=== PATIENT | female | born 1950 | race Caucasian/White ===

== ENCOUNTER 2024-12-19 08:00 | Inpatient (IN) | payer MEDICARE ==
[2024-12-19 08:06] LABS: Glucose,Whole Blood 273 mg/dL (70-110)
--- NOTE | 2024-12-19 08:28 | ED ---
General Adult HPI - General Chief complaint: Shortness of Breath Stated complaint: TRACI Time Seen by Provider: 12/19/24 08:03 Source: patient, EMS, RN notes reviewed, old records reviewed Mode of arrival: EMS Limitations: altered mental status, physical limitation - History of Present Illness Initial comments: 74-year-old female presented from [facility] with dyspnea. History is quite limited on this patient. She has apparently had prior stroke and is bedbound. She was recently admitted to [facility] and apparently was found this morning with increased dyspnea and work of breathing. Patient was hypoxic when found by paramedics and she was placed on CPAP. She was given albuterol, Atrovent, Solu- Medrol. Patient is lethargic but able to answer simple questions. She denies pain complaints. There is no history of vomiting. No history of fever. - Related Data Home Medications Medication Instructions Recorded Confirmed Acetaminophen Tab [Tylenol] 650 mg PEG/G-TUBE Q4H PRN 12/19/24 12/19/24 Aspirin 81 mg PEG/G-TUBE DAILY 12/19/24 12/19/24 Atorvastatin [Lipitor] 40 mg PEG/G-TUBE HS 12/19/24 12/19/24 Bromocriptine Mesylate 2.5 mg PEG/G-TUBE Q8H 12/19/24 12/19/24 Fenofibrate 160 mg PEG/G-TUBE DAILY 12/19/24 12/19/24 INSULIN LISPRO (HumaLOG) [HumaLOG] See Protocol SQ ACHS 12/19/24 12/19/24 Insulin NPH Human Isophane 30 units SQ Q8H 12/19/24 12/19/24 [NovoLIN N] Ipratropium-Albuterol Nebulize 3 ml INHALATION RT-BID 12/19/24 12/19/24 [Duoneb 0.5 mg-3 mg/3 ml Soln] Lactulose 20 gm PEG/G-TUBE TID 12/19/24 12/19/24 Propranolol [Inderal] 10 mg PEG/G-TUBE TID 12/19/24 12/19/24 Valproic Acid Oral Soln [Depakene 250 mg PEG/G-TUBE BID 12/19/24 12/19/24 Syrup] amLODIPine [Norvasc] 5 mg PEG/G-TUBE DAILY 12/19/24 12/19/24 amantadine HCL 100 mg PEG/G-TUBE Q12H 12/19/24 12/19/24 lisinopriL [Zestril] 40 mg PEG/G-TUBE DAILY 12/19/24 12/19/24 Allergies Allergy/AdvReac Type Severity Reaction Status Date / Time No Known Allergies Allergy Verified 12/19/24 10:33 Review of Systems ROS Statement: Those systems with pertinent positive or pertinent negative responses have been documented in the HPI. ROS Other: All systems not noted in ROS Statement are negative. Past Medical History Past Medical History: CVA/TIA History of Any Multi-Drug Resistant Organisms: Unobtainable Past Psychological History: Unable to Obtain Smoking Status: Unknown if ever smoked Past Alcohol Use History: Unable to Obtain Past Drug Use History: Unable to Obtain General Exam Limitations: altered mental status, physical limitation General appearance: lethargic, in distress Head exam: Present: atraumatic, normocephalic Eye exam: Present: normal appearance, PERRL ENT exam: Present: mucous membranes dry Neck exam: Present: normal inspection. Absent: tenderness, meningismus Respiratory exam: Present: respiratory distress, rhonchi, decreased breath sounds Cardiovascular Exam: Present: regular rate, normal rhythm GI/Abdominal exam: Present: soft, other (Recent PEG tube). Absent: distended Extremities exam: Present: normal inspection, normal capillary refill Skin exam: Present: warm Course Vital Signs 12/19/24 12/19/24 12/19/24 08:04 08:05 10:11 Temperature 98.2 F Pulse Rate 75 81 Respiratory 42 H 30 H Rate Blood Pressure 149/85 156/69 O2 Sat by Pulse 99 Oximetry Fraction of 40 Inspired Oxygen (FIO2) Medical Decision Making - Medical Decision Making Was pt. sent in by a medical professional or institution (, PA, MERCHANDISE COORDINATOR, urgent care, hospital, or [facility]...) When possible be specific @ -No Did you speak to anyone other than the patient for history (EMS, parent, family, police, friend...)? What history was obtained from this source @ -No Did you review nursing and triage notes (agree or disagree)? Why? @ -I reviewed and agree with nursing and triage notes Were old charts reviewed (outside hosp., previous admission, EMS record, old EKG, old radiological studies, urgent care reports/EKG's, [facility] records)? Report findings @ -No old charts were reviewed Differential Diagnosis (chest pain, altered mental status, abdominal pain women, abdominal pain men, vaginal bleeding, weakness, fever, dyspnea, syncope, headache, dizziness, GI bleed, back pain, seizure, CVA, palpatations, mental health, musculoskeletal)? @ -Not applicable EKG interpreted by me (3pts min.). @ -[Sinus rhythm rate of 78, IN interval 149, QRS duration 100, QTc [address] segment elevation. X-rays interpreted by me (1pt min.). @Chest x-ray is negative for consolidated pneumonia CT interpreted by me (1pt min.). @ -None done U/S interpreted by me (1pt. min.). @ -None done What testing was considered but not performed or refused? (CT, X-rays, U/S, labs)? Why? @ -None What meds were considered but not given or refused? Why? @ -None Did you discuss the management of the patient with other professionals (professionals i.e. , PA, MERCHANDISE COORDINATOR, lab, RT, psych nurse, social work administrator, siderographer, teacher, control officer manager, pillowcase cleaner)? Give summary @Vandana Was smoking cessation discussed for >3mins.? @ -No Was critical care preformed (if so, how long)? @Yes, 35 minutes Were there social determinants of health that impacted care today? How? (Homelessness, low income, unemployed, alcoholism, drug addiction, transportation, low edu. Level, literacy, decrease access to med. care, detention, rehab)? @ -No Was there de-escalation of care discussed even if they declined (Discuss DNR or withdrawal of care, Hospice)? DNR status @ -No What co-morbidities impacted this encounter? (DM, HTN, Smoking, COPD, CAD, Cancer, CVA, ARF, Chemo, Hep., AIDS, mental health diagnosis, sleep apnea, morbid obesity)? @ -[Bedbound, history of CVA Was patient admitted / discharged? Hospital course, mention meds given and route, prescriptions, significant lab abnormalities, going to OR and other per tinent info. @ -24-year-old female presenting for evaluation of dyspnea. Patient was hypoxic requiring CPAP. She has a reported history of aspiration. She does have what appears to be a recent PEG tube on examination. She has bilateral rhonchi. Vital signs are stable with the exception of tachypnea. Chest x-ray is clear without consolidated pneumonia. She has a leukocytosis, she is hypergl ycemic with no normal electrolytes, negative troponin, negative BNP. Urinalysis is pending. Blood culture pending. And viral panel pending. Patient will be admitted for hypoxic respiratory failure. She is covered with antibiotics given the leukocytosis and recent aspiration. Admitted to [facility]. Undiagnosed new problem with uncertain prognosis? @ -No Drug Therapy requiring intensive monitoring for toxicity (Heparin, Nitro, Insulin, Cardizem)? @ -No Were any procedures done? @ -No Diagnosis/symptom? @ -Hypoxic respiratory failure, leukocytosis Acute, or Chronic, or Acute on Chronic? @ -Acute Uncomplicated (without systemic symptoms) or Complicated (systemic symptoms)? @ -Default Side effects of treatment? @ -No Exacerbation, Progression, or Severe Exacerbation? @ -No Poses a threat to life or bodily function? How? (Chest pain, USA, CA, pneumonia, PE, COPD, DKA, ARF, appy, cholecystitis, CVA, Diverticulitis, Homicidal, Suicidal, threat to staff... and all critical care pts) @ -Yes, respiratory failure, hypoxia, sepsis - Lab Data Result diagrams: 12/19/24 08:10 12/19/24 08:10 Lab Results 12/19/24 12/19/24 12/19/24 Range/Units 08:05 08:10 08:10 WBC 15.38 H (4.50-10.00) 10*3/uL RBC 4.60 (4.10-5.20) 10*6/uL Hgb 13.8 (12.0-15.0) g/dL Hct 41.9 (37.2-46.3) % MCV 91.1 (80.0-97.0) fL MCH 30.0 (27.0-32.0) pg MCHC 32.9 (32.0-37.0) g/dL Plt Count 282 (140-440) 10*3/uL MPV 10.7 (9.5-12.2) fL Immature Gran % (Auto) 2.2 % Neutrophils % 79.3 % Lymphocytes % 13.3 % Monocytes % 4.3 % Eosinophils % 0.5 % Basophils % 0.4 % Immature Gran # 0.34 H (0.00-0.04) 10*3/uL Neutrophils # 12.20 H (1.80-7.70) 10*3/uL Lymphocytes # 2.05 (0.90-5.00) 10*3/uL Monocytes # 0.66 (0.20-1.00) 10*3/uL Eosinophils # 0.07 (0.04-0.35) 10*3/uL Basophils # 0.06 (0.00-0.10) 10*3/uL PT 9.6 L (10.0-12.5) sec INR 0.8 (<1.2) APTT 21.0 L (22.0-30.0) sec VBG pH (7.31-7.41) VBG pCO2 (37-51) mmHg VBG HCO3 (24-28) mmol/L Sodium (137-145) mmol/L Potassium (3.5-5.1) mmol/L Chloride (98-107) mmol/L Carbon Dioxide (22-30) mmol/L Anion Gap mmol/L BUN (7-17) mg/dL Creatinine (0.52-1.04) mg/dL Est GFR (CKD-EPI)AfAm (>60 ml/min/1.73 sqM) Est GFR (CKD-EPI)NonAf (>60 ml/min/1.73 sqM) Glucose (74-99) mg/dL POC Glucose (mg/dL) 273 H (70-110) mg/dL POC Glu Bowl Attendant ID Brijesh Olivas Plasma Lactic Acid Darrel (0.7-2.0) mmol/L Calcium (8.4-10.2) mg/dL Magnesium (1.6-2.3) mg/dL Total Bilirubin (0.2-1.3) mg/dL AST (14-36) U/L ALT (4-34) U/L Alkaline Phosphatase (38-126) U/L Troponin I (0.000-0.034) ng/mL NT-Pro-B Natriuret Pep pg/mL Total Protein (6.3-8.2) g/dL Albumin (3.5-5.0) g/dL 12/19/24 12/19/24 12/19/24 Range/Units 08:10 08:10 08:10 WBC (4.50-10.00) 10*3/uL RBC (4.10-5.20) 10*6/uL Hgb (12.0-15.0) g/dL Hct (37.2-46.3) % MCV (80.0-97.0) fL MCH (27.0-32.0) pg MCHC (32.0-37.0) g/dL Plt Count (140-440) 10*3/uL MPV (9.5-12.2) fL Immature Gran % (Auto) % Neutrophils % % Lymphocytes % % Monocytes % % Eosinophils % % Basophils % % Immature Gran # (0.00-0.04) 10*3/uL Neutrophils # (1.80-7.70) 10*3/uL Lymphocytes # (0.90-5.00) 10*3/uL Monocytes # (0.20-1.00) 10*3/uL Eosinophils # (0.04-0.35) 10*3/uL Basophils # (0.00-0.10) 10*3/uL PT (10.0-12.5) sec INR (<1.2) APTT (22.0-30.0) sec VBG pH (7.31-7.41) VBG pCO2 (37-51) mmHg VBG HCO3 (24-28) mmol/L Sodium 134 L (137-145) mmol/L Potassium 5.6 H (3.5-5.1) mmol/L Chloride 102 (98-107) mmol/L Carbon Dioxide 28 (22-30) mmol/L Anion Gap 4 mmol/L BUN 33 H (7-17) mg/dL Creatinine 0.60 (0.52-1.04) mg/dL Est GFR (CKD-EPI)AfAm >90 (>60 ml/min/1.73 sqM) Est GFR (CKD-EPI)NonAf >90 (>60 ml/min/1.73 sqM) Glucose 285 H (74-99) mg/dL POC Glucose (mg/dL) (70-110) mg/dL POC Glu Bowl Attendant ID Plasma Lactic Acid Darrel 1.1 (0.7-2.0) mmol/L Calcium 9.7 (8.4-10.2) mg/dL Magnesium 2.3 (1.6-2.3) mg/dL Total Bilirubin 0.9 (0.2-1.3) mg/dL AST 55 H (14-36) U/L ALT 54 H (4-34) U/L Alkaline Phosphatase 72 (38-126) U/L Troponin I <0.012 (0.000-0.034) ng/mL NT-Pro-B Natriuret Pep 220 pg/mL Total Protein 5.8 L (6.3-8.2) g/dL Albumin 3.4 L (3.5-5.0) g/dL 12/19/24 Range/Units 08:10 WBC (4.50-10.00) 10*3/uL RBC (4.10-5.20) 10*6/uL Hgb (12.0-15.0) g/dL Hct (37.2-46.3) % MCV (80.0-97.0) fL MCH (27.0-32.0) pg MCHC (32.0-37.0) g/dL Plt Count (140-440) 10*3/uL MPV (9.5-12.2) fL Immature Gran % (Auto) % Neutrophils % % Lymphocytes % % Monocytes % % Eosinophils % % Basophils % % Immature Gran # (0.00-0.04) 10*3/uL Neutrophils # (1.80-7.70) 10*3/uL Lymphocytes # (0.90-5.00) 10*3/uL Monocytes # (0.20-1.00) 10*3/uL Eosinophils # (0.04-0.35) 10*3/uL Basophils # (0.00-0.10) 10*3/uL PT (10.0-12.5) sec INR (<1.2) APTT (22.0-30.0) sec VBG pH 7.42 H (7.31-7.41) VBG pCO2 41 (37-51) mmHg VBG HCO3 26 (24-28) mmol/L Sodium (137-145) mmol/L Potassium (3.5-5.1) mmol/L Chloride (98-107) mmol/L Carbon Dioxide (22-30) mmol/L Anion Gap mmol/L BUN (7-17) mg/dL Creatinine (0.52-1.04) mg/dL Est GFR (CKD-EPI)AfAm (>60 ml/min/1.73 sqM) Est GFR (CKD-EPI)NonAf (>60 ml/min/1.73 sqM) Glucose (74-99) mg/dL POC Glucose (mg/dL) (70-110) mg/dL POC Glu Bowl Attendant ID Plasma Lactic Acid Darrel (0.7-2.0) mmol/L Calcium (8.4-10.2) mg/dL Magnesium (1.6-2.3) mg/dL Total Bilirubin (0.2-1.3) mg/dL AST (14-36) U/L ALT (4-34) U/L Alkaline Phosphatase (38-126) U/L Troponin I (0.000-0.034) ng/mL NT-Pro-B Natriuret Pep pg/mL Total Protein (6.3-8.2) g/dL Albumin (3.5-5.0) g/dL Critical Care Time Critical Care Time: Yes Total Critical Care Time: 35 Disposition Clinical Impression: Respiratory failure, Leukocytosis Disposition: ADMITTED IP TO THIS HOSP Condition: Stable Is patient prescribed a controlled substance at d/c from ED?: No Referrals: Nonstaff,Physician [REFERRING] - 1-2 days Time of Disposition: 10:46
--- NOTE | 2024-12-19 08:53 | XR ---
EXAMINATION TYPE: XR chest 1V portable DATE OF EXAM: 12/19/2024 8:49 AM COMPARISON: None. CLINICAL INDICATION: Female, 74 years old with history of arabella, TECHNIQUE: XR chest 1V portable view(s) obtained. FINDINGS: The heart size is normal. The pulmonary vasculature is normal. The lungs are clear. IMPRESSION: 1. No acute pulmonary process. [facility], , 12/19/2024 8:51 AM
[2024-12-19 09:03] LABS: Basophils # (A) 0.06 10*3/uL (0.00-0.10); Basophils % (A) 0.4 %; Eosinophils # (A) 0.07 10*3/uL (0.04-0.35); Eosinophils % (A) 0.5 %; HCT 41.9 % (37.2-46.3); HGB 13.8 g/dL (12.0-15.0); Lymphocytes # (A) 2.05 10*3/uL (0.90-5.00); Lymphocytes % (A) 13.3 %; MCHC 32.9 g/dL (32.0-37.0); MCV 91.1 fL (80.0-97.0); Mean Platelet Volume 10.7 fL (9.5-12.2); Monocytes # (A) 0.66 10*3/uL (0.20-1.00); Monocytes % (A) 4.3 %; Neutrophils % (A) 79.3 %; Platelet Count 282 10*3/uL (140-440); RDW 15.9 % (11.5-14.5); WBC 15.38 10*3/uL (4.50-10.00)
[2024-12-19 09:04] LABS: VBG PH 7.42 (7.31-7.41)
[2024-12-19 09:29] LABS: INR 0.8 (<1.2); Prothrombin Time 9.6 sec (10.0-12.5)
[2024-12-19 09:32] LABS: ALT 54 U/L (4-34); AST 55 U/L (14-36); African American GFR (CKD) >90 (>60 ml/min/1.73 sqM); Albumin 3.4 g/dL (3.5-5.0); Alkaline Phosphatase 72 U/L (38-126); Anion Gap 4 mmol/L; Blood Urea Nitrogen 33 mg/dL (7-17); Calcium 9.7 mg/dL (8.4-10.2); Carbon Dioxide 28 mmol/L (22-30); Chloride 102 mmol/L (98-107); Glucose 285 mg/dL (74-99); Magnesium 2.3 mg/dL (1.6-2.3); Non-African American GFR(CKD) >90 (>60 ml/min/1.73 sqM); Potassium 5.6 mmol/L (3.5-5.1); Sodium 134 mmol/L (137-145); Total Bilirubin 0.9 mg/dL (0.2-1.3); Total Protein 5.8 g/dL (6.3-8.2)
[2024-12-19 09:40] LABS: NT-Pro-B-Type Natriuretic Pept 220 pg/mL
[2024-12-19] MEDS: SODIUM CHLORIDE 0.9% 1,000 ML IV SCH (10:13)
[2024-12-19] MEDS: SODIUM CHLORIDE 0.9% 500 ML 500 ML IV ONE (10:13)
[2024-12-19] MEDS ORDERED: NALOXONE 0.4 MG/ML 1 ML VIAL IV PRN (10:46)
[2024-12-19] MEDS: AZITHROMYCIN 500 MG in SODIUM CHLORIDE 0.9% 250 ML IVPB STA (11:07)
[2024-12-19 11:39] LABS: Appearance,Urine Cloudy (Clear); Bacteria,Urine Many /hpf; Bilirubin,Urine Negative (Negative); Blood,Urine Moderate (Negative); Budding Yeast,Urine Few /hpf; Color,Urine Yellow; Glucose,Urine (UA) 4+ (Negative); Ketones,Urine Trace (Negative); Leukocyte Esterase,Urine Large (Negative); Mucus,Urine Moderate /hpf; Nitrite,Urine Negative (Negative); PH, Urine 5.5 (5.0-8.0); Protein,Urine 1+ (Negative); RBC,Urine 24 /hpf (0-5); Specific Gravity,Urine 1.022 (1.001-1.035); Squamous Epithelial Cell,Urine <1 /hpf (0-4); Urobilinogen,Urine <2.0 mg/dL (<2.0); WBC,Urine 55 /hpf (0-5)
[2024-12-19 11:53] LABS: Influenza A Not Detected (Not Detectd); Influenza B Not Detected (Not Detectd); RSV Not Detected (Not Detectd)
[2024-12-20 12:49] LABS: Basophils # (A) 0.04 10*3/uL (0.00-0.10); Basophils % (A) 0.3 %; Eosinophils # (A) 0.01 10*3/uL (0.04-0.35); Eosinophils % (A) 0.1 %; HCT 37.2 % (37.2-46.3); HGB 12.1 g/dL (12.0-15.0); Lymphocytes # (A) 1.66 10*3/uL (0.90-5.00); Lymphocytes % (A) 13.1 %; MCH 30.1 pg (27.0-32.0); MCHC 32.5 g/dL (32.0-37.0); MCV 92.5 fL (80.0-97.0); Mean Platelet Volume 10.1 fL (9.5-12.2); Monocytes # (A) 0.91 10*3/uL (0.20-1.00); Monocytes % (A) 7.2 %; Neutrophils # (A) 9.86 10*3/uL (1.80-7.70); Neutrophils % (A) 77.8 %; Platelet Count 246 10*3/uL (140-440); RBC 4.02 10*6/uL (4.10-5.20); RDW 15.3 % (11.5-14.5); WBC 12.67 10*3/uL (4.50-10.00)
[2024-12-20 12:59] LABS: African American GFR (CKD) >90 (>60 ml/min/1.73 sqM); Anion Gap 4 mmol/L; Blood Urea Nitrogen 35 mg/dL (7-17); Calcium 9.6 mg/dL (8.4-10.2); Carbon Dioxide 27 mmol/L (22-30); Chloride 108 mmol/L (98-107); Glucose 343 mg/dL (74-99); Non-African American GFR(CKD) >90 (>60 ml/min/1.73 sqM); Potassium 4.9 mmol/L (3.5-5.1); Sodium 139 mmol/L (137-145)
--- NOTE | 2024-12-20 13:26 | P.HPIM ---
History of Present Illness Patient returns on 10-year-old female was sent in from skilled nursing because of hypoxemia. Patient is on 3 days of allergen azithromycin dose of allergen patient does have history of COPD. 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 Patient blood sugars are high as well patient clinically does not seem to be in COPD exacerbation at this time her oxygen saturation are within normal limits on 3 L of oxygen. Patient's D-dimer is elevated because of which we are obtaining CT of the chest. Patient does have a stage II sacral decubitus ulcer which does not appear to be infected patient denies any UTI symptoms does have leukocytosis urine is abnormal because of the Bragg catheter which will be replaced. Patient was started on Rocephin which I will discontinue at this time. REVIEW OF SYSTEMS: All other systems are negative except those mentioned in the HPI PHYSICAL EXAMINATION: GENERAL: The patient is alert and oriented x3, not in any acute distress. Well developed, well nourished. HEENT: Pupils are round and equally reacting to light. EOMI. No scleral icterus. No conjunctival pallor. Normocephalic, atraumatic. No pharyngeal erythema. No thyromegaly. CARDIOVASCULAR: S1 and S2 present. No murmurs, rubs, or gallops. PULMONARY: Chest is clear to auscultation, no wheezing or crackles. ABDOMEN: Soft, nontender, nondistended, normoactive bowel sounds. No palpable organomegaly. MUSCULOSKELETAL: No joint swelling or deformity. EXTREMITIES: No cyanosis, clubbing, or pedal edema. NEUROLOGICAL: Flaccid paralysis on the right side SKIN: Sacral decub is also stage III does not appear to be infected Assessment and plan -Hypoxia etiology is not clear patient does not appear to be in COPD exacerbation patient not be started on systemic steroids patient has uncontrolled type 2 diabetes mellitus. Will obtain CT rule out pulmonary embolism because of elevated D-dimer and unexplained hypoxemia - Type 2 diabetes mellitus uncontrolled elevated blood sugars patient seen and insulin regimen will be changed to basal bolus regimen patient was started on 25 units of Lantus twice a day along with sliding scale Premeal insulin. -Sacral decubitus ulcer which does not appear to be infected - Abnormal urine secondary to Bragg catheter which will be replaced since patient has leukocytosis this can be considered as catheter related UTI for which the treatment is with change of Bragg catheter antibiotics will be discontinued. - Chronic hypoxic and hypercapnic respiratory failure secondary to COPD does not appear to be in acute exacerbation at this time - Nicotine use history which she discontinued since her stroke - Hyperlipidemia - Hypertension - Hypothyroidism For above-mentioned chronic medical problems patient will be resumed on appropriate home medications DVT prophylaxis: Lovenox Past Medical History Past Medical History: CVA/TIA, Diabetes Mellitus, Hyperlipidemia, Hypertension, Thyroid Disorder Additional Past Medical History / Comment(s): Lactic acidosis, acute respiratory failure, dysphagia, right sided paralysis related to stroke History of Any Multi-Drug Resistant Organisms: None Reported Past Surgical History: Unable to Obtain Additional Past Surgical History / Comment(s): tubal ligation Past Anesthesia/Blood Transfusion Reactions: No Reported Reaction Smoking Status: Current every day smoker, Former smoker, Unknown if ever smoked Medications and Allergies Home Medications Medication Instructions Recorded Confirmed Type Acetaminophen Tab [Tylenol] 650 mg PEG/G-TUBE Q4H PRN 12/19/24 12/19/24 History Aspirin 81 mg PEG/G-TUBE DAILY 12/19/24 12/19/24 History Atorvastatin [Lipitor] 40 mg PEG/G-TUBE HS 12/19/24 12/19/24 History Bromocriptine Mesylate 2.5 mg PEG/G-TUBE Q8H 12/19/24 12/19/24 History Fenofibrate 160 mg PEG/G-TUBE DAILY 12/19/24 12/19/24 History INSULIN LISPRO (HumaLOG) [HumaLOG] See Protocol SQ ACHS 12/19/24 12/19/24 History Insulin NPH Human Isophane 30 units SQ Q8H 12/19/24 12/19/24 History [NovoLIN N] Ipratropium-Albuterol Nebulize 3 ml INHALATION RT-BID 12/19/24 12/19/24 History [Duoneb 0.5 mg-3 mg/3 ml Soln] Lactulose 20 gm PEG/G-TUBE TID 12/19/24 12/19/24 History Propranolol [Inderal] 10 mg PEG/G-TUBE TID 12/19/24 12/19/24 History Valproic Acid Oral Soln [Depakene 250 mg PEG/G-TUBE BID 12/19/24 12/19/24 History Syrup] amLODIPine [Norvasc] 5 mg PEG/G-TUBE DAILY 12/19/24 12/19/24 History amantadine HCL 100 mg PEG/G-TUBE Q12H 12/19/24 12/19/24 History lisinopriL [Zestril] 40 mg PEG/G-TUBE DAILY 12/19/24 12/19/24 History Allergies Allergy/AdvReac Type Severity Reaction Status Date / Time No Known Allergies Allergy Verified 12/19/24 10:33 Physical Exam Vitals: Vital Signs Temp Pulse Resp BP Pulse Ox FiO2 12/20/24 11:32 72 16 151/70 100 12/20/24 11:17 100 12/20/24 10:30 66 14 141/58 100 12/20/24 07:33 40 12/20/24 06:00 71 20 149/70 100 12/20/24 03:30 40 12/20/24 03:00 69 20 141/62 100 12/20/24 01:00 71 20 128/59 100 12/19/24 23:01 40 12/19/24 23:00 86 20 127/57 100 12/19/24 19:51 79 18 140/60 99 12/19/24 19:31 40 12/19/24 19:00 80 25 H 141/68 100 12/19/24 18:00 79 26 H 144/60 100 12/19/24 17:00 79 27 H 134/74 100 12/19/24 16:00 76 21 139/61 100 12/19/24 15:43 40 12/19/24 15:00 98.1 F 78 26 H 140/71 99 12/19/24 14:00 76 23 144/70 100 Intake and Output 12/19/24 12/20/24 12/20/24 22:59 06:59 14:59 Output Total 1000 650 Balance -1000 -650 Output: Urine 1000 650 Other: Weight 86.183 kg Results CBC & Chem 7: 12/20/24 12:35 12/20/24 12:35 Labs: Abnormal Lab Results - Last 24 Hours (Table) 12/20/24 12/20/24 12/20/24 Range/Units 12:35 12:35 12:35 WBC 12.67 H (4.50-10.00) 10*3/uL RBC 4.02 L (4.10-5.20) 10*6/uL Immature Gran # 0.19 H (0.00-0.04) 10*3/uL Neutrophils # 9.86 H (1.80-7.70) 10*3/uL Eosinophils # 0.01 L (0.04-0.35) 10*3/uL D-Dimer 1.21 H (<0.60) mg/L FEU Chloride 108 H (98-107) mmol/L BUN 35 H (7-17) mg/dL Glucose 343 H (74-99) mg/dL Thrombosis Risk Factor Assmnt - Choose All That Apply Any of the Below Risk Factors Present?: Yes Each Factor Represents 1 point: Abnormal pulmonary function (COPD), Medical pt on bed rest, Obesity (BMI >25), Serious lung disease incl. pneumonia (< 1month), Swollen legs (current) Other Risk Factors: Yes Each Risk Factor Represents 2 Points: Age 61-74 years, Patient confined to bed Each Risk Factor Represents 3 Points: History of DVT/PE Each Risk Factor Represents 5 Points: Stroke (< 1 month) Thrombosis Risk Factor Assessment Total Risk Factor Score: 17 Thrombosis Risk Factor Assessment Level: High Risk
[2024-12-20] MEDS: BROMOCRIPTINE MESYLATE 2.5 MG PEG/G-TUBE SCH (13:48)
--- NOTE | 2024-12-20 14:24 | P.CNPUL ---
History of Present Illness Consult date: 12/20/24 Requesting physician: Ai Dubon Reason for consult: dyspnea Chief complaint: Increased work of breathing, hypoxemia History of present illness: This is a 74-year-old female patient who recently had a cerebrovascular accident leaving her with right sided paralysis and was at [facility] and subsequently discharged a few days ago to a local group home. She has a history of diabetes mellitus, type II, dysphagia, aphasia, hyperlipidemia, hyperlipidemia, chronic and ongoing tobacco dependence up until her stroke, PEG tube placement. She was brought into the emergency room yesterday after being found to have increased work of breathing and low O2 saturations. Chest x-ray reveals no acute pulmonary process. White count 12.6. Hemoglobin 12.1. Platelets 246. D-dimer 1.21. Sodium 139. Potassium 4.9. Bicarb 27. BUN 35. Creatinine 0.62. Glucose 343. Urinalysis cloudy with 4+ glucose trace ketones large leukocyte esterase and high WBCs. Viral screen is negative. She is seen today in consultation in the emergency department. She is currently resting on a stretcher. Maintaining O2 saturations up to 100% on 3 L/min per nasal cannula. She is afebrile. Hemodynamically stable. CT angiogram to rule out pulmonary embolism is pending. No information is obtained from the patient. No family members present. Review of Systems ROS unobtainable: due to mental status Past Medical History Past Medical History: CVA/TIA, Diabetes Mellitus, Hyperlipidemia, Hypertension, Thyroid Disorder Additional Past Medical History / Comment(s): Lactic acidosis, acute respiratory failure, dysphagia, right sided paralysis related to stroke History of Any Multi-Drug Resistant Organisms: None Reported Past Surgical History: Unable to Obtain Additional Past Surgical History / Comment(s): tubal ligation Past Anesthesia/Blood Transfusion Reactions: No Reported Reaction Smoking Status: Current every day smoker, Former smoker, Unknown if ever smoked Medications and Allergies Home Medications Medication Instructions Recorded Confirmed Type Acetaminophen Tab [Tylenol] 650 mg PEG/G-TUBE Q4H PRN 12/19/24 12/19/24 History Aspirin 81 mg PEG/G-TUBE DAILY 12/19/24 12/19/24 History Atorvastatin [Lipitor] 40 mg PEG/G-TUBE HS 12/19/24 12/19/24 History Bromocriptine Mesylate 2.5 mg PEG/G-TUBE Q8H 12/19/24 12/19/24 History Fenofibrate 160 mg PEG/G-TUBE DAILY 12/19/24 12/19/24 History INSULIN LISPRO (HumaLOG) [HumaLOG] See Protocol SQ ACHS 12/19/24 12/19/24 History Insulin NPH Human Isophane 30 units SQ Q8H 12/19/24 12/19/24 History [NovoLIN N] Ipratropium-Albuterol Nebulize 3 ml INHALATION RT-BID 12/19/24 12/19/24 History [Duoneb 0.5 mg-3 mg/3 ml Soln] Lactulose 20 gm PEG/G-TUBE TID 12/19/24 12/19/24 History Propranolol [Inderal] 10 mg PEG/G-TUBE TID 12/19/24 12/19/24 History Valproic Acid Oral Soln [Depakene 250 mg PEG/G-TUBE BID 12/19/24 12/19/24 History Syrup] amLODIPine [Norvasc] 5 mg PEG/G-TUBE DAILY 12/19/24 12/19/24 History amantadine HCL 100 mg PEG/G-TUBE Q12H 12/19/24 12/19/24 History lisinopriL [Zestril] 40 mg PEG/G-TUBE DAILY 12/19/24 12/19/24 History Allergies Allergy/AdvReac Type Severity Reaction Status Date / Time No Known Allergies Allergy Verified 12/19/24 10:33 Physical Exam Vitals: Vital Signs Temp Pulse Resp BP Pulse Ox FiO2 12/20/24 11:32 72 16 151/70 100 12/20/24 11:17 100 12/20/24 10:30 66 14 141/58 100 12/20/24 07:33 40 12/20/24 06:00 71 20 149/70 100 12/20/24 03:30 40 12/20/24 03:00 69 20 141/62 100 12/20/24 01:00 71 20 128/59 100 12/19/24 23:01 40 12/19/24 23:00 86 20 127/57 100 12/19/24 19:51 79 18 140/60 99 12/19/24 19:31 40 12/19/24 19:00 80 25 H 141/68 100 12/19/24 18:00 79 26 H 144/60 100 12/19/24 17:00 79 27 H 134/74 100 12/19/24 16:00 76 21 139/61 100 12/19/24 15:43 40 12/19/24 15:00 98.1 F 78 26 H 140/71 99 Intake and Output 12/19/24 12/20/24 12/20/24 22:59 06:59 14:59 Output Total 1000 650 Balance -1000 -650 Output: Urine 1000 650 Other: Weight 86.183 kg GENERAL EXAM: Alert, nonverbal, 74-year-old female, on 3 L nasal cannula, fairly comfortable in no apparent distress. HEAD: Normocephalic. EYES: Normal reaction of pupils, equal size. NOSE: Clear with pink turbinates. THROAT: No erythema or exudates. NECK: No masses, no JVD. CHEST: No chest wall deformity. LUNGS: Equal air entry with no crackles, wheeze, rhonchi or dullness. CVS: S1 and S2 normal with no audible murmur, regular rhythm. ABDOMEN: PEG tube exit site is clean and dry. No hepatosplenomegaly, normal bowel sounds, no guarding or rigidity. SPINE: No scoliosis or deformity SKIN: Sacral ulcer. Some ecchymosis and bruising noted CENTRAL NERVOUS SYSTEM: Right sided hemiparalysis, tone is normal in all 4 extremities. EXTREMITIES: There is no peripheral edema. No clubbing, no cyanosis. Peripheral pulses are intact. Results - Laboratory Findings CBC and BMP: 12/20/24 12:35 12/20/24 12:35 PT/INR, D-dimer PT 9.6 sec (10.0-12.5) L 12/19/24 08:10 INR 0.8 (<1.2) 12/19/24 08:10 D-Dimer 1.21 mg/L FEU (<0.60) H 12/20/24 12:35 Abnormal lab findings: Abnormal Labs 12/19/24 12/19/24 12/19/24 08:05 08:10 08:10 WBC 15.38 H RBC Immature Gran # 0.34 H Neutrophils # 12.20 H Eosinophils # PT 9.6 L APTT 21.0 L D-Dimer VBG pH Sodium Potassium Chloride BUN Glucose POC Glucose (mg/dL) 273 H AST ALT Total Protein Albumin Urine Appearance Urine Protein Urine Glucose (UA) Urine Ketones Urine Blood Ur Leukocyte Esterase Urine RBC Urine WBC Urine Bacteria Urine Mucus Urine Yeast (Budding) 12/19/24 12/19/24 12/19/24 08:10 08:10 10:42 WBC RBC Immature Gran # Neutrophils # Eosinophils # PT APTT D-Dimer VBG pH 7.42 H Sodium 134 L Potassium 5.6 H Chloride BUN 33 H Glucose 285 H POC Glucose (mg/dL) AST 55 H ALT 54 H Total Protein 5.8 L Albumin 3.4 L Urine Appearance Cloudy H Urine Protein 1+ H Urine Glucose (UA) 4+ H Urine Ketones Trace H Urine Blood Moderate H Ur Leukocyte Esterase Large H Urine RBC 24 H Urine WBC 55 H Urine Bacteria Many H Urine Mucus Moderate H Urine Yeast (Budding) Few H 12/20/24 12/20/24 12/20/24 12:35 12:35 12:35 WBC 12.67 H RBC 4.02 L Immature Gran # 0.19 H Neutrophils # 9.86 H Eosinophils # 0.01 L PT APTT D-Dimer 1.21 H VBG pH Sodium Potassium Chloride 108 H BUN 35 H Glucose 343 H POC Glucose (mg/dL) AST ALT Total Protein Albumin Urine Appearance Urine Protein Urine Glucose (UA) Urine Ketones Urine Blood Ur Leukocyte Esterase Urine RBC Urine WBC Urine Bacteria Urine Mucus Urine Yeast (Budding) - Diagnostic Findings Chest x-ray: image reviewed Assessment and Plan Assessment: Acute hypoxemic respiratory failure possibly related to a COPD exacerbation or possible pulmonary embolism. CT angiogram pending. Chest x-ray clear. Viral screen negative Recent CVA with right sided paralysis treated at [facility] then discharged to a local group home Dysphagia secondary to CVA with PEG tube placement Aphasia secondary to CVA Possible urinary tract infection History of chronic tobacco dependence Possible chronic obstructive pulmonary disease History of diabetes mellitus, type II History of hypertension Hyperlipidemia Plan: The patient was seen and evaluated Chest x-ray, labs and medications reviewed CT angiogram pending Currently stable on 3 L nasal cannula Continue DuoNeb inhalations Resume home medications Lovenox for DVT prophylaxis Obtain records from [facility]/Edmundo Underwood We will continue to follow and make further recommendations based on her cl inical status I have personally seen and examined the patient, performed the documentation and the assessment and plan as written. Number of minutes spent on the visit: 20 Dictation was produced using [employer] dictation software. Please excuse any grammatical, word or spelling errors. Time with Patient: Greater than 30
[2024-12-20 14:49] LABS: Glucose,Whole Blood 351 mg/dL (70-110)
[2024-12-20] MEDS: INSULIN NPH 100 UNIT/ML 10 ML VIAL SQ SCH (15:11)
--- NOTE | 2024-12-20 15:14 | CT ---
EXAMINATION TYPE: CT chest angio for PE DATE OF EXAM: 12/20/2024 2:41 PM COMPARISON: Chest radiograph from same day. Multiple CTs of the chest with most recent on . CLINICAL INDICATION: Female, 74 years old with history of Pulmonary embolism; TECHNIQUE/CONTRAST: CTA scan of the thorax is performed following demonstration of IV contrast according to PE protocol. MIP images are created and reviewed these are created on a separate workstation.. CT DLP: 367.7 mGycm, Automated exposure control for dose reduction was used. FINDINGS: Pulmonary Artery: There is no evidence for a filling defect within the pulmonary vasculature to sugge st acute pulmonary embolism. The pulmonary artery is of normal size. Lungs/Pleura: Mild dependent consolidative changes in the lower lobes suggestive of atelectasis and/o r pneumonia. No sizable pleural effusion. No appreciable pneumothorax. Airway: Large airways are patent. Heart: Heart is within normal limits for size. Vasculature: No evidence of aortic aneurysm. Mediastinum: No gross evidence of adenopathy. Musculoskeletal: No acute osseous abnormalities Soft Tissues/lymph nodes: Unremarkable. Lower neck: No significant findings. Upper Abdomen: Demonstrate no acute pathology. Partially visualized chronic pancreatitis with pancrea tic calcifications. Enhancing and hypodense right hepatic lobe lesions partially visualized liver (im age 143/155) additional 10 mm evident lesion in the left hepatic lobe (image 142/155). IMPRESSION: 1. No evidence of acute pulmonary embolism. 2. Mild dependent consolidative changes in the lower lobes suggestive of atelectasis and/or pneumoni a. 3. Chronic pancreatitis in the partially visualized upper abdomen. 4. Indeterminate enhancing and hypodense hepatic lesions as above. Recommend outpatient MRI for more definitive evaluation as clinically warranted. [facility], , 12/20/2024 3:12 PM
[2024-12-20] MEDS: amLODIPine 5 MG TAB PEG/G-TUBE SCH (15:16)
[2024-12-20 16:15] LABS: Glucose,Whole Blood 343 mg/dL (70-110)
[2024-12-20] MEDS: LACTULOSE 20 GM/30 ML CUP PO SCH (17:54)
[2024-12-20] MEDS: PROPRANOLOL 10 MG TAB PEG/G-TUBE SCH (17:54)
[2024-12-20] MEDS: INSULIN LISPRO (HumaLOG) 100 UNIT/ML 10 mL VL SQ SCH (18:35)
--- NOTE | 2024-12-20 18:36 | P.HPIM ---
History of Present Illness H&P Date: 12/19/24 Chief Complaint: Shortness of breath 74-year-old female presented from care home with dyspnea. History is quite limited on this patient. She has apparently had prior stroke and is bedbound. She was recently admitted to care home and apparently was found this morning with increased dyspnea and work of breathing. Patient was hypoxic when found by paramedics and she was placed on CPAP. She was given albuterol, Atrovent, Solu- Medrol. Patient is lethargic but able to answer simple questions. She denies pain complaints. There is no history of vomiting. No history of fever. Upon arrival to ED patient was in acute respiratory distress and had been placed on B iPAP Chest x-ray reveals no acute pulmonary process. Lab review shows White count 12.6. Hemoglobin 12.1. Platelets 246. D-dimer 1.21. Sodium 139. Potassium 4.9. Bicarb 27. BUN 35. Creatinine 0.62. Glucose 343. - Urinalysis cloudy with 4+ glucose trace ketones large leukocyte esterase and high WBCs. - Viral screen is negative. Review of Systems ROS unobtainable: due to mental status Past Medical History Past Medical History: CVA/TIA Additional Past Medical History / Comment(s): Lactic acidosis, acute respiratory failure, dysphagia, right sided weakness, parkinson's, History of Any Multi-Drug Resistant Organisms: Unobtainable Past Surgical History: Unable to Obtain Past Psychological History: Unable to Obtain Smoking Status: Unknown if ever smoked Past Alcohol Use History: Unable to Obtain Past Drug Use History: Unable to Obtain Medications and Allergies Home Medications Medication Instructions Recorded Confirmed Type Acetaminophen Tab [Tylenol] 650 mg PEG/G-TUBE Q4H PRN 12/19/24 12/19/24 History Aspirin 81 mg PEG/G-TUBE DAILY 12/19/24 12/19/24 History Atorvastatin [Lipitor] 40 mg PEG/G-TUBE HS 12/19/24 12/19/24 History Bromocriptine Mesylate 2.5 mg PEG/G-TUBE Q8H 12/19/24 12/19/24 History Fenofibrate 160 mg PEG/G-TUBE DAILY 12/19/24 12/19/24 History INSULIN LISPRO (HumaLOG) [HumaLOG] See Protocol SQ ACHS 12/19/24 12/19/24 History Insulin NPH Human Isophane 30 units SQ Q8H 12/19/24 12/19/24 History [NovoLIN N] Ipratropium-Albuterol Nebulize 3 ml INHALATION RT-BID 12/19/24 12/19/24 History [Duoneb 0.5 mg-3 mg/3 ml Soln] Lactulose 20 gm PEG/G-TUBE TID 12/19/24 12/19/24 History Propranolol [Inderal] 10 mg PEG/G-TUBE TID 12/19/24 12/19/24 History Valproic Acid Oral Soln [Depakene 250 mg PEG/G-TUBE BID 12/19/24 12/19/24 Histo ry Syrup] amLODIPine [Norvasc] 5 mg PEG/G-TUBE DAILY 12/19/24 12/19/24 History amantadine HCL 100 mg PEG/G-TUBE Q12H 12/19/24 12/19/24 History lisinopriL [Zestril] 40 mg PEG/G-TUBE DAILY 12/19/24 12/19/24 History Allergies Allergy/AdvReac Type Severity Reaction Status Date / Time No Known Allergies Allergy Verified 12/19/24 10:33 Physical Exam Vitals: Vital Signs Temp Pulse Resp BP Pulse Ox FiO2 12/20/24 11:32 72 16 151/70 100 12/20/24 11:17 100 12/20/24 10:30 66 14 141/58 100 12/20/24 07:33 40 12/20/24 06:00 71 20 149/70 100 12/20/24 03:30 40 12/20/24 03:00 69 20 141/62 100 12/20/24 01:00 71 20 128/59 100 12/19/24 23:01 40 12/19/24 23:00 86 20 127/57 100 12/19/24 19:51 79 18 140/60 99 12/19/24 19:31 40 12/19/24 19:00 80 25 H 141/68 100 12/19/24 18:00 79 26 H 144/60 100 12/19/24 17:00 79 27 H 134/74 100 12/19/24 16:00 76 21 139/61 100 12/19/24 15:43 40 12/19/24 15:00 98.1 F 78 26 H 140/71 99 12/19/24 14:00 76 23 144/70 100 12/19/24 13:00 77 26 H 142/64 100 Intake and Output 12/19/24 12/20/24 12/20/24 22:59 06:59 14:59 Output Total 1000 650 Balance -1000 -650 Output: Urine 1000 650 Limitations: altered mental status, physical limitation General appearance: lethargic, in distress Head exam: Present: atraumatic, normocephalic Eye exam: Present: normal appearance, PERRL ENT exam: Present: mucous membranes dry Neck exam: Present: normal inspection. Absent: tenderness, meningismus Respiratory exam: Present: respiratory distress, rhonchi, decreased breath sounds Cardiovascular Exam: Present: regular rate, normal rhythm GI/Abdominal exam: Present: soft, other (Recent PEG tube). Absent: distended Extremities exam: Present: normal inspection, normal capillary refill Skin exam: Present: warm Results CBC & Chem 7: 12/20/24 12:35 12/20/24 12:35 Assessment and Plan Assessment: -Hypoxia etiology is not clear patient does not appear to be in COPD exacerbation patient not be started on systemic steroids patient has uncontrolled type 2 diabetes mellitus. -D-dimer has been ordered and is elevated. Will obtain CT rule out pulmonary embolism because of elevated D-dimer and unexplained hypoxemia - Type 2 diabetes mellitus uncontrolled elevated blood sugars patient seen and insulin regimen will be changed to basal bolus regimen patient was started on 25 units of Lantus twice a day along with sliding scale Premeal insulin. -Sacral decubitus ulcer which does not appear to be infected - Abnormal urine secondary to Bragg catheter which will be replaced since pat ient has leukocytosis this can be considered as catheter related UTI for which the treatment is with change of Bragg catheter antibiotics will be discontinued. - Chronic hypoxic and hypercapnic respiratory failure secondary to COPD does not appear to be in acute exacerbation at this time - Nicotine use history which she discontinued since her stroke - Hyperlipidemia - Hypertension - Hypothyroidism For above-mentioned chronic medical problems patient will be resumed on appropriate home medications DVT prophylaxis: Lovenox
[2024-12-20 20:11] LABS: Glucose,Whole Blood 303 mg/dL (70-110)
[2024-12-20] MEDS: IPRATROPIUM-ALBUTEROL 3 ML NEB INHALATION SCH (21:00)
[2024-12-20] MEDS: ATORVASTATIN 40 MG TAB PEG/G-TUBE SCH (22:48)
[2024-12-20] MEDS: INSULIN GLARGINE (LANTUS) 100 UNIT/ML SYR SQ SCH (22:49)
[2024-12-20] MEDS: cefTRIAXone 2 GM in DEXTROSE 5% IN WATER 50 ML IVPB SCH (22:50)
[2024-12-20] MEDS: VALPROIC ACID ORAL SOLN 250 MG/5 ML CUP PEG/G-TUBE SCH (22:50)
[2024-12-21 06:08] LABS: Glucose,Whole Blood 122 mg/dL (70-110)
[2024-12-21 07:26] LABS: Basophils # (A) 0.02 10*3/uL (0.00-0.10); Basophils % (A) 0.2 %; Eosinophils # (A) 0.05 10*3/uL (0.04-0.35); Eosinophils % (A) 0.5 %; HCT 34.1 % (37.2-46.3); Lymphocytes # (A) 2.11 10*3/uL (0.90-5.00); Lymphocytes % (A) 20.7 %; MCH 29.9 pg (27.0-32.0); MCHC 32.3 g/dL (32.0-37.0); MCV 92.7 fL (80.0-97.0); Mean Platelet Volume 9.9 fL (9.5-12.2); Monocytes # (A) 0.71 10*3/uL (0.20-1.00); Neutrophils # (A) 7.15 10*3/uL (1.80-7.70); Neutrophils % (A) 70.2 %; Platelet Count 233 10*3/uL (140-440); RBC 3.68 10*6/uL (4.10-5.20); RDW 15.7 % (11.5-14.5); WBC 10.18 10*3/uL (4.50-10.00)
[2024-12-21 07:57] LABS: African American GFR (CKD) >90 (>60 ml/min/1.73 sqM); Anion Gap 3 mmol/L; Blood Urea Nitrogen 26 mg/dL (7-17); Calcium 9.5 mg/dL (8.4-10.2); Carbon Dioxide 29 mmol/L (22-30); Chloride 108 mmol/L (98-107); Glucose 128 mg/dL (74-99); Non-African American GFR(CKD) 90 (>60 ml/min/1.73 sqM); Potassium 4.4 mmol/L (3.5-5.1); Sodium 140 mmol/L (137-145)
[2024-12-21] MEDS: ASPIRIN 81 MG PEG/G-TUBE SCH (08:51)
[2024-12-21] MEDS: ENOXAPARIN 40 MG/0.4 ML SYRINGE SQ SCH (08:51)
[2024-12-21] MEDS: FENOFIBRATE 160 MG TAB PEG/G-TUBE SCH (08:51)
[2024-12-21] MEDS: lisinopriL 20 MG TAB PEG/G-TUBE SCH (08:52)
[2024-12-21 11:36] LABS: Glucose,Whole Blood 208 mg/dL (70-110)
--- NOTE | 2024-12-21 12:11 | P.PN ---
Subjective Progress Note Date: 12/21/24 Principal diagnosis: Acute hypoxic failure, multifactorial related to COPD, medical debility, hypoventilation and bibasilar atelectasis with recent CVA. This is a 74-year-old female patient who recently had a cerebrovascular accident leaving her with right sided paralysis and was at [facility] and subsequently discharged a few days ago to a local alf. She has a h istory of diabetes mellitus, type II, dysphagia, aphasia, hyperlipidemia, hyperlipidemia, chronic and ongoing tobacco dependence up until her stroke, PEG tube placement. She was brought into the emergency room yesterday after being found to have increased work of breathing and low O2 saturations. Chest x-ray reveals no acute pulmonary process. White count 12.6. Hemoglobin 12.1. Platelets 246. D-dimer 1.21. Sodium 139. Potassium 4.9. Bicarb 27. BUN 35. Creatinine 0.62. Glucose 343. Urinalysis cloudy with 4+ glucose trace ketones large leukocyte esterase and high WBCs. Viral screen is negative. She is seen today in consultation in the emergency department. She is currently resting on a stretcher. Maintaining O2 saturations up to 100% on 3 L/min per nasal cannula. She is afebrile. Hemodynamically stable. CT angiogram to rule out pulmonary embolism is pending. No information is obtained from the patient. No family members present. Patient was seen today on 12/21/2024, basically the patient is about the same, she is in bed, nonverbal, seems to be chronically ill, she has right-sided hemiplegia, CT of the chest showed no evidence of pulmonary embolism, in addition it showed dependent consolidative changes in the lower lobes consistent with mostly atelectasis, doubt pneumonia although the patient could be a set up for aspiration pneumonia but she already has a PEG tube in place, and she is not given any feedings orally. Not to mention the patient is on Rocephin for presumptive UTI as per admitting physician. Labs reviewed WBC count is 10 hemoglobin 11 electrolytes are normal renal profile is normal Objective - Vital Signs Vital signs: Vital Signs Temp 97.6 F 12/21/24 08:50 Pulse 63 12/21/24 09:02 Resp 16 12/21/24 09:02 BP 149/83 12/21/24 08:50 Pulse Ox 100 12/21/24 08:50 FiO2 40 12/21/24 08:49 Intake & Output 12/20/24 12/21/24 12/21/24 18:59 06:59 18:59 Intake Total 50 Output Total 900 1100 Balance -900 -1050 Weight 86.183 kg 80 kg Intake: Intake, IV Titration 50 Amount cefTRIAXone 2 gm In 50 Dextrose 5% in Water 50 ml @ 100 mls/hr IVPB Q24H [facility] Rx#:[id number] Output: Urine 900 1100 Other: Voiding Method Indwelling Catheter Indwelling Catheter Indwelling Catheter - Exam GENERAL EXAM: Alert, nonverbal, 74-year-old female, on 3 L nasal cannula, fairly comfortable in no apparent distress. HEAD: Normocephalic. Facial droop is noted. EYES: Normal reaction of pupils, equal size. NOSE: Clear with pink turbinates. THROAT: No erythema or exudates. NECK: No masses, no JVD. CHEST: No chest wall deformity. LUNGS: Equal air entry with no crackles, wheeze, rhonchi or dullness. CVS: S1 and S2 normal with no audible murmur, regular rhythm. ABDOMEN: PEG tube exit site is clean and dry. No hepatosplenomegaly, normal bowel sounds, no guarding or rigidity. SKIN: Sacral ulcer. Some ecchymosis and bruising noted CENTRAL NERVOUS SYSTEM: Nonverbal, right sided hemiplegia noted EXTREMITIES: There is no peripheral edema. No clubbing, no cyanosis. Peripheral pulses are intact. - Labs CBC & Chem 7: 12/21/24 06:41 12/21/24 06:41 Labs: Abnormal Lab Results - Last 24 Hours (Table) 12/20/24 12/20/24 12/20/24 Range/Units 12:35 12:35 12:35 WBC 12.67 H (4.50-10.00) 10*3/uL RBC 4.02 L (4.10-5.20) 10*6/uL Hgb (12.0-15.0) g/dL Hct (37.2-46.3) % Immature Gran # 0.19 H (0.00-0.04) 10*3/uL Neutrophils # 9.86 H (1.80-7.70) 10*3/uL Eosinophils # 0.01 L (0.04-0.35) 10*3/uL D-Dimer 1.21 H (<0.60) mg/L FEU Chloride 108 H (98-107) mmol/L BUN 35 H (7-17) mg/dL Glucose 343 H (74-99) mg/dL POC Glucose (mg/dL) (70-110) mg/dL 12/20/24 12/20/24 12/20/24 Range/Units 14:47 16:12 20:07 WBC (4.50-10.00) 10*3/uL RBC (4.10-5.20) 10*6/uL Hgb (12.0-15.0) g/dL Hct (37.2-46.3) % Immature Gran # (0.00-0.04) 10*3/uL Neutrophils # (1.80-7.70) 10*3/uL Eosinophils # (0.04-0.35) 10*3/uL D-Dimer (<0.60) mg/L FEU Chloride (98-107) mmol/L BUN (7-17) mg/dL Glucose (74-99) mg/dL POC Glucose (mg/dL) 351 H 343 H 303 H (70-110) mg/dL 12/21/24 12/21/24 12/21/24 Range/Units 06:06 06:41 06:41 WBC 10.18 H (4.50-10.00) 10*3/uL RBC 3.68 L (4.10-5.20) 10*6/uL Hgb 11.0 L (12.0-15.0) g/dL Hct 34.1 L (37.2-46.3) % Immature Gran # 0.14 H (0.00-0.04) 10*3/uL Neutrophils # (1.80-7.70) 10*3/uL Eosinophils # (0.04-0.35) 10*3/uL D-Dimer (<0.60) mg/L FEU Chloride 108 H (98-107) mmol/L BUN 26 H (7-17) mg/dL Glucose 128 H (74-99) mg/dL POC Glucose (mg/dL) 122 H (70-110) mg/dL 12/21/24 Range/Units 11:34 WBC (4.50-10.00) 10*3/uL RBC (4.10-5.20) 10*6/uL Hgb (12.0-15.0) g/dL Hct (37.2-46.3) % Immature Gran # (0.00-0.04) 10*3/uL Neutrophils # (1.80-7.70) 10*3/uL Eosinophils # (0.04-0.35) 10*3/uL D-Dimer (<0.60) mg/L FEU Chloride (98-107) mmol/L BUN (7-17) mg/dL Glucose (74-99) mg/dL POC Glucose (mg/dL) 208 H (70-110) mg/dL Microbiology - Last 24 Hours (Table) 12/19/24 08:10 Blood Culture - Preliminary Blood 12/19/24 10:42 Urine Culture - Preliminary Urine,Voided Gram Neg Bacilli Assessment and Plan Assessment: Impression: Acute hypoxemic respiratory failure possibly related to a COPD and bibasilar atelectasis with consolidative changes mostly secondary to hypoventilation possibility of aspiration is to be considered but unlikely since the patient has a PEG tube in place and she is NPO. Recent CVA with right sided paralysis treated at [facility] then discharged to a local alf Dysphagia secondary to CVA with PEG tube placement Aphasia secondary to CVA Possible urinary tract infection History of chronic tobacco dependence History of diabetes mellitus, type II History of hypertension Hyperlipidemia Plan: Reviewed the results of the CT angiogram of the chest Continue bronchodilators/DuoNeb Encourage incentive spirometry if possible Encourage deep coughing and deep breathing Doubt need for swallow evaluation since the patient is n.p.o. and she does have a PEG tube in place Overall prognosis remains extremely poor and guarded considering her CVA and multiple comorbid conditions Lovenox for DVT prophylaxis Consider discharge to ECF in the next couple of days. We will continue to follow Time with Patient: Less than 30
--- NOTE | 2024-12-21 15:12 | P.PN ---
Subjective Progress Note Date: 12/21/24 74-year-old female presented from jail with dyspnea. History is quite limited on this patient. She has apparently had prior stroke and is bedbound. She was recently admitted to jail and apparently was found this morning with increased dyspnea and work of breathing. Patient was hypoxic when found by paramedics and she was placed on CPAP. She was given albuterol, Atrovent, Solu-Medrol. Patient is lethargic but able to answer simple questions. She denies pain complaints. There is no history of vomiting. No history of fever. Upon arrival to ED patient was in acute respiratory distress and had been placed on BiPAP Chest x-ray reveals no acute pulmonary process. Lab review shows White count 12.6. Hemoglobin 12.1. Platelets 246. D-dimer 1.21. Sodium 139. Potassium 4.9. Bicarb 27. BUN 35. Creatinine 0.62. Glucose 343. - Urinalysis cloudy with 4+ glucose trace ketones large leukocyte esterase and high WBCs. - Viral screen is negative. 12/21/2024 Patient is seen and evaluated in room at bedside; family is present in the bedside chair; inquiring about CT of the chest done to rule out PE; imaging results discussed with patient and family - basically the patient is about the same, she is in bed, nonverbal, seems to be chronically ill, she has right-sided hemiplegia - CT of the chest showed no evidence of pulmonary embolism, in addition it showed dependent consolidative changes in the lower lobes consistent with mostly atelectasis - Labs reviewed WBC count is 10 hemoglobin 11 electrolytes are normal renal profile is normal - Patient remains on IV Rocephin and azithromycin; pulmonary service on board and not convinced about pneumonia - Patient does have a UTI and urine cultures pending; continue antibiotics Objective - Vital Signs Vital signs: Vital Signs Temp 97.6 F 12/21/24 08:50 Pulse 63 12/21/24 09:02 Resp 16 12/21/24 09:02 BP 149/83 12/21/24 08:50 Pulse Ox 100 12/21/24 08:50 FiO2 40 12/21/24 08:49 Intake & Output 12/20/24 12/21/24 12/21/24 18:59 06:59 18:59 Intake Total 50 Output Total 900 1100 Balance -900 -1050 Weight 86.183 kg 80 kg Intake: Intake, IV Titration 50 Amount cefTRIAXone 2 gm In 50 Dextrose 5% in Water 50 ml @ 100 mls/hr IVPB Q24H [facility] Rx#:[id number] Output: Urine 900 1100 Other: Voiding Method Indwelling Catheter Indwelling Catheter - Exam Limitations: altered mental status, physical limitation General appearance: lethargic, in distress Head exam: Present: atraumatic, normocephalic Eye exam: Present: normal appearance, PERRL ENT exam: Present: mucous membranes dry Neck exam: Present: normal inspection. Absent: tenderness, meningismus Respiratory exam: Present: respiratory distress, rhonchi, decreased breath sounds Cardiovascular Exam: Present: regular rate, normal rhythm GI/Abdominal exam: Present: soft, other (Recent PEG tube). Absent: distended Extremities exam: Present: normal inspection, normal capillary refill Skin exam: Present: warm - Labs CBC & Chem 7: 12/21/24 06:41 12/21/24 06:41 Labs: Abnormal Lab Results - Last 24 Hours (Table) 12/20/24 12/20/24 12/20/24 Range/Units 12:35 12:35 12:35 WBC 12.67 H (4.50-10.00) 10*3/uL RBC 4.02 L (4.10-5.20) 10*6/uL Hgb (12.0-15.0) g/dL Hct (37.2-46.3) % Immature Gran # 0.19 H (0.00-0.04) 10*3/uL Neutrophils # 9.86 H (1.80-7.70) 10*3/uL Eosinophils # 0.01 L (0.04-0.35) 10*3/uL D-Dimer 1.21 H (<0.60) mg/L FEU Chloride 108 H (98-107) mmol/L BUN 35 H (7-17) mg/dL Glucose 343 H (74-99) mg/dL POC Glucose (mg/dL) (70-110) mg/dL 12/20/24 12/20/24 12/20/24 Range/Units 14:47 16:12 20:07 WBC (4.50-10.00) 10*3/uL RBC (4.10-5.20) 10*6/uL Hgb (12.0-15.0) g/dL Hct (37.2-46.3) % Immature Gran # (0.00-0.04) 10*3/uL Neutrophils # (1.80-7.70) 10*3/uL Eosinophils # (0.04-0.35) 10*3/uL D-Dimer (<0.60) mg/L FEU Chloride (98-107) mmol/L BUN (7-17) mg/dL Glucose (74-99) mg/dL POC Glucose (mg/dL) 351 H 343 H 303 H (70-110) mg/dL 12/21/24 12/21/24 12/21/24 Range/Units 06:06 06:41 06:41 WBC 10.18 H (4.50-10.00) 10*3/uL RBC 3.68 L (4.10-5.20) 10*6/uL Hgb 11.0 L (12.0-15.0) g/dL Hct 34.1 L (37.2-46.3) % Immature Gran # 0.14 H (0.00-0.04) 10*3/uL Neutrophils # (1.80-7.70) 10*3/uL Eosinophils # (0.04-0.35) 10*3/uL D-Dimer (<0.60) mg/L FEU Chloride 108 H (98-107) mmol/L BUN 26 H (7-17) mg/dL Glucose 128 H (74-99) mg/dL POC Glucose (mg/dL) 122 H (70-110) mg/dL Microbiology - Last 24 Hours (Table) 12/19/24 08:10 Blood Culture - Preliminary Blood 12/19/24 10:42 Urine Culture - Preliminary Urine,Voided Gram Neg Bacilli Assessment and Plan Assessment: -Hypoxia etiology is not clear patient does not appear to be in COPD exacerbation patient not be started on systemic steroids patient has uncontrolled type 2 diabetes mellitus. -D-dimer has been ordered and is elevated. Will obtain CT rule out pulmonary embolism because of elevated D-dimer and unexplained hypoxemia - Type 2 diabetes mellitus uncontrolled elevated blood sugars patient seen and insulin regimen will be changed to basal bolus regimen patient was started on 25 units of Lantus twice a day along with sliding scale Premeal insulin. -Sacral decubitus ulcer which does not appear to be infected - Abnormal urine secondary to Bragg catheter which will be replaced since patient has leukocytosis this can be considered as catheter related UTI for which the treatment is with change of Bragg catheter antibiotics will be discontinued. - Chronic hypoxic and hypercapnic respiratory failure secondary to COPD does not appear to be in acute exacerbation at this time - Nicotine use history which she discontinued since her stroke - Hyperlipidemia - Hypertension - Hypothyroidism For above-mentioned chronic medical problems patient will be resumed on appropriate home medications DVT prophylaxis: Lovenox
[2024-12-21 16:28] LABS: Glucose,Whole Blood 154 mg/dL (70-110)
[2024-12-21 20:37] LABS: Glucose,Whole Blood 160 mg/dL (70-110)
--- NOTE | 2024-12-21 22:36 | P.CONS ---
History of Present Illness - Reason for Consult Consult date: 12/21/24 Sacral pressure ulcer Requesting physician: Ai Dubon - Chief Complaint Increasing shortness of breath x 1 day - History of Present Illness Patient is a 74-year-old female with a past medical history significant for diabetes mellitus recently admitted to [facility] for CVA subsequently was transferred to local longterm for rehabilitation patient was sent to the ER 2 days ago for evaluation of increasing shortness of breath and increasing work of breathing for the patient was placed on CPAP and brought to the hospital on arrival to the ER the patient was afebrile and no fever have been called subsequently patient was not tachycardic or hypotensive and currently on room air satting 100% patient did have a elevated white count of 15.38 that is down to 10.18 creatinine 0.63 liver enzymes mildly elevated she did have a positive UA influenza RSV COVID testing was negative patient did have a chest x-ray that was reported negative for acute pulmonary process did have a CT angiogram of the chest that was negative for PE mild dependent conservatory changes in the lower lobe suggestive of atelectasis and or pneumonia patient has been treated with ceftriaxone infectious disease was consulted for further management of antibiotic therapy there was concern for pressure ulcer to the sacral area which apparently has been going on since her admission to the previous hospital as reported by the and is no significant drainage from it she also have a wound on the right hand dorsum area from the swelling but no drainage Review of Systems Positive points has been mentioned in HPI complete review could not be obtained because of his underlying mental status Past Medical History Past Medical History: CVA/TIA Additional Past Medical History / Comment(s): Lactic acidosis, acute respiratory failure, dysphagia, right sided weakness, parkinson's, History of Any Multi-Drug Resistant Organisms: Unobtainable Past Surgical History: Unable to Obtain Additional Past Surgical History / Comment(s): tubal ligation Past Anesthesia/Blood Transfusion Reactions: No Reported Reaction Past Psychological History: Unable to Obtain Smoking Status: Unknown if ever smoked Past Alcohol Use History: Unable to Obtain Past Drug Use History: Unable to Obtain Medications and Allergies Home Medications Medication Instructions Recorded Confirmed Type Acetaminophen Tab [Tylenol] 650 mg PEG/G-TUBE Q4H PRN 12/19/24 12/19/24 History Aspirin 81 mg PEG/G-TUBE DAILY 12/19/24 12/19/24 History Atorvastatin [Lipitor] 40 mg PEG/G-TUBE HS 12/19/24 12/19/24 History Bromocriptine Mesylate 2.5 mg PEG/G-TUBE Q8H 12/19/24 12/19/24 History Fenofibrate 160 mg PEG/G-TUBE DAILY 12/19/24 12/19/24 History INSULIN LISPRO (HumaLOG) [HumaLOG] See Protocol SQ ACHS 12/19/24 12/19/24 History Insulin NPH Human Isophane 30 units SQ Q8H 12/19/24 12/19/24 History [NovoLIN N] Ipratropium-Albuterol Nebulize 3 ml INHALATION RT-BID 12/19/24 12/19/24 History [Duoneb 0.5 mg-3 mg/3 ml Soln] Lactulose 20 gm PEG/G-TUBE TID 12/19/24 12/19/24 History Propranolol [Inderal] 10 mg PEG/G-TUBE TID 12/19/24 12/19/24 History Valproic Acid Oral Soln [Depakene 250 mg PEG/G-TUBE BID 12/19/24 12/19/24 History Syrup] amLODIPine [Norvasc] 5 mg PEG/G-TUBE DAILY 12/19/24 12/19/24 History amantadine HCL 100 mg PEG/G-TUBE Q12H 12/19/24 12/19/24 History lisinopriL [Zestril] 40 mg PEG/G-TUBE DAILY 12/19/24 12/19/24 History Allergies Allergy/AdvReac Type Severity Reaction Status Date / Time No Known Allergies Allergy Verified 12/19/24 10:33 Physical Exam Vitals: Vital Signs Temp Pulse Pulse Pulse Resp BP BP 12/21/24 12:26 62 16 166/71 12/21/24 09:02 63 16 12/21/24 08:50 97.6 F 61 16 149/83 12/21/24 08:49 63 18 12/21/24 03:58 97.9 F 59 L 15 137/73 12/21/24 00:00 98.1 F 73 16 136/76 12/20/24 21:16 74 12/20/24 21:00 72 12/20/24 20:00 97.9 F 71 16 150/76 12/20/24 16:30 72 19 0412/25 15:45 98.8 F 72 19 148/76 12/20/24 15:17 70 16 137/60 12/20/24 14:57 72 18 151/68 Pulse Ox FiO2 12/21/24 12:26 98 12/21/24 09:02 12/21/24 08:50 100 12/21/24 08:49 100 40 12/21/24 03:58 98 12/21/24 00:00 100 12/20/24 21:16 12/20/24 21:00 12/20/24 20:00 100 12/20/24 16:30 12/20/24 15:45 99 12/20/24 15:17 98 12/20/24 14:57 100 Intake and Output 12/20/24 12/21/24 12/21/24 22:59 06:59 14:59 Intake Total 50 Output Total 250 1100 Balance -250 -1050 Intake: Intake, IV Titration 50 Amount cefTRIAXone 2 gm In 50 Dextrose 5% in Water 50 ml @ 100 mls/hr IVPB Q24H [facility] Rx#:[id number] Output: Urine 250 1100 Other: Voiding Method Indwelling Catheter Indwelling Catheter Indwelling Catheter Weight 80 kg GENERAL DESCRIPTION: Elderly female lying in bed, no distress. No tachypnea or accessory muscle of respiration use. HEENT: Shows Pallor , no scleral icterus. Oral mucous membrane is dry. NECK: Trachea central, no thyromegaly. LUNGS: Unlabored breathing. Decreased breath sound the base HEART: S1, S2, regular rate and rhythm. No loud murmur ABDOMEN: Soft, no tenderness , guarding or rigidity, no organomegaly EXTREMITIES: Right hand dorsum did have a wound with some slough tissue no surrounding redness SKIN: Stage II sacral pressure ulcer but no slough tissue NEUROLOGICAL: The patient is awake, but nonverbal orientation could not be determined Results CBC & Chem 7: 12/22/24 06:12 12/22/24 06:12 Labs: Abnormal Lab Results - Last 24 Hours (Table) 12/20/24 12/20/24 12/20/24 Range/Units 12:35 12:35 12:35 WBC 12.67 H (4.50-10.00) 10*3/uL RBC 4.02 L (4.10-5.20) 10*6/uL Hgb (12.0-15.0) g/dL Hct (37.2-46.3) % Immature Gran # 0.19 H (0.00-0.04) 10*3/uL Neutrophils # 9.86 H (1.80-7.70) 10*3/uL Eosinophils # 0.01 L (0.04-0.35) 10*3/uL D-Dimer 1.21 H (<0.60) mg/L FEU Chloride 108 H (98-107) mmol/L BUN 35 H (7-17) mg/dL Glucose 343 H (74-99) mg/dL POC Glucose (mg/dL) (70-110) mg/dL 12/20/24 12/20/24 12/20/24 Range/Units 14:47 16:12 20:07 WBC (4.50-10.00) 10*3/uL RBC (4.10-5.20) 10*6/uL Hgb (12.0-15.0) g/dL Hct (37.2-46.3) % Immature Gran # (0.00-0.04) 10*3/uL Neutrophils # (1.80-7.70) 10*3/uL Eosinophils # (0.04-0.35) 10*3/uL D-Dimer (<0.60) mg/L FEU Chloride (98-107) mmol/L BUN (7-17) mg/dL Glucose (74-99) mg/dL POC Glucose (mg/dL) 351 H 343 H 303 H (70-110) mg/dL 12/21/24 12/21/24 12/21/24 Range/Units 06:06 06:41 06:41 WBC 10.18 H (4.50-10.00) 10*3/uL RBC 3.68 L (4.10-5.20) 10*6/uL Hgb 11.0 L (12.0-15.0) g/dL Hct 34.1 L (37.2-46.3) % Immature Gran # 0.14 H (0.00-0.04) 10*3/uL Neutrophils # (1.80-7.70) 10*3/uL Eosinophils # (0.04-0.35) 10*3/uL D-Dimer (<0.60) mg/L FEU Chloride 108 H (98-107) mmol/L BUN 26 H (7-17) mg/dL Glucose 128 H (74-99) mg/dL POC Glucose (mg/dL) 122 H (70-110) mg/dL 12/21/24 Range/Units 11:34 WBC (4.50-10.00) 10*3/uL RBC (4.10-5.20) 10*6/uL Hgb (12.0-15.0) g/dL Hct (37.2-46.3) % Immature Gran # (0.00-0.04) 10*3/uL Neutrophils # (1.80-7.70) 10*3/uL Eosinophils # (0.04-0.35) 10*3/uL D-Dimer (<0.60) mg/L FEU Chloride (98-107) mmol/L BUN (7-17) mg/dL Glucose (74-99) mg/dL POC Glucose (mg/dL) 208 H (70-110) mg/dL Microbiology - Last 24 Hours (Table) 12/19/24 08:10 Blood Culture - Preliminary Blood 12/19/24 10:42 Urine Culture - Preliminary Urine,Voided Gram Neg Bacilli Assessment and Plan (1) Pneumonia Current Visit: Yes Status: Acute Code(s): J18.9 - PNEUMONIA, UNSPECIFIED ORGANISM SNOMED Code(s): 202701722 (2) UTI (urinary tract infection) Current Visit: Yes Status: Acute Code(s): N39.0 - URINARY TRACT INFECTION, SITE NOT SPECIFIED SNOMED Code(s): 92696986 (3) Leukocytosis Current Visit: Yes Status: Acute Code(s): D72.829 - ELEVATED WHITE BLOOD CELL COUNT, UNSPECIFIED SNOMED Code(s): 719762639 (4) Stage II pressure ulcer of left buttock Current Visit: Yes Status: Acute Code(s): L89.322 - PRESSURE ULCER OF LEFT B UTTOCK, STAGE 2 SNOMED Code(s): 91922528913541 (5) Stage II pressure ulcer of right buttock Current Visit: Yes Status: Acute Code(s): L89.312 - PRESSURE ULCER OF RIGHT BUTTOCK, STAGE 2 SNOMED Code(s): 57763476581162 Plan: 1patient presenting the hospital with increasing shortness of breath which is likely multifactorial in this patient who did have elevated white count as well as bibasilar atelectasis and a question of possible pneumonia not entirely excluded patient also have a positive UA, and the possible component of a UTI 2-patient did have pressure ulcer of the bilateral gluteal area stage II but no slough tissue treated will be local zinc and keep the area dry and of the pressure 3-right hand wound with some slough tissue recommend Medihoney followed by moist dressing change daily 4-we will adjust Rocephin to cefepime on the basis of urine culture with close with resistant pathogen at the bedside question concern answered We will follow on clinical condition and cultures to further adjust medication if needed Thank you for this consultation we will follow the patient along with you Dictation was produced using [employer] dictation software. please excuse any grammatical, word or spelling errors. Time with Patient: Greater than 30
[2024-12-22 01:19] LABS: Glucose,Whole Blood 118 mg/dL (70-110)
[2024-12-22 06:26] LABS: Glucose,Whole Blood 94 mg/dL (70-110)
[2024-12-22 06:39] LABS: Basophils # (A) 0.02 10*3/uL (0.00-0.10); Basophils % (A) 0.2 %; Eosinophils # (A) 0.06 10*3/uL (0.04-0.35); Eosinophils % (A) 0.6 %; HCT 35.9 % (37.2-46.3); HGB 11.6 g/dL (12.0-15.0); Lymphocytes % (A) 19.2 %; MCH 29.8 pg (27.0-32.0); MCHC 32.3 g/dL (32.0-37.0); MCV 92.3 fL (80.0-97.0); Mean Platelet Volume 9.6 fL (9.5-12.2); Monocytes # (A) 0.63 10*3/uL (0.20-1.00); Monocytes % (A) 6.7 %; Neutrophils % (A) 72.6 %; Platelet Count 228 10*3/uL (140-440); RBC 3.89 10*6/uL (4.10-5.20); RDW 15.7 % (11.5-14.5); WBC 9.38 10*3/uL (4.50-10.00)
[2024-12-22 07:13] LABS: African American GFR (CKD) >90 (>60 ml/min/1.73 sqM); Anion Gap 4 mmol/L; Blood Urea Nitrogen 20 mg/dL (7-17); Calcium 9.4 mg/dL (8.4-10.2); Carbon Dioxide 27 mmol/L (22-30); Chloride 111 mmol/L (98-107); Glucose 96 mg/dL (74-99); Non-African American GFR(CKD) >90 (>60 ml/min/1.73 sqM); Potassium 3.7 mmol/L (3.5-5.1); Sodium 142 mmol/L (137-145)
--- NOTE | 2024-12-22 11:36 | P.CONS ---
History of Present Illness - Reason for Consult Consult date: 12/22/24 wound care - History of Present Illness This is a 74-year-old patient with past medical history significant for CVA. Patient has a nonhealing ulcerationTo the right hand with significant amount of slough and minimal granulation noted ulceration measures approximately 1.0 x 1.5 x 0.2 cm currently utilizing honey gel. Patient has a stage II pressure ulcer to the left buttocks a cluster of 2 first ulceration measures approximately 1.5 x 2.0 x 0.2-second ulceration measures 0.9 x 1.6 x 0.2 cm with granulation seen throughout the wound bed slough and nonviable tissue. No tunneling or undermining noted. Patient has a midline coccyx ulceration measuring approximately 2 x 0.4 x 0.2 cm with granulation slough and nonviable tissue present no tunneling or undermining. Patient has a right buttock stage II pressure ulcer measuring approximately 1 x 1.5 x 0.2 cm with significant amount of slough and nonviable tissue present minimal granulation noted. No tunneling or undermining noted. All wound edges are attached to the wound base. Review of systems: Unable to obtain due to patient's comorbidities Physical exam: General Appearance: Alert, cooperative, no distress, appears stated age. Skin: See HPI all other Skin color, texture, tugor normal, no rashes or lesions. Neurologic: Alert oriented x3 Assessment: 1. Stage II pressure ulcer left buttocks 2. Stage II pressure ulcer right buttocks 3. Stage II pressure ulcer sacrum 4. Nonhealing ulceration other site right hand with fat layer exposed Plan: 1. Apply honey gel to all sacral ulcerations and bordered foam. Turn patient every 2 hours. Thank you for the consultation any questions please contact the wound care center DNP note has been reviewed and discussed with Dr. Da Silva and the impression and plan of care has been directed as dictated. Past Medical History Past Medical History: CVA/TIA Additional Past Medical History / Comment(s): Lactic acidosis, acute respiratory failure, dysphagia, right sided weakness, parkinson's, History of Any Multi-Drug Resistant Organisms: Unobtainable Past Surgical History: Unable to Obtain Additional Past Surgical History / Comment(s): tubal ligation Past Anesthesia/Blood Transfusion Reactions: No Reported Reaction Past Psychological History: Unable to Obtain Smoking Status: Unknown if ever smoked Past Alcohol Use History: Unable to Obtain Past Drug Use History: Unable to Obtain Medications and Allergies Home Medications Medication Instructions Recorded Confirmed Type Acetaminophen Tab [Tylenol] 650 mg PEG/G-TUBE Q4H PRN 12/19/24 12/19/24 History Aspirin 81 mg PEG/G-TUBE DAILY 12/19/24 12/19/24 History Atorvastatin [Lipitor] 40 mg PEG/G-TUBE HS 12/19/24 12/19/24 History Bromocriptine Mesylate 2.5 mg PEG/G-TUBE Q8H 12/19/24 12/19/24 History Fenofibrate 160 mg PEG/G-TUBE DAILY 12/19/24 12/19/24 History INSULIN LISPRO (HumaLOG) [HumaLOG] See Protocol SQ ACHS 12/19/24 12/19/24 History Insulin NPH Human Isophane 30 units SQ Q8H 12/19/24 12/19/24 History [NovoLIN N] Ipratropium-Albuterol Nebulize 3 ml INHALATION RT-BID 12/19/24 12/19/24 History [Duoneb 0.5 mg-3 mg/3 ml Soln] Lactulose 20 gm PEG/G-TUBE TID 12/19/24 12/19/24 History Propranolol [Inderal] 10 mg PEG/G-TUBE TID 12/19/24 12/19/24 History Valproic Acid Oral Soln [Depakene 250 mg PEG/G-TUBE BID 12/19/24 12/19/24 History Syrup] amLODIPine [Norvasc] 5 mg PEG/G-TUBE DAILY 12/19/24 12/19/24 History amantadine HCL 100 mg PEG/G-TUBE Q12H 12/19/24 12/19/24 History lisinopriL [Zestril] 40 mg PEG/G-TUBE DAILY 12/19/24 12/19/24 History Allergies Allergy/AdvReac Type Severity Reaction Status Date / Time No Known Allergies Allergy Verified 12/19/24 10:33 Physical Exam Vitals: Vital Signs Temp Pulse Pulse Resp BP Pulse Ox 12/22/24 08:57 97.7 F 63 14 158/77 100 12/22/24 04:00 97.2 F L 56 L 17 134/78 12/22/24 00:00 97.4 F L 54 L 16 144/74 98 12/21/24 20:05 69 12/21/24 20:00 97.9 F 58 L 17 162/73 100 12/21/24 19:55 60 12/21/24 15:39 97.9 F 62 18 163/74 100 12/21/24 14:46 16 12/21/24 12:26 62 16 166/71 98 Intake and Output 12/21/24 12/22/24 12/22/24 22:59 06:59 14:59 Intake Total 0 Output Total 250 350 Balance -250 -350 Intake: Oral 0 Output: Urine 250 350 Other: Voiding Method Indwelling Catheter Indwelling Catheter # Bowel Movements 1 2 Weight 76 kg Results CBC & Chem 7: 12/22/24 06:12 12/22/24 06:12 Labs: Abnormal Lab Results - Last 24 Hours (Table) 12/21/24 12/21/24 12/21/24 Range/Units 11:34 16:26 20:35 RBC (4.10-5.20) 10*6/uL Hgb (12.0-15.0) g/dL Hct (37.2-46.3) % Immature Gran # (0.00-0.04) 10*3/uL Chloride (98-107) mmol/L BUN (7-17) mg/dL Creatinine (0.52-1.04) mg/dL POC Glucose (mg/dL) 208 H 154 H 160 H (70-110) mg/dL 12/22/24 12/22/24 12/22/24 Range/Units 01:17 06:12 06:12 RBC 3.89 L (4.10-5.20) 10*6/uL Hgb 11.6 L (12.0-15.0) g/dL Hct 35.9 L (37.2-46.3) % Immature Gran # 0.07 H (0.00-0.04) 10*3/uL Chloride 111 H (98-107) mmol/L BUN 20 H (7-17) mg/dL Creatinine 0.51 L (0.52-1.04) mg/dL POC Glucose (mg/dL) 118 H (70-110) mg/dL Microbiology - Last 24 Hours (Table) 12/19/24 08:10 Blood Culture - Preliminary Blood 12/19/24 10:42 Urine Culture - Final Urine,Voided Klebsiella oxytoca Citrobacter farmeri Yue albicans Assessment and Plan (1) Stage II pressure ulcer of left buttock Current Visit: Yes Status: Acute Code(s): L89.322 - PRESSURE ULCER OF LEFT BUTTOCK, STAGE 2 SNOMED Code(s): 68834589996891 (2) Stage II pressure ulcer of right buttock Current Visit: Yes Status: Acute Code(s): L89.312 - PRESSURE ULCER OF RIGHT BUTTOCK, STAGE 2 SNOMED Code(s): 68525658116881 (3) Non-pressure chronic ulcer of skin of other sites with fat layer exposed Current Visit: Yes Status: Acute Code(s): L98.492 - NON-PRS CHRONIC ULCER OF SKIN OF SITES W FAT LAYER EXPOSED SNOMED Code(s): 40648829 (4) Pressure ulcer of sacral region, stage 2 Current Visit: Yes Status: Acute Code(s): L89.152 - PRESSURE ULCER OF SACRAL REGION, STAGE 2 SNOMED Code(s): 32424907627221
[2024-12-22 11:55] LABS: Glucose,Whole Blood 121 mg/dL (70-110)
--- NOTE | 2024-12-22 12:54 | P.CONS ---
History of Present Illness - Reason for Consult Consult date: 12/22/24 rehab recommendations - Chief Complaint recent CVA - History of Present Illness Ms Love is a 74 y/o female who lives with her ex , was independent and driving prior to recent CVA. She has support from Ex and son. Patient is a 74-year-old female with a past medical history significant for diabetes mellitus, recently admitted to [facility] for CVA subsequently was transferred to [facility]. Patient was sent to the ER 2 days ago for evaluation of increasing shortness of breath and increasing work of breathing. She was placed on CPAP and brought to the hospital on arrival to the ER . Liver enzymes mildly elevated she did have a positive UA influenza RSV COVID testing was negative. CT angiogram of the chest that was negative for PE. Infectious disease was consulted for further management of antibiotic therapy there was concern for pressure ulcer to the sacral area which apparently has been going on since her admission to the previous hospital as reported by the , wound on the right hand dorsum area. PM&R consulted for rehab recommendations. Patient is pending therapy notes. 12/22/24: Patient nods yes/no relatively consistently, tries to speak at times. Acknowledges tired, but denies CABRAL, CP, SOB, abdominal pain or other pain complaints. Review of Systems Reviewed, as above in subjective, though limited given speech Past Medical History Past Medical History: CVA/TIA Additional Past Medical History / Comment(s): Lactic acidosis, acute respiratory failure, dysphagia, right sided weakness, parkinson's, History of Any Multi-Drug Resistant Organisms: Unobtainable Past Surgical History: Unable to Obtain Additional Past Surgical History / Comment(s): tubal ligation Past Anesthesia/Blood Transfusion Reactions: No Reported Reaction Past Psychological History: Unable to Obtain Smoking Status: Unknown if ever smoked Past Alcohol Use History: Unable to Obtain Past Drug Use History: Unable to Obtain Medications and Allergies Home Medications Medication Instructions Recorded Confirmed Type Acetaminophen Tab [Tylenol] 650 mg PEG/G-TUBE Q4H PRN 12/19/24 12/19/24 History Aspirin 81 mg PEG/G-TUBE DAILY 12/19/24 12/19/24 History Atorvastatin [Lipitor] 40 mg PEG/G-TUBE HS 12/19/24 12/19/24 History Bromocriptine Mesylate 2.5 mg PEG/G-TUBE Q8H 12/19/24 12/19/24 History Fenofibrate 160 mg PEG/G-TUBE DAILY 12/19/24 12/19/24 History INSULIN LISPRO (HumaLOG) [HumaLOG] See Protocol SQ ACHS 12/19/24 12/19/24 History Insulin NPH Human Isophane 30 units SQ Q8H 12/19/24 12/19/24 History [NovoLIN N] Ipratropium-Albuterol Nebulize 3 ml INHALATION RT-BID 12/19/24 12/19/24 History [Duoneb 0.5 mg-3 mg/3 ml Soln] Lactulose 20 gm PEG/G-TUBE TID 12/19/24 12/19/24 History Propranolol [Inderal] 10 mg PEG/G-TUBE TID 12/19/24 12/19/24 History Valproic Acid Oral Soln [Depakene 250 mg PEG/G-TUBE BID 12/19/24 12/19/24 History Syrup] amLODIPine [Norvasc] 5 mg PEG/G-TUBE DAILY 12/19/24 12/19/24 History amantadine HCL 100 mg PEG/G-TUBE Q12H 12/19/24 12/19/24 History lisinopriL [Zestril] 40 mg PEG/G-TUBE DAILY 12/19/24 12/19/24 History Allergies Allergy/AdvReac Type Severity Reaction Status Date / Time No Known Allergies Allergy Verified 12/19/24 10:33 Physical Exam Vitals: Vital Signs Temp Pulse Pulse Resp BP Pulse Ox 12/22/24 11:39 98.1 F 57 L 14 145/72 99 12/22/24 08:57 97.7 F 63 14 158/77 100 12/22/24 04:00 97.2 F L 56 L 17 134/78 12/22/24 00:00 97.4 F L 54 L 16 144/74 98 12/21/24 20:05 69 12/21/24 20:00 97.9 F 58 L 17 162/73 100 12/21/24 19:55 60 12/21/24 15:39 97.9 F 62 18 163/74 100 12/21/24 14:46 16 Intake and Output 12/21/24 12/22/24 12/22/24 22:59 06:59 14:59 Intake Total 0 Output Total 250 350 Balance -250 -350 Intake: Oral 0 Output: Urine 250 350 Other: Voiding Method Indwelling Catheter Indwelling Catheter # Bowel Movements 1 2 Weight 76 kg General: alert, NAD HEENT: head normocephalic, atraumatic; head turned to right CV: Regular rate Lungs: non-labored respirations, on 2L O2 Abdomen: soft, NT, ND, + PEG + chow Neuro: + dysarthria, aphasia, tries to speak, can nod yes/no. Does not follow 3 step commands consistently; does follow simple commands at times. Flacid right UE/LE, Left UE/LE >3+ able to lift UE/LE off bed. CN 2-12 with right facial droop, decreased shrug. Sensation intact to light touch appears intact bilateral UE and LEs Psych: mood calm, affect appropriate, A&O x 1 (nods yes appropriately to name, not to year/month/place) Extremities: calves supple, non tender, no significant LE edema Skin: intact where exposed Results CBC & Chem 7: 12/22/24 06:12 12/22/24 06:12 Labs: Abnormal Lab Results - Last 24 Hours (Table) 12/21/24 12/21/24 12/22/24 Range/Units 16:26 20:35 01:17 RBC (4.10-5.20) 10*6/uL Hgb (12.0-15.0) g/dL Hct (37.2-46.3) % Immature Gran # (0.00-0.04) 10*3/uL Chloride (98-107) mmol/L BUN (7-17) mg/dL Creatinine (0.52-1.04) mg/dL POC Glucose (mg/dL) 154 H 160 H 118 H (70-110) mg/dL 12/22/24 12/22/24 12/22/24 Range/Units 06:12 06:12 11:50 RBC 3.89 L (4.10-5.20) 10*6/uL Hgb 11.6 L (12.0-15.0) g/dL Hct 35.9 L (37.2-46.3) % Immature Gran # 0.07 H (0.00-0.04) 10*3/uL Chloride 111 H (98-107) mmol/L BUN 20 H (7-17) mg/dL Creatinine 0.51 L (0.52-1.04) mg/dL POC Glucose (mg/dL) 121 H (70-110) mg/dL Microbiology - Last 24 Hours (Table) 12/19/24 08:10 Blood Culture - Preliminary Blood 12/19/24 10:42 Urine Culture - Final Urine,Voided Klebsiella oxytoca Citrobacter farmeri Yue albicans Assessment and Plan Assessment: # Debility secondary to recent CVA with right hemiparesis s/p tpa # Hypoxia etiology is not clear patient does not appear to be in COPD exacerbation # uncontrolled type 2 diabetes mellitus. # Sacral decubitus ulcer which does not appear to be infected #Chronic hypoxic and hypercapnic respiratory failure secondary to COPD does not appear to be in acute exacerbation at this time #Nicotine use history which she discontinued since her stroke #Comorbidites: Hyperlipidemia, Hypertension, Hypothyroidism #Your medical dx and management Dispo: Patient low level functioning with prior therapy at [facility], pending therapy evaluations here. Patient more appropriate for [facility] for continued rehab stay at this time as does not appear able to fully participate in 3hr/day therapy. In future, if has more return, may benefit from IPR at that time.
[2024-12-22] MEDS: NYSTATIN 100,000 UNIT/ML SUSP 500,000 UNIT/5 ML CUP PO SCH (14:20)
[2024-12-22] MEDS: FLUCONAZOLE 100 MG TAB PO SCH (14:20)
--- NOTE | 2024-12-22 14:26 | P.PN ---
Subjective Progress Note Date: 12/22/24 This is a 74-year-old female patient who recently had a cerebrovascular accident leaving her with right sided paralysis and was at [facility] and subsequently discharged a few days ago to a local care home. She has a history of diabetes mellitus, type II, dysphagia, aphasia, hyperlipidemia, hyperlipidemia, chronic and ongoing tobacco dependence up until her stroke, PEG tube placement. She was brought into the emergency room yesterday after being found to have increased work of breathing and low O2 saturations. Chest x-ray reveals no acute pulmonary process. White count 12.6. Hemoglobin 12.1. Platelets 246. D-dimer 1.21. Sodium 139. Potassium 4.9. Bicarb 27. BUN 35. Creatinine 0.62. Glucose 343. Urinalysis cloudy with 4+ glucose trace ketones large leukocyte esterase and high WBCs. Viral screen is negative. She is seen today in consultation in the emergency department. She is currently resting on a stretcher. Maintaining O2 saturations up to 100% on 3 L/min per nasal c annula. She is afebrile. Hemodynamically stable. CT angiogram to rule out pulmonary embolism is pending. No information is obtained from the patient. No family members present. Patient was seen today on 12/21/2024, basically the patient is about the same, she is in bed, nonverbal, seems to be chronically ill, she has right-sided hemiplegia, CT of the chest showed no evidence of pulmonary embolism, in addition it showed dependent consolidative changes in the lower lobes consistent with mostly atelectasis, doubt pneumonia although the patient could be a set up for aspiration pneumonia but she already has a PEG tube in place, and she is not given any feedings orally. Not to mention the patient is on Rocephin for presumptive UTI as per admitting physician. Labs reviewed WBC count is 10 hemoglobin 11 electrolytes are normal renal profile is normal The patient is seen today December 22, 2024 and follow-up on the selective care unit. She is currently resting in bed. Awake. Maintaining O2 saturations in the 90s on 2 L/min per nasal cannula. No IV fluids. Urine culture positive for Yue, Citrobacter farmeri, Klebsiella oxytoca. White count 9.3. Hemoglobin 11.6. Platelets 228. Sodium 142. Potassium 3.7. Bicarb 27. BUN 20. Creatinine 0.51. He remains on cefepime. Initiated on Diflucan. Lovenox for DVT prophylaxis. Continued on bronchodilators. Objective - Vital Signs Vital signs: Vital Signs Temp 98.1 F 12/22/24 11:39 Pulse 62 12/22/24 13:17 Resp 14 12/22/24 11:39 BP 145/72 12/22/24 11:39 Pulse Ox 99 12/22/24 11:39 FiO2 40 12/21/24 08:49 Intake & Output 12/21/24 12/22/24 12/22/24 18:59 06:59 18:59 Intake Total 0 Output Total 750 350 Balance -750 -350 Weight 76 kg 76 kg Intake: Oral 0 Output: Urine 750 350 Other: Voiding Method Indwelling Catheter Indwelling Catheter Indwelling Catheter # Bowel Movements 1 2 - Exam GENERAL EXAM: Alert, nonverbal, 74-year-old female, on 3 L nasal cannula, in no apparent distress. HEAD: Normocephalic. Facial droop is noted. EYES: Normal reaction of pupils, equal size. NOSE: Clear with pink turbinates. THROAT: No erythema or exudates. NECK: No masses, no JVD. CHEST: No chest wall deformity. LUNGS: Equal air entry with no crackles, wheeze, rhonchi or dullness. CVS: S1 and S2 normal with no audible murmur, regular rhythm. ABDOMEN: PEG tube exit site is clean and dry. No hepatosplenomegaly, normal bowel sounds, no guarding or rigidity. SKIN: Sacral ulcer. Some ecchymosis and bruising noted CENTRAL NERVOUS SYSTEM: Nonverbal, right sided hemiplegia noted EXTREMITIES: There is no peripheral edema. No clubbing, no cyanosis. Pe ripheral pulses are intact. - Labs CBC & Chem 7: 12/22/24 06:12 12/22/24 06:12 Labs: Abnormal Lab Results - Last 24 Hours (Table) 12/21/24 12/21/24 12/22/24 Range/Units 16:26 20:35 01:17 RBC (4.10-5.20) 10*6/uL Hgb (12.0-15.0) g/dL Hct (37.2-46.3) % Immature Gran # (0.00-0.04) 10*3/uL Chloride (98-107) mmol/L BUN (7-17) mg/dL Creatinine (0.52-1.04) mg/dL POC Glucose (mg/dL) 154 H 160 H 118 H (70-110) mg/dL 12/22/24 12/22/24 12/22/24 Range/Units 06:12 06:12 11:50 RBC 3.89 L (4.10-5.20) 10*6/uL Hgb 11.6 L (12.0-15.0) g/dL Hct 35.9 L (37.2-46.3) % Immature Gran # 0.07 H (0.00-0.04) 10*3/uL Chloride 111 H (98-107) mmol/L BUN 20 H (7-17) mg/dL Creatinine 0.51 L (0.52-1.04) mg/dL POC Glucose (mg/dL) 121 H (70-110) mg/dL Microbiology - Last 24 Hours (Table) 12/19/24 08:10 Blood Culture - Preliminary Blood 12/19/24 10:42 Urine Culture - Final Urine,Voided Klebsiella oxytoca Citrobacter farmeri Yue albicans Assessment and Plan Assessment: Acute hypoxemic respiratory failure possibly related to a COPD exacerbation. Pulmonary embolism ruled out. Chest x-ray clear. Viral screen negative Acute urinary tract infection secondary to Klebsiella oxytoca, Citrobacter farmeri, Yue albicans. Currently on cefepime and Diflucan Recent CVA with right sided paralysis treated at [facility] then discharged to a local care home Dysphagia secondary to CVA with PEG tube placement Aphasia secondary to CVA Possible urinary tract infection History of chronic tobacco dependence Possible chronic obstructive pulmonary disease History of diabetes mellitus, type II History of hypertension Hyperlipidemia Plan: The patient was seen and evaluated Microbiology, labs and medications reviewed Initiated on cefepime and Diflucan Currently stable on 3 L nasal cannula Continue DuoNeb inhalations Lovenox for DVT prophylaxis Unable to tolerate inpatient rehabilitation Plan is to return to subacute rehabilitation I have personally seen and examined the patient, performed the documentation and the assessment and plan as written. Number of minutes spent on the visit: 10 Dictation was produced using [employer] dictation software. Please excuse any grammatical, word or spelling errors.
[2024-12-22 16:30] LABS: Glucose,Whole Blood 203 mg/dL (70-110)
--- NOTE | 2024-12-22 17:41 | CDI ---
Documentation Clarification Form Date: 12/22/2024 05:22:21 PM From: Khloe Aparicio RN CCDS Phone: [phone] Admit Date: 12/19/2024 10:46:00 AM Patient Name: Duyen Love Visit Number: [id number] Discharge Date: ATTENTION: The Clinical Documentation Specialists (CDI) and [facility] Coding Staff appreciate your assistance in clarifying documentation. Please respond to the clarification below the line at the bottom and electronically sign. The CDI & [facility] Coding staff will review the response and follow-up if needed. Please note: Queries are made part of the Legal Health Record. If you have any questions, please contact the author of this message via ITS. Provider: Maria Elena Mcdaniel Conflicting documentation has been found in the medical record. As attending physician, please provide clarification. Acute Hypoxemic respiratory failure, Pulmonary note, 12/22. Hypoxia , Medicine note, 12/21 History/Risk Factors: 74 year old female presents to the ED from residential with dyspnea and weakness. Patient was hypoxic when found by paramedics and she was placed on CPAP. Given albuterol, atrovent and solumendrol. The patient was recently admitted to [facility] for a Stroke. Discharged to assisted and is bed bound.Other medical history , dysphagia, right sided weakness, parkinsons. 12/20, HP Clinical Indicators: VSS: 12/19 08:04: B/P 149/85, HR 75, Temp 98.2F Oral, RR 42, BiPAP Flow rate 40 12/19, Blood gas: VBG PH 7.42, pCO2 41, HCO3 26 12/19 08:35 SpO2 97% BiPAP FiO2 40 12/20 11:17 SpO2 100% 3L nc 12/21 12:26 SpO2 98% room air 12/19, CXR: no acute pulmonary process. 12/20, CT Chest Angio for PE: No evidence pulmonary embolism. Mild dependent consolidative changes in the lower lobes suggestive of atelectasis and or pneumonia. 12/19, Respiratory exam, ED: Present: respiratory distress, rhonchi, decreased breath sounds. 12/20, Lung assessment: Pulmonary Lung assessment: Equal air entry with no crackles wheeze, rhonchi or dullness. Treatment: 12/19 12/20 BiPAP, 12/20 12/21 3L ca Please clarify which diagnosis is most appropriate: [x ] Acute Hypoxemic Respiratory Failure [ ] Hypoxia [ ] Other (please specify) [ ] Unable to determine (Template Last Revised: November 2020) MTDD
[2024-12-22 20:18] LABS: Glucose,Whole Blood 249 mg/dL (70-110)
--- NOTE | 2024-12-22 21:21 | P.PN ---
Subjective Progress Note Date: 12/22/24 Principal diagnosis: Reason for follow-up is leukocytosis pressure ulcer pneumonia/UTI Patient is a 74-year-old female with a past medical history significant for diabetes mellitus recently admitted to [facility] for CVA subsequently was transferred to local senior care for rehabilitation patient was sent to the ER for evaluation of increasing shortness of breath, CT with a possible left lower lobe atelectasis versus pneumonia also elevated white count positive UA concerning for symptomatic UTI. On today's evaluation that is 12/22/2024, patient has been afebrile, patient is breathing comfortably and is currently on room air, patient did also to some simple question when nodding her head no vomiting or diarrhea has been reported she did have significant thrush. Patient white count is 9.38, creatinine 0.51 Objective - Vital Signs Vital signs: Vital Signs Temp 98.1 F 12/22/24 11:39 Pulse 57 L 12/22/24 11:39 Resp 14 12/22/24 11:39 BP 145/72 12/22/24 11:39 Pulse Ox 99 12/22/24 11:39 FiO2 40 12/21/24 08:49 Intake & Output 12/21/24 12/22/24 12/22/24 18:59 06:59 18:59 Intake Total 0 Output Total 750 350 Balance -750 -350 Weight 76 kg Intake: Oral 0 Output: Urine 750 350 Other: Voiding Method Indwelling Catheter Indwelling Catheter # Bowel Movements 1 2 - Exam GENERAL DESCRIPTION: An elderly female lying in bed in no distress RESPIRATORY SYSTEM: Unlabored breathing , decreased breath sounds at bases HEART: S1 S2 regular rate and rhythm , ABDOMEN: Soft , no tenderness EXTREMITIES: No edema feet - Labs CBC & Chem 7: 12/22/24 06:12 12/22/24 06:12 Labs: Abnormal Lab Results - Last 24 Hours (Table) 12/21/24 12/21/24 12/22/24 Range/Units 16:26 20:35 01:17 RBC (4.10-5.20) 10*6/uL Hgb (12.0-15.0) g/dL Hct (37.2-46.3) % Immature Gran # (0.00-0.04) 10*3/uL Chloride (98-107) mmol/L BUN (7-17) mg/dL Creatinine (0.52-1.04) mg/dL POC Glucose (mg/dL) 154 H 160 H 118 H (70-110) mg/dL 12/22/24 12/22/24 12/22/24 Range/Units 06:12 06:12 11:50 RBC 3.89 L (4.10-5.20) 10*6/uL Hgb 11.6 L (12.0-15.0) g/dL Hct 35.9 L (37.2-46.3) % Immature Gran # 0.07 H (0.00-0.04) 10*3/uL Chloride 111 H (98-107) mmol/L BUN 20 H (7-17) mg/dL Creatinine 0.51 L (0.52-1.04) mg/dL POC Glucose (mg/dL) 121 H (70-110) mg/dL Microbiology - Last 24 Hours (Table) 12/19/24 08:10 Blood Culture - Preliminary Blood 12/19/24 10:42 Urine Culture - Final Urine,Voided Klebsiella oxytoca Citrobacter farmeri Yue albicans Assessment and Plan (1) Pneumonia Current Visit: Yes Status: Acute Code(s): J18.9 - PNEUMONIA, UNSPECIFIED ORGANISM SNOMED Code(s): 301418913 (2) UTI (urinary tract infection) Current Visit: Yes Status: Acute Code(s): N39.0 - URINARY TRACT INFECTION, SITE NOT SPECIFIED SNOMED Code(s): 32414182 (3) Leukocytosis Current Visit: Yes Status: Acute Code(s): D72.829 - ELEVATED WHITE BLOOD CELL COUNT, UNSPECIFIED SNOMED Code(s): 083335425 (4) Thrush Current Visit: Yes Status: Acute Code(s): B37.0 - CANDIDAL STOMATITIS SNOMED Code(s): 95807847 (5) Stage II pressure ulcer of left buttock Current Visit: Yes Status: Acute Code(s): L89.322 - PRESSURE ULCER OF LEFT BUTTOCK, STAGE 2 SNOMED Code(s): 07849009112259 (6) Stage II pressure ulcer of right buttock Current Visit: Yes Status: Acute Code(s): L89.312 - PRESSURE ULCER OF RIGHT BUTTOCK, STAGE 2 SNOMED Code(s): 48133492904709 Plan: 1patient presenting the hospital with increasing shortness of breath which is likely multifactorial in this patient who did have elevated white count as well as bibasilar atelectasis and a question of possible pneumonia not entirely excluded patient also have a positive UA, and the possible component of a UTI 2-patient did have pressure ulcer of the bilateral gluteal area but no slough tissue continue local wound treated as ordered 3-right hand wound with some slough tissue will treat with Medihoney followed by moist dressing change daily 4-patient to continue cefepime will add Flagyl for thrush and monitor clinical course closely Dictation was produced using [employer] dictation software. please excuse any grammatical, word or spelling errors. Time with Patient: Less than 30
--- NOTE | 2024-12-22 22:12 | P.PN ---
Subjective Progress Note Date: 12/22/24 74-year-old female presented from halfway with dyspnea. History is quite limited on this patient. She has apparently had prior stroke and is bedbound. She was recently admitted to halfway and apparently was found this morning with increased dyspnea and work of breathing. Patient was hypoxic when found by paramedics and she was placed on CPAP. She was given albuterol, Atrovent, Solu-Medrol. Patient is lethargic but able to answer simple questions. She denies pain complaints. There is no history of vomiting. No history of fever. Upon arrival to ED patient was in acute respiratory distress and had been placed on BiPAP Chest x-ray reveals no acute pulmonary process. Lab review shows White count 12.6. Hemoglobin 12.1. Platelets 246. D-dimer 1.21. Sodium 139. Potassium 4.9. Bicarb 27. BUN 35. Creatinine 0.62. Glucose 343. - Urinalysis cloudy with 4+ glucose trace ketones large leukocyte esterase and high WBCs. - Viral screen is negative. 12/21/2024 Patient is seen and evaluated in room at bedside; family is present in the bedside chair; inquiring about CT of the chest done to rule out PE; imaging results discussed with patient and family - basically the patient is about the same, she is in bed, nonverbal, seems to be chronically ill, she has right-sided hemiplegia - CT of the chest showed no evidence of pulmonary embolism, in addition it showed dependent consolidative changes in the lower lobes consistent with mostly atelectasis - Labs reviewed WBC count is 10 hemoglobin 11 electrolytes are normal renal profile is normal - Patient remains on IV Rocephin and azithromycin; pulmonary service on board and not convinced about pneumonia - Patient does have a UTI and urine cultures pending; continue antibiotics 12/22/2024 Patient is resting in the bed. Awake alert but could not communicate. Able to follow simple commands. Currently requiring 2 L oxygen via nasal cannula. No complaints of chest pain. Patient was found to have oral thrush and was started on nystatin swish swallow. Urine culture showed Klebsiella, Citrobacter and Yue. Currently on antibiotics in the form of cefepime. Also on Diflucan. Laboratory data showed WBC 9.3 hemoglobin 11.6 and platelets 228 sodium 142 potassium 3.7 chloride 101 bicarb is 27 BUN 20 and creatinine 0.51 blood sugar 96. Anticipate discharge to rehab Current medications reviewed. Objective - Vital Signs Vital signs: Vital Signs Temp 97.7 F 12/22/24 08:57 Pulse 63 12/22/24 08:57 Resp 14 12/22/24 08:57 BP 158/77 12/22/24 08:57 Pulse Ox 100 12/22/24 08:57 FiO2 40 12/21/24 08:49 Intake & Output 12/21/24 12/22/24 12/22/24 18:59 06:59 18:59 Intake Total 0 Output Total 750 350 Balance -750 -350 Weight 76 kg Intake: Oral 0 Output: Urine 750 350 Other: Voiding Method Indwelling Catheter Indwelling Catheter # Bowel Movements 1 2 - Exam - Exam Limitations: altered mental status, physical limitation General appearance: lethargic, in distress Head exam: Present: atraumatic, normocephalic Eye exam: Present: normal appearance, PERRL ENT exam: Present: mucous membranes dry Neck exam: Present: normal inspection. Absent: tenderness, meningismus Respiratory exam: Present: respiratory distress, rhonchi, decreased breath sounds Cardiovascular Exam: Present: regular rate, normal rhythm GI/Abdominal exam: Present: soft, other (Recent PEG tube). Absent: distended Extremities exam: Present: normal inspection, normal capillary refill Skin exam: Present: warm - Labs CBC & Chem 7: 12/23/24 05:30 12/23/24 05:30 Labs: Abnormal Lab Results - Last 24 Hours (Table) 12/21/24 12/21/24 12/21/24 Range/Units 11:34 16:26 20:35 RBC (4.10-5.20) 10*6/uL Hgb (12.0-15.0) g/dL Hct (37.2-46.3) % Immature Gran # (0.00-0.04) 10*3/uL Chloride (98-107) mmol/L BUN (7-17) mg/dL Creatinine (0.52-1.04) mg/dL POC Glucose (mg/dL) 208 H 154 H 160 H (70-110) mg/dL 12/22/24 12/22/24 12/22/24 Range/Units 01:17 06:12 06:12 RBC 3.89 L (4.10-5.20) 10*6/uL Hgb 11.6 L (12.0-15.0) g/dL Hct 35.9 L (37.2-46.3) % Immature Gran # 0.07 H (0.00-0.04) 10*3/uL Chloride 111 H (98-107) mmol/L BUN 20 H (7-17) mg/dL Creatinine 0.51 L (0.52-1.04) mg/dL POC Glucose (mg/dL) 118 H (70-110) mg/dL Microbiology - Last 24 Hours (Table) 12/19/24 08:10 Blood Culture - Preliminary Blood 12/19/24 10:42 Urine Culture - Final Urine,Voided Klebsiella oxytoca Citrobacter farmeri Yue albicans Assessment and Plan Assessment: -Acute hypoxic respiratory failure likely due to COPD exacerbation. Improved no w. CTA negative for acute PE. - Type 2 diabetes mellitus uncontrolled elevated blood sugars patient seen and insulin regimen will be changed to basal bolus regimen patient was started on 25 units of Lantus twice a day along with sliding scale Premeal insulin. - Sacral decubitus ulcer which does not appear to be infected - Acute urinary tract infection. Urine culture showed Klebsiella oxytoca, Cit robacter and Yue albicans. - Chronic hypoxic and hypercapnic respiratory failure secondary to COPD. - Nicotine use history which she discontinued since her stroke - Hyperlipidemia - Hypertension - Hypothyroidism For above-mentioned chronic medical problems patient will be resumed on appropriate home medications DVT prophylaxis: Lovenox PT OT and possible transfer back to subacute rehab. Time with Patient: Greater than 30
[2024-12-23 06:31] LABS: Glucose,Whole Blood 351 mg/dL (70-110)
[2024-12-23 06:52] LABS: Basophils # (A) 0.02 10*3/uL (0.00-0.10); Basophils % (A) 0.2 %; Eosinophils # (A) 0.05 10*3/uL (0.04-0.35); Eosinophils % (A) 0.6 %; HCT 33.7 % (37.2-46.3); HGB 11.2 g/dL (12.0-15.0); Lymphocytes # (A) 1.71 10*3/uL (0.90-5.00); Lymphocytes % (A) 20.2 %; MCH 30.3 pg (27.0-32.0); MCHC 33.2 g/dL (32.0-37.0); MCV 91.1 fL (80.0-97.0); Mean Platelet Volume 10.1 fL (9.5-12.2); Monocytes # (A) 0.58 10*3/uL (0.20-1.00); Monocytes % (A) 6.9 %; Neutrophils # (A) 6.02 10*3/uL (1.80-7.70); Neutrophils % (A) 71.3 %; Platelet Count 216 10*3/uL (140-440); RDW 15.5 % (11.5-14.5); WBC 8.45 10*3/uL (4.50-10.00)
[2024-12-23 07:08] LABS: African American GFR (CKD) >90 (>60 ml/min/1.73 sqM); Anion Gap 4 mmol/L; Blood Urea Nitrogen 16 mg/dL (7-17); Calcium 9.3 mg/dL (8.4-10.2); Carbon Dioxide 25 mmol/L (22-30); Chloride 106 mmol/L (98-107); Glucose 329 mg/dL (74-99); Non-African American GFR(CKD) >90 (>60 ml/min/1.73 sqM); Potassium 3.9 mmol/L (3.5-5.1); Sodium 135 mmol/L (137-145)
[2024-12-23 12:08] LABS: Glucose,Whole Blood 334 mg/dL (70-110)
[2024-12-23] MEDS: INSULIN GLARGINE (LANTUS) 100 UNIT/ML SYR SQ SCH (12:22)
--- NOTE | 2024-12-23 12:37 | P.PN ---
Subjective Progress Note Date: 12/23/24 This is a 74-year-old female patient who recently had a cerebrovascular accident leaving her with right sided paralysis and was at [facility] and subsequently discharged a few days ago to a local usp. She has a history of diabetes mellitus, type II, dysphagia, aphasia, hyperlipidemia, hyperlipidemia, chronic and ongoing tobacco dependence up until her stroke, PEG tube placement. She was brought into the emergency room yesterday after being found to have increased work of breathing and low O2 saturations. Chest x-ray reveals no acute pulmonary process. White count 12.6. Hemoglobin 12.1. Platelets 246. D-dimer 1.21. Sodium 139. Potassium 4.9. Bicarb 27. BUN 35. Creatinine 0.62. Glucose 343. Urinalysis cloudy with 4+ glucose trace ketones large leukocyte esterase and high WBCs. Viral screen is negative. She is seen today in consultation in the emergency department. She is currently resting on a stretcher. Maintaining O2 saturations up to 100% on 3 L/min per nasal c annula. She is afebrile. Hemodynamically stable. CT angiogram to rule out pulmonary embolism is pending. No information is obtained from the patient. No family members present. Patient was seen today on 12/21/2024, basically the patient is about the same, she is in bed, nonverbal, seems to be chronically ill, she has right-sided hemiplegia, CT of the chest showed no evidence of pulmonary embolism, in addition it showed dependent consolidative changes in the lower lobes consistent with mostly atelectasis, doubt pneumonia although the patient could be a set up for aspiration pneumonia but she already has a PEG tube in place, and she is not given any feedings orally. Not to mention the patient is on Rocephin for presumptive UTI as per admitting physician. Labs reviewed WBC count is 10 hemoglobin 11 electrolytes are normal renal profile is normal The patient is seen today December 22, 2024 and follow-up on the selective care unit. She is currently resting in bed. Awake. Maintaining O2 saturations in the 90s on 2 L/min per nasal cannula. No IV fluids. Urine culture positive for Yue, Citrobacter farmeri, Klebsiella oxytoca. White count 9.3. Hemoglobin 11.6. Platelets 228. Sodium 142. Potassium 3.7. Bicarb 27. BUN 20. Creatinine 0.51. He remains on cefepime. Initiated on Diflucan. Lovenox for DVT prophylaxis. Continued on bronchodilators. The patient is seen today December 23, 2024 in follow-up on the selective care unit. She is currently resting in bed. Awake and alert in no acute distress. She is able to mainly shake her head yes and no. And maintaining good O2 saturations in the mid 90s on room air. Afebrile. Hemodynamically stable. Urine culture positive for Klebsiella oxytoca, Citrobacter farmeri, Yue albicans. White count 8.4. Hemoglobin 11.2. Platelets 216. Sodium 135. Potassium 3.9. Bicarb 25. BUN 16. Creatinine 0.49. Glucose 329. Calcium 9.3. She is continued on DuoNeb inhalations. Antibiotics in the form of cefepime. Continued on Diflucan. Lovenox for DVT prophylaxis. She is being nourished with Jevity at 40 mL/h. Objective - Vital Signs Vital signs: Vital Signs Temp 97.4 F L 12/23/24 11:02 Pulse 65 12/23/24 11:02 Resp 16 12/23/24 11:02 BP 138/76 12/23/24 11:02 Pulse Ox 96 12/23/24 11:02 FiO2 40 12/21/24 08:49 Intake & Output 12/22/24 12/23/24 12/23/24 18:59 06:59 18:59 Intake Total 40 Output Total 275 325 Balance -275 -285 Weight 76 kg Intake: Tube Feeding 40 Output: Urine 275 325 Other: Voiding Method Indwelling Catheter Indwelling Catheter Indwelling Catheter # Bowel Movements 1 - Exam GENERAL EXAM: Alert, nonverbal, 74-year-old female, on room air oxygen, in no apparent distress. HEAD: Normocephalic. Facial droop is noted. EYES: Normal reaction of pupils, equal size. NOSE: Clear with pink turbinates. THROAT: No erythema or exudates. NECK: No masses, no JVD. CHEST: No chest wall deformity. LUNGS: Equal air entry with no crackles, wheeze, rhonchi or dullness. CVS: S1 and S2 normal with no audible murmur, regular rhythm. ABDOMEN: PEG tube exit site is clean and dry. No hepatosplenomegaly, normal bowel sounds, no guarding or rigidity. SKIN: Sacral ulcer. Some ecchymosis and bruising noted CENTRAL NERVOUS SYSTEM: Nonverbal, right sided hemiplegia noted EXTREMITIES: There is no peripheral edema. No clubbing, no cyanosis. Peripheral pulses are intact. - Labs CBC & Chem 7: 12/23/24 05:30 12/23/24 05:30 Labs: Abnormal Lab Results - Last 24 Hours (Table) 12/22/24 12/22/24 12/23/24 Range/Units 16:29 20:16 05:30 RBC 3.70 L (4.10-5.20) 10*6/uL Hgb 11.2 L (12.0-15.0) g/dL Hct 33.7 L (37.2-46.3) % Immature Gran # 0.07 H (0.00-0.04) 10*3/uL Sodium (137-145) mmol/L Creatinine (0.52-1.04) mg/dL Glucose (74-99) mg/dL POC Glucose (mg/dL) 203 H 249 H (70-110) mg/dL 12/23/24 12/23/24 12/23/24 Range/Units 05:30 06:29 11:55 RBC (4.10-5.20) 10*6/uL Hgb (12.0-15.0) g/dL Hct (37.2-46.3) % Immature Gran # (0.00-0.04) 10*3/uL Sodium 135 L (137-145) mmol/L Creatinine 0.49 L (0.52-1.04) mg/dL Glucose 329 H (74-99) mg/dL POC Glucose (mg/dL) 351 H 334 H (70-110) mg/dL Microbiology - Last 24 Hours (Table) 12/19/24 08:10 Blood Culture - Preliminary Blood Assessment and Plan Assessment: Acute hypoxemic respiratory failure related to a COPD exacerbation. Pulmonary embolism ruled out. Chest x-ray clear. Viral screen negative Acute urinary tract infection secondary to Klebsiella oxytoca, Citrobacter farmeri, Yue albicans. Currently on cefepime and Diflucan Recent CVA with right sided paralysis treated at [facility] then discharged to a local usp Dysphagia secondary to CVA with PEG tube placement Aphasia secondary to CVA History of chronic tobacco dependence Possible chronic obstructive pulmonary disease History of diabetes mellitus, type II History of hypertension Hyperlipidemia Plan: The patient was seen and evaluated Microbiology, labs and medications reviewed Continued on cefepime and Diflucan Antibiotics per ID service Currently stable on room air oxygen Continue DuoNeb inhalations Lovenox for DVT prophylaxis Continue Lantus and Humalog sliding scale Plan is for [facility] at discharge I have personally seen and examined the patient, performed the documentation and the assessment and plan as written. Number of minutes spent on the visit: 10 Dictation was produced using [employer] dictation software. Please excuse any grammatical, word or spelling errors.
--- NOTE | 2024-12-23 14:33 | P.PN ---
Subjective Progress Note Date: 12/23/24 Principal diagnosis: Reason for follow-up is leukocytosis pressure ulcer pneumonia/UTI Patient is a 74-year-old female with a past medical history significant for diabetes mellitus recently admitted to [facility] for CVA subsequently [facility] patient was sent to the ER for evaluation of increasing shortness of breath, CT with a possible left lower lobe atelectasis versus pneumonia also elevated white count positive UA concerning for symptomatic UTI. On today's evaluation that is 12/23/2024, Patient is afebrile this morning patient is breathing comfortable on room air patient did not respond to simple question by shaking her head no chest pain no cough no medical data has been reported. Patient white count is 8.45, creatinine 0.49 Objective - Vital Signs Vital signs: Vital Signs Temp 97.4 F L 12/23/24 11:02 Pulse 65 12/23/24 11:02 Resp 16 12/23/24 11:02 BP 138/76 12/23/24 11:02 Pulse Ox 96 12/23/24 11:02 FiO2 40 12/21/24 08:49 Intake & Output 12/22/24 12/23/24 12/23/24 18:59 06:59 18:59 Intake Total 200 Output Total 275 325 Balance -275 -125 Weight 76 kg Intake: Tube Feeding 200 Output: Urine 275 325 Other: Voiding Method Indwelling Catheter Indwelling Catheter Indwelling Catheter # Bowel Movements 1 - Exam GENERAL DESCRIPTION: An elderly female lying in bed in no distress RESPIRATORY SYSTEM: Unlabored breathing , decreased breath sounds at bases HEART: S1 S2 regular rate and rhythm , ABDOMEN: Soft , no tenderness EXTREMITIES: No edema feet - Labs CBC & Chem 7: 12/23/24 05:30 12/23/24 05:30 Labs: Abnormal Lab Results - Last 24 Hours (Table) 12/22/24 12/22/24 12/23/24 Range/Units 16:29 20:16 05:30 RBC 3.70 L (4.10-5.20) 10*6/uL Hgb 11.2 L (12.0-15.0) g/dL Hct 33.7 L (37.2-46.3) % Immature Gran # 0.07 H (0.00-0.04) 10*3/uL Sodium (137-145) mmol/L Creatinine (0.52-1.04) mg/dL Glucose (74-99) mg/dL POC Glucose (mg/dL) 203 H 249 H (70-110) mg/dL 12/23/24 12/23/24 12/23/24 Range/Units 05:30 06:29 11:55 RBC (4.10-5.20) 10*6/uL Hgb (12.0-15.0) g/dL Hct (37.2-46.3) % Immature Gran # (0.00-0.04) 10*3/uL Sodium 135 L (137-145) mmol/L Creatinine 0.49 L (0.52-1.04) mg/dL Glucose 329 H (74-99) mg/dL POC Glucose (mg/dL) 351 H 334 H (70-110) mg/dL Microbiology - Last 24 Hours (Table) 12/19/24 08:10 Blood Culture - Preliminary Blood Assessment and Plan (1) Pneumonia Current Visit: Yes Status: Acute Code(s): J18.9 - PNEUMONIA, UNSPECIFIED ORGANISM SNOMED Code(s): 076130359 (2) UTI (urinary tract infection) Current Visit: Yes Status: Acute Code(s): N39.0 - URINARY TRACT INFECTION, SITE NOT SPECIFIED SNOMED Code(s): 66107858 (3) Leukocytosis Current Visit: Yes Status: Acute Code(s): D72.829 - ELEVATED WHITE BLOOD CELL COUNT, UNSPECIFIED SNOMED Code(s): 738935063 (4) Thrush Current Visit: Yes Status: Acute Code(s): B37.0 - CANDIDAL STOMATITIS SNOMED Code(s): 84799766 (5) Stage II pressure ulcer of left buttock Current Visit: Yes Status: Acute Code(s): L89.322 - PRESSURE ULCER OF LEFT BUTTOCK, STAGE 2 SNOMED Code(s): 08996221696257 (6) Stage II pressure ulcer of right buttock Current Visit: Yes Status: Acute Code(s): L89.312 - PRESSURE ULCER OF RIGHT BUTTOCK, STAGE 2 SNOMED Code(s): 43860129250937 Plan: 1patient presenting the hospital with increasing shortness of breath which is likely multifactorial in this patient who did have elevated white count as well as bibasilar atelectasis and a question of possible pneumonia not entirely excluded patient also have a positive UA, and the possible component of a UTI 2-patient did have pressure ulcer of the bilateral gluteal area but no slough tissue continue local wound treated as ordered 3-right hand wound with some slough tissue continue to treat Medihoney followed by moist dressing change daily 4-patient is afebrile white count is normal to continue cefepime and Diflucan for thrush and monitor clinical course closely Dictation was produced using [employer] software. please excuse any grammatical, word or spelling errors.
[2024-12-23 16:45] LABS: Glucose,Whole Blood 349 mg/dL (70-110)
[2024-12-23 16:52] LABS: Appearance,Urine Clear (Clear); Bacteria,Urine Rare /hpf; Bilirubin,Urine Negative (Negative); Blood,Urine Trace (Negative); Color,Urine Light Yellow; Glucose,Urine (UA) 4+ (Negative); Ketones,Urine Negative (Negative); Leukocyte Esterase,Urine Small (Negative); Mucus,Urine Rare /hpf; Nitrite,Urine Negative (Negative); Protein,Urine 1+ (Negative); RBC,Urine 7 /hpf (0-5); Specific Gravity,Urine 1.024 (1.001-1.035); Urobilinogen,Urine <2.0 mg/dL (<2.0); WBC,Urine 37 /hpf (0-5)
[2024-12-23 20:10] LABS: Glucose,Whole Blood 273 mg/dL (70-110)
[2024-12-24 06:11] LABS: Glucose,Whole Blood 327 mg/dL (70-110)
[2024-12-24 11:55] LABS: Glucose,Whole Blood 389 mg/dL (70-110)
[2024-12-24] MEDS: INSULIN LISPRO (HumaLOG) 100 UNIT/ML 10 mL VL SQ SCH ×2 (12:03)
--- NOTE | 2024-12-24 14:04 | P.PN ---
Subjective Progress Note Date: 12/24/24 This is a 74-year-old female patient who recently had a cerebrovascular accident leaving her with right sided paralysis and was at [facility] and subsequently discharged a few days ago to a local long-term. She has a history of diabetes mellitus, type II, dysphagia, aphasia, hyperlipidemia, hyperlipidemia, chronic and ongoing tobacco dependence up until her stroke, PEG tube placement. She was brought into the emergency room yesterday after being found to have increased work of breathing and low O2 saturations. Chest x-ray reveals no acute pulmonary process. White count 12.6. Hemoglobin 12.1. Platelets 246. D-dimer 1.21. Sodium 139. Potassium 4.9. Bicarb 27. BUN 35. Creatinine 0.62. Glucose 343. Urinalysis cloudy with 4+ glucose trace ketones large leukocyte esterase and high WBCs. Viral screen is negative. She is seen today in consultation in the emergency department. She is currently resting on a stretcher. Maintaining O2 saturations up to 100% on 3 L/min per nasal c annula. She is afebrile. Hemodynamically stable. CT angiogram to rule out pulmonary embolism is pending. No information is obtained from the patient. No family members present. Patient was seen today on 12/21/2024, basically the patient is about the same, she is in bed, nonverbal, seems to be chronically ill, she has right-sided hemiplegia, CT of the chest showed no evidence of pulmonary embolism, in addition it showed dependent consolidative changes in the lower lobes consistent with mostly atelectasis, doubt pneumonia although the patient could be a set up for aspiration pneumonia but she already has a PEG tube in place, and she is not given any feedings orally. Not to mention the patient is on Rocephin for presumptive UTI as per admitting physician. Labs reviewed WBC count is 10 hemoglobin 11 electrolytes are normal renal profile is normal The patient is seen today December 22, 2024 and follow-up on the selective care unit. She is currently resting in bed. Awake. Maintaining O2 saturations in the 90s on 2 L/min per nasal cannula. No IV fluids. Urine culture positive for Yue, Citrobacter farmeri, Klebsiella oxytoca. White count 9.3. Hemoglobin 11.6. Platelets 228. Sodium 142. Potassium 3.7. Bicarb 27. BUN 20. Creatinine 0.51. He remains on cefepime. Initiated on Diflucan. Lovenox for DVT prophylaxis. Continued on bronchodilators. The patient is seen today December 23, 2024 in follow-up on the selective care unit. She is currently resting in bed. Awake and alert in no acute distress. She is able to mainly shake her head yes and no. And maintaining good O2 saturations in the mid 90s on room air. Afebrile. Hemodynamically stable. Urine culture positive for Klebsiella oxytoca, Citrobacter farmeri, Yue albicans. White count 8.4. Hemoglobin 11.2. Platelets 216. Sodium 135. Potassium 3.9. Bicarb 25. BUN 16. Creatinine 0.49. Glucose 329. Calcium 9.3. She is continued on DuoNeb inhalations. Antibiotics in the form of cefepime. Continued on Diflucan. Lovenox for DVT prophylaxis. She is being nourished with Jevity at 40 mL/h. The patient is seen today December 24, 2024 in follow-up on the selective care unit. She is awake and alert in no acute distress. Resting comfortably in bed. Maintaining O2 saturations in the 90s on room air oxygen. Urine culture was positive for Klebsiella oxytoca, Citrobacter farmeri, Yue albicans. Glucose 327. She is continued on DuoNeb inhalations. Remains on cefepime and Diflucan. Lovenox for DVT prophylaxis. Remains on Lantus and Humalog sliding scale. Remains on normal saline at 75 mL/h. She has been nourished with Jevity at 70 mL/h via PEG tube. Objective - Vital Signs Vital signs: Vital Signs Temp 98.0 F 12/24/24 08:00 Pulse 69 12/24/24 11:54 Resp 16 12/24/24 11:54 BP 133/67 12/24/24 11:54 Pulse Ox 95 12/24/24 11:54 FiO2 40 12/21/24 08:49 Intake & Output 12/23/24 12/24/24 12/24/24 18:59 06:59 18:59 Intake Total 360 765 610 Output Total 675 800 400 Balance -315 -35 210 Weight 78 kg Intake: Intake, IV Titration 50 Amount Sodium Chloride 0.9% 1, 50 000 ml @ 75 mls/hr IV . [id number] REPLACED BY [facility] Rx#:[id number] Tube Feeding 360 765 560 Output: Urine 675 800 400 Other: Voiding Method Indwelling Catheter Indwelling Catheter Indwelling Catheter # Bowel Movements 1 1 - Exam GENERAL EXAM: Alert, nonverbal, 74-year-old female, resting in bed, on room air oxygen, in no apparent distress. HEAD: Normocephalic. Facial droop is noted. EYES: Normal reaction of pupils, equal size. NOSE: Clear with pink turbinates. THROAT: No erythema or exudates. NECK: No masses, no JVD. CHEST: No chest wall deformity. LUNGS: Equal air entry with no crackles, wheeze, rhonchi or dullness. CVS: S1 and S2 normal with no audible murmur, regular rhythm. ABDOMEN: PEG tube exit site is clean and dry. No hepatosplenomegaly, normal bowel sounds, no guarding or rigidity. SKIN: Sacral ulcer. Some ecchymosis and bruising noted CENTRAL NERVOUS SYSTEM: Nonverbal, right sided hemiplegia noted EXTREMITIES: There is no peripheral edema. No clubbing, no cyanosis. Peripheral pulses are intact. - Labs CBC & Chem 7: 12/23/24 05:30 12/23/24 05:30 Labs: Abnormal Lab Results - Last 24 Hours (Table) 12/21/24 12/23/24 12/23/24 Range/Units 16:34 16:39 20:09 POC Glucose (mg/dL) 349 H 273 H (70-110) mg/dL Urine Protein 1+ H (Negative) Urine Glucose (UA) 4+ H (Negative) Urine Blood Trace H (Negative) Ur Leukocyte Esterase Small H (Negative) Urine RBC 7 H (0-5) /hpf Urine WBC 37 H (0-5) /hpf Urine Bacteria Rare H (None) /hpf Urine Mucus Rare H (None) /hpf 12/24/24 12/24/24 Range/Units 06:10 11:51 POC Glucose (mg/dL) 327 H 389 H (70-110) mg/dL Urine Protein (Negative) Urine Glucose (UA) (Negative) Urine Blood (Negative) Ur Leukocyte Esterase (Negative) Urine RBC (0-5) /hpf Urine WBC (0-5) /hpf Urine Bacteria (None) /hpf Urine Mucus (None) /hpf Assessment and Plan Assessment: Acute hypoxemic respiratory failure related to a COPD exacerbation. Pulmonary embolism ruled out. Chest x-ray clear. Viral screen negative Acute urinary tract infection secondary to Klebsiella oxytoca, Citrobacter farmeri, Yue albicans. Currently on cefepime and Diflucan Recent CVA with right sided paralysis treated at [facility] then discharged to a local long-term Dysphagia secondary to CVA with PEG tube placement Aphasia secondary to CVA History of chronic tobacco dependence Possible chronic obstructive pulmonary disease History of diabetes mellitus, type II History of hypertension Hyperlipidemia Plan: The patient was seen and evaluated Microbiology and medications reviewed Continued on cefepime and Diflucan Antibiotics per ID service Currently on room air oxygen Continue DuoNeb inhalations Lovenox for DVT prophylaxis Remains on Jevity for nourishment Continue Lantus and Humalog sliding scale Plan is for [facility] at discharge I have personally seen and examined the patient, performed the documentation and the assessment and plan as written. Number of minutes spent on the visit: 10 Dictation was produced using [employer] dictation software. Please excuse any grammatical, word or spelling errors.
[2024-12-24 16:53] LABS: Glucose,Whole Blood 337 mg/dL (70-110)
[2024-12-24 20:12] LABS: Glucose,Whole Blood 299 mg/dL (70-110)
--- NOTE | 2024-12-24 21:50 | P.PN ---
Subjective Progress Note Date: 12/23/24 74-year-old female presented from long-term with dyspnea. History is quite limited on this patient. She has apparently had prior stroke and is bedbound. She was recently admitted to long-term and apparently was found this morning with increased dyspnea and work of breathing. Patient was hypoxic when found by paramedics and she was placed on CPAP. She was given albuterol, Atrovent, Solu-Medrol. Patient is lethargic but able to answer simple questions. She denies pain complaints. There is no history of vomiting. No history of fever. Upon arrival to ED patient was in acute respiratory distress and had been placed on BiPAP Chest x-ray reveals no acute pulmonary process. Lab review shows White count 12.6. Hemoglobin 12.1. Platelets 246. D-dimer 1.21. Sodium 139. Potassium 4.9. Bicarb 27. BUN 35. Creatinine 0.62. Glucose 343. - Urinalysis cloudy with 4+ glucose trace ketones large leukocyte esterase and high WBCs. - Viral screen is negative. 12/21/2024 Patient is seen and evaluated in room at bedside; family is present in the bedside chair; inquiring about CT of the chest done to rule out PE; imaging results discussed with patient and family - basically the patient is about the same, she is in bed, nonverbal, seems to be chronically ill, she has right-sided hemiplegia - CT of the chest showed no evidence of pulmonary embolism, in addition it showed dependent consolidative changes in the lower lobes consistent with mostly atelectasis - Labs reviewed WBC count is 10 hemoglobin 11 electrolytes are normal renal profile is normal - Patient remains on IV Rocephin and azithromycin; pulmonary service on board and not convinced about pneumonia - Patient does have a UTI and urine cultures pending; continue antibiotics 12/22/2024 Patient is resting in the bed. Awake alert but could not communicate. Able to follow simple commands. Currently requiring 2 L oxygen via nasal cannula. No complaints of chest pain. Patient was found to have oral thrush and was started on nystatin swish swallow. Urine culture showed Klebsiella, Citrobacter and Yue. Currently on antibiotics in the form of cefepime. Also on Diflucan. Laboratory data showed WBC 9.3 hemoglobin 11.6 and platelets 228 sodium 142 potassium 3.7 chloride 101 bicarb is 27 BUN 20 and creatinine 0.51 blood sugar 96. Anticipate discharge to rehab' 12/23/2024 Patient is lying in the bed. Awake alert and able to follow simple commands. Currently on room air. Continued on antibiotics in the form of cefepime for urinary tract infection. Also on Diflucan. Oral thrush is still present. Continue on IV hydration with normal saline at 75 cc/h. Blood sugar is eleva cyrus. Continue insulin sliding scale. Laboratory data showed WBC 8.4 hemoglobin 11.2 and platelets 216 sodium 135 potassium 3.9 chloride 106 bicarb is 25 BUN 16 and creatinine 0.49 and blood sugar 329 and calcium 9.3. Current medications reviewed. Objective - Vital Signs Vital signs: Vital Signs Temp 97.4 F L 12/23/24 11:02 Pulse 59 L 12/23/24 13:41 Resp 16 12/23/24 13:41 BP 138/76 12/23/24 11:02 Pulse Ox 96 12/23/24 11:02 FiO2 40 12/21/24 08:49 Intake & Output 12/22/24 12/23/24 12/23/24 18:59 06:59 18:59 Intake Total 200 Output Total 275 325 Balance -275 -125 Weight 76 kg Intake: Tube Feeding 200 Output: Urine 275 325 Other: Voiding Method Indwelling Catheter Indwelling Catheter Indwelling Catheter # Bowel Movements 1 - Exam - Exam Limitations: altered mental status, physical limitation General appearance: lethargic, in distress Head exam: Present: atraumatic, normocephalic Eye exam: Present: normal appearance, PERRL ENT exam: Present: mucous membranes dry Neck exam: Present: normal inspection. Absent: tenderness, meningismus Respiratory exam: Present: respiratory distress, rhonchi, decreased breath sounds Cardiovascular Exam: Present: regular rate, normal rhythm GI/Abdominal exam: Present: soft, other (Recent PEG tube). Absent: distended Extremities exam: Present: normal inspection, normal capillary refill Skin exam: Present: warm - Labs CBC & Chem 7: 12/23/24 05:30 12/23/24 05:30 Labs: Abnormal Lab Results - Last 24 Hours (Table) 12/22/24 12/22/24 12/23/24 Range/Units 16:29 20:16 05:30 RBC 3.70 L (4.10-5.20) 10*6/uL Hgb 11.2 L (12.0-15.0) g/dL Hct 33.7 L (37.2-46.3) % Immature Gran # 0.07 H (0.00-0.04) 10*3/uL Sodium (137-145) mmol/L Creatinine (0.52-1.04) mg/dL Glucose (74-99) mg/dL POC Glucose (mg/dL) 203 H 249 H (70-110) mg/dL 12/23/24 12/23/24 12/23/24 Range/Units 05:30 06:29 11:55 RBC (4.10-5.20) 10*6/uL Hgb (12.0-15.0) g/dL Hct (37.2-46.3) % Immature Gran # (0.00-0.04) 10*3/uL Sodium 135 L (137-145) mmol/L Creatinine 0.49 L (0.52-1.04) mg/dL Glucose 329 H (74-99) mg/dL POC Glucose (mg/dL) 351 H 334 H (70-110) mg/dL Microbiology - Last 24 Hours (Table) 12/19/24 08:10 Blood Culture - Preliminary Blood Assessment and Plan Assessment: -Acute hypoxic respiratory failure likely due to COPD exacerbation. Improved now. CTA negative for acute PE. - Type 2 diabetes mellitus uncontrolled elevated blood sugars patient seen and insulin regimen will be changed to basal bolus regimen patient was started on 25 units of Lantus twice a day along with sliding scale Premeal insulin. - Sacral decubitus ulcer which does not appear to be infected - Acute urinary tract infection. Urine culture showed Klebsiella oxytoca, Citrobacter and Yue albicans. -Oral thrush - Chronic hypoxic and hypercapnic respiratory failure secondary to COPD. - Nicotine use history which she discontinued since her stroke - Hyperlipidemia - Hypertension - Hypothyroidism For above-mentioned chronic medical problems patient will be resumed on appropriate home medications DVT prophylaxis: Lovenox PT OT and possible transfer back to subacute rehab. Time with Patient: Greater than 30
--- NOTE | 2024-12-24 21:50 | P.PN ---
Subjective Progress Note Date: 12/24/24 74-year-old female presented from [facility] with dyspnea. History is quite limited on this patient. She has apparently had prior stroke and is bedbound. She was recently admitted to [facility] and apparently was found this morning with increased dyspnea and work of breathing. Patient was hypoxic when found by paramedics and she was placed on CPAP. She was given albuterol, Atrovent, Solu-Medrol. Patient is lethargic but able to answer simple questions. She denies pain complaints. There is no history of vomiting. No history of fever. Upon arrival to ED patient was in acute respiratory distress and had been placed on BiPAP Chest x-ray reveals no acute pulmonary process. Lab review shows White count 12.6. Hemoglobin 12.1. Platelets 246. D-dimer 1.21. Sodium 139. Potassium 4.9. Bicarb 27. BUN 35. Creatinine 0.62. Glucose 343. - Urinalysis cloudy with 4+ glucose trace ketones large leukocyte esterase and high WBCs. - Viral screen is negative. 12/21/2024 Patient is seen and evaluated in room at bedside; family is present in the bedside chair; inquiring about CT of the chest done to rule out PE; imaging results discussed with patient and family - basically the patient is about the same, she is in bed, nonverbal, seems to be chronically ill, she has right-sided hemiplegia - CT of the chest showed no evidence of pulmonary embolism, in addition it showed dependent consolidative changes in the lower lobes consistent with mostly atelectasis - Labs reviewed WBC count is 10 hemoglobin 11 electrolytes are normal renal profile is normal - Patient remains on IV Rocephin and azithromycin; pulmonary service on board and not convinced about pneumonia - Patient does have a UTI and urine cultures pending; continue antibiotics 12/22/2024 Patient is resting in the bed. Awake alert but could not communicate. Able to follow simple commands. Currently requiring 2 L oxygen via nasal cannula. No complaints of chest pain. Patient was found to have oral thrush and was started on nystatin swish swallow. Urine culture showed Klebsiella, Citrobacter and Yue. Currently on antibiotics in the form of cefepime. Also on Diflucan. Laboratory data showed WBC 9.3 hemoglobin 11.6 and platelets 228 sodium 142 potassium 3.7 chloride 101 bicarb is 27 BUN 20 and creatinine 0.51 blood sugar 96. Anticipate discharge to rehab' 12/23/2024 Patient is lying in the bed. Awake alert and able to follow simple commands. Currently on room air. Continued on antibiotics in the form of cefepime for urinary tract infection. Also on Diflucan. Oral thrush is still present. Continue on IV hydration with normal saline at 75 cc/h. Blood sugar is eleva cyrus. Continue insulin sliding scale. Laboratory data showed WBC 8.4 hemoglobin 11.2 and platelets 216 sodium 135 potassium 3.9 chloride 106 bicarb is 25 BUN 16 and creatinine 0.49 and blood sugar 329 and calcium 9.3. 12/24/2024 Patient is resting in the bed. Awake alert and follows simple commands. Currently on room air. Continue on IV antibiotics for urinary tract infection and is also on Diflucan. Oral thrush seems to be improving. Denies blood sugar is still elevated. Patient is tolerating tube feeding with Jevity at 75 cc/h via PEG tube. Also on IV hydration with normal saline at 75 cc/h. Laboratory data reviewed. Preprandial insulin was added for better blood sugar control. Current medications reviewed. Objective - Vital Signs Vital signs: Vital Signs Temp 98.2 F 12/24/24 15:14 Pulse 84 12/24/24 20:23 Resp 16 12/24/24 15:14 BP 137/69 12/24/24 15:14 Pulse Ox 97 12/24/24 15:14 FiO2 40 12/21/24 08:49 Intake & Output 12/24/24 12/24/24 12/25/24 06:59 18:59 06:59 Intake Total 765 2140 Output Total 800 1100 Balance -35 1040 Weight 78 kg Intake: Intake, IV Titration 850 Amount Cefepime 2 gm In Dextrose 200 5% in Water 100 ml @ 25 mls/hr IVPB Q8HR [facility] Rx#: [id number] Sodium Chloride 0.9% 1, 650 000 ml @ 75 mls/hr IV . [id number] [facility] Rx#:[id number] Tube Feeding 765 840 Other 450 Output: Urine 800 1100 Other: Voiding Method Indwelling Catheter Indwelling Catheter # Bowel Movements 1 1 - Exam - Exam Limitations: altered mental status, physical limitation General appearance: lethargic, in distress Head exam: Present: atraumatic, normocephalic Eye exam: Present: normal appearance, PERRL ENT exam: Present: mucous membranes dry Neck exam: Present: normal inspection. Absent: tenderness, meningismus Respiratory exam: Present: respiratory distress, rhonchi, decreased breath sounds Cardiovascular Exam: Present: regular rate, normal rhythm GI/Abdominal exam: Present: soft, other (Recent PEG tube). Absent: distended Extremities exam: Present: normal inspection, normal capillary refill Skin exam: Present: warm - Labs CBC & Chem 7: 12/23/24 05:30 12/23/24 05:30 Labs: Abnormal Lab Results - Last 24 Hours (Table) 12/24/24 12/24/24 12/24/24 Range/Units 06:10 11:51 16:49 POC Glucose (mg/dL) 327 H 389 H 337 H (70-110) mg/dL 12/24/24 Range/Units 20:11 POC Glucose (mg/dL) 299 H (70-110) mg/dL Microbiology - Last 24 Hours (Table) 12/23/24 16:34 Urine Culture - Preliminary Urine,Voided 12/19/24 08:10 Blood Culture - Final Blood Assessment and Plan Assessment: - Acute hypoxic respiratory failure likely due to COPD exacerbation. Improved now. CTA negative for acute PE. - Type 2 diabetes mellitus uncontrolled elevated blood sugars patient seen and insulin regimen will be changed to basal bolus regimen patient was started on 25 units of Lantus twice a day along with sliding scale Premeal insulin. - Sacral decubitus ulcer which does not appear to be infected - Acute urinary tract infection. Urine culture showed Klebsiella oxytoca, Citrobacter and Yue albicans. Patient on cefepime and Diflucan. - Oral thrush - Chronic hypoxic and hypercapnic respiratory failure secondary to COPD. - Nicotine use history which she discontinued since her stroke - Hyperlipidemia - Hypertension - Hypothyroidism For above-mentioned chronic medical problems patient will be resumed on appropriate home medications DVT prophylaxis: Lovenox PT OT and possible transfer back to subacute rehab. Time with Patient: Greater than 30
[2024-12-25 00:27] LABS: Glucose,Whole Blood 359 mg/dL (70-110)
[2024-12-25 06:24] LABS: Glucose,Whole Blood 328 mg/dL (70-110)
--- NOTE | 2024-12-25 11:21 | P.PN ---
Subjective Progress Note Date: 12/25/24 This is a 74-year-old female patient who recently had a cerebrovascular accident leaving her with right sided paralysis and was at [facility] and subsequently discharged a few days ago to a local senior care. She has a history of diabetes mellitus, type II, dysphagia, aphasia, hyperlipidemia, hyperlipidemia, chronic and ongoing tobacco dependence up until her stroke, PEG tube placement. She was brought into the emergency room yesterday after being found to have increased work of breathing and low O2 saturations. Chest x-ray reveals no acute pulmonary process. White count 12.6. Hemoglobin 12.1. Platelets 246. D-dimer 1.21. Sodium 139. Potassium 4.9. Bicarb 27. BUN 35. Creatinine 0.62. Glucose 343. Urinalysis cloudy with 4+ glucose trace ketones large leukocyte esterase and high WBCs. Viral screen is negative. She is seen today in consultation in the emergency department. She is currently resting on a stretcher. Maintaining O2 saturations up to 100% on 3 L/min per nasal c annula. She is afebrile. Hemodynamically stable. CT angiogram to rule out pulmonary embolism is pending. No information is obtained from the patient. No family members present. Patient was seen today on 12/21/2024, basically the patient is about the same, she is in bed, nonverbal, seems to be chronically ill, she has right-sided hemiplegia, CT of the chest showed no evidence of pulmonary embolism, in addition it showed dependent consolidative changes in the lower lobes consistent with mostly atelectasis, doubt pneumonia although the patient could be a set up for aspiration pneumonia but she already has a PEG tube in place, and she is not given any feedings orally. Not to mention the patient is on Rocephin for presumptive UTI as per admitting physician. Labs reviewed WBC count is 10 hemoglobin 11 electrolytes are normal renal profile is normal The patient is seen today December 22, 2024 and follow-up on the selective care unit. She is currently resting in bed. Awake. Maintaining O2 saturations in the 90s on 2 L/min per nasal cannula. No IV fluids. Urine culture positive for Yue, Citrobacter farmeri, Klebsiella oxytoca. White count 9.3. Hemoglobin 11.6. Platelets 228. Sodium 142. Potassium 3.7. Bicarb 27. BUN 20. Creatinine 0.51. He remains on cefepime. Initiated on Diflucan. Lovenox for DVT prophylaxis. Continued on bronchodilators. The patient is seen today December 23, 2024 in follow-up on the selective care unit. She is currently resting in bed. Awake and alert in no acute distress. She is able to mainly shake her head yes and no. And maintaining good O2 saturations in the mid 90s on room air. Afebrile. Hemodynamically stable. Urine culture positive for Klebsiella oxytoca, Citrobacter farmeri, Yue albicans. White count 8.4. Hemoglobin 11.2. Platelets 216. Sodium 135. Potassium 3.9. Bicarb 25. BUN 16. Creatinine 0.49. Glucose 329. Calcium 9.3. She is continued on DuoNeb inhalations. Antibiotics in the form of cefepime. Continued on Diflucan. Lovenox for DVT prophylaxis. She is being nourished with Jevity at 40 mL/h. The patient is seen today December 24, 2024 in follow-up on the selective care unit. She is awake and alert in no acute distress. Resting comfortably in bed. Maintaining O2 saturations in the 90s on room air oxygen. Urine culture was positive for Klebsiella oxytoca, Citrobacter farmeri, Yue albicans. Glucose 327. She is continued on DuoNeb inhalations. Remains on cefepime and Diflucan. Lovenox for DVT prophylaxis. Remains on Lantus and Humalog sliding scale. Remains on normal saline at 75 mL/h. She has been nourished with Jevity at 70 mL/h via PEG tube. The patient is seen today December 25, 2024 in follow-up on the selective care unit. She is resting comfortably in bed. Awake and alert. Maintaining good O2 saturations in the 90s on room air oxygen. She is being nourished with Jevity at 70 mL/h. She remains on bronchodilators. Antibiotics in the form of cefepime. Remains on Diflucan. Lovenox for DVT prophylaxis. Urine culture was positive for Klebsiella oxytoca, Citrobacter farmeri, Yue albicans. Blood cultures revealed no growth. Follow-up urine culture revealing no growth. Glucose 328. She remains on Lantus and NovoLog sliding scale. Objective - Vital Signs Vital signs: Vital Signs Temp 98.1 F 12/25/24 07:59 Pulse 84 12/25/24 08:03 Resp 17 12/25/24 07:59 BP 165/83 12/25/24 07:59 Pulse Ox 99 12/25/24 07:59 FiO2 40 12/21/24 08:49 Intake & Output 12/24/24 12/25/24 12/25/24 18:59 06:59 18:59 Intake Total 2140 840 Output Total 1100 500 Balance 1040 340 Weight 80 kg Intake: Intake, IV Titration 850 Amount Cefepime 2 gm In Dextrose 200 5% in Water 100 ml @ 25 mls/hr IVPB Q8HR [facility] Rx#: [id number] Sodium Chloride 0.9% 1, 650 000 ml @ 75 mls/hr IV . [id number] [facility] Rx#:[id number] Tube Feeding 840 840 Other 450 Output: Urine 1100 500 Other: Voiding Method Indwelling Catheter Indwelling Catheter Indwelling Catheter # Bowel Movements 1 - Exam GENERAL EXAM: Alert, nonverbal, 74-year-old female, resting in bed, on room air oxygen, in no apparent distress. HEAD: Normocephalic. Facial droop is noted. EYES: Normal reaction of pupils, equal size. NOSE: Clear with pink turbinates. THROAT: No erythema or exudates. NECK: No masses, no JVD. CHEST: No chest wall deformity. LUNGS: Equal air entry with no crackles, wheeze, rhonchi or dullness. CVS: S1 and S2 normal with no audible murmur, regular rhythm. ABDOMEN: PEG tube exit site is clean and dry. No hepatosplenomegaly, normal bowel sounds, no guarding or rigidity. SKIN: Sacral ulcer. Some ecchymosis and bruising noted CENTRAL NERVOUS SYSTEM: Nonverbal, right sided hemiplegia noted EXTREMITIES: There is no peripheral edema. No clubbing, no cyanosis. Peripheral pulses are intact. - Labs CBC & Chem 7: 12/23/24 05:30 12/23/24 05:30 Labs: Abnormal Lab Results - Last 24 Hours (Table) 12/24/24 12/24/24 12/24/24 Range/Units 11:51 16:49 20:11 POC Glucose (mg/dL) 389 H 337 H 299 H (70-110) mg/dL 12/25/24 12/25/24 Range/Units 00:25 06:23 POC Glucose (mg/dL) 359 H 328 H (70-110) mg/dL Microbiology - Last 24 Hours (Table) 12/23/24 16:34 Urine Culture - Preliminary Urine,Voided 12/19/24 08:10 Blood Culture - Final Blood Assessment and Plan Assessment: Acute hypoxemic respiratory failure related to a COPD exacerbation. Pulmonary embolism ruled out. Chest x-ray clear. Viral screen negative Acute urinary tract infection secondary to Klebsiella oxytoca, Citrobacter farmeri, Yue albicans. Currently on cefepime and Diflucan Recent CVA with right sided paralysis treated at [facility] then discharged to a local senior care Dysphagia secondary to CVA with PEG tube placement Aphasia secondary to CVA History of chronic tobacco dependence Possible chronic obstructive pulmonary disease History of diabetes mellitus, type II History of hypertension Hyperlipidemia Plan: The patient was seen and evaluated Medications reviewed Remains stable and on room air oxygen Antibiotics per ID service Continue DuoNeb inhalations Lovenox for DVT prophylaxis Remains on Jevity for nourishment Continue Lantus and Humalog sliding scale Plan is for [facility] at discharge I have personally seen and examined the patient, performed the documentation and the assessment and plan as written. Number of minutes spent on the visit: 10 Dictation was produced using [employer] dictation software. Please excuse any grammatical, word or spelling errors.
[2024-12-25 11:50] LABS: Glucose,Whole Blood 310 mg/dL (70-110)
[2024-12-25] MEDS: INSULIN LISPRO (HumaLOG) 100 UNIT/ML 10 mL VL SQ SCH (11:55)
[2024-12-25 12:31] VITALS: BMI 26.8
--- NOTE | 2024-12-25 14:44 | P.PN ---
Subjective Progress Note Date: 12/24/24 Principal diagnosis: Reason for follow-up is leukocytosis pressure ulcer pneumonia/UTI Patient is a 74-year-old female with a past medical history significant for diabetes mellitus recently admitted to [facility] for CVA subsequently [facility] patient was sent to the ER for evaluation of increasing shortness of breath, CT with a possible left lower lobe atelectasis versus pneumonia also elevated white count positive UA concerning for symptomatic UTI. On today's evaluation that is 12/24/2024,the patient denies any fever or any chills, patient is breathing comfortably on room air, the patient remains to be nonverbal but did respond with nodding of her head no vomiting or diarrhea has been reported. No new lab has been repeated today Objective - Vital Signs Vital signs: Vital Signs Temp 98.0 F 12/24/24 08:00 Pulse 69 12/24/24 11:54 Resp 16 12/24/24 11:54 BP 133/67 12/24/24 11:54 Pulse Ox 95 12/24/24 11:54 FiO2 40 12/21/24 08:49 Intake & Output 12/23/24 12/24/24 12/24/24 18:59 06:59 18:59 Intake Total 360 765 610 Output Total 675 800 400 Balance -315 -35 210 Weight 78 kg Intake: Intake, IV Titration 50 Amount Sodium Chloride 0.9% 1, 50 000 ml @ 75 mls/hr IV . [id number] [facility] Rx#:[id number] Tube Feeding 360 765 560 Output: Urine 675 800 400 Other: Voiding Method Indwelling Catheter Indwelling Catheter Indwelling Catheter # Bowel Movements 1 1 - Exam GENERAL DESCRIPTION: An elderly female lying in bed in no distress RESPIRATORY SYSTEM: Unlabored breathing , decreased breath sounds at bases HEART: S1 S2 regular rate and rhythm , ABDOMEN: Soft , no tenderness EXTREMITIES: No edema feet - Labs CBC & Chem 7: 12/23/24 05:30 12/23/24 05:30 Labs: Abnormal Lab Results - Last 24 Hours (Table) 12/21/24 12/23/24 12/23/24 Range/Units 16:34 16:39 20:09 POC Glucose (mg/dL) 349 H 273 H (70-110) mg/dL Urine Protein 1+ H (Negative) Urine Glucose (UA) 4+ H (Negative) Urine Blood Trace H (Negative) Ur Leukocyte Esterase Small H (Negative) Urine RBC 7 H (0-5) /hpf Urine WBC 37 H (0-5) /hpf Urine Bacteria Rare H (None) /hpf Urine Mucus Rare H (None) /hpf 12/24/24 12/24/24 Range/Units 06:10 11:51 POC Glucose (mg/dL) 327 H 389 H (70-110) mg/dL Urine Protein (Negative) Urine Glucose (UA) (Negative) Urine Blood (Negative) Ur Leukocyte Esterase (Negative) Urine RBC (0-5) /hpf Urine WBC (0-5) /hpf Urine Bacteria (None) /hpf Urine Mucus (None) /hpf Assessment and Plan (1) Pneumonia Current Visit: Yes Status: Acute Code(s): J18.9 - PNEUMONIA, UNSPECIFIED ORGANISM SNOMED Code(s): 060739612 (2) UTI (urinary tract infection) Current Visit: Yes Status: Acute Code(s): N39.0 - URINARY TRACT INFECTION, SITE NOT SPECIFIED SNOMED Code(s): 73932990 (3) Leukocytosis Current Visit: Yes Status: Acute Code(s): D72.829 - ELEVATED WHITE BLOOD CELL COUNT, UNSPECIFIED SNOMED Code(s): 134857098 (4) Thrush Current Visit: Yes Status: Acute Code(s): B37.0 - CANDIDAL STOMATITIS SNOMED Code(s): 23569189 (5) Stage II pressure ulcer of left buttock Current Visit: Yes Status: Acute Code(s): L89.322 - PRESSURE ULCER OF LEFT BUTTOCK, STAGE 2 SNOMED Code(s): 16256815649931 (6) Stage II pressure ulcer of right buttock Current Visit: Yes Status: Acute Code(s): L89.312 - PRESSURE ULCER OF RIGHT BUTTOCK, STAGE 2 SNOMED Code(s): 73371517888398 Plan: 1patient presenting the hospital with increasing shortness of breath which is likely multifactorial in this patient who did have elevated white count as well as bibasilar atelectasis and a question of possible pneumonia not entirely excluded patient also have a positive UA, and the possible component of a UTI 2-patient did have pressure ulcer of the bilateral gluteal area but no slough tissue continue local wound treated as ordered 3-right hand wound with some slough tissue continue to treat Medihoney followed by moist dressing change daily 4-patient is afebrile white count is normal 5patient to continue cefepime and Diflucan for thrush and continue supportive care Dictation was produced using [employer] dictation software. please excuse any gramma tical, word or spelling errors. Time with Patient: Less than 30
--- NOTE | 2024-12-25 14:45 | P.PN ---
Subjective Progress Note Date: 12/25/24 Principal diagnosis: Reason for follow-up is leukocytosis pressure ulcer pneumonia/UTI Patient is a 74-year-old female with a past medical history significant for diabetes mellitus recently admitted to [facility] for CVA subsequently was transferred to local senior care for rehabilitation patient was sent to the ER for evaluation of increasing shortness of breath, CT with a possible left lower lobe atelectasis versus pneumonia also elevated white count positive UA concerning for symptomatic UTI. On today's evaluation that is 12/25/2024,the patient remains to be afebrile, patient is on room air not requiring supplemental oxygen and seem to be breathing comfortably in no distress nonverbal no vomiting or diarrhea has been reported. No new lab has been repeated today repeat urine cultures pending Objective - Vital Signs Vital signs: Vital Signs Temp 98.1 F 12/25/24 12:41 Pulse 73 12/25/24 12:41 Resp 16 12/25/24 12:41 BP 161/69 12/25/24 12:41 Pulse Ox 99 12/25/24 12:41 FiO2 40 12/21/24 08:49 Intake & Output 12/24/24 12/25/24 12/25/24 18:59 06:59 18:59 Intake Total 2140 840 Output Total 1100 500 Balance 1040 340 Weight 80 kg 80 kg Intake: Intake, IV Titration 850 Amount Cefepime 2 gm In Dextrose 200 5% in Water 100 ml @ 25 mls/hr IVPB Q8HR VERENICE Rx#: [id number] Sodium Chloride 0.9% 1, 650 000 ml @ 75 mls/hr IV . [id number] [facility]ENICE Rx#:[id number] Tube Feeding 840 840 Other 450 Output: Urine 1100 500 Other: Voiding Method Indwelling Catheter Indwelling Catheter Indwelling Catheter # Bowel Movements 1 - Exam GENERAL DESCRIPTION: An elderly female lying in bed in no distress RESPIRATORY SYSTEM: Unlabored breathing , decreased breath sounds at bases HEART: S1 S2 regular rate and rhythm , ABDOMEN: Soft , no tenderness EXTREMITIES: No edema feet - Labs CBC & Chem 7: 12/23/24 05:30 12/23/24 05:30 Labs: Abnormal Lab Results - Last 24 Hours (Table) 12/24/24 12/24/24 12/25/24 Range/Units 16:49 20:11 00:25 POC Glucose (mg/dL) 337 H 299 H 359 H (70-110) mg/dL 12/25/24 12/25/24 Range/Units 06:23 11:48 POC Glucose (mg/dL) 328 H 310 H (70-110) mg/dL Microbiology - Last 24 Hours (Table) 12/23/24 16:34 Urine Culture - Preliminary Urine,Voided 12/19/24 08:10 Blood Culture - Final Blood Assessment and Plan (1) Pneumonia Current Visit: Yes Status: Acute Code(s): J18.9 - PNEUMONIA, UNSPECIFIED ORGANISM SNOMED Code(s): 857501645 (2) UTI (urinary tract infection) Current Visit: Yes Status: Acute Code(s): N39.0 - URINARY TRACT INFECTION, SITE NOT SPECIFIED SNOMED Code(s): 55430916 (3) Leukocytosis Current Visit: Yes Status: Acute Code(s): D72.829 - ELEVATED WHITE BLOOD CELL COUNT, UNSPECIFIED SNOMED Code(s): 685371052 (4) Thrush Current Visit: Yes Status: Acute Code(s): B37.0 - CANDIDAL STOMATITIS SNOMED Code(s): 51709975 (5) Stage II pressure ulcer of left buttock Current Visit: Yes Status: Acute Code(s): L89.322 - PRESSURE ULCER OF LEFT BUTTOCK, STAGE 2 SNOMED Code(s): 63631978198941 (6) Stage II pressure ulcer of right buttock Current Visit: Yes Status: Acute Code(s): L89.312 - PRESSURE ULCER OF RIGHT BUTTOCK, STAGE 2 SNOMED Code(s): 81488557141987 Plan: 1patient presenting the hospital with increasing shortness of breath which is likely multifactorial in this patient who did have elevated white count as well as bibasilar atelectasis and a question of possible pneumonia not entirely excluded patient also have a positive UA, and the possible component of a UTI 2-patient did have pressure ulcer of the bilateral gluteal area but no slough tissue continue local wound treated as ordered 3-right hand wound with some slough tissue continue to treat Medihoney followed by moist dressing change daily 4-patient is afebrile white count is normal 5patient to continue cefepime and Diflucan while inpatient however no plan for IV antibiotics on discharge Dictation was produced using [employer] software. please excuse any grammatical, word or spelling errors. Time with Patient: Less than 30
[2024-12-25 17:53] LABS: Glucose,Whole Blood 279 mg/dL (70-110)
[2024-12-25 23:59] LABS: Glucose,Whole Blood 260 mg/dL (70-110)
[2024-12-26] MEDS: INSULIN LISPRO (HumaLOG) 100 UNIT/ML 10 mL VL SQ SCH (00:23)
[2024-12-26 05:53] LABS: Glucose,Whole Blood 261 mg/dL (70-110)
[2024-12-26 06:38] LABS: Basophils # (A) 0.04 10*3/uL (0.00-0.10); Basophils % (A) 0.4 %; Eosinophils # (A) 0.21 10*3/uL (0.04-0.35); Eosinophils % (A) 2.3 %; HCT 33.9 % (37.2-46.3); HGB 11.2 g/dL (12.0-15.0); Lymphocytes # (A) 2.37 10*3/uL (0.90-5.00); Lymphocytes % (A) 26.4 %; MCH 30.2 pg (27.0-32.0); MCV 91.4 fL (80.0-97.0); Mean Platelet Volume 9.9 fL (9.5-12.2); Monocytes # (A) 0.57 10*3/uL (0.20-1.00); Monocytes % (A) 6.3 %; Neutrophils # (A) 5.68 10*3/uL (1.80-7.70); Neutrophils % (A) 63.3 %; Platelet Count 147 10*3/uL (140-440); RBC 3.71 10*6/uL (4.10-5.20); WBC 8.99 10*3/uL (4.50-10.00)
[2024-12-26 06:56] LABS: African American GFR (CKD) >90 (>60 ml/min/1.73 sqM); Anion Gap 0 mmol/L; Blood Urea Nitrogen 20 mg/dL (7-17); Calcium 9.4 mg/dL (8.4-10.2); Carbon Dioxide 33 mmol/L (22-30); Chloride 100 mmol/L (98-107); Glucose 225 mg/dL (74-99); Non-African American GFR(CKD) >90 (>60 ml/min/1.73 sqM); Potassium 4.6 mmol/L (3.5-5.1); Sodium 133 mmol/L (137-145)
--- NOTE | 2024-12-26 10:50 | P.PN ---
Subjective Progress Note Date: 12/25/24 74-year-old female presented from [facility] with dyspnea. History is quite limited on this patient. She has apparently had prior stroke and is bedbound. She was recently admitted to [facility] and apparently was found this morning with increased dyspnea and work of breathing. Patient was hypoxic when found by paramedics and she was placed on CPAP. She was given albuterol, Atrovent, Solu-Medrol. Patient is lethargic but able to answer simple questions. She denies pain complaints. There is no history of vomiting. No history of fever. Upon arrival to ED patient was in acute respiratory distress and had been placed on BiPAP Chest x-ray reveals no acute pulmonary process. Lab review shows White count 12.6. Hemoglobin 12.1. Platelets 246. D-dimer 1.21. Sodium 139. Potassium 4.9. Bicarb 27. BUN 35. Creatinine 0.62. Glucose 343. - Urinalysis cloudy with 4+ glucose trace ketones large leukocyte esterase and high WBCs. - Viral screen is negative. 12/21/2024 Patient is seen and evaluated in room at bedside; family is present in the bedside chair; inquiring about CT of the chest done to rule out PE; imaging results discussed with patient and family - basically the patient is about the same, she is in bed, nonverbal, seems to be chronically ill, she has right-sided hemiplegia - CT of the chest showed no evidence of pulmonary embolism, in addition it showed dependent consolidative changes in the lower lobes consistent with mostly atelectasis - Labs reviewed WBC count is 10 hemoglobin 11 electrolytes are normal renal profile is normal - Patient remains on IV Rocephin and azithromycin; pulmonary service on board and not convinced about pneumonia - Patient does have a UTI and urine cultures pending; continue antibiotics 12/22/2024 Patient is resting in the bed. Awake alert but could not communicate. Able to follow simple commands. Currently requiring 2 L oxygen via nasal cannula. No complaints of chest pain. Patient was found to have oral thrush and was started on nystatin swish swallow. Urine culture showed Klebsiella, Citrobacter and Yue. Currently on antibiotics in the form of cefepime. Also on Diflucan. Laboratory data showed WBC 9.3 hemoglobin 11.6 and platelets 228 sodium 142 potassium 3.7 chloride 101 bicarb is 27 BUN 20 and creatinine 0.51 blood sugar 96. Anticipate discharge to rehab' 12/23/2024 Patient is lying in the bed. Awake alert and able to follow simple commands. Currently on room air. Continued on antibiotics in the form of cefepime for urinary tract infection. Also on Diflucan. Oral thrush is still present. Continue on IV hydration with normal saline at 75 cc/h. Blood sugar is eleva cyrus. Continue insulin sliding scale. Laboratory data showed WBC 8.4 hemoglobin 11.2 and platelets 216 sodium 135 potassium 3.9 chloride 106 bicarb is 25 BUN 16 and creatinine 0.49 and blood sugar 329 and calcium 9.3. 12/24/2024 Patient is resting in the bed. Awake alert and follows simple commands. Currently on room air. Continue on IV antibiotics for urinary tract infection and is also on Diflucan. Oral thrush seems to be improving. Denies blood sugar is still elevated. Patient is tolerating tube feeding with Jevity at 75 cc/h via PEG tube. Also on IV hydration with normal saline at 75 cc/h. Laboratory data reviewed. Preprandial insulin was added for better blood sugar control. 12/25/2024 Patient is resting in the bed. Awake alert and able to open eyes with verbal stimuli. no complaints of chest pain or shortness of breath. Patient has been afebrile overnight. Tolerating tube feeding with Jevity at 75 cc/h via PEG tube. On IV hydration with normal saline. Otherwise patient is still hyperglycemic and insulin preprandial dose increased to 8 units 3 times daily AC. Continue with insulin regimen and titrate dose. On antibiotics in the form of cefepime and Diflucan as well also on nystatin. Pending authorization for discharge back to rehab. Current medications reviewed. Objective - Vital Signs Vital signs: Vital Signs Temp 97.6 F 12/26/24 08:00 Pulse 88 12/26/24 09:50 Resp 18 12/26/24 08:00 BP 156/77 12/26/24 08:00 Pulse Ox 96 12/26/24 08:00 FiO2 40 12/21/24 08:49 Intake & Output 12/25/24 12/26/24 12/26/24 18:59 06:59 18:59 Intake Total 720 0 Output Total 1275 700 350 Balance -1275 20 -350 Weight 80 kg 80 kg Intake: Oral 0 Tube Feeding 720 Output: Urine 1275 700 350 Other: Voiding Method Indwelling Catheter Indwelling Catheter Indwelling Catheter - Exam - Exam Limitations: altered mental status, physical limitation General appearance: lethargic, in distress Head exam: Present: atraumatic, normocephalic Eye exam: Present: normal appearance, PERRL ENT exam: Present: mucous membranes dry Neck exam: Present: normal inspection. Absent: tenderness, meningismus Respiratory exam: Present: respiratory distress, rhonchi, decreased breath sounds Cardiovascular Exam: Present: regular rate, normal rhythm GI/Abdominal exam: Present: soft, other (Recent PEG tube). Absent: distended Extremities exam: Present: normal inspection, normal capillary refill Skin exam: Present: warm - Labs CBC & Chem 7: 12/26/24 05:41 12/26/24 05:41 Labs: Abnormal Lab Results - Last 24 Hours (Table) 12/25/24 12/25/24 12/25/24 Range/Units 11:48 17:52 23:58 RBC (4.10-5.20) 10*6/uL Hgb (12.0-15.0) g/dL Hct (37.2-46.3) % Immature Gran # (0.00-0.04) 10*3/uL Sodium (137-145) mmol/L Carbon Dioxide (22-30) mmol/L BUN (7-17) mg/dL Creatinine (0.52-1.04) mg/dL Glucose (74-99) mg/dL POC Glucose (mg/dL) 310 H 279 H 260 H (70-110) mg/dL 12/26/24 12/26/24 12/26/24 Range/Units 05:41 05:41 05:52 RBC 3.71 L (4.10-5.20) 10*6/uL Hgb 11.2 L (12.0-15.0) g/dL Hct 33.9 L (37.2-46.3) % Immature Gran # 0.12 H (0.00-0.04) 10*3/uL Sodium 133 L (137-145) mmol/L Carbon Dioxide 33 H (22-30) mmol/L BUN 20 H (7-17) mg/dL Creatinine 0.44 L (0.52-1.04) mg/dL Glucose 225 H (74-99) mg/dL POC Glucose (mg/dL) 261 H (70-110) mg/dL Assessment and Plan Assessment: - Acute hypoxic respiratory failure likely due to COPD exacerbation. Improved now. CTA negative for acute PE. Patient is currently on room air. - Type 2 diabetes mellitus uncontrolled elevated blood sugars patient seen and insulin regimen will be changed to basal bolus regimen patient was started on 25 units of Lantus twice a day along with sliding scale and Premeal insulin dose increased. - Sacral decubitus ulcer which does not appear to be infected - Acute urinary tract infection. Urine culture showed Klebsiella oxytoca, Citrobacter and Yue albicans. Patient on cefepime and Diflucan. - Oral thrush - Chronic hypoxic and hypercapnic respiratory failure secondary to COPD. - Nicotine use history which she discontinued since her stroke - Hyperlipidemia - Hypertension - Hypothyroidism For above-mentioned chronic medical problems patient will be resumed on appropriate home medications DVT prophylaxis: Lovenox PT OT and possible transfer back to subacute rehab. Time with Patient: Greater than 30
[2024-12-26 11:20] LABS: Glucose,Whole Blood 227 mg/dL (70-110)
--- NOTE | 2024-12-26 11:57 | P.PN ---
Subjective Progress Note Date: 12/26/24 Principal diagnosis: CVA. This is a 74-year-old female patient who recently had a cerebrovascular accident leaving her with right sided paralysis and was at [facility] and sub sequently discharged a few days ago to a local group home. She has a history of diabetes mellitus, type II, dysphagia, aphasia, hyperlipidemia, hyperlipidemia, chronic and ongoing tobacco dependence up until her stroke, PEG tube placement. She was brought into the emergency room yesterday after being found to have increased work of breathing and low O2 saturations. Chest x-ray reveals no acute pulmonary process. White count 12.6. Hemoglobin 12.1. Platelets 246. D-dimer 1.21. Sodium 139. Potassium 4.9. Bicarb 27. BUN 35. Creatinine 0.62. Glucose 343. Urinalysis cloudy with 4+ glucose trace ketones large leukocyte esterase and high WBCs. Viral screen is negative. She is seen today in consultation in the emergency department. She is currently resting on a stretcher. Maintaining O2 saturations up to 100% on 3 L/min per nasal cannula. She is afebrile. Hemodynamically stable. CT angiogram to rule out pulmonary embolism is pending. No information is obtained from the patient. No family members present. Patient was seen today on 12/21/2024, basically the patient is about the same, she is in bed, nonverbal, seems to be chronically ill, she has right-sided hemiplegia, CT of the chest showed no evidence of pulmonary embolism, in addition it showed dependent consolidative changes in the lower lobes consistent with mostly atelectasis, doubt pneumonia although the patient could be a set up for aspiration pneumonia but she already has a PEG tube in place, and she is not given any feedings orally. Not to mention the patient is on Rocephin for presumptive UTI as per admitting physician. Labs reviewed WBC count is 10 hemoglobin 11 electrolytes are normal renal profile is normal The patient is seen today December 22, 2024 and follow-up on the selective care unit. She is currently resting in bed. Awake. Maintaining O2 saturations in the 90s on 2 L/min per nasal cannula. No IV fluids. Urine culture positive for Yue, Citrobacter farmeri, Klebsiella oxytoca. White count 9.3. Hemoglobin 11.6. Platelets 228. Sodium 142. Potassium 3.7. Bicarb 27. BUN 20. Creatinine 0.51. He remains on cefepime. Initiated on Diflucan. Lovenox for DVT prophylaxis. Continued on bronchodilators. The patient is seen today December 23, 2024 in follow-up on the selective care unit. She is currently resting in bed. Awake and alert in no acute distress. She is able to mainly shake her head yes and no. And maintaining good O2 saturations in the mid 90s on room air. Afebrile. Hemodynamically stable. Urine culture positive for Klebsiella oxytoca, Citrobacter farmeri, Yue albicans. White count 8.4. Hemoglobin 11.2. Platelets 216. Sodium 135. Potassium 3.9. Bicarb 25. BUN 16. Creatinine 0.49. Glucose 329. Calcium 9.3. She is continued on DuoNeb inhalations. Antibiotics in the form of cefepime. Continued on Diflucan. Lovenox for DVT prophylaxis. She is being nourished with Jevity at 40 mL/h. The patient is seen today December 24, 2024 in follow-up on the selective care unit. She is awake and alert in no acute distress. Resting comfortably in bed. Maintaining O2 saturations in the 90s on room air oxygen. Urine culture was positive for Klebsiella oxytoca, Citrobacter farmeri, Yue albicans. Glucose 327. She is continued on DuoNeb inhalations. Remains on cefepime and Diflucan. Lovenox for DVT prophylaxis. Remains on Lantus and Humalog sliding scale. Remains on normal saline at 75 mL/h. She has been nourished with Jevity at 70 mL/h via PEG tube. The patient is seen today December 25, 2024 in follow-up on the selective care unit. She is resting comfortably in bed. Awake and alert. Maintaining good O2 saturations in the 90s on room air oxygen. She is being nourished with Jevity at 70 mL/h. She remains on bronchodilators. Antibiotics in the form of cefepime. Remains on Diflucan. Lovenox for DVT prophylaxis. Urine culture was positive for Klebsiella oxytoca, Citrobacter farmeri, Yue albicans. Blood c ultures revealed no growth. Follow-up urine culture revealing no growth. Glucose 328. She remains on Lantus and NovoLog sliding scale. Progress note dated December 26, 2024. 74-year-old female seen today in room 380. Currently, she is on room air, and receiving Glucerna 60 cc an hour. The patient is not receiving any additional IV fluids. She continues on cefepime, and fluconazole. The updrafts will be discontinued. Current laboratory data include a white count of 8.9, hemoglobin 11.2, hematocrit 33.9, and a platelet count of 147,000. Sodium 133, potassium 4.6, chlorides 100, CO2 33, BUN 20, creatinine 0.44. Glucose is 227. Calcium is 9.4. Urine from December 19, was positive for Klebsiella, Citrobacter, and Yue species. Objective - Vital Signs Vital signs: Vital Signs Temp 97.4 F L 12/26/24 11:39 Pulse 60 12/26/24 11:39 Resp 17 12/26/24 11:39 BP 155/77 12/26/24 11:39 Pulse Ox 98 12/26/24 11:39 FiO2 40 12/21/24 08:49 Intake & Output 12/25/24 12/26/24 12/26/24 18:59 06:59 18:59 Intake Total 720 0 Output Total 1275 700 350 Balance -1275 20 -350 Weight 80 kg 80 kg Intake: Oral 0 Tube Feeding 720 Output: Urine 1275 700 350 Other: Voiding Method Indwelling Catheter Indwelling Catheter Indwelling Catheter - Exam No acute distress, oriented 3. HEENT examination is grossly unremarkable. Mucous membranes are moist. No oral lesions. Neck supple. Full range of motion. No adenopathy thyromegaly or neck vein distention. Cardiovascular examination reveals regular rhythm rate. S1-S2 normal. No S3 or S4. No discernible murmur noted. Lungs reveal clear breath sounds. Breath sounds are equal bilaterally. No adventitious lung sounds including wheezes rhonchi or crackles. Abdomen soft bowel sounds are heard. No masses or tenderness. Extremities are intact. No cyanosis clubbing or edema. Skin is without rash or lesion. Neurologic examination reveals the patient to be nonverbal. A right sided hemiplegia is noted. - Labs CBC & Chem 7: 12/26/24 05:41 12/26/24 05:41 Labs: Abnormal Lab Results - Last 24 Hours (Table) 12/25/24 12/25/24 12/26/24 Range/Units 17:52 23:58 05:41 RBC 3.71 L (4.10-5.20) 10*6/uL Hgb 11.2 L (12.0-15.0) g/dL Hct 33.9 L (37.2-46.3) % Immature Gran # 0.12 H (0.00-0.04) 10*3/uL Sodium (137-145) mmol/L Carbon Dioxide (22-30) mmol/L BUN (7-17) mg/dL Creatinine (0.52-1.04) mg/dL Glucose (74-99) mg/dL POC Glucose (mg/dL) 279 H 260 H (70-110) mg/dL 12/26/24 12/26/24 12/26/24 Range/Units 05:41 05:52 11:19 RBC (4.10-5.20) 10*6/uL Hgb (12.0-15.0) g/dL Hct (37.2-46.3) % Immature Gran # (0.00-0.04) 10*3/uL Sodium 133 L (137-145) mmol/L Carbon Dioxide 33 H (22-30) mmol/L BUN 20 H (7-17) mg/dL Creatinine 0.44 L (0.52-1.04) mg/dL Glucose 225 H (74-99) mg/dL POC Glucose (mg/dL) 261 H 227 H (70-110) mg/dL Assessment and Plan Assessment: Acute hypoxemic respiratory failure related to a COPD exacerbation. Acute urinary tract infection secondary to Klebsiella oxytoca, Citrobacter farmeri, Yue albicans. Recent CVA with right sided paralysis treated at [facility]. Dysphagia secondary to CVA with PEG tube placement. Aphasia secondary to CVA. History of chronic tobacco dependence. Possible chronic obstructive pulmonary disease. History of diabetes mellitus, type II. History of hypertension. Hyperlipidemia. Plan: Plan dated December 26, 2024. The patient is seen today in room 380. She is doing about the same. Labs, x- rays, and all medications are reviewed. The patient continues on cefepime and fluconazole. She is on room air. Updrafts are discontinued. She continues on GI and DVT prophylaxis. She remains on Glucerna at 60 cc an hour. No additional IV fluids. The patient is on room air. Labs, x-rays, and all medications are reviewed. We will continue to follow make recommendations where appropriate. Respiratory status is stable. Dictation was produced using [employer] software. Please excuse any grammatical, word or spelling errors. Time with Patient: Less than 30
[2024-12-26 11:58] VITALS: RESP 18
--- NOTE | 2024-12-26 15:16 | P.DS ---
Providers Date of admission: 12/19/24 10:46 Expected date of discharge: 12/26/24 Attending physician: Sajan Horowitz Consults: 12/20/24 12:31 Consult Physician Routine Consulting Provider: Annie Kang Consult Reason/Comments: Ac Resp failure Do you want consulting provider notified?: Yes 12/20/24 13:18 Consult Physician Routine Consulting Provider: Estrella Allison Consult Reason/Comments: Decubitus ulcer Do you want consulting provider notified?: Yes 12/20/24 13:19 Consult Physician Routine Consulting Provider: Steve Oliveira Consult Reason/Comments: Evaluate for inpatient rehabilitation placement Do you want consulting provider notified?: Yes Primary care physician: Clementina Collins DO Hospital Course: Discharge diagnosis - Acute hypoxic respiratory failure likely due to COPD exacerbation. Improved now. CTA negative for acute PE. Patient is currently on room air. - Type 2 diabetes mellitus uncontrolled elevated blood sugars. Continued on insulin regimen. - Sacral decubitus ulcer which does not appear to be infected - Acute urinary tract infection. Urine culture showed Klebsiella oxytoca, Citrobacter and Yue albicans. Patient on cefepime and Diflucan. - Oral thrush - Chronic hypoxic and hypercapnic respiratory failure secondary to COPD. - Nicotine use history which she discontinued since her stroke - Hyperlipidemia - Hypertension - Hypothyroidism DVT prophylaxis: [facility] course 74-year-old female presented from jail with dyspnea. History is quite limited on this patient. She has apparently had prior stroke and is bedbound. She was recently admitted to jail and apparently was found this morning with increased dyspnea and work of breathing. Patient was hypoxic when found by paramedics and she was placed on CPAP. She was given albuterol, Atrovent, Solu- Medrol. Patient is lethargic but able to answer simple questions. She denies pain complaints. There is no history of vomiting. No history of fever. Upon arrival to ED patient was in acute respiratory distress and had been placed on BiPAP Chest x-ray reveals no acute pulmonary process. Lab review shows White count 12.6. Hemoglobin 12.1. Platelets 246. D-dimer 1.21. Sodium 139. Potassium 4.9. Bicarb 27. BUN 35. Creatinine 0.62. Glucose 343. - Urinalysis cloudy with 4+ glucose trace ketones large leukocyte esterase and high WBCs. - Viral screen is negative. 12/21/2024 Patient is seen and evaluated in room at bedside; family is present in the bedside chair; inquiring about CT of the chest done to rule out PE; imaging results discussed with patient and family - basically the patient is about the same, she is in bed, nonverbal, seems to be chronically ill, she has right-sided hemiplegia - CT of the chest showed no evidence of pulmonary embolism, in addition it showed dependent consolidative changes in the lower lobes consistent with mostly atelectasis - Labs reviewed WBC count is 10 hemoglobin 11 electrolytes are normal renal profile is normal - Patient remains on IV Rocephin and azithromycin; pulmonary service on board and not convinced about pneumonia - Patient does have a UTI and urine cultures pending; continue antibiotics 12/22/2024 Patient is resting in the bed. Awake alert but could not communicate. Able to follow simple commands. Currently requiring 2 L oxygen via nasal cannula. No complaints of chest pain. Patient was found to have oral thrush and was started on nystatin swish swallow. Urine culture showed Klebsiella, Citrobacter and Yue. Currently on antibiotics in the form of cefepime. Also on Diflucan. Laboratory data showed WBC 9.3 hemoglobin 11.6 and platelets 228 sodium 142 potassium 3.7 chloride 101 bicarb is 27 BUN 20 and creatinine 0.51 blood sugar 9 6. Anticipate discharge to rehab' 12/23/2024 Patient is lying in the bed. Awake alert and able to follow simple commands. Currently on room air. Continued on antibiotics in the form of cefepime for urinary tract infection. Also on Diflucan. Oral thrush is still present. Continue on IV hydration with normal saline at 75 cc/h. Blood sugar is elevated. Continue insulin sliding scale. Laboratory data showed WBC 8.4 hemoglobin 11.2 and platelets 216 sodium 135 potassium 3.9 chloride 106 bicarb is 25 BUN 16 and creatinine 0.49 and blood sugar 329 and calcium 9.3. 12/24/2024 Patient is resting in the bed. Awake alert and follows simple commands. Currently on room air. Continue on IV antibiotics for urinary tract infection and is also on Diflucan. Oral thrush seems to be improving. Denies blood sugar is still elevated. Patient is tolerating tube feeding with Jevity at 75 cc/h via PEG tube. Also on IV hydration with normal saline at 75 cc/h. Laboratory data reviewed. Preprandial insulin was added for better blood sugar control. 12/25/2024 Patient is resting in the bed. Awake alert and able to open eyes with verbal stimuli. no complaints of chest pain or shortness of breath. Patient has been afebrile overnight. Tolerating tube feeding with Jevity at 75 cc/h via PEG tube. On IV hydration with normal saline. Otherwise patient is still hyperglycemic and insulin preprandial dose increased to 8 units 3 times daily AC. Continue with insulin regimen and titrate dose. On antibiotics in the form of cefepime and Diflucan as well also on nystatin. Pending authorization for discharge back to rehab. 12/26/2024 Patient is resting in the bed comfortably. On room air. No complaints of chest pain or shortness of breath. Mentation is at baseline able to follow simple co mmands. No cough or sputum production. Tolerating tube feeding with Jevity at 70 cc/h. Blood sugar is better controlled with insulin regimen. Patient has been afebrile. No other acute overnight issues. She is being continued on antibiotics in the form of cefepime and Diflucan and nystatin. ID recommends to continue Diflucan for 7 more days. Patient is being discharged to ECF today. - Exam General appearance: Patient is awake alert and follows simple commands. Head exam: Present: atraumatic, normocephalic Eye exam: Present: normal appearance, PERRL ENT exam: Present: mucous membranes dry Neck exam: Present: normal inspection. Absent: tenderness, meningismus Respiratory exam: Present: respiratory distress, rhonchi, decreased breath sounds Cardiovascular Exam: Present: regular rate, normal rhythm GI/Abdominal exam: Present: soft, other (Recent PEG tube). Absent: distended Extremities exam: Present: normal inspection, normal capillary refill Skin exam: Present: warm Vital Signs - 24 hr 12/25/24 12/25/24 12/25/24 15:42 19:30 21:23 Temperature 99.5 F Pulse Rate 87 Pulse Rate [ 72 94 Business Process [employer]er ] Respiratory 15 20 Rate Blood Pressure 160/73 160/76 [Left Arm Supine] O2 Sat by Pulse 96 97 Oximetry 12/25/24 12/26/24 12/26/24 21:31 00:25 04:35 Temperature 97.8 F 98 F Pulse Rate 88 Pulse Rate [ 66 68 [employer] Process Modeler ] Respiratory 22 22 Rate Blood Pressure 144/77 162/75 [Left Arm Supine] O2 Sat by Pulse 95 96 Oximetry 12/26/24 12/26/24 12/26/24 07:54 08:00 09:39 Temperature 97.6 F 97.6 F Pulse Rate 90 Pulse Rate [ 65 69 Business Process Modeler ] Respiratory 20 18 Rate Blood Pressure 164/77 156/77 [Left Arm Supine] O2 Sat by Pulse 96 96 Oximetry 12/26/24 12/26/24 12/26/24 09:50 11:39 11:56 Temperature 97.4 F L Pulse Rate 88 Pulse Rate [ 60 60 [employer] Process Modeler ] Respiratory 17 18 Rate Blood Pressure 155/77 150/75 [Left Arm Supine] O2 Sat by Pulse 98 97 Oximetry Total time taken greater than 35 minutes including 18 minutes for counseling and coordination of care. Patient Condition at Discharge: Stable Plan - Discharge Summary New Discharge Prescriptions: New Insulin Glargine (Lantus) [Lantus Vial] 25 unit SQ BID@0700,2100 each INSULIN LISPRO (HumaLOG) [HumaLOG] 8 unit SQ Q6HR each Fluconazole [Diflucan] 100 mg PO DAILY #7 tab Continue Propranolol [Inderal] 10 mg PEG/G-TUBE TID INSULIN LISPRO (HumaLOG) [HumaLOG] See Protocol SQ ACHS Valproic Acid Oral Soln [Depakene Syrup] 250 mg PEG/G-TUBE BID Acetaminophen Tab [Tylenol] 650 mg PEG/G-TUBE Q4H PRN PRN Reason: Fever And/ Or Pain lisinopriL [Zestril] 40 mg PEG/G-TUBE DAILY amLODIPine [Norvasc] 5 mg PEG/G-TUBE DAILY Lactulose 20 gm PEG/G-TUBE TID Fenofibrate 160 mg PEG/G-TUBE DAILY Bromocriptine Mesylate 2.5 mg PEG/G-TUBE Q8H Atorvastatin [Lipitor] 40 mg PEG/G-TUBE HS Aspirin 81 mg PEG/G-TUBE DAILY amantadine HCL 100 mg PEG/G-TUBE Q12H Changed Ipratropium-Albuterol Nebulize [Duoneb 0.5 mg-3 mg/3 ml Soln] 3 ml INHALATION RT-BID PRN #0 PRN Reason: Wheezing Discontinued Insulin NPH Human Isophane [NovoLIN N] 30 units SQ Q8H Discharge Medication List Acetaminophen Tab [Tylenol] 650 mg PEG/G-TUBE Q4H PRN 12/19/24 [History] Aspirin 81 mg PEG/G-TUBE DAILY 12/19/24 [History] Atorvastatin [Lipitor] 40 mg PEG/G-TUBE HS 12/19/24 [History] Bromocriptine Mesylate 2.5 mg PEG/G-TUBE Q8H 12/19/24 [History] Fenofibrate 160 mg PEG/G-TUBE DAILY 12/19/24 [History] INSULIN LISPRO (HumaLOG) [HumaLOG] See Protocol SQ ACHS 12/19/24 [History] Lactulose 20 gm PEG/G-TUBE TID 12/19/24 [History] Propranolol [Inderal] 10 mg PEG/G-TUBE TID 12/19/24 [History] Valproic Acid Oral Soln [Depakene Syrup] 250 mg PEG/G-TUBE BID 12/19/24 [History] amLODIPine [Norvasc] 5 mg PEG/G-TUBE DAILY 12/19/24 [History] amantadine HCL 100 mg PEG/G-TUBE Q12H 12/19/24 [History] lisinopriL [Zestril] 40 mg PEG/G-TUBE DAILY 12/19/24 [History] Fluconazole [Diflucan] 100 mg PO DAILY #7 tab 12/26/24 [Rx] INSULIN LISPRO (HumaLOG) [HumaLOG] 8 unit SQ Q6HR each 12/26/24 [Rx] Insulin Glargine (Lantus) [Lantus Vial] 25 unit SQ BID@0700,2100 each 12/26/24 [Rx] Ipratropium-Albuterol Nebulize [Duoneb 0.5 mg-3 mg/3 ml Soln] 3 ml INHALATION RT-BID PRN #0 12/26/24 [Rx] Follow up Appointment(s)/Referral(s): Nonstaff,Physician [REFERRING] - 1-2 days Discharge Disposition: TRANSFER TO SNF/ECF
[2024-12-26 15:56] VITALS: BP 151/74; PULSE 67; TEMP 97.9
--- NOTE | 2024-12-26 16:01 | P.PN ---
Subjective Progress Note Date: 12/26/24 Principal diagnosis: Reason for follow-up is leukocytosis pressure ulcer pneumonia/UTI Patient is a 74-year-old female with a past medical history significant for diabetes mellitus recently admitted to [facility] for CVA subsequently was [facility] to local detention for rehabilitation patient was sent to the ER for evaluation of increasing shortness of breath, CT with a possible left lower lobe atelectasis versus pneumonia also elevated white count positive UA concerning for symptomatic UTI. On today's evaluation that is 12/26/2024, the patient continues to be afebrile, the patient is on room air and breathing comfortably, the Pt does respond to the question by nodding her head does not seem to be any distress no medical data has been reported. Patient white count is 8.98, creatinine 0.4 4 repeat urine has been negative so far Objective - Vital Signs Vital signs: Vital Signs Temp 97.4 F L 12/26/24 11:39 Pulse 60 12/26/24 11:56 Resp 18 12/26/24 11:56 BP 150/75 12/26/24 11:56 Pulse Ox 97 12/26/24 11:56 FiO2 40 12/21/24 08:49 Intake & Output 12/25/24 12/26/24 12/26/24 18:59 06:59 18:59 Intake Total 720 0 Output Total 1275 700 500 Balance -1275 20 -500 Weight 80 kg 80 kg Intake: Oral 0 Tube Feeding 720 Output: Urine 1275 700 500 Other: Voiding Method Indwelling Catheter Indwelling Catheter Indwelling Catheter - Exam GENERAL DESCRIPTION: An elderly female lying in bed in no distress RESPIRATORY SYSTEM: Unlabored breathing , decreased breath sounds at bases HEART: S1 S2 regular rate and rhythm , ABDOMEN: Soft , no tenderness EXTREMITIES: No edema feet - Labs CBC & Chem 7: 12/26/24 05:41 12/26/24 05:41 Labs: Abnormal Lab Results - Last 24 Hours (Table) 12/25/24 12/25/24 12/26/24 Range/Units 17:52 23:58 05:41 RBC 3.71 L (4.10-5.20) 10*6/uL Hgb 11.2 L (12.0-15.0) g/dL Hct 33.9 L (37.2-46.3) % Immature Gran # 0.12 H (0.00-0.04) 10*3/uL Sodium (137-145) mmol/L Carbon Dioxide (22-30) mmol/L BUN (7-17) mg/dL Creatinine (0.52-1.04) mg/dL Glucose (74-99) mg/dL POC Glucose (mg/dL) 279 H 260 H (70-110) mg/dL 12/26/24 12/26/24 12/26/24 Range/Units 05:41 05:52 11:19 RBC (4.10-5.20) 10*6/uL Hgb (12.0-15.0) g/dL Hct (37.2-46.3) % Immature Gran # (0.00-0.04) 10*3/uL Sodium 133 L (137-145) mmol/L Carbon Dioxide 33 H (22-30) mmol/L BUN 20 H (7-17) mg/dL Creatinine 0.44 L (0.52-1.04) mg/dL Glucose 225 H (74-99) mg/dL POC Glucose (mg/dL) 261 H 227 H (70-110) mg/dL Assessment and Plan (1) Pneumonia Current Visit: Yes Status: Acute Code(s): J18.9 - PNEUMONIA, UNSPECIFIED ORGANISM SNOMED Code(s): 320027548 (2) UTI (urinary tract infection) Current Visit: Yes Status: Acute Code(s): N39.0 - URINARY TRACT INFECTION, SITE NOT SPECIFIED SNOMED Code(s): 24991098 (3) Leukocytosis Current Visit: Yes Status: Acute Code(s): D72.829 - ELEVATED WHITE BLOOD CELL COUNT, UNSPECIFIED SNOMED Code(s): 751755117 (4) Thrush Current Visit: Yes Status: Acute Code(s): B37.0 - CANDIDAL STOMATITIS SNOMED Code(s): 40316046 (5) Stage II pressure ulcer of left buttock Current Visit: Yes Status: Acute Code(s): L89.322 - PRESSURE ULCER OF LEFT BUTTOCK, STAGE 2 SNOMED Code(s): 92215821141597 (6) Stage II pressure ulcer of right buttock Current Visit: Yes Status: Acute Code(s): L89.312 - PRESSURE ULCER OF RIGHT BUTTOCK, STAGE 2 SNOMED Code(s): 20488032439603 Plan: 1patient presenting the hospital with increasing shortness of breath which is likely multifactorial in this patient who did have elevated white count as well as bibasilar atelectasis and a question of possible pneumonia not entirely excluded patient also have a positive UA, and the possible component of a UTI 2-patient did have pressure ulcer of the bilateral gluteal area but no slough ti ssue continue local wound treated as ordered 3-right hand wound with some slough tissue continue to treat Medihoney followed by moist dressing change daily 4-patient is afebrile white count is normal, patient received adequate cefepime for underlying UTI/pneumonia she will continue with a week of oral Diflucan for her thrush at the bedside UPdated about her care Dictation was produced using [employer] dictation software. please excuse any grammatical, word or spelling errors. Time with Patient: Less than 30
[2024-12-26 16:26] LABS: Glucose,Whole Blood 223 mg/dL (70-110)
== END 2024-12-26 20:27 | DRG 698 ==
LOC: EC 08:00 → 3SCARD 10:46
PROVIDERS: ADMIT Hospitalist; ATTEND Hospitalist
PROC: 5A09357 Assistance with Respiratory Ventilation, Less than 24 Consecutive Hours, Continuous Positive Airway Pressure (ICD-10-PCS; principal; 2024-12-19)
DX: T83.518A Infection and inflammatory reaction due to other urinary catheter, initial encounter (principal); J18.9 Pneumonia, unspecified organism; J96.01 Acute respiratory failure with hypoxia; J96.02 Acute respiratory failure with hypercapnia; B37.0 Candidal stomatitis; L89.152 Pressure ulcer of sacral region, stage 2; L89.312 Pressure ulcer of right buttock, stage 2; L89.322 Pressure ulcer of left buttock, stage 2; I69.351 Hemiplegia and hemiparesis following cerebral infarction affecting right dominant side; J44.0 Chronic obstructive pulmonary disease with (acute) lower respiratory infection; E11.65 Type 2 diabetes mellitus with hyperglycemia; F13.10 Sedative, hypnotic or anxiolytic abuse, uncomplicated; G20.A1 Parkinson's disease without dyskinesia, without mention of fluctuations; E03.9 Hypothyroidism, unspecified; I10 Essential (primary) hypertension; J44.1 Chronic obstructive pulmonary disease with (acute) exacerbation; R47.01 Aphasia; B37.49 Other urogenital candidiasis; L98.492 Non-pressure chronic ulcer of skin of other sites with fat layer exposed; Z79.4 Long term (current) use of insulin; Z93.1 Gastrostomy status; Z11.52 Encounter for screening for COVID-19; Y84.6 Urinary catheterization as the cause of abnormal reaction of the patient, or of later complication, without mention of misadventure at the time of the procedure; E78.5 Hyperlipidemia, unspecified; F17.210 Nicotine dependence, cigarettes, uncomplicated; R79.89 Other specified abnormal findings of blood chemistry; B96.1 Klebsiella pneumoniae [K. pneumoniae] as the cause of diseases classified elsewhere; R13.10 Dysphagia, unspecified; Z79.82 Long term (current) use of aspirin; Z79.899 Other long term (current) drug therapy
CPT/HCPCS: 36415; 51702; 71045; 71275; 80048; 80053; 81001; 82803; 83605; 83735; 83880; 84145; 84484; 85025; 85379; 85610; 85730; 87040; 87077; 87086; 87186; 87636; 93005; 94640; 94660; 94760; 96361; 96365; 96366; 96368; 99291

== ENCOUNTER 2025-03-13 06:02 | Inpatient (IN) | payer MEDICARE, OTHER ==
--- NOTE | 2025-03-13 06:34 | ED ---
Recheck HPI - General Chief Complaint: Recheck/Abnormal Lab/Rx Stated Complaint: PEG tube issues Time Seen by Provider: 03/13/25 06:05 Source: patient, EMS, RN notes reviewed Mode of arrival: EMS Limitations: physical limitation - History of Present Illness Initial Comments: This is a 74-year-old female who presents to the emergency department for proble ms with her PEG tube. 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 History is difficult to obtain as a result, however it does appear that the PEG tube was placed when she was at [facility] as a result of the dysphagia from the CVA. She is currently at [facility]. They were attempting to give her PEG tube feeds this morning when she started to complain of abdominal pain and they noticed her abdomen seemed distended, prompting them to call EMS for evaluation. Denies any previous issues with her PEG tube. Patient denies any discomfort at rest, states that it was only bothersome when they were attempting to administer feeds. Most recent bowel movement was this morning. She does note some pain when having a bowel movement this morning. Denies any chest pain or shortness of breath, however she does report a cough for a couple of days. - Related Data Home Medications Medication Instructions Recorded Confirmed Acetaminophen Tab [Tylenol] 650 mg PEG/G-TUBE Q4H PRN 12/19/24 12/19/24 Aspirin 81 mg PEG/G-TUBE DAILY 12/19/24 12/19/24 Atorvastatin [Lipitor] 40 mg PEG/G-TUBE HS 12/19/24 12/19/24 Bromocriptine Mesylate 2.5 mg PEG/G-TUBE Q8H 12/19/24 12/19/24 Fenofibrate 160 mg PEG/G-TUBE DAILY 12/19/24 12/19/24 INSULIN LISPRO (HumaLOG) [HumaLOG] See Protocol SQ ACHS 12/19/24 12/19/24 Lactulose 20 gm PEG/G-TUBE TID 12/19/24 12/19/24 Propranolol [Inderal] 10 mg PEG/G-TUBE TID 12/19/24 12/19/24 Valproic Acid Oral Soln [Depakene 250 mg PEG/G-TUBE BID 12/19/24 12/19/24 Syrup] amLODIPine [Norvasc] 5 mg PEG/G-TUBE DAILY 12/19/24 12/19/24 amantadine HCL 100 mg PEG/G-TUBE Q12H 12/19/24 12/19/24 lisinopriL [Zestril] 40 mg PEG/G-TUBE DAILY 12/19/24 12/19/24 Previous Rx's Medication Instructions Recorded Fluconazole [Diflucan] 100 mg PO DAILY #7 tab 12/26/24 INSULIN LISPRO (HumaLOG) [HumaLOG] 8 unit SQ Q6HR each 12/26/24 Insulin Glargine (Lantus) [Lantus 25 unit SQ BID@0700,2100 each 12/26/24 Vial] Ipratropium-Albuterol Nebulize 3 ml INHALATION RT-BID PRN #0 12/26/24 [Duoneb 0.5 mg-3 mg/3 ml Soln] Allergies Allergy/AdvReac Type Severity Reaction Status Date / Time No Known Allergies Allergy Verified 12/19/24 10:33 Review of Systems ROS Statement: Those systems with pertinent positive or pertinent negative responses have been documented in the HPI. ROS Other: All systems not noted in ROS Statement are negative. Past Medical History Past Medical History: CVA/TIA Additional Past Medical History / Comment(s): Lactic acidosis, acute respiratory failure, dysphagia, right sided weakness, parkinson's, History of Any Multi-Drug Resistant Organisms: VRE Date of last positivie culture/infection: 12/23/24 MDRO Source:: urine Past Surgical History: Unable to Obtain Additional Past Surgical History / Comment(s): tubal ligation Past Anesthesia/Blood Transfusion Reactions: No Reported Reaction Past Psychological History: Unable to Obtain Smoking Status: Unknown if ever smoked Past Alcohol Use History: Unable to Obtain Past Drug Use History: Unable to Obtain General Exam Limitations: no limitations General appearance: alert, in no apparent distress Head exam: Present: atraumatic, normocephalic, normal inspection Respiratory exam: Present: normal lung sounds bilaterally. Absent: respiratory distress, wheezes, rales, rhonchi, stridor Cardiovascular Exam: Present: regular rate, normal rhythm GI/Abdominal exam: Present: other (PEG tube is in place without any surrounding erythema or induration. Minor abdominal tenderness on palpation. No distention.) Neurological exam: Present: alert Course Vital Signs 03/13/25 03/13/25 06:05 08:00 Temperature 101.1 F H 98.7 F Pulse Rate 89 81 Respiratory 16 20 Rate Blood Pressure 126/53 115/48 O2 Sat by Pulse 94 L 95 Oximetry Medical Decision Making - Medical Decision Making This is a 74-year-old female who presents to the emergency department for abdominal pain with her PEG tube feeds. Was pt. sent in by a medical professional or institution? @ -No Did you speak to anyone other than the patient for history? @ -EMS and [facility] provided the majority of the history. Did you review nursing and triage notes? @ -Yes, and I agree, it is accurate with regards to the patient's symptoms. Were old charts reviewed? @ -No Differential Diagnosis? @ -Differential Abdominal Pain Women: Appendicitis, Cholecystitis, diverticulosis, ischemic bowel, pancreatitis, hepatitis, UTI, gastroenteritis, AAA, incarcerated hernia, bowel obstruction, constipation, inflammatory bowel, hepatitis, peptic ulcer disease, splenic infarction, perforated viscus, vulvitis, ovarian torsion, PID, kidney stone, placenta abruption, this is not meant to be an all-inclusive list EKG interpreted by me (3pts min.)? @ -EKG interpreted by me demonstrating the following: Sinus rhythm. Ventricular rate 80 bpm, IL interval 142 ms, QRS duration 92 ms, QTc 402 ms. X-rays interpreted by me (1pt min.)? @ -Chest x-ray obtained. My interpretation identifies left lower lung opacities. CT interpreted by me (1pt min.)? @ -CT scan of the abdomen and pelvis obtained. My interpretation identifies the feeding tube in appropriate position. U/S interpreted by me (1pt. min.)? @ -Not obtained What testing was considered but not performed? (CT, X-rays, U/S, labs)? Why? @ -None What meds were considered but not given? Why? @ -None Did you discuss the management of the patient with other professionals? @ -Yes, Dr. Brennan, who accepts the patient for admission Did you reconcile home meds? @ -No Was smoking cessation discussed for >3mins.? @ -No Was critical care preformed (if so, how long)? @ -No Were there social determinants of health that impacted care today? How? (Homelessness, low income, unemployed, alcoholism, drug addiction, transportation, low edu. Level, literacy, decrease access to med. care, custodial, rehab)? @ -No Was there de-escalation of care discussed even if they declined? (Discuss DNR or withdrawal of care, Hospice)? @ -No What co-morbidities impacted this encounter? (DM, HTN, Smoking, COPD, CAD, Cancer, CVA, Hep., AIDS, mental health diagnosis, sleep apnea, morbid obesity)? @ -Hx of CVA Was patient admitted / discharged? @ -Admitted. Patient was febrile on arrival with a temperature of 101.1 F. Lab work demonstrates leukocytosis with a WBC of 22.23. She also has hyponatremia with a sodium of 129. LFTs are mildly elevated but stable when compared with prior values. Patient met SIRS criteria at approximately 6:40 based on the leukocytosis with fever. Blood culture was ordered. She was given 2.5 L of lactated Ringer's per 30 to 40 mL/kg fluid requirements and started on maintenance fluids. She was also started on Zosyn empirically. Urinalysis consistent with infection and urine sent for culture. Chest x-ray demonstrates left lower lung hazy opacities. They advised correlation for pneumonia. She denies any chest pain or shortness of breath, but does report a cough for the last couple of days. CT scan of the abdomen and pelvis demonstrates the decubitus ulcer without evidence of osseous erosion. The sacral decubitus ulcer has been a chronic issue for the patient. However, they note that fat standing changes extend through the peritoneum and around the rectum and they advised correlation for proctitis. Additionally, in the body of the CT scan report they make note of an abscess along the sacrum, however this is not documented in the impression. The PEJ-tube is noted to be in appropriate position. They do make note of other incidental findings, including an indeterminate lesion in the right liver dome that has possibly increased in size as well as questionable thickening of the endometrium. Both of these findings will require further nilo ging, however they are unrelated to her current presentation. Patient appears to have multiple sources of infection including UTI, possible pneumonia, proctitis, and a sacral abscess. Will keep patient on Zosyn for the meantime for broad-spectrum coverage. She was admitted to medicine for sepsis, UTI, proctitis, sacral abscess, possible pneumonia. Consult placed for general surgery and wound care. Case discussed with ED attending Dr. aSlcedo. Undiagnosed new problem with uncertain prognosis? @ -None Drug Therapy requiring intensive monitoring for toxicity (Heparin, Nitro, Insulin, Cardizem)? @ -None Were any procedures done? @ -None Diagnosis/symptom? @ -Sepsis, UTI, proctitis, sacral abscess, pneumonia Acute, or Chronic, or Acute on Chronic? @ -Acute Uncomplicated (without systemic symptoms) or Complicated (systemic symptoms)? @ -Complicated Side effects of treatment? @ -None Exacerbation, Progression, or Severe Exacerbation] @ -Not applicable Poses a threat to life or bodily function? @ -Yes, can lead to septic shock and - Lab Data Result diagrams: 03/13/25 06:34 03/13/25 06:34 Lab Results 03/13/25 03/13/25 03/13/25 Range/Units 06:34 06:34 06:34 WBC 22.23 H (4.50-10.00) 10*3/uL RBC 3.14 L (4.10-5.20) 10*6/uL Hgb 9.2 L (12.0-15.0) g/dL Hct 27.7 L (37.2-46.3) % MCV 88.2 (80.0-97.0) fL MCH 29.3 (27.0-32.0) pg MCHC 33.2 (32.0-37.0) g/dL Plt Count 367 (140-440) 10*3/uL MPV 9.3 L (9.5-12.2) fL Immature Gran % (Auto) 2.7 % Neutrophils % 78.5 % Lymphocytes % 10.5 % Monocytes % 7.2 % Eosinophils % 0.4 % Basophils % 0.7 % Immature Gran # 0.61 H (0.00-0.04) 10*3/uL Neutrophils # 17.43 H (1.80-7.70) 10*3/uL Lymphocytes # 2.34 (0.90-5.00) 10*3/uL Monocytes # 1.59 H (0.20-1.00) 10*3/uL Eosinophils # 0.10 (0.04-0.35) 10*3/uL Basophils # 0.16 H (0.00-0.10) 10*3/uL PT 10.3 (10.0-12.5) sec INR 0.9 (<1.2) APTT 23.4 (22.0-30.0) sec Sodium 129 L (137-145) mmol/L Potassium 4.8 (3.5-5.1) mmol/L Chloride 96 L (98-107) mmol/L Carbon Dioxide 27 (22-30) mmol/L Anion Gap 6 mmol/L BUN 25 H (7-17) mg/dL Creatinine 0.51 L (0.52-1.04) mg/dL Est GFR (CKD-EPI)AfAm >90 (>60 ml/min/1.73 sqM) Est GFR (CKD-EPI)NonAf >90 (>60 ml/min/1.73 sqM) Glucose 114 H (74-99) mg/dL Plasma Lactic Acid Darrel (0.7-2.0) mmol/L Calcium 9.9 (8.4-10.2) mg/dL Total Bilirubin 0.5 (0.2-1.3) mg/dL AST 45 H (14-36) U/L ALT 41 H (4-34) U/L Alkaline Phosphatase 206 H (38-126) U/L Troponin I (0.000-0.034) ng/mL Total Protein 5.5 L (6.3-8.2) g/dL Albumin 2.7 L (3.5-5.0) g/dL Urine Color Urine Appearance (Clear) Urine pH (5.0-8.0) Ur Specific [place] (1.001-1.035) Urine Protein (Negative) Urine Glucose (UA) (Negative) Urine Ketones (Negative) Urine Blood (Negative) Urine Nitrite (Negative) Urine Bilirubin (Negative) Urine Urobilinogen (<2.0) mg/dL Ur Leukocyte Esterase (Negative) Urine RBC (0-5) /hpf Urine WBC (0-5) /hpf Urine Bacteria (None) /hpf 03/13/25 03/13/25 03/13/25 Range/Units 06:34 06:34 08:20 WBC (4.50-10.00) 10*3/uL RBC (4.10-5.20) 10*6/uL Hgb (12.0-15.0) g/dL Hct (37.2-46.3) % MCV (80.0-97.0) fL MCH (27.0-32.0) pg MCHC (32.0-37.0) g/dL Plt Count (140-440) 10*3/uL MPV (9.5-12.2) fL Immature Gran % (Auto) % Neutrophils % % Lymphocytes % % Monocytes % % Eosinophils % % Basophils % % Immature Gran # (0.00-0.04) 10*3/uL Neutrophils # (1.80-7.70) 10*3/uL Lymphocytes # (0.90-5.00) 10*3/uL Monocytes # (0.20-1.00) 10*3/uL Eosinophils # (0.04-0.35) 10*3/uL Basophils # (0.00-0.10) 10*3/uL PT (10.0-12.5) sec INR (<1.2) APTT (22.0-30.0) sec Sodium (137-145) mmol/L Potassium (3.5-5.1) mmol/L Chloride (98-107) mmol/L Carbon Dioxide (22-30) mmol/L Anion Gap mmol/L BUN (7-17) mg/dL Creatinine (0.52-1.04) mg/dL Est GFR (CKD-EPI)AfAm (>60 ml/min/1.73 sqM) Est GFR (CKD-EPI)NonAf (>60 ml/min/1.73 sqM) Glucose (74-99) mg/dL Plasma Lactic Acid Darrel 1.5 (0.7-2.0) mmol/L Calcium (8.4-10.2) mg/dL Total Bilirubin (0.2-1.3) mg/dL AST (14-36) U/L ALT (4-34) U/L Alkaline Phosphatase (38-126) U/L Troponin I <0.012 (0.000-0.034) ng/mL Total Protein (6.3-8.2) g/dL Albumin (3.5-5.0) g/dL Urine Color Colorless Urine Appearance Cloudy H (Clear) Urine pH 6.5 (5.0-8.0) Ur Specific [place] 1.014 (1.001-1.035) Urine Protein Trace H (Negative) Urine Glucose (UA) Negative (Negative) Urine Ketones Negative (Negative) Urine Blood Moderate H (Negative) Urine Nitrite Positive H (Negative) Urine Bilirubin Negative (Negative) Urine Urobilinogen <2.0 (<2.0) mg/dL Ur Leukocyte Esterase Large H (Negative) Urine RBC 20 H (0-5) /hpf Urine WBC >182 H (0-5) /hpf Urine Bacteria Many H (None) /hpf - Radiology Data Radiology results: report reviewed, image reviewed Disposition Clinical Impression: Sepsis, UTI (urinary tract infection), Proctitis, Abscess of sacrum, Pneumonia Disposition: ADMITTED IP TO THIS HOSP Referrals: Clementina Collins DO [REFERRING] - 1-2 days
[2025-03-13] MEDS: LACTATED RINGERS 1,000 ML IV SCH ×2 (06:46→06:51)
[2025-03-13] MEDS: ACETAMINOPHEN IV (For NPO) 1,000 MG in EMPTY BAG 1 BAG IVPB STA (06:48)
[2025-03-13 07:01] LABS: Basophils # (A) 0.16 10*3/uL (0.00-0.10); Basophils % (A) 0.7 %; Eosinophils # (A) 0.10 10*3/uL (0.04-0.35); Eosinophils % (A) 0.4 %; HCT 27.7 % (37.2-46.3); HGB 9.2 g/dL (12.0-15.0); Lymphocytes # (A) 2.34 10*3/uL (0.90-5.00); Lymphocytes % (A) 10.5 %; MCH 29.3 pg (27.0-32.0); MCHC 33.2 g/dL (32.0-37.0); MCV 88.2 fL (80.0-97.0); Monocytes # (A) 1.59 10*3/uL (0.20-1.00); Monocytes % (A) 7.2 %; Neutrophils # (A) 17.43 10*3/uL (1.80-7.70); Neutrophils % (A) 78.5 %; Platelet Count 367 10*3/uL (140-440); RBC 3.14 10*6/uL (4.10-5.20); RDW 15.6 % (11.5-14.5); WBC 22.23 10*3/uL (4.50-10.00)
[2025-03-13 07:21] LABS: ALT 41 U/L (4-34); AST 45 U/L (14-36); African American GFR (CKD) >90 (>60 ml/min/1.73 sqM); Albumin 2.7 g/dL (3.5-5.0); Alkaline Phosphatase 206 U/L (38-126); Anion Gap 6 mmol/L; Blood Urea Nitrogen 25 mg/dL (7-17); Calcium 9.9 mg/dL (8.4-10.2); Carbon Dioxide 27 mmol/L (22-30); Chloride 96 mmol/L (98-107); Glucose 114 mg/dL (74-99); Non-African American GFR(CKD) >90 (>60 ml/min/1.73 sqM); Potassium 4.8 mmol/L (3.5-5.1); Sodium 129 mmol/L (137-145); Total Protein 5.5 g/dL (6.3-8.2)
[2025-03-13 07:25] LABS: INR 0.9 (<1.2); Partial Thromboplastin Time 23.4 sec (22.0-30.0); Prothrombin Time 10.3 sec (10.0-12.5)
--- NOTE | 2025-03-13 07:52 | XR ---
EXAMINATION TYPE: XR chest 2V DATE OF EXAM: 03/13/2025 7:43 AM COMPARISON: Chest radiographs from 12/19/2024 CLINICAL INDICATION: Female, 74 years old with history of Fever; [facility] TECHNIQUE: XR chest 2V Frontal and lateral views of the chest. FINDINGS: Lungs/Pleura: Airspace haziness to the left lung base There is no evidence of pleural effusion, focal consolidation, or pneumothorax. Pulmonary vascularity: Unremarkable. Heart/mediastinum: Cardiomediastinal silhouette is unremarkable. Musculoskeletal: No acute osseous pathology. Other findings: None Lines/Tubes: IMPRESSION: Left lower lung hazy airspace opacities correlate for pneumonia [facility], , 03/13/2025 7:50 AM
[2025-03-13] MEDS: PIPERACILLIN-TAZOBACTAM 3.375 GM in SODIUM CHLORIDE 0.9% 100 ML IVPB SCH (08:05)
--- NOTE | 2025-03-13 08:22 | CT ---
EXAMINATION TYPE: CT abdomen pelvis w con DATE OF EXAM: 03/13/2025 8:05 AM COMPARISON: 12/20/2024 CLINICAL INDICATION: Female, 74 years old with history of Abdominal pain with PEG tube; abd pain/peg tube TECHNIQUE: Axial CT abdomen pelvis w con;Sagittal and coronal reformats were created on a separate w orkstation. Contrast used:100 ml mL of Isovue 300 with IV Contrast, (none if empty) Oral contrast used: without Oral Contrast (none if empty) CT DLP: 1306 mGycm, Automated exposure control for dose reduction was used. FINDINGS: LOWER CHEST: Unremarkable ABDOMEN LIVER: Right hepatic lobe high density lesion measuring 32 x 20 mm. Additional simple appearing right renal cyst. GALLBLADDER AND BILE DUCTS: Gallstone in the gallbladder neck. PANCREAS: Scattered osseous lesions are within the parenchyma. SPLEEN: Unremarkable. ADRENAL GLANDS: Unremarkable. KIDNEYS AND URETERS: No evidence of hydronephrosis or obstructing renal calculus. The ureters are unr emarkable. Left renal cortical subcentimeter probable cyst. No follow-up recommended. PELVIS BLADDER: No evidence for wall thickening or mass given limitations of exam. REPRODUCTIVE: Questionable thickening of the endometrium measuring up to 21 mm. ABDOMEN & PELVIS STOMACH AND BOWEL: PEG tube with balloon in the stomach lumen. Tube terminating in the duodenum/jejun um. The duodenum is unremarkable. No evidence of bowel obstruction. PERITONEUM/RETROPERITONEUM: No evidence of pneumoperitoneum or free fluid. VASCULATURE: No evidence of aortic aneurysm. MUSCULOSKELETAL: No acute osseous abnormalities LYMPH NODES: r enlarged left inguinal region lymph node measuring up to 15 mm. SOFT TISSUE/ABDOMINAL WALL: Abscess fluid tracking along the sacrum measuring 6.7 x 2.2 x 7.5 cm fat stranding and inflammation surrounding this area of phlegmonous change and subcutaneous gas. There is fat stranding changes around the rectum. IMPRESSION: 1. Decubitus ulcer without evidence of osseous erosion at this time. No organizing fluid collection within the visualized. Fat stranding changes do extend throughout the peritoneum and around the rectu m. Correlate for proctitis. 2. Enlarged left inguinal region lymph node measuring up to 15 mm likely reactive to #1 3. Chronic pancreatitis changes. 4. PEJ-tube in appropriate position. 5. Cholelithiasis. 6. Indeterminate lesion in the right liver dome is possibly increased in size from 12/20/2024. Furthe r evaluation with liver mass protocol is CT or MRI recommended. 7. Questionable thickening of the endometrium further evaluation with ultrasound on outpatient basis is recommended. [facility], , 03/13/2025 8:20 AM
[2025-03-13 08:38] LABS: Bacteria,Urine Many /hpf; Bilirubin,Urine Negative (Negative); Blood,Urine Moderate (Negative); Color,Urine Colorless; Glucose,Urine (UA) Negative (Negative); Ketones,Urine Negative (Negative); Leukocyte Esterase,Urine Large (Negative); Nitrite,Urine Positive (Negative); PH, Urine 6.5 (5.0-8.0); Protein,Urine Trace (Negative); RBC,Urine 20 /hpf (0-5); Specific Gravity,Urine 1.014 (1.001-1.035); Urobilinogen,Urine <2.0 mg/dL (<2.0); WBC,Urine >182 /hpf (0-5)
[2025-03-13] MEDS ORDERED: HYDROcodone/APAP 5-325MG 1 EACH TAB PO PRN (08:51)
[2025-03-13] MEDS ORDERED: ONDANSETRON 4 MG/2 ML VIAL IVP PRN (08:51)
[2025-03-13] MEDS ORDERED: NALOXONE 0.4 MG/ML 1 ML VIAL IV PRN (08:51)
[2025-03-13] MEDS ORDERED: ACETAMINOPHEN TAB 325 MG TAB PO PRN (08:51)
[2025-03-13] MEDS ORDERED: MORPHINE SULFATE 4 MG/ML SYRINGE IV PRN (08:51)
[2025-03-13] MEDS: PANTOPRAZOLE 40 MG/10 ML VIAL IV SCH (10:04)
[2025-03-13 12:10] LABS: Glucose,Whole Blood 56 mg/dL (70-110)
[2025-03-13] MEDS: VALPROIC ACID ORAL SOLN 250 MG/5 ML CUP PEG/G-TUBE SCH (12:10)
[2025-03-13] MEDS: ASPIRIN 81 MG PEG/G-TUBE SCH (12:14)
[2025-03-13] MEDS: DEXTROSE 50% SYRINGE 50 ML IVP STA (12:14)
[2025-03-13] MEDS: ENOXAPARIN 40 MG/0.4 ML SYRINGE SQ SCH (12:25)
[2025-03-13] MEDS: INSULIN GLARGINE (LANTUS) 100 UNIT/ML SYR SQ SCH (12:26)
[2025-03-13] MEDS: CHLORHEXIDINE GLUCONATE 15 ML CUP MUCOUS MEM SCH (12:27)
[2025-03-13] MEDS: PROPRANOLOL 10 MG TAB PEG/G-TUBE SCH (12:27)
[2025-03-13] MEDS ORDERED: DEXTROSE 50% SYRINGE 50 ML IVP PRN (12:28)
[2025-03-13] MEDS: INSULIN LISPRO (HumaLOG) 100 UNIT/ML 10 mL VL SQ SCH (12:31)
[2025-03-13] MEDS: BROMOCRIPTINE MESYLATE 2.5 MG PEG/G-TUBE SCH (12:32)
[2025-03-13] MEDS: IPRATROPIUM-ALBUTEROL 3 ML NEB INHALATION SCH (14:07)
--- NOTE | 2025-03-13 15:05 | P.GSCN ---
History of Present Illness Consult date: 03/13/25 History of present illness: 74-year-old female presented to the emergency department from her nursing facility secondary to concerns of abdominal pain with insertion of tube feeds through her feeding tube. She has history of CVA and is currently unable to appropriately verbalize long answers, however is able to appropriately answer questions with yes or no. During her workup, there was concern of sepsis and patient was started on IV antibiotics. CT of the abdomen and pelvis was performed with concern for chronic sacral decubitus wound with possibility of abscess. Per her nursing facility nurse, the sacral decubitus ulcer has shown signs of improvement recently. No acute findings within abdomen from CT. Review of Systems ROS unobtainable: due to mental status Past Medical History Past Medical History: CVA/TIA Additional Past Medical History / Comment(s): Lactic acidosis, acute respiratory failure, dysphagia, right sided weakness, parkinson's, History of Any Multi-Drug Resistant Organisms: VRE Year Discovered:: 12/23/24 MDRO Source:: urine Past Surgical History: Unable to Obtain Additional Past Surgical History / Comment(s): tubal ligation Past Anesthesia/Blood Transfusion Reactions: No Reported Reaction Past Psychological History: Unable to Obtain Smoking Status: Unknown if ever smoked Past Alcohol Use History: Unable to Obtain Past Drug Use History: Unable to Obtain Medications and Allergies Home Medications Medication Instructions Recorded Confirmed Type Aspirin 81 mg PEG/G-TUBE DAILY@79912/19/24 03/13/25 History Atorvastatin [Lipitor] 40 mg PEG/G-TUBE HS@199912/19/24 03/13/25 History Bromocriptine Mesylate 2.5 mg PEG/G-TUBE 12/19/24 03/13/25 History TID@0500,1300,2099 Fenofibrate 160 mg PEG/G-TUBE DAILY@0812/19/24 03/13/25 History INSULIN LISPRO (HumaLOG) [HumaLOG] See Protocol SQ TID@0500,1300,209912/19/24 03/13/25 History Propranolol [Inderal] 10 mg PEG/G-TUBE TID@0500,1300,209912/19/24 03/13/25 Hist ory Valproic Acid Oral Soln [Depakene 250 mg PEG/G-TUBE BID 12/19/24 03/13/25 History Syrup] amLODIPine [Norvasc] 5 mg PEG/G-TUBE DAILY@0800 12/19/24 03/13/25 History amantadine HCL 100 mg PEG/G-TUBE BID@0800,199912/19/24 03/13/25 History lisinopriL [Zestril] 40 mg PEG/G-TUBE DAILY@0812/19/24 03/13/25 History Acetaminophen [Children's Tylenol] 640 mg PEG/G-TUBE Q6HR PRN 03/13/25 03/13/25 History Chlorhexidine Gluconate [Periogard] 5 ml MUCOUS MEM BID 03/13/25 03/13/25 Histor y Cholestyramine (with Sugar) 4 gm PEG/G-TUBE BID 03/13/25 03/13/25 History [Cholestyramine Packet] Docusate Oral Soln [Colace Oral 100 mg PO Q12H PRN 03/13/25 03/13/25 History Soln] Glucagon Emergency Kit 1 mg IM ONCE PRN 03/13/25 03/13/25 History INSULIN LISPRO (HumaLOG) [HumaLOG] 10 unit SQ TID@0500,1300,2100 03/13/25 03/13/25 History Insulin Glargine (Lantus) [Lantus 40 unit SQ DAILY 03/13/25 03/13/25 History Vial] Insulin Glargine (Lantus) [Lantus 44 unit SQ HS 03/13/25 03/13/25 History Vial] Ipratropium-Albuterol Nebulize 3 ml INHALATION RT-TID@05,13,21 03/13/25 03/13/25 History [Duoneb 0.5 mg-3 mg/3 ml Soln] Loperamide [Imodium] 2 mg PO Q12H PRN 03/13/25 03/13/25 History bisacodyL [Dulcolax] 10 mg RECTAL Q24H PRN 03/13/25 03/13/25 History Allergies Allergy/AdvReac Type Severity Reaction Status Date / Time No Known Allergies Allergy Verified 03/13/25 10:56 Surgical - Exam Osteopathic Statement: *. No significant issues noted on an osteopathic structural exam other than those noted in the History and Physical/Consult. Vital Signs Temp Pulse Resp BP Pulse Ox 101.1 F H 89 16 126/53 94 L 07/04/25 06:05 03/13/25 06:05 03/13/25 06:05 03/13/25 06:05 03/13/25 06:05 - General no distress - Neck trachea midline - Abdomen Feeding tube in place Abdomen: soft, non tender - Rectum Sacral decubitus ulcer noted with mild purulent drainage, no eschar formation and wound is open without any necrotic changes Results - Labs 03/13/25 06:34 03/13/25 06:34 Abnormal Lab Results - Last 24 Hours (Table) 03/13/25 03/13/25 03/13/25 Range/Units 06:34 06:34 08:20 WBC 22.23 H (4.50-10.00) 10*3/uL RBC 3.14 L (4.10-5.20) 10*6/uL Hgb 9.2 L (12.0-15.0) g/dL Hct 27.7 L (37.2-46.3) % MPV 9.3 L (9.5-12.2) fL Immature Gran # 0.61 H (0.00-0.04) 10*3/uL Neutrophils # 17.43 H (1.80-7.70) 10*3/uL Monocytes # 1.59 H (0.20-1.00) 10*3/uL Basophils # 0.16 H (0.00-0.10) 10*3/uL Sodium 129 L (137-145) mmol/L Chloride 96 L (98-107) mmol/L BUN 25 H (7-17) mg/dL Creatinine 0.51 L (0.52-1.04) mg/dL Glucose 114 H (74-99) mg/dL POC Glucose (mg/dL) (70-110) mg/dL AST 45 H (14-36) U/L ALT 41 H (4-34) U/L Alkaline Phosphatase 206 H (38-126) U/L Total Protein 5.5 L (6.3-8.2) g/dL Albumin 2.7 L (3.5-5.0) g/dL Urine Appearance Cloudy H (Clear) Urine Protein Trace H (Negative) Urine Blood Moderate H (Negative) Urine Nitrite Positive H (Negative) Ur Leukocyte Esterase Large H (Negative) Urine RBC 20 H (0-5) /hpf Urine WBC >182 H (0-5) /hpf Urine Bacteria Many H (None) /hpf 03/13/25 Range/Units 12:09 WBC (4.50-10.00) 10*3/uL RBC (4.10-5.20) 10*6/uL Hgb (12.0-15.0) g/dL Hct (37.2-46.3) % MPV (9.5-12.2) fL Immature Gran # (0.00-0.04) 10*3/uL Neutrophils # (1.80-7.70) 10*3/uL Monocytes # (0.20-1.00) 10*3/uL Basophils # (0.00-0.10) 10*3/uL Sodium (137-145) mmol/L Chloride (98-107) mmol/L BUN (7-17) mg/dL Creatinine (0.52-1.04) mg/dL Glucose (74-99) mg/dL POC Glucose (mg/dL) 56 L (70-110) mg/dL AST (14-36) U/L ALT (4-34) U/L Alkaline Phosphatase (38-126) U/L Total Protein (6.3-8.2) g/dL Albumin (3.5-5.0) g/dL Urine Appearance (Clear) Urine Protein (Negative) Urine Blood (Negative) Urine Nitrite (Negative) Ur Leukocyte Esterase (Negative) Urine RBC (0-5) /hpf Urine WBC (0-5) /hpf Urine Bacteria (None) /hpf Diabetes panel 03/13/25 Range/Units 06:34 Sodium 129 L (137-145) mmol/L Potassium 4.8 (3.5-5.1) mmol/L Chloride 96 L (98-107) mmol/L Carbon Dioxide 27 (22-30) mmol/L BUN 25 H (7-17) mg/dL Creatinine 0.51 L (0.52-1.04) mg/dL Glucose 114 H (74-99) mg/dL Calcium 9.9 (8.4-10.2) mg/dL AST 45 H (14-36) U/L ALT 41 H (4-34) U/L Alkaline Phosphatase 206 H (38-126) U/L Total Protein 5.5 L (6.3-8.2) g/dL Albumin 2.7 L (3.5-5.0) g/dL Calcium panel 03/13/25 Range/Units 06:34 Calcium 9.9 (8.4-10.2) mg/dL Albumin 2.7 L (3.5-5.0) g/dL Pituitary panel 03/13/25 Range/Units 06:34 Sodium 129 L (137-145) mmol/L Potassium 4.8 (3.5-5.1) mmol/L Chloride 96 L (98-107) mmol/L Carbon Dioxide 27 (22-30) mmol/L BUN 25 H (7-17) mg/dL Creatinine 0.51 L (0.52-1.04) mg/dL Glucose 114 H (74-99) mg/dL Calcium 9.9 (8.4-10.2) mg/dL Adrenal panel 03/13/25 Range/Units 06:34 Sodium 129 L (137-145) mmol/L Potassium 4.8 (3.5-5.1) mmol/L Chloride 96 L (98-107) mmol/L Carbon Dioxide 27 (22-30) mmol/L BUN 25 H (7-17) mg/dL Creatinine 0.51 L (0.52-1.04) mg/dL Glucose 114 H (74-99) mg/dL Calcium 9.9 (8.4-10.2) mg/dL Total Bilirubin 0.5 (0.2-1.3) mg/dL AST 45 H (14-36) U/L ALT 41 H (4-34) U/L Alkaline Phosphatase 206 H (38-126) U/L Total Protein 5.5 L (6.3-8.2) g/dL Albumin 2.7 L (3.5-5.0) g/dL Assessment and Plan Plan: 74-year-old female with chronic sacral decubitus wound. The wound is open with mild purulent drainage. The wound bed was examined with no necrotic tissue and no tissue that requires debriding. Continue to allow drainage of the purulent material. Continue IV antibiotics. Okay to begin trickle tube feeding to see how patient tolerates as there does not appear to be any acute issue based on CT. Will continue to follow and make recommendations based on patient's clinica lena lomas
[2025-03-13 17:24] LABS: Glucose,Whole Blood 146 mg/dL (70-110)
--- NOTE | 2025-03-13 19:52 | P.HPIM ---
History of Present Illness H&P Date: 03/13/25 Chief Complaint: Trouble with PEG tube 74-year-old patient, came in from [facility] being followed by Dr. Sabillon. Earlier in the year she was admitted at [facility] for a stroke resulting in right-sided paresis including dysphagia and dysphagia. She was sent to the ER when they try to give her PEG tube feeding she started complain abdominal pain. And that staff noted the abdomen was a bit distended. And hence EMS was called out. On my questioning patient does not complain of any pain. Nurse was able to give some medications through the same. Patient is nonambulatory. Patient found to have a fever of 101.1 in the ER. With leukocytosis. Was found to have rather infected appearing urine. Review of systems difficult to obtain because of dysarthria Social history: Currently at [facility]. Physical examination: VITAL SIGNS: 101.1, 89, 16, 126 x 53, 94% room air GENERAL: BMI 28.2, laying in bed a bit tired appearing. EYES: Pupils equal. Conjunctiva richard l. HEENT: External appearance of nose and ears normal, oral cavity grossly normal. NECK: JVD unable to assess; masses not palpable. HEART: First and second heart sounds are normal; no edema. LUNGS: Respiratory rate normal; clear to auscultation. ABDOMEN: Soft, mild distention nontender, liver spleen not palpable, no masses palpable. No guarding rigidity. No mass palpable. PEG tube site appears okay PSYCH: Patient severely dysarthric. Able to answer some questions slowly l. MUSCULOSKELETAL:No Clubbing/cyanosis;muscles-grossly intact NEUROLOGICAL: Facial asymmetry. Dysarthria. Power of the right arm 0/5. Right leg 1-2/5. LYMPHATICS: No lymph nodes palpable in the axilla and neck INVESTIGATIONS, reviewed in the clinical context: March 13, 2025: White count 22.2 hemoglobin 9.2 platelets 367 sodium 129 potassium 4.8 BUN 25 creatinine 0.51 AST 45 ALT 41 alkaline phosphatase 206 UA: Positive for blood, nitrite, leukoesterase, WBC, RBC Chest x-ray film personally reviewed by me-questionable left basilar infiltrate CT abdomen pelvis: Chronic pancreatic changes. PEG tube in position. Gallstones. Indeterminate lesion in the right liver dome possibly increased from December 20, 2024. Abscess fluid tracking along the sacrum measuring 6.7 x 2.2 x 7.5 cm stranding and inflammation surrounding this area of phlegmonous change and subcutaneous gas. Assessment and plan: - Acute UTI with cystitis causing sepsis IV fluids. Started on IV Zosyn in the ER. 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 Nonambulatory - Chronic dysarthria from stroke - Chronic dysphagia from stroke. Has a PEG tube. PEG tube is working in the ER. Tube feeding to be resumed. - Abscess fluid tracking along the sacral measuring 6.7 x 2.2 x 7.5 cm fat stranding and inflammation surrounding the area of phlegmonous change. General surgery consulted - Diabetes mellitus type 2, chronically insulin Lantus. Follow Accu-Cheks. Tube feeding to be resumed spoke to the nurse to get in touch with the [facility] and resume the same feeding. - Essential hypertension Amlodipine. - Hyperlipidemia Lipitor Currently no family at the bedside Past Medical History Past Medical History: CVA/TIA Additional Past Medical History / Comment(s): Lactic acidosis, acute respiratory failure, dysphagia, right sided weakness History of Any Multi-Drug Resistant Organisms: VRE Date of last positivie culture/infection: 12/23/24 MDRO Source:: urine Past Surgical History: Unable to Obtain Additional Past Surgical History / Comment(s): tubal ligation Past Anesthesia/Blood Transfusion Reactions: No Reported Reaction Past Psychological History: Unable to Obtain Smoking Status: Former smoker Past Alcohol Use History: None Reported Past Drug Use History: None Reported Medications and Allergies Home Medications Medication Instructions Recorded Confirmed Type Aspirin 81 mg PEG/G-TUBE DAILY@79912/19/24 03/13/25 History Atorvastatin [Lipitor] 40 mg PEG/G-TUBE HS@199912/19/24 03/13/25 History Bromocriptine Mesylate 2.5 mg PEG/G-TUBE 12/19/24 03/13/25 History TID@0500,1300,2100 Fenofibrate 160 mg PEG/G-TUBE DAILY@0812/19/24 03/13/25 History INSULIN LISPRO (HumaLOG) [HumaLOG] See Protocol SQ TID@0500,1300,2100 12/19/24 03/13/25 History Propranolol [Inderal] 10 mg PEG/G-TUBE TID@0500,1300,2100 12/19/24 03/13/25 History Valproic Acid Oral Soln [Depakene 250 mg PEG/G-TUBE BID 12/19/24 03/13/25 History Syrup] amLODIPine [Norvasc] 5 mg PEG/G-TUBE DAILY@0800 12/19/24 03/13/25 History amantadine HCL 100 mg PEG/G-TUBE BID@0800,199912/19/24 03/13/25 History lisinopriL [Zestril] 40 mg PEG/G-TUBE DAILY@0812/19/24 03/13/25 History Acetaminophen [Children's Tylenol] 640 mg PEG/G-TUBE Q6HR PRN 03/13/25 03/13/25 History Chlorhexidine Gluconate [Periogard] 5 ml MUCOUS MEM BID 03/13/25 03/13/25 History Cholestyramine (with Sugar) 4 gm PEG/G-TUBE BID 03/13/25 03/13/25 History [Cholestyramine Packet] Docusate Oral Soln [Colace Oral 100 mg PO Q12H PRN 03/13/25 03/13/25 History Soln] Glucagon Emergency Kit 1 mg IM ONCE PRN 03/13/25 03/13/25 History INSULIN LISPRO (HumaLOG) [HumaLOG] 10 unit SQ TID@0500,1300,2100 03/13/25 03/13/25 History Insulin Glargine (Lantus) [Lantus 40 unit SQ DAILY 03/13/25 03/13/25 History Vial] Insulin Glargine (Lantus) [Lantus 44 unit SQ HS 03/13/25 03/13/25 History Vial] Ipratropium-Albuterol Nebulize 3 ml INHALATION RT-TID@05,13,21 03/13/25 03/13/25 History [Duoneb 0.5 mg-3 mg/3 ml Soln] Loperamide [Imodium] 2 mg PO Q12H PRN 03/13/25 03/13/25 History bisacodyL [Dulcolax] 10 mg RECTAL Q24H PRN 03/13/25 03/13/25 History Allergies Allergy/AdvReac Type Severity Reaction Status Date / Time No Known Allergies Allergy Verified 03/13/25 10:56 Physical Exam Vitals: Vital Signs Temp Pulse Pulse Resp BP BP Pulse Ox 03/13/25 18:41 99.5 F 93 19 134/70 93 L 03/13/25 18:11 98.9 F 68 16 125/75 98 03/13/25 17:00 65 16 135/68 98 03/13/25 16:00 85 16 125/68 95 03/13/25 14:14 86 03/13/25 14:09 85 03/13/25 14:00 80 16 135/68 98 03/13/25 13:00 60 16 139/65 98 03/13/25 11:00 68 16 142/68 98 03/13/25 10:00 70 16 121/49 96 03/13/25 09:00 76 16 112/52 96 03/13/25 08:00 98.7 F 81 20 115/48 95 03/13/25 06:05 101.1 F H 89 16 126/53 94 L Intake and Output 03/13/25 03/13/25 03/13/25 06:59 14:59 22:59 Intake Total 2000 Output Total 1000 1000 Balance 1000 -1000 Intake: Intake, IV Titration 2000 Amount Piperacillin-Tazobactam 3 2000 .375 gm In Sodium Chloride 0.9% 100 ml @ 25 mls/hr IVPB Q8HR COUNT INCLUDES THE [facility] Rx# :[id number] Output: Urine 1000 1000 Other: # Voids 1 # Bowel Movements 1 Weight 79.379 kg 79.379 kg Results CBC & Chem 7: 03/13/25 06:34 03/13/25 06:34 Labs: Abnormal Lab Results - Last 24 Hours (Table) 03/13/25 03/13/25 03/13/25 Range/Units 06:34 06:34 08:20 WBC 22.23 H (4.50-10.00) 10*3/uL RBC 3.14 L (4.10-5.20) 10*6/uL Hgb 9.2 L (12.0-15.0) g/dL Hct 27.7 L (37.2-46.3) % MPV 9.3 L (9.5-12.2) fL Immature Gran # 0.61 H (0.00-0.04) 10*3/uL Neutrophils # 17.43 H (1.80-7.70) 10*3/uL Monocytes # 1.59 H (0.20-1.00) 10*3/uL Basophils # 0.16 H (0.00-0.10) 10*3/uL Sodium 129 L (137-145) mmol/L Chloride 96 L (98-107) mmol/L BUN 25 H (7-17) mg/dL Creatinine 0.51 L (0.52-1.04) mg/dL Glucose 114 H (74-99) mg/dL POC Glucose (mg/dL) (70-110) mg/dL AST 45 H (14-36) U/L ALT 41 H (4-34) U/L Alkaline Phosphatase 206 H (38-126) U/L Total Protein 5.5 L (6.3-8.2) g/dL Albumin 2.7 L (3.5-5.0) g/dL Urine Appearance Cloudy H (Clear) Urine Protein Trace H (Negative) Urine Blood Moderate H (Negative) Urine Nitrite Positive H (Negative) Ur Leukocyte Esterase Large H (Negative) Urine RBC 20 H (0-5) /hpf Urine WBC >182 H (0-5) /hpf Urine Bacteria Many H (None) /hpf 03/13/25 03/13/25 Range/Units 12:09 17:22 WBC (4.50-10.00) 10*3/uL RBC (4.10-5.20) 10*6/uL Hgb (12.0-15.0) g/dL Hct (37.2-46.3) % MPV (9.5-12.2) fL Immature Gran # (0.00-0.04) 10*3/uL Neutrophils # (1.80-7.70) 10*3/uL Monocytes # (0.20-1.00) 10*3/uL Basophils # (0.00-0.10) 10*3/uL Sodium (137-145) mmol/L Chloride (98-107) mmol/L BUN (7-17) mg/dL Creatinine (0.52-1.04) mg/dL Glucose (74-99) mg/dL POC Glucose (mg/dL) 56 L 146 H (70-110) mg/dL AST (14-36) U/L ALT (4-34) U/L Alkaline Phosphatase (38-126) U/L Total Protein (6.3-8.2) g/dL Albumin (3.5-5.0) g/dL Urine Appearance (Clear) Urine Protein (Negative) Urine Blood (Negative) Urine Nitrite (Negative) Ur Leukocyte Esterase (Negative) Urine RBC (0-5) /hpf Urine WBC (0-5) /hpf Urine Bacteria (None) /hpf Thrombosis Risk Factor Assmnt - Choose All That Apply Any of the Below Risk Factors Present?: Yes Each Factor Represents 1 point: Obesity (BMI >25) Each Risk Factor Represents 2 Points: Age 61-74 years Thrombosis Risk Factor Assessment Total Risk Factor Score: 3 Thrombosis Risk Factor Assessment Level: Moderate Risk
[2025-03-13 22:39] LABS: Glucose,Whole Blood 104 mg/dL (70-110)
[2025-03-13] MEDS: ATORVASTATIN 40 MG TAB PEG/G-TUBE SCH (22:44)
[2025-03-14 05:43] LABS: Glucose,Whole Blood 76 mg/dL (70-110)
--- NOTE | 2025-03-14 08:16 | P.PN ---
Subjective Progress Note Date: 03/14/25 Patient seen and examined at bedside. No acute events. Objective - Vital Signs Vital signs: Vital Signs Temp 97.5 F L 03/14/25 02:00 Pulse 78 03/14/25 02:00 Resp 15 03/14/25 02:00 BP 112/68 03/14/25 02:00 Pulse Ox 92 L 03/14/25 02:00 FiO2 Intake & Output 03/13/25 03/14/25 03/14/25 18:59 06:59 18:59 Intake Total 1999 1660 Output Total 1999 500 Balance 0 1160 Weight 79.379 kg Intake: Intake, IV Titration 1999 1660 Amount Lactated Ringers 1,000 ml 1560 @ 130 mls/hr IV .Q7H42M [facility] Rx#:[id number] Piperacillin-Tazobactam 3 1999 100 .375 gm In Sodium Chloride 0.9% 100 ml @ 25 mls/hr IVPB Q8HR [facility] Rx# :[id number] Output: Urine 1999 500 Other: Voiding Method External Catheter External Catheter # Voids 1 1 # Bowel Movements 1 - Constitutional General appearance: Present: cooperative - Respiratory Details: No difficulty with respiration - Gastrointestinal Gastrointestinal Comment(s): Soft, no tenderness - Integumentary Integumentary Comment(s): Sacral decubitus ulcer, stage IV with continued drainage, no necrotic tissue - Labs CBC & Chem 7: 03/13/25 06:34 03/13/25 06:34 Labs: Abnormal Lab Results - Last 24 Hours (Table) 03/13/25 03/13/25 03/13/25 Range/Units 08:20 12:09 17:22 POC Glucose (mg/dL) 56 L 146 H (70-110) mg/dL Urine Appearance Cloudy H (Clear) Urine Protein Trace H (Negative) Urine Blood Moderate H (Negative) Urine Nitrite Positive H (Negative) Ur Leukocyte Esterase Large H (Negative) Urine RBC 20 H (0-5) /hpf Urine WBC >182 H (0-5) /hpf Urine Bacteria Many H (None) /hpf Assessment and Plan Plan: 74-year-old female with chronic sacral decubitus wound. The wound is open with mild purulent drainage. Currently no plan for debridement as tissue appears healthy. Continue IV antibiotics per infectious disease. Tube feeding per dietitian. Will continue to follow and make recommendations based on patient's clinical progress.
[2025-03-14] MEDS: FENOFIBRATE 160 MG TAB PEG/G-TUBE SCH (08:33)
[2025-03-14] MEDS: IPRATROPIUM-ALBUTEROL 3 ML NEB INHALATION SCH (10:19)
[2025-03-14 11:45] LABS: Glucose,Whole Blood 76 mg/dL (70-110)
--- NOTE | 2025-03-14 14:01 | P.PN ---
Progress Note - Text Progress Note Date: 03/14/25 Chief Complaint: Trouble with PEG tube 74-year-old patient, came in from [facility] being followed by Dr. Sabillon. Earlier in the year she was admitted at [facility] for a stroke resulting in right-sided paresis including dysphagia and dysphagia. She was sent to the ER when they try to give her PEG tube feeding she started complain abdominal pain. And that staff noted the abdomen was a bit distended. And hence EMS was called out. On my questioning patient does not complain of any pain. Nurse was able to give some medications through the same. Patient is nonambulatory. Patient found to have a fever of 101.1 in the ER. With leukocytosis. Was found to have rather infected appearing urine. March 14: Patient been tolerating tube feeding Glucerna 1.5 bolus feeding. Spoke earlier to nurse Vandana to look at the sacral wound. She did obtain quite a bit of pus. Dr. Wood from surgery will be informed will probably need deeper I&D. Will send out wound cultures. Patient currently on IV Zosyn. Active Medications Acetaminophen (Acetaminophen Tab 325 Mg Tab) 650 mg PO Q6HR PRN PRN Reason: Mild Pain or Fever > 100.5 Hydrocodone Bitart/Acetaminophen (Hydrocodone/Apap 5-325mg 1 Each Tab) 1 each PO Q4HR PRN PRN Reason: Moderate Pain (Scale 4 to 6) Albuterol/Ipratropium (Ipratropium-Albuterol 3 Ml Neb) 3 ml INHALATION RT-TID [facility] Last Admin: 03/14/25 10:19 Dose: Not Given Amantadine HCl (Amantadine Hcl 100 Mg/10 Ml Cup) 100 mg PEG/G-TUBE BID@799,1999 [facility] Last Admin: 03/14/25 08:33 Dose: 100 mg Aspirin (Aspirin 81 Mg) 81 mg PEG/G-TUBE DAILY@799 [facility] Last Admin: 03/14/25 08:33 Dose: 81 mg Atorvastatin Calcium (Atorvastatin 40 Mg Tab) 40 mg PEG/G-TUBE HS@1999 [facility] Last Admin: 03/13/25 22:44 Dose: 40 mg Chlorhexidine Gluconate (Chlorhexidine Gluconate 15 Ml Cup) 5 ml MUCOUS MEM BID [facility] Last Admin: 03/14/25 11:10 Dose: 5 ml Dextrose/Water (Dextrose 50% Syringe 50 Ml) 25 ml IVP PER PROTOCOL PRN; Protocol PRN Reason: Hypoglycemia Dextrose/Water (Dextrose 50% Syringe 50 Ml) 50 ml IVP PER PROTOCOL PRN; Protocol PRN Reason: Hypoglycemia Enoxaparin Sodium (Enoxaparin 40 Mg/0.4 Ml Syringe) 40 mg SQ DAILY [facility] Last Admin: 03/14/25 08:37 Dose: 40 mg Fenofibrate (Fenofibrate 160 Mg Tab) 160 mg PEG/G-TUBE DAILY@0800 [facility] Last Admin: 03/14/25 08:33 Dose: 160 mg Lactated Ringer's (Lactated Ringers) 1,000 mls @ 130 mls/hr IV .Q7H42M [facility] Last Admin: 03/14/25 08:49 Dose: 130 mls/hr Piperacillin Sod/Tazobactam (Sod 3.375 gm/ Sodium Chloride) 100 mls @ 25 mls/hr IVPB Q8HR [facility]; Protocol Last Admin: 03/14/25 08:33 Dose: 25 mls/hr Insulin Human Lispro (Insulin Lispro (Humalog) 100 Unit/Ml 10 Ml Vl) 0 unit SQ ACHS [facility]; Protocol Last Admin: 03/14/25 12:54 Dose: Not Given Lisinopril (Lisinopril 20 Mg Tab) 40 mg PEG/G-TUBE DAILY@0800 [facility] Last Admin: 03/14/25 08:35 Dose: 40 mg Loperamide HCl (Loperamide 2 Mg Cap) 2 mg PO Q12H PRN PRN Reason: loose stools Naloxone HCl (Naloxone 0.4 Mg/Ml 1 Ml Vial) 0.2 mg IV Q2M PRN PRN Reason: Opioid Reversal Non-Formulary Medication (Bromocriptine Mesylate [Bromocriptine Mesylate]) 2.5 mg PEG/G-TUBE TID@0500,1300,2100 [facility] Last Admin: 03/14/25 12:55 Dose: Not Given Ondansetron HCl (Ondansetron 4 Mg/2 Ml Vial) 4 mg IVP Q8HR PRN PRN Reason: Nausea And Vomiting Propranolol HCl (Propranolol 10 Mg Tab) 10 mg PEG/G-TUBE TID@0500,1300,2100 [facility] Last Admin: 03/14/25 13:22 Dose: 10 mg Valproic Acid (Valproic Acid Oral Soln 250 Mg/5 Ml Cup) 250 mg PEG/G-TUBE BID [facility] Last Admin: 03/14/25 08:33 Dose: 250 mg Social history: Currently at [facility]. Physical examination: VITAL SIGNS: 98.3, 72, 18, 107/61, 90% room air GENERAL: BMI 28.2, laying in bed EYES: Pupils equal. Conjunctiva richard l. HEENT: External appearance of nose and ears normal, oral cavity grossly normal. NECK: JVD unable to assess; masses not palpable. HEART: First and second heart sounds are normal; no edema. LUNGS: Respiratory rate normal; clear to auscultation. ABDOMEN: Soft, mild distention nontender, liver spleen not palpable, no masses palpable. No guarding rigidity. No mass palpable. PEG tube site appears okay PSYCH: Patient severely dysarthric. Able to answer some questions slowly l. MUSCULOSKELETAL:No Clubbing/cyanosis;muscles-grossly intact. Sacral decubitus wound. NEUROLOGICAL: Facial asymmetry. Dysarthria. Power of the right arm 0/5. Right leg 1-2/5. INVESTIGATIONS, reviewed in the clinical context: March 13, 2025: White count 22.2 hemoglobin 9.2 platelets 367 sodium 129 potassium 4.8 BUN 25 creatinine 0.51 AST 45 ALT 41 alkaline phosphatase 206 UA: Positive for blood, nitrite, leukoesterase, WBC, RBC Chest x-ray film personally reviewed by me-questionable left basilar infiltrate CT abdomen pelvis: Chronic pancreatic changes. PEG tube in position. Gallstones. Indeterminate lesion in the right liver dome possibly increased from December 20, 2024. Abscess fluid tracking along the sacrum measuring 6.7 x 2.2 x 7.5 cm stranding and inflammation surrounding this area of phlegmonous change and subcutaneous gas. Assessment and plan: - Acute UTI with cystitis and infected decubitus ulcer with abscess causing sepsis IV fluids. 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 Nonambulatory - Chronic dysarthria from stroke - Chronic dysphagia from stroke. PEG tube feeding with Glucerna 1.5 has been resumed -Sacral decubitus abscess fluid tracking along the sacral measuring 6.7 x 2.2 x 7.5 cm fat stranding and inflammation surrounding the area of phlegmonous change. This drained quite a bit of pus today. Sent both aerobic and anaerobic cultures Patient will need deep I&D. Surgery on the case - Diabetes mellitus type 2, chronically insulin Follow Accu-Cheks. Tube feeding has been resumed with Glucerna. Accu-Cheks running a bit low - Essential hypertension Amlodipine. - Hyperlipidemia Lipitor Wound cultures. Patient will require deep I&D with surgery, and anesthesia Past Medical History Past Medical History: CVA/TIA Additional Past Medical History / Comment(s): Lactic acidosis, acute respiratory failure, dysphagia, right sided weakness History of Any Multi-Drug Resistant Organisms: VRE Date of last positivie culture/infection: 12/23/24 MDRO Source:: urine Past Surgical History: Unable to Obtain Additional Past Surgical History / Comment(s): tubal ligation Past Anesthesia/Blood Transfusion Reactions: No Reported Reaction Past Psychological History: Unable to Obtain Smoking Status: Former smoker Past Alcohol Use History: None Reported Past Drug Use History: None Reported
[2025-03-14 16:42] LABS: Glucose,Whole Blood 64 mg/dL (70-110)
[2025-03-14] MEDS: DEXTROSE 50% SYRINGE 50 ML IVP PRN (16:45)
[2025-03-14 17:05] LABS: Glucose,Whole Blood 132 mg/dL (70-110)
[2025-03-14 20:25] LABS: Glucose,Whole Blood 264 mg/dL (70-110)
[2025-03-15 06:19] LABS: Glucose,Whole Blood 349 mg/dL (70-110)
--- NOTE | 2025-03-15 09:03 | P.PN ---
Subjective Progress Note Date: 03/15/25 Patient seen and examined at bedside. Having significant amount of stool output. Objective - Vital Signs Vital signs: Vital Signs Temp 98.2 F 03/15/25 07:37 Pulse 68 03/15/25 08:51 Resp 18 03/15/25 07:37 BP 121/73 03/15/25 07:37 Pulse Ox 94 L 03/15/25 07:37 FiO2 Intake & Output 03/14/25 03/15/25 03/15/25 18:59 06:59 18:59 Output Total 450 1000 Balance -450 -1000 Output: Urine 450 1000 Other: Voiding Method External Catheter External Catheter # Voids 1 # Bowel Movements 2 - Constitutional General appearance: Present: cooperative - Gastrointestinal Gastrointestinal Comment(s): Soft, nontender, feeding tube in place - Labs CBC & Chem 7: 03/13/25 06:34 03/13/25 06:34 Labs: Abnormal Lab Results - Last 24 Hours (Table) 03/14/25 03/14/25 03/14/25 Range/Units 16:40 17:03 20:24 POC Glucose (mg/dL) 64 L 132 H 264 H (70-110) mg/dL 03/15/25 Range/Units 06:14 POC Glucose (mg/dL) 349 H (70-110) mg/dL Microbiology - Last 24 Hours (Table) 03/13/25 08:20 Urine Culture - Preliminary Urine,Voided Gram Neg Bacilli 03/13/25 06:20 Blood Culture - Preliminary Blood Assessment and Plan Plan: 74-year-old female with sacral decubitus ulcer, the wound is open and was examined with some purulent drainage. Tissue does not appear necrotic and wound is open, would recommend continued local wound care with IV antibiotics at this time. Will continue to follow and discuss debridement if necessary.
[2025-03-15] MEDS: LOPERAMIDE 2 MG CAP PO PRN (12:31)
[2025-03-15 16:41] LABS: Glucose,Whole Blood 279 mg/dL (70-110)
--- NOTE | 2025-03-15 16:48 | P.PN ---
Progress Note - Text Progress Note Date: 03/15/25 Chief Complaint: Trouble with PEG tube 74-year-old patient, came in from [facility] being followed by Dr. Sabillon. Earlier in the year she was admitted at [facility] for a stroke resulting in right-sided paresis including dysphagia and dysphagia. She was sent to the ER when they try to give her PEG tube feeding she started complain abdominal pain. And that staff noted the abdomen was a bit distended. And hence EMS was called out. On my questioning patient does not complain of any pain. Nurse was able to give some medications through the same. Patient is nonambulatory. Patient found to have a fever of 101.1 in the ER. With leukocytosis. Was found to have rather infected appearing urine. March 14: Patient been tolerating tube feeding Glucerna 1.5 bolus feeding. Spoke earlier to nurse Vandana to look at the sacral wound. She did obtain quite a bit of pus. Dr. Wood from surgery will be informed will probably need deeper I&D. Will send out wound cultures. Patient currently on IV Zosyn. March 15: Tolerating tube feeding. Glucerna. No surgical intervention per surgery. Urine culture growing gram-negative bacilli. Wound care team has been consulted Active Medications Acetaminophen (Acetaminophen Tab 325 Mg Tab) 650 mg PO Q6HR PRN PRN Reason: Mild Pain or Fever > 100.5 Hydrocodone Bitart/Acetaminophen (Hydrocodone/Apap 5-325mg 1 Each Tab) 1 each PO Q4HR PRN PRN Reason: Moderate Pain (Scale 4 to 6) Albuterol/Ipratropium (Ipratropium-Albuterol 3 Ml Neb) 3 ml INHALATION RT-TID [facility] Last Admin: 03/15/25 08:51 Dose: 3 ml Amantadine HCl (Amantadine Hcl 100 Mg/10 Ml Cup) 100 mg PEG/G-TUBE BID@799,1999 [facility] Last Admin: 03/15/25 08:49 Dose: 100 mg Aspirin (Aspirin 81 Mg) 81 mg PEG/G-TUBE DAILY@0800 [facility] Last Admin: 03/15/25 08:49 Dose: 81 mg Atorvastatin Calcium (Atorvastatin 40 Mg Tab) 40 mg PEG/G-TUBE HS@1999 [facility] Last Admin: 03/14/25 21:58 Dose: 40 mg Chlorhexidine Gluconate (Chlorhexidine Gluconate 15 Ml Cup) 5 ml MUCOUS MEM BID [facility] Last Admin: 03/15/25 12:39 Dose: 5 ml Dextrose/Water (Dextrose 50% Syringe 50 Ml) 25 ml IVP PER PROTOCOL PRN; Protocol PRN Reason: Hypoglycemia Last Admin: 03/14/25 16:45 Dose: 25 ml Dextrose/Water (Dextrose 50% Syringe 50 Ml) 50 ml IVP PER PROTOCOL PRN; Protocol PRN Reason: Hypoglycemia Enoxaparin Sodium (Enoxaparin 40 Mg/0.4 Ml Syringe) 40 mg SQ DAILY [facility] Last Admin: 03/15/25 08:48 Dose: 40 mg Fenofibrate (Fenofibrate 160 Mg Tab) 160 mg PEG/G-TUBE DAILY@0800 [facility] Last Admin: 03/15/25 08:48 Dose: 160 mg Lactated Ringer's (Lactated Ringers) 1,000 mls @ 130 mls/hr IV .Q7H42M [facility] Last Admin: 03/14/25 23:55 Dose: 130 mls/hr Piperacillin Sod/Tazobactam (Sod 3.375 gm/ Sodium Chloride) 100 mls @ 25 mls/hr IVPB Q8HR [facility]; Protocol Last Admin: 03/15/25 15:53 Dose: 25 mls/hr Insulin Human Lispro (Insulin Lispro (Humalog) 100 Unit/Ml 10 Ml Vl) 0 unit SQ ACHS [facility]; Protocol Last Admin: 03/15/25 12:31 Dose: 8 unit Lisinopril (Lisinopril 20 Mg Tab) 40 mg PEG/G-TUBE DAILY@0800 [facility] Last Admin: 03/15/25 08:49 Dose: 40 mg Loperamide HCl (Loperamide 2 Mg Cap) 2 mg PO Q12H PRN PRN Reason: loose stools Last Admin: 03/15/25 12:31 Dose: 2 mg Naloxone HCl (Naloxone 0.4 Mg/Ml 1 Ml Vial) 0.2 mg IV Q2M PRN PRN Reason: Opioid Reversal Non-Formulary Medication (Bromocriptine Mesylate [Bromocriptine Mesylate]) 2.5 mg PEG/G-TUBE TID@0500,1300,2100 [facility] Last Admin: 03/15/25 13:37 Dose: Not Given Ondansetron HCl (Ondansetron 4 Mg/2 Ml Vial) 4 mg IVP Q8HR PRN PRN Reason: Nausea And Vomiting Propranolol HCl (Propranolol 10 Mg Tab) 10 mg PEG/G-TUBE TID@0500,1300,2100 [facility] Last Admin: 03/15/25 13:57 Dose: 10 mg Valproic Acid (Valproic Acid Oral Soln 250 Mg/5 Ml Cup) 250 mg PEG/G-TUBE BID [facility] Last Admin: 03/15/25 08:55 Dose: 250 mg Social history: Currently at [facility]. Physical examination: VITAL SIGNS: 97.7, 73, 18, 143 x 80, 95% room air GENERAL: BMI 28.2, laying in bed EYES: Pupils equal. Conjunctiva richard l. HEENT: External appearance of nose and ears normal, oral cavity grossly normal. NECK: JVD unable to assess; masses not palpable. HEART: First and second heart sounds are normal; no edema. LUNGS: Respiratory rate normal; clear to auscultation. ABDOMEN: Soft, mild distention nontender, liver spleen not palpable, no masses palpable. No guarding rigidity. No mass palpable. PEG tube site appears okay PSYCH: Patient severely dysarthric. Able to answer some questions slowly l. MUSCULOSKELETAL:No Clubbing/cyanosis;muscles-grossly intact. Sacral decubitus wound. NEUROLOGICAL: Facial asymmetry. Dysarthria. Power of the right arm 0/5. Right leg 1-2/5. INVESTIGATIONS, reviewed in the clinical context: March 13, 2025: White count 22.2 hemoglobin 9.2 platelets 367 sodium 129 potassium 4.8 BUN 25 creatinine 0.51 AST 45 ALT 41 alkaline phosphatase 206 UA: Positive for blood, nitrite, leukoesterase, WBC, RBC Chest x-ray film personally reviewed by me-questionable left basilar infiltrate CT abdomen pelvis: Chronic pancreatic changes. PEG tube in position. Gallstones. Indeterminate lesion in the right liver dome possibly increased from December 20, 2024. Abscess fluid tracking along the sacrum measuring 6.7 x 2.2 x 7.5 cm stranding and inflammation surrounding this area of phlegmonous change and subcutaneous gas. Assessment and plan: - Acute UTI with cystitis and infected decubitus ulcer with abscess causing sepsis IV fluids. 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 Nonambulatory - Chronic dysarthria from stroke - Chronic dysphagia from stroke. PEG tube feeding with Glucerna 1.5 has been resumed -Sacral decubitus abscess fluid tracking along the sacral measuring 6.7 x 2.2 x 7.5 cm fat stranding and inflammation surrounding the area of phlegmonous change. This drained quite a bit of pus today. Sent both aerobic and anaerobic cultures Patient will need deep I&D. Surgery on the case - Diabetes mellitus type 2, chronically insulin Follow Accu-Cheks. Tube feeding has been resumed with Glucerna. Start Lantus 20 units subcu nightly - Essential hypertension Amlodipine. - Hyperlipidemia Lipitor Wound care team consulted. No surgical intervention per surgery. Start Lantus 20 units at night. Past Medical History Past Medical History: CVA/TIA Additional Past Medical History / Comment(s): Lactic acidosis, acute respiratory failure, dysphagia, right sided weakness History of Any Multi-Drug Resistant Organisms: VRE Date of last positivie culture/infection: 12/23/24 MDRO Source:: urine Past Surgical History: Unable to Obtain Additional Past Surgical History / Comment(s): tubal ligation Past Anesthesia/Blood Transfusion Reactions: No Reported Reaction Past Psychological History: Unable to Obtain Smoking Status: Former smoker Past Alcohol Use History: None Reported Past Drug Use History: None Reported
[2025-03-15 20:16] LABS: Glucose,Whole Blood 219 mg/dL (70-110)
[2025-03-15] MEDS: INSULIN GLARGINE (LANTUS) 100 UNIT/ML SYR SQ SCH (21:38)
[2025-03-16 06:24] LABS: Glucose,Whole Blood 313 mg/dL (70-110)
[2025-03-16 11:27] LABS: Glucose,Whole Blood 375 mg/dL (70-110)
--- NOTE | 2025-03-16 11:41 | P.CONS ---
History of Present Illness - Reason for Consult Consult date: 03/16/25 wound care - History of Present Illness This is a 74-year-old patient who is being seen on [facility] [address]. for a stage IV pressure ulcer to the sacrum and a stage II pressure to the left buttocks. Patient's suffered a stroke and is able to answer questions appropriately with yes and no answers. Patient's states the ulceration has been there for approximately 6 months.The left buttocks approximately measures 1 x 1.2 x 0.1 cm with slough and nonviable tissue present the sacral midline ulceration measures 2 x 2 x 2.5 cm with slough and nonviable tissue present. The sacral midline ulceration has significant amount of serous drainage undermining and tunneling noted. Review Of Systems: Constitutional: No fever, no chills, no night sweats. No weight change. No weakness, fatigue or lethargy. No daytime sleepiness. Integumentary:reports wounds, no lesions. No rash or pruritus. No unusual bruising. No change in hair or nails. Physical exam: General Appearance: Alert, cooperative, no distress, appears stated age. Skin: See HPI all other Skin color, texture, tugor normal, no rashes or lesions. Neurologic: Alert oriented x3 Assessment: 1. Stage IV pressure ulcer of sacrum 2. Stage II pressure ulcer left buttocks Plan: 1.Left buttocks: Apply honey gel and bordered foam. Sacral ulceration apply absorptive silver rope and bordered foam. Patient may benefit from a surgical debridement of the sacral ulceration. And possible negative pressure wound VAC application. Turn patient every 2 hours. Thank for the consultation any questions please contact the wound care center. DNP note has been reviewed and discussed with Dr. Da Silva and the impression and plan of care has been directed as dictated. 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/24-VRE MDRO Source:: ESBL-urine; VRE-urine Past Surgical History: Unable to Obtain Additional Past Surgical History / Comment(s): tubal ligation Past Anesthesia/Blood Transfusion Reactions: No Reported Reaction Past Psychological History: Unable to Obtain Smoking Status: Former smoker Past Alcohol Use History: None Reported Past Drug Use History: None Reported Medications and Allergies Home Medications Medication Instructions Recorded Confirmed Type Aspirin 81 mg PEG/G-TUBE DAILY@79912/19/24 03/13/25 History Atorvastatin [Lipitor] 40 mg PEG/G-TUBE HS@199912/19/24 03/13/25 History Bromocriptine Mesylate 2.5 mg PEG/G-TUBE 12/19/24 03/13/25 History TID@0500,1300,2099 Fenofibrate 160 mg PEG/G-TUBE DAILY@79912/19/24 03/13/25 History INSULIN LISPRO (HumaLOG) [HumaLOG] See Protocol SQ TID@0500,1300,209912/19/24 03/13/25 History Propranolol [Inderal] 10 mg PEG/G-TUBE TID@0500,1300,209912/19/24 03/13/25 History Valproic Acid Oral Soln [Depakene 250 mg PEG/G-TUBE BID 12/19/24 03/13/25 History Syrup] amLODIPine [Norvasc] 5 mg PEG/G-TUBE DAILY@79912/19/24 03/13/25 History amantadine HCL 100 mg PEG/G-TUBE BID@799,199912/19/24 03/13/25 History lisinopriL [Zestril] 40 mg PEG/G-TUBE DAILY@79912/19/24 03/13/25 History Acetaminophen [Children's Tylenol] 640 mg PEG/G-TUBE Q6HR PRN 03/13/25 03/13/25 History Chlorhexidine Gluconate [Periogard] 5 ml MUCOUS MEM BID 03/13/25 03/13/25 History Cholestyramine (with Sugar) 4 gm PEG/G-TUBE BID 03/13/25 03/13/25 History [Cholestyramine Packet] Docusate Oral Soln [Colace Oral 100 mg PO Q12H PRN 03/13/25 03/13/25 History Soln] Glucagon Emergency Kit 1 mg IM ONCE PRN 03/13/25 03/13/25 History INSULIN LISPRO (HumaLOG) [HumaLOG] 10 unit SQ TID@0500,1300,209903/13/25 03/13/25 History Insulin Glargine (Lantus) [Lantus 40 unit SQ DAILY 03/13/25 03/13/25 History Vial] Insulin Glargine (Lantus) [Lantus 44 unit SQ HS 03/13/25 03/13/25 History Vial] Ipratropium-Albuterol Nebulize 3 ml INHALATION RT-TID@05,13,21 03/13/25 03/13/25 History [Duoneb 0.5 mg-3 mg/3 ml Soln] Loperamide [Imodium] 2 mg PO Q12H PRN 03/13/25 03/13/25 History bisacodyL [Dulcolax] 10 mg RECTAL Q24H PRN 03/13/25 03/13/25 History Allergies Allergy/AdvReac Type Severity Reaction Status Date / Time No Known Allergies Allergy Verified 03/13/25 10:56 Physical Exam Vitals: Vital Signs Temp Pulse Pulse Resp BP Pulse Ox 03/16/25 09:55 80 03/16/25 09:43 80 03/16/25 07:13 97.9 F 81 18 158/81 96 03/16/25 02:11 98.8 F 85 17 177/77 96 03/15/25 19:35 98.0 F 85 16 145/73 96 03/15/25 14:13 97.7 F 73 18 143/80 95 Intake and Output 03/15/25 03/16/25 03/16/25 22:59 06:59 14:59 Other: Voiding Method External Catheter # Voids 3 3 # Bowel Movements 2 3 Results CBC & Chem 7: 03/13/25 06:34 03/13/25 06:34 Labs: Abnormal Lab Results - Last 24 Hours (Table) 03/15/25 03/15/25 03/16/25 Range/Units 16:39 20:14 06:22 POC Glucose (mg/dL) 279 H 219 H 313 H (70-110) mg/dL 03/16/25 Range/Units 11:25 POC Glucose (mg/dL) 375 H (70-110) mg/dL Microbiology - Last 24 Hours (Table) 03/14/25 23:15 Gram Stain - Preliminary Buttock Wound Culture - Preliminary Klebsiella oxy Raoultella orni Proteus mirabilis Strep agalactiae - (group b) 03/13/25 08:20 Urine Culture - Final Urine,Voided Klebsiella oxytoca ESBL MDRO Proteus mirabilis 03/13/25 06:20 Blood Culture - Preliminary Blood Assessment and Plan (1) Stage 4 skin ulcer of sacral region Current Visit: Yes Status: Acute Code(s): L98.429 - NON-PRESSURE CHRONIC ULCER OF BACK WITH UNSPECIFIED SEVERITY SNOMED Code(s): 57854815 (2) Stage II pressure ulcer of left buttock Current Visit: No Status: Acute Code(s): L89.322 - PRESSURE ULCER OF LEFT BUTTOCK, STAGE 2 SNOMED Code(s): 00493223051650
--- NOTE | 2025-03-16 14:26 | P.PN ---
Progress Note - Text Progress Note Date: 03/16/25 No acute events overnight VSS General-NAD Abdomen-soft, NTND Sacrum-Stage IV sacral decubitus ulcer 74-year-old female with sacral decubitus ulcer -Wound Care Recs Appreciated. Patient scheduled for Debridement of Decubitus Ulcer tomorrow in OR. Hold Tube Feeds at midnight. Continue Abx Ant Churchill DO [facility] [phone]
[2025-03-16 16:27] LABS: Glucose,Whole Blood 250 mg/dL (70-110)
[2025-03-16] MEDS: INSULIN LISPRO (HumaLOG) 100 UNIT/ML 10 mL VL SQ SCH (17:45)
--- NOTE | 2025-03-16 19:01 | P.PN ---
Progress Note - Text Progress Note Date: 03/16/25 Chief Complaint: Trouble with PEG tube 74-year-old patient, came in from [facility] being followed by Dr. Sabillon. Earlier in the year she was admitted at [facility] for a stroke resulting in right-sided paresis including dysphagia and dysphagia. She was sent to the ER when they try to give her PEG tube feeding she started complain abdominal pain. And that staff noted the abdomen was a bit distended. And hence EMS was called out. On my questioning patient does not complain of any pain. Nurse was able to give some medications through the same. Patient is nonambulatory. Patient found to have a fever of 101.1 in the ER. With leukocytosis. Was found to have rather infected appearing urine. March 14: Patient been tolerating tube feeding Glucerna 1.5 bolus feeding. Spoke earlier to nurse Vandana to look at the sacral wound. She did obtain quite a bit of pus. Dr. Wood from surgery will be informed will probably need deeper I&D. Will send out wound cultures. Patient currently on IV Zosyn. March 15: Tolerating tube feeding. Glucerna. No surgical intervention per surgery. Urine culture growing gram-negative bacilli. Wound care team has been consulted March 16: Getting tube feedings. Patient seen by Dr. Witt from surgery. Patient being scheduled for debridement of decubitus ulcer in the OR tomorrow. Patient is comfortable otherwise. Also seen by the wound care team. Multiple organisms from the wound. Antibiotics switched to IV meropenem. ID following Active Medications Acetaminophen (Acetaminophen Tab 325 Mg Tab) 650 mg PO Q6HR PRN PRN Reason: Mild Pain or Fever > 100.5 Hydrocodone Bitart/Acetaminophen (Hydrocodone/Apap 5-325mg 1 Each Tab) 1 each PO Q4HR PRN PRN Reason: Moderate Pain (Scale 4 to 6) Albuterol/Ipratropium (Ipratropium-Albuterol 3 Ml Neb) 3 ml INHALATION RT-TID [facility] Last Admin: 03/16/25 16:01 Dose: Not Given Amantadine HCl (Amantadine Hcl 100 Mg/10 Ml Cup) 100 mg PEG/G-TUBE BID@0800,2000 [facility] Last Admin: 03/16/25 08:11 Dose: 100 mg Aspirin (Aspirin 81 Mg) 81 mg PEG/G-TUBE DAILY@0800 [facility] Last Admin: 03/16/25 08:10 Dose: 81 mg Atorvastatin Calcium (Atorvastatin 40 Mg Tab) 40 mg PEG/G-TUBE HS@2000 [facility] Last Admin: 03/15/25 21:37 Dose: 40 mg Chlorhexidine Gluconate (Chlorhexidine Gluconate 15 Ml Cup) 5 ml MUCOUS MEM BID [facility] Last Admin: 03/16/25 08:11 Dose: 5 ml Dextrose/Water (Dextrose 50% Syringe 50 Ml) 25 ml IVP PER PROTOCOL PRN; Protocol PRN Reason: Hypoglycemia Last Admin: 03/14/25 16:45 Dose: 25 ml Dextrose/Water (Dextrose 50% Syringe 50 Ml) 50 ml IVP PER PROTOCOL PRN; Protocol PRN Reason: Hypoglycemia Enoxaparin Sodium (Enoxaparin 40 Mg/0.4 Ml Syringe) 40 mg SQ DAILY [facility] Last Admin: 03/16/25 08:33 Dose: 40 mg Fenofibrate (Fenofibrate 160 Mg Tab) 160 mg PEG/G-TUBE DAILY@0800 [facility] Last Admin: 03/16/25 08:10 Dose: 160 mg Meropenem 1 gm/ Sodium (Chloride) 100 mls @ 33.3 mls/hr IVPB Q8HR [facility]; Protocol Lactated Ringer's (Lactated Ringers) 1,000 mls @ 50 mls/hr IV .Q20H [facility] Insulin Glargine (Insulin Glargine (Lantus) 100 Unit/Ml Syr) 20 unit SQ [facility] Last Admin: 03/15/25 21:38 Dose: 20 unit Insulin Human Lispro (Insulin Lispro (Humalog) 100 Unit/Ml 10 Ml Vl) 0 unit SQ Q6HR [facility]; Protocol Last Admin: 03/16/25 17:45 Dose: 4 unit Lisinopril (Lisinopril 20 Mg Tab) 40 mg PEG/G-TUBE DAILY@0800 [facility] Last Admin: 03/16/25 08:10 Dose: 40 mg Loperamide HCl (Loperamide 2 Mg Cap) 2 mg PO Q12H PRN PRN Reason: loose stools Last Admin: 03/15/25 12:31 Dose: 2 mg Naloxone HCl (Naloxone 0.4 Mg/Ml 1 Ml Vial) 0.2 mg IV Q2M PRN PRN Reason: Opioid Reversal Non-Formulary Medication (Bromocriptine Mesylate [Bromocriptine Mesylate]) 2.5 mg PEG/G-TUBE TID@0500,1300,2100 [facility] Last Admin: 03/16/25 12:38 Dose: Not Given Ondansetron HCl (Ondansetron 4 Mg/2 Ml Vial) 4 mg IVP Q8HR PRN PRN Reason: Nausea And Vomiting Propranolol HCl (Propranolol 10 Mg Tab) 10 mg PEG/G-TUBE TID@0500,1300,2100 [facility] Last Admin: 03/16/25 12:37 Dose: 10 mg Valproic Acid (Valproic Acid Oral Soln 250 Mg/5 Ml Cup) 250 mg PEG/G-TUBE BID [facility] Last Admin: 03/16/25 08:12 Dose: 250 mg Social history: Currently at [facility]. Physical examination: VITAL SIGNS: 98.1, 71, 18, 159 x 77, 98% room GENERAL: BMI 28.2, laying in bed EYES: Pupils equal. Conjunctiva richard l. HEENT: External appearance of nose and ears normal, oral cavity grossly normal. NECK: JVD unable to assess; masses not palpable. HEART: First and second heart sounds are normal; no edema. LUNGS: Respiratory rate normal; clear to auscultation. ABDOMEN: Soft, mild distention nontender, liver spleen not palpable, no masses palpable. No guarding rigidity. No mass palpable. PEG tube site appears okay PSYCH: Patient severely dysarthric. Able to answer some questions slowly l. MUSCULOSKELETAL:No Clubbing/cyanosis;muscles-grossly intact. Sacral and left buttock decubitus wound. NEUROLOGICAL: Facial asymmetry. Dysarthria. Power of the right arm 0/5. Right leg 1-2/5. INVESTIGATIONS, reviewed in the clinical context: March 13, 2025: White count 22.2 hemoglobin 9.2 platelets 367 sodium 129 potassium 4.8 BUN 25 creatinine 0.51 AST 45 ALT 41 alkaline phosphatase 206 UA: Positive for blood, nitrite, leukoesterase, WBC, RBC Chest x-ray film personally reviewed by me-questionable left basilar infiltrate CT abdomen pelvis: Chronic pancreatic changes. PEG tube in position. Gallstones. Indeterminate lesion in the right liver dome possibly increased from December 20, 2024. Abscess fluid tracking along the sacrum measuring 6.7 x 2.2 x 7.5 cm stranding and inflammation surrounding this area of phlegmonous change and subcutaneous gas. Assessment and plan: - Acute UTI with cystitis and infected sacral decubitus ulcer with abscess causing sepsis IV fluids. 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. Nonambulatory - Chronic dysarthria from stroke - Chronic dysphagia from stroke. PEG tube feeding with Glucerna 1.5 has been resumed -Sacral decubitus abscess fluid tracking along the sacral measuring 6.7 x 2.2 x 7.5 cm fat stranding and inflammation surrounding the area of phlegmonous change. This drained quite a bit of pus . Cultures growing multiple organisms Seen by Dr. Witt from surgery. Patient be made n.p.o. after midnight for surgery tomorrow. - Diabetes mellitus type 2, chronically insulin Follow Accu-Cheks. Tube feeding has been resumed with Glucerna. Increase Lantus to 28 units subcu nightly - Essential hypertension Amlodipine. - Hyperlipidemia Lipitor For I&D of the wound tomorrow by surgery. Increase Lantus to 28 units. Antibiotics been changed to meropenem. Cut back IV fluids Past Medical History Past Medical History: CVA/TIA Additional Past Medical History / Comment(s): Lactic acidosis, acute respiratory failure, dysphagia, right sided weakness History of Any Multi-Drug Resistant Organisms: VRE Date of last positivie culture/infection: 12/23/24 MDRO Source:: urine Past Surgical History: Unable to Obtain Additional Past Surgical History / Comment(s): tubal ligation Past Anesthesia/Blood Transfusion Reactions: No Reported Reaction Past Psychological History: Unable to Obtain Smoking Status: Former smoker Past Alcohol Use History: None Reported Past Drug Use History: None Reported
[2025-03-16 22:34] LABS: Glucose,Whole Blood 268 mg/dL (70-110)
[2025-03-16] MEDS: LACTATED RINGERS 1,000 ML IV SCH (22:34)
[2025-03-16] MEDS: INSULIN GLARGINE (LANTUS) 100 UNIT/ML SYR SQ SCH (22:35)
--- NOTE | 2025-03-16 22:41 | P.CONS ---
History of Present Illness - Reason for Consult Consult date: 03/16/25 Cultures Requesting physician: Mynor Brennan - Chief Complaint Abdominal pain x 1 day on admission - History of Present Illness Patient is a 74-year-old female with a past medical history significant for CVA TIA history of recurrent UTI and [facility] resident patient has been brought to the hospital 3 days ago after apparently having a problem with the PEG tube patient had been complaining some abdominal pain and distention for the patient was brought into the hospital on arrival to the ER patient did have a fever of 101.1 degrees Fahrenheit patient was mildly tachycardic not hypotensive or hypoxic no need for supplemental oxygen patient did have elevated white count 22.23 creatinine 0.51 liver enzymes mildly elevated did have positive UA urine culture now growing ESBL Klebsiella patient also noted to have significant drainage from his sacral wound which is growing Klebsiella Proteus and Streptococcus agalactiae patient did have a chest x-ray left lower lobe hazy airspace opacity correlate for pneumonia abdominal pelvis CT done on admission did shows sacral pressure ulcer with a bony erosion and organizing fluid collection fat stranding changes to extend throughout the peritoneum and around the rectum correlate for proctitis enlarged lymph nodes patient is currently being treated with Zosyn infectious disease was consulted regarding positive culture and adjustment of antibiotic therapy, most information has been obtained from review the chart and talking nursing staff the patient was evaluated good historian when asked specifically the patient denies having any chest pain shortness of breath or cough no further abdominal pain no nausea vomiting has been complaining of pain to the sacral area but unable to quantify it any further Review of Systems Positive points has been mentioned in HPI complete review could not be obtained because of his underlying mental status 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/24-VRE MDRO Source:: ESBL-urine; VRE-urine Past Surgical History: Unable to Obtain Additional Past Surgical History / Comment(s): tubal ligation Past Anesthesia/Blood Transfusion Reactions: No Reported Reaction Past Psychological History: Unable to Obtain Smoking Status: Former smoker Past Alcohol Use History: None Reported Past Drug Use History: None Reported Medications and Allergies Home Medications Medication Instructions Recorded Confirmed Type Aspirin 81 mg PEG/G-TUBE DAILY@79912/19/24 03/13/25 History Atorvastatin [Lipitor] 40 mg PEG/G-TUBE HS@199912/19/24 03/13/25 History Bromocriptine Mesylate 2.5 mg PEG/G-TUBE 12/19/24 03/13/25 History TID@0500,1300,2100 Fenofibrate 160 mg PEG/G-TUBE DAILY@79912/19/24 03/13/25 History INSULIN LISPRO (HumaLOG) [HumaLOG] See Protocol SQ TID@0500,1300,2100 12/19/24 03/13/25 History Propranolol [Inderal] 10 mg PEG/G-TUBE TID@0500,1300,209912/19/24 03/13/25 History Valproic Acid Oral Soln [Depakene 250 mg PEG/G-TUBE BID 12/19/24 03/13/25 History Syrup] amLODIPine [Norvasc] 5 mg PEG/G-TUBE DAILY@79912/19/24 03/13/25 History amantadine HCL 100 mg PEG/G-TUBE BID@799,199912/19/24 03/13/25 History lisinopriL [Zestril] 40 mg PEG/G-TUBE DAILY@79912/19/24 03/13/25 History Acetaminophen [Children's Tylenol] 640 mg PEG/G-TUBE Q6HR PRN 03/13/25 03/13/25 History Chlorhexidine Gluconate [Periogard] 5 ml MUCOUS MEM BID 03/13/25 03/13/25 History Cholestyramine (with Sugar) 4 gm PEG/G-TUBE BID 03/13/25 03/13/25 History [Cholestyramine Packet] Docusate Oral Soln [Colace Oral 100 mg PO Q12H PRN 03/13/25 03/13/25 History Soln] Glucagon Emergency Kit 1 mg IM ONCE PRN 03/13/25 03/13/25 History INSULIN LISPRO (HumaLOG) [HumaLOG] 10 unit SQ TID@0500,1300,2100 03/13/25 03/13/25 History Insulin Glargine (Lantus) [Lantus 40 unit SQ DAILY 03/13/25 03/13/25 History Vial] Insulin Glargine (Lantus) [Lantus 44 unit SQ HS 03/13/25 03/13/25 History Vial] Ipratropium-Albuterol Nebulize 3 ml INHALATION RT-TID@05,13,21 03/13/25 03/13/25 History [Duoneb 0.5 mg-3 mg/3 ml Soln] Loperamide [Imodium] 2 mg PO Q12H PRN 03/13/25 03/13/25 History bisacodyL [Dulcolax] 10 mg RECTAL Q24H PRN 03/13/25 03/13/25 History Allergies Allergy/AdvReac Type Severity Reaction Status Date / Time No Known Allergies Allergy Verified 03/13/25 10:56 Physical Exam Vitals: Vital Signs Temp Pulse Pulse Resp BP Pulse Ox 03/16/25 12:28 80 162/85 03/16/25 09:55 80 03/16/25 09:43 80 03/16/25 07:13 97.9 F 81 18 158/81 96 03/16/25 02:11 98.8 F 85 17 177/77 96 03/15/25 19:35 98.0 F 85 16 145/73 96 03/15/25 14:13 97.7 F 73 18 143/80 95 Intake and Output 03/15/25 03/16/25 03/16/25 22:59 06:59 14:59 Other: Voiding Method External Catheter # Voids 3 3 # Bowel Movements 2 3 GENERAL DESCRIPTION: Elderly female lying in bed, no distress. No tachypnea or accessory muscle of respiration use. HEENT: Shows Pallor , no scleral icterus. Oral mucous membrane is dry. NECK: Trachea central, no thyromegaly. LUNGS: Unlabored breathing. Decreased breath sound at the base HEART: S1, S2, regular rate and rhythm. No loud murmur ABDOMEN: Soft, no tenderness , EXTREMITIES: No edema of feet. SKIN: Stage IV sacral pressure ulcer significant amount of purulent drainage also have a stage II pressure ulcer to bilateral gluteal area NEUROLOGICAL: The patient is awake, alert, mood and affect normal. Results CBC & Chem 7: 03/13/25 06:34 03/13/25 06:34 Labs: Abnormal Lab Results - Last 24 Hours (Table) 03/15/25 03/15/25 03/16/25 Range/Units 16:39 20:14 06:22 POC Glucose (mg/dL) 279 H 219 H 313 H (70-110) mg/dL 03/16/25 Range/Units 11:25 POC Glucose (mg/dL) 375 H (70-110) mg/dL Microbiology - Last 24 Hours (Table) 03/14/25 23:15 Gram Stain - Preliminary Buttock Wound Culture - Preliminary Klebsiella oxy Raoultella orni Proteus mirabilis Strep agalactiae - (group b) 03/13/25 08:20 Urine Culture - Final Urine,Voided Klebsiella oxytoca ESBL MDRO Proteus mirabilis 03/13/25 06:20 Blood Culture - Preliminary Blood Assessment and Plan (1) Abscess of sacrum Current Visit: Yes Status: Acute Code(s): M46.28 - OSTEOMYELITIS OF VE RTEBRA, SACRAL AND SACROCOCCYGEAL REGION SNOMED Code(s): 880920420 (2) Sepsis Current Visit: Yes Status: Acute Code(s): A41.9 - SEPSIS, UNSPECIFIED ORGANISM SNOMED Code(s): 96356685 (3) Stage 4 skin ulcer of sacral region Current Visit: Yes Status: Acute Code(s): L98.429 - NON-PRESSURE CHRONIC ULCER OF BACK WITH UNSPECIFIED SEVERITY SNOMED Code(s): 29764707 (4) UTI (urinary tract infection) Current Visit: Yes Status: Acute Code(s): N39.0 - URINARY TRACT INFECTION, SITE NOT SPECIFIED SNOMED Code(s): 80986867 Plan: 1patient is in the hospital with sepsis in this patient who did have fever tachycardia elevated white count source likely stage IV infected sacral pressure ulcer with significant amount of purulent drainage noticed on current examination and will need to cover for the polymicrobial jhonatan including enteric gram-negative pathogen. 2patient also have a positive urine culture with ESBL Klebsiella and will need to cover for the resistant gram-negative pathogen while waiting for the I&D of the sacral wound and deep cultures 3discontinue Zosyn 4we will start the patient on meropenem 1 g every 8 hours 5patient will likely need PICC line and outpatient IV antibiotic therapy on discharge We will follow on clinical condition and cultures to further adjust medication if needed Thank you for this consultation we will follow the patient along with you Dictation was produced using [employer] software. please excuse any grammatical, word or spelling errors. Time with Patient: Greater than 30
[2025-03-16] MEDS: MEROPENEM 1 GM in SODIUM CHLORIDE 0.9% 100 ML IVPB SCH (23:01)
[2025-03-17 00:07] LABS: Glucose,Whole Blood 313 mg/dL (70-110)
[2025-03-17 06:03] LABS: Glucose,Whole Blood 184 mg/dL (70-110)
[2025-03-17 08:32] LABS: Basophils # (A) 0.09 X 10*3/uL (0.00-0.10); Basophils % (A) 0.8 %; Eosinophils # (A) 0.19 X 10*3/uL (0.04-0.35); Eosinophils % (A) 1.6 %; HCT 31.1 % (37.2-46.3); HGB 9.3 g/dL (12.0-15.0); Immature Grans, Automated 4.10 %; Lymphocytes # (A) 1.90 X 10*3/uL (0.90-5.00); Lymphocytes % (A) 16.2 %; MCH 28.1 pg (27.0-32.0); MCHC 29.9 g/dL (32.0-37.0); MCV 94.0 FL (80.0-97.0); Monocytes # (A) 0.77 X 10*3/uL (0.20-1.00); Monocytes % (A) 6.6 %; NRBC Per 100 WBC 0.07 X 10*3/uL (0.00-0.01); Neutrophils # (A) 8.27 X 10*3/uL (1.80-7.70); Neutrophils % (A) 70.7 %; Platelet Count 536 X 10*3/uL (140-440); RBC 3.31 X 10*6/uL (4.10-5.20); RDW 15.9 % (11.5-14.5); WBC 11.70 X 10*3/uL (4.50-10.00)
[2025-03-17 08:47] LABS: Anion Gap 9.60 mmol/L (4.00-12.00); BUN/Creat Ratio 30.80 Ratio (12.00-20.00); Blood Urea Nitrogen 15.4 mg/dL (9.0-27.0); Calcium 8.8 mg/dL (8.7-10.3); Carbon Dioxide 23.4 mmol/L (21.6-31.8); Chloride 107 mmol/L (96-109); Glucose 254 mg/dL (70-110); Potassium 4.1 mmol/L (3.5-5.5); Sodium 140 mmol/L (135-145)
[2025-03-17 09:51] LABS: INR 0.97 sec (0.93-1.11); Prothrombin Time 10.9 sec (9.9-11.9)
[2025-03-17 11:25] LABS: Glucose,Whole Blood 194 mg/dL (70-110)
[2025-03-17] MEDS: IV FLUID CONTINUATION 1,000 ML IV ONE (13:01)
[2025-03-17 13:12] LABS: Glucose,Whole Blood 184 mg/dL (70-110)
[2025-03-17] MEDS ORDERED: PROPOFOL 10 MG/ML 20 ML VIAL IV ONE (13:54)
[2025-03-17] MEDS ORDERED: KETAMINE HCL IN 0.9 % NACL 50 MG/5 ML SYRINGE ONE (13:54)
[2025-03-17] MEDS ORDERED: MIDAZOLAM 2 MG/2 ML VIAL ONE (13:54)
[2025-03-17] MEDS: LIDOCAINE 1%-EPI 1:100,000 20 ML VIAL SQ ONE ×2 (14:12)
--- NOTE | 2025-03-17 15:01 | P.OP ---
Date of Procedure: 03/17/25 Preoperative Diagnosis: Infected decubitus ulcer, sacrum Postoperative Diagnosis: Infected sacral decubitus ulcer, 10 x 5 x 3 cm Procedure(s) Performed: Debridement of infected sacral decubitus ulcer with pulse irrigation Anesthesia: JUAN R Surgeon: Karine Wood Pathology: other (Cultures of wound) Condition: stable Disposition: floor Indications for Procedure: 74-year-old female with concern for infected sacral decubitus ulcer. Plan is for debridement in the operative setting. Risks, benefits and alternatives were provided. All questions answered. Operative Findings: Purulent and infected sacral decubitus ulcer, measuring 10 x 5 x 3 cm Description of Procedure: Patient was brought to the operative suite and placed in supine position her hospital bed. Sedation was provided by anesthesia and patient was placed in lateral position. She was prepped and draped in regular sterile fashion. Incision was made on the infected appearing sacral decubitus ulcer. Purulent drainage was noted and undermining was noted of the ulceration. Portion of the skin was excised secondary to the significant amount of undermining and concern for tissue viability. The wound was debrided using sharp excisional debridement with a 15 blade scalpel. 1.5 L of pulse irrigation was placed throughout the wound and suction. The bed of the wound was noted to have different spots of bleeding and appeared to have some granulation tissue. Incision was then packed with iodoform packing. Patient was awakened in the operative suite and taken to postanesthesia care in stable condition.
--- NOTE | 2025-03-17 15:40 | P.PN ---
Subjective Progress Note Date: 03/17/25 Principal diagnosis: Reason for follow-up is infected sacral pressure ulcer Patient is a 74-year-old female with a past medical history significant for CVA TIA history of recurrent UTI and snf resident patient has been brought to the hospital after apparently having a problem with the PEG tube, noted to have a sacral pressure ulcer with purulent drainage pro mpting this consultation patient is status post surgical debridement of the sacral ulcer by general surgery on 03/17/2025. On today's evaluation that is 03/17/2025, Patient is afebrile this morning avery ent denies having any chest pain shortness of breath or cough, the patient is currently on room air, patient denies any abdominal pain no diarrhea no nausea no vomiting. Patient white count is down to 11.70, creatinine 0.5-second culture growing multiple pathogen including Klebsiella multidrug-resistant Proteus strep and Bacteroides Objective - Vital Signs Vital signs: Vital Signs Temp 98 F 03/17/25 14:35 Pulse 76 03/17/25 15:36 Resp 22 03/17/25 15:00 BP 154/78 03/17/25 15:00 Pulse Ox 100 03/17/25 15:00 FiO2 Intake & Output 03/16/25 03/17/25 03/17/25 18:59 06:59 18:59 Intake Total 995 500 Output Total 10 Balance 995 490 Weight 79.379 kg 99.535 kg Intake: IV 500 Intake, IV Titration 100 Amount Piperacillin-Tazobactam 3 100 .375 gm In Sodium Chloride 0.9% 100 ml @ 25 mls/hr IVPB Q8HR [facility] Rx# :[id number] Tube Feeding 795 Other 100 Output: Estimated Blood Loss 10 Other: Voiding Method External Catheter External Catheter - Exam GENERAL DESCRIPTION: An elderly female lying in bed in no distress RESPIRATORY SYSTEM: Unlabored breathing , decreased breath sounds at bases HEART: S1 S2 regular rate and rhythm , ABDOMEN: Soft , no tenderness EXTREMITIES: No edema feet - Labs CBC & Chem 7: 03/17/25 02:59 03/17/25 02:59 Labs: Abnormal Lab Results - Last 24 Hours (Table) 03/16/25 03/16/25 03/17/25 Range/Units 16:24 22:32 00:06 WBC (4.50-10.00) X 10*3/uL RBC (4.10-5.20) X 10*6/uL Hgb (12.0-15.0) g/dL Hct (37.2-46.3) % MCHC (32.0-37.0) g/dL RDW (11.5-14.5) % Plt Count (140-440) X 10*3/uL MPV (9.5-12.2) FL Immature Gran # (0.00-0.04) X 10*3/uL Neutrophils # (1.80-7.70) X 10*3/uL NRBC/100 WBC Diff (0.00-0.01) X 10*3/uL Creatinine (0.6-1.5) mg/dL BUN/Creatinine Ratio (12.00-20.00) Ratio Glucose (70-110) mg/dL POC Glucose (mg/dL) 250 H 268 H 313 H (70-110) mg/dL 03/17/25 03/17/25 03/17/25 Range/Units 02:59 02:59 06:02 WBC 11.70 H (4.50-10.00) X 10*3/uL RBC 3.31 L (4.10-5.20) X 10*6/uL Hgb 9.3 L (12.0-15.0) g/dL Hct 31.1 L (37.2-46.3) % MCHC 29.9 L (32.0-37.0) g/dL RDW 15.9 H (11.5-14.5) % Plt Count 536 H (140-440) X 10*3/uL MPV 8.9 L (9.5-12.2) FL Immature Gran # 0.48 H (0.00-0.04) X 10*3/uL Neutrophils # 8.27 H (1.80-7.70) X 10*3/uL NRBC/100 WBC Diff 0.07 H (0.00-0.01) X 10*3/uL Creatinine 0.5 L (0.6-1.5) mg/dL BUN/Creatinine Ratio 30.80 H (12.00-20.00) Ratio Glucose 254 H (70-110) mg/dL POC Glucose (mg/dL) 184 H (70-110) mg/dL 03/17/25 03/17/25 Range/Units 11:24 13:11 WBC (4.50-10.00) X 10*3/uL RBC (4.10-5.20) X 10*6/uL Hgb (12.0-15.0) g/dL Hct (37.2-46.3) % MCHC (32.0-37.0) g/dL RDW (11.5-14.5) % Plt Count (140-440) X 10*3/uL MPV (9.5-12.2) FL Immature Gran # (0.00-0.04) X 10*3/uL Neutrophils # (1.80-7.70) X 10*3/uL NRBC/100 WBC Diff (0.00-0.01) X 10*3/uL Creatinine (0.6-1.5) mg/dL BUN/Creatinine Ratio (12.00-20.00) Ratio Glucose (70-110) mg/dL POC Glucose (mg/dL) 194 H 184 H (70-110) mg/dL Microbiology - Last 24 Hours (Table) 03/14/25 23:15 Anaerobic Culture - Preliminary Buttock Parabacteroides distasonis Bacteroides uniformis 03/14/25 23:15 Gram Stain - Final Buttock Wound Culture - Final Klebsiella oxy Raoultella orni Proteus mirabilis Strep agalactiae - (group b) 03/13/25 06:20 Blood Culture - Preliminary Blood Assessment and Plan (1) Abscess of sacrum Current Visit: Yes Status: Acute Code(s): M46.28 - OSTEOMYELITIS OF VERT EBRA, SACRAL AND SACROCOCCYGEAL REGION SNOMED Code(s): 573570668 (2) Sepsis Current Visit: Yes Status: Acute Code(s): A41.9 - SEPSIS, UNSPECIFIED ORGANISM SNOMED Code(s): 62576123 (3) Stage 4 skin ulcer of sacral region Current Visit: Yes Status: Acute Code(s): L98.429 - NON-PRESSURE CHRONIC ULCER OF BACK WITH UNSPECIFIED SEVERITY SNOMED Code(s): 59457570 (4) UTI (urinary tract infection) Current Visit: Yes Status: Acute Code(s): N39.0 - URINARY TRACT INFECTION, SITE NOT SPECIFIED SNOMED Code(s): 50705097 Plan: 1patient is in the hospital with sepsis in this patient who did have fever tachycardia elevated white count source likely stage IV infected sacral pressure ulcer with significant amount of purulent drainage noticed on current examination and will need to cover for the polymicrobial jhonatan including enteric gram-negative pathogen. 2patient also have a positive urine culture with ESBL Klebsiella and will need to cover for the resistant gram-negative pathogen while waiting for the I&D of the sacral wound and deep cultures that has been completed on 03/17/2025 3patient is currently being treated meropenem 1 g every 8 hours, patient will likely need PICC line and outpatient IV antibiotic therapy on discharge Dictation was produced using [employer] dictation software. please excuse any grammatical, word or spelling errors. Time with Patient: Less than 30
--- NOTE | 2025-03-17 18:18 | P.PN ---
Progress Note - Text Progress Note Date: 03/17/25 Chief Complaint: Trouble with PEG tube 74-year-old patient, came in from [facility] being followed by Dr. Sabillon. Earlier in the year she was admitted at [facility] for a stroke resulting in right-sided paresis including dysphagia and dysphagia. She was sent to the ER when they try to give her PEG tube feeding she started complain abdominal pain. And that staff noted the abdomen was a bit distended. And hence EMS was called out. On my questioning patient does not complain of any pain. Nurse was able to give some medications through the same. Patient is nonambulatory. Patient found to have a fever of 101.1 in the ER. With leukocytosis. Was found to have rather infected appearing urine. March 14: Patient been tolerating tube feeding Glucerna 1.5 bolus feeding. Spoke earlier to nurse Vandana to look at the sacral wound. She did obtain quite a bit of pus. Dr. Wood from surgery will be informed will probably need deeper I&D. Will send out wound cultures. Patient currently on IV Zosyn. March 15: Tolerating tube feeding. Glucerna. No surgical intervention per surgery. Urine culture growing gram-negative bacilli. Wound care team has been consulted March 16: Getting tube feedings. Patient seen by Dr. Witt from surgery. Patient being scheduled for debridement of decubitus ulcer in the OR tomorrow. Patient is comfortable otherwise. Also seen by the wound care team. Multiple organisms from the wound. Antibiotics switched to IV meropenem. ID following March 17: Saw the patient this morning. Tube feeding was held for debridement of the infected sacral decubitus wound. Purulent drainage was noted. Portion of skin was excised. Pulse irrigation was carried out. Iodoform packing was done. By Dr.S Wood Active Medications Acetaminophen (Acetaminophen Tab 325 Mg Tab) 650 mg PO Q6HR PRN PRN Reason: Mild Pain or Fever > 100.5 Hydrocodone Bitart/Acetaminophen (Hydrocodone/Apap 5-325mg 1 Each Tab) 1 each PO Q4HR PRN PRN Reason: Moderate Pain (Scale 4 to 6) Albuterol/Ipratropium (Ipratropium-Albuterol 3 Ml Neb) 3 ml INHALATION RT-TID VERENICE Last Admin: 03/17/25 15:23 Dose: 3 ml Amantadine HCl (Amantadine Hcl 100 Mg/10 Ml Cup) 100 mg PEG/G-TUBE BID@799,1999 [facility] Last Admin: 03/17/25 09:54 Dose: 100 mg Aspirin (Aspirin 81 Mg) 81 mg PEG/G-TUBE DAILY@0800 [facility] Last Admin: 03/17/25 15:58 Dose: 81 mg Atorvastatin Calcium (Atorvastatin 40 Mg Tab) 40 mg PEG/G-TUBE HS@1999 [facility] Last Admin: 03/16/25 22:35 Dose: 40 mg Chlorhexidine Gluconate (Chlorhexidine Gluconate 15 Ml Cup) 5 ml MUCOUS MEM BID [facility] Last Admin: 03/17/25 09:54 Dose: 5 ml Dextrose/Water (Dextrose 50% Syringe 50 Ml) 25 ml IVP PER PROTOCOL PRN; Protocol PRN Reason: Hypoglycemia Last Admin: 03/14/25 16:45 Dose: 25 ml Dextrose/Water (Dextrose 50% Syringe 50 Ml) 50 ml IVP PER PROTOCOL PRN; Protocol PRN Reason: Hypoglycemia Enoxaparin Sodium (Enoxaparin 40 Mg/0.4 Ml Syringe) 40 mg SQ DAILY [facility] Last Admin: 03/17/25 15:59 Dose: 40 mg Fenofibrate (Fenofibrate 160 Mg Tab) 160 mg PEG/G-TUBE DAILY@08 [facility] Last Admin: 03/17/25 09:51 Dose: Not Given Meropenem 1 gm/ Sodium (Chloride) 100 mls @ 33.3 mls/hr IVPB Q8HR [facility]; Protocol Last Admin: 03/17/25 15:59 Dose: 33.3 mls/hr Lactated Ringer's (Lactated Ringers) 1,000 mls @ 50 mls/hr IV .Q20H [facility] Last Admin: 03/17/25 13:07 Dose: 50 mls/hr Insulin Glargine (Insulin Glargine (Lantus) 100 Unit/Ml Syr) 28 unit SQ [facility] Last Admin: 03/16/25 22:35 Dose: 28 unit Insulin Human Lispro (Insulin Lispro (Humalog) 100 Unit/Ml 10 Ml Vl) 0 unit SQ Q6HR [facility]; Protocol Last Admin: 03/17/25 11:58 Dose: Not Given Lisinopril (Lisinopril 20 Mg Tab) 40 mg PEG/G-TUBE DAILY@0800 [facility] Last Admin: 03/17/25 09:55 Dose: 40 mg Loperamide HCl (Loperamide 2 Mg Cap) 2 mg PO Q12H PRN PRN Reason: loose stools Last Admin: 03/15/25 12:31 Dose: 2 mg Naloxone HCl (Naloxone 0.4 Mg/Ml 1 Ml Vial) 0.2 mg IV Q2M PRN PRN Reason: Opioid Reversal Non-Formulary Medication (Bromocriptine Mesylate [Bromocriptine Mesylate]) 2.5 mg PEG/G-TUBE TID@0500,1300,2100 [facility] Last Admin: 03/17/25 15:58 Dose: 2.5 mg Ondansetron HCl (Ondansetron 4 Mg/2 Ml Vial) 4 mg IVP Q8HR PRN PRN Reason: Nausea And Vomiting Propranolol HCl (Propranolol 10 Mg Tab) 10 mg PEG/G-TUBE TID@0500,1300,2100 [facility] Last Admin: 03/17/25 15:58 Dose: 10 mg Valproic Acid (Valproic Acid Oral Soln 250 Mg/5 Ml Cup) 250 mg PEG/G-TUBE BID [facility] Last Admin: 03/17/25 09:54 Dose: 250 mg Social history: Currently at [facility]. Physical examination: VITAL SIGNS: 97.5, 84, 18, 175 x 96, 98% room GENERAL: BMI 28.2, laying in bed EYES: Pupils equal. Conjunctiva richard l. HEENT: External appearance of nose and ears normal, oral cavity grossly normal. NECK: JVD unable to assess; masses not palpable. HEART: First and second heart sounds are normal; no edema. LUNGS: Respiratory rate normal; clear to auscultation. ABDOMEN: Soft, mild distention nontender, liver spleen not palpable, no masses palpable. No guarding rigidity. No mass palpable. PEG tube site appears okay PSYCH: Patient severely dysarthric. Able to answer some questions slowly l. MUSCULOSKELETAL:No Clubbing/cyanosis;muscles-grossly intact. Sacral and left buttock decubitus wound. NEUROLOGICAL: Facial asymmetry. Dysarthria. Power of the right arm 0/5. Right leg 1-2/5. INVESTIGATIONS, reviewed in the clinical context: March 17: White count 1.7 hemoglobin 9.3 platelets 536 potassium 4.1 creatinine 0.5 Wound cultures: Multiple organisms March 13, 2025: White count 22.2 hemoglobin 9.2 platelets 367 sodium 129 potassium 4.8 BUN 25 creatinine 0.51 AST 45 ALT 41 alkaline phosphatase 206 UA: Positive for blood, nitrite, leukoesterase, WBC, RBC Chest x-ray film personally reviewed by -questionable left basilar infiltrate CT abdomen pelvis: Chronic pancreatic changes. PEG tube in position. Gallstones. Indeterminate lesion in the right liver dome possibly increased from December 20, 2024. Abscess fluid tracking along the sacrum measuring 6.7 x 2.2 x 7.5 cm stranding and inflammation surrounding this area of phlegmonous change and subcutaneous gas. Assessment and plan: - infected sacral decubitus ulcer with abscess and UTI with cystitis causing sepsis IV fluids. 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 Nonambulatory - Chronic dysarthria from stroke - Chronic dysphagia from stroke. PEG tube feeding with Glucerna 1.5 has been resumed -Sacral decubitus abscess fluid tracking along the sacral measuring 6.7 x 2.2 x 7.5 cm fat stranding and inflammation surrounding the area of phlegmonous change. This drained quite a bit of pus . Cultures growing multiple organisms Cultures polymicrobial I&D and debridement of the wound by Dr. Wood today on February 15. Iodoform packing ID following - Diabetes mellitus type 2, chronically insulin Follow Accu-Cheks. Tube feeding-Glucerna. Increased Lantus to 36 units subcu nightly - Essential hypertension Amlodipine. - Hyperlipidemia Lipitor Resume PEG tube feeding after surgery. Increase Lantus. Antibiotics to continue wound care. Past Medical History Past Medical History: CVA/TIA Additional Past Medical History / Comment(s): Lactic acidosis, acute respiratory failure, dysphagia, right sided weakness History of Any Multi-Drug Resistant Organisms: VRE Date of last positivie culture/infection: 12/23/24 MDRO Source:: urine Past Surgical History: Unable to Obtain Additional Past Surgical History / Comment(s): tubal ligation Past Anesthesia/Blood Transfusion Reactions: No Reported Reaction Past Psychological History: Unable to Obtain Smoking Status: Former smoker Past Alcohol Use History: None Reported Past Drug Use History: None Reported
[2025-03-17 18:44] LABS: Glucose,Whole Blood 232 mg/dL (70-110)
[2025-03-17 21:02] LABS: Glucose,Whole Blood 217 mg/dL (70-110)
[2025-03-18 00:49] LABS: Glucose,Whole Blood 253 mg/dL (70-110)
[2025-03-18 06:16] LABS: Glucose,Whole Blood 335 mg/dL (70-110)
[2025-03-18 11:09] LABS: Glucose,Whole Blood 320 mg/dL (70-110)
--- NOTE | 2025-03-18 15:38 | P.PN ---
Subjective Progress Note Date: 03/18/25 No acute events Objective - Vital Signs Vital signs: Vital Signs Temp 97.8 F 03/18/25 14:32 Pulse 69 03/18/25 14:32 Resp 15 03/18/25 14:32 BP 146/71 03/18/25 14:32 Pulse Ox 95 03/18/25 14:32 FiO2 Intake & Output 03/17/25 03/18/25 03/18/25 18:59 06:59 18:59 Intake Total 500 Output Total 10 600 Balance 490 -600 Weight 101.7 kg Intake: IV 500 Output: Urine 600 Estimated Blood Loss 10 Other: Voiding Method External Catheter External Catheter External Catheter - Constitutional General appearance: Present: no acute distress - Integumentary Integumentary Comment(s): Sacral decubitus ulcer with packing in place - Musculoskeletal Musculoskeletal: Present: generalized weakness - Labs CBC & Chem 7: 03/17/25 02:59 03/17/25 02:59 Labs: Abnormal Lab Results - Last 24 Hours (Table) 03/17/25 03/17/25 03/18/25 Range/Units 18:42 21:00 00:47 POC Glucose (mg/dL) 232 H 217 H 253 H (70-110) mg/dL 03/18/25 03/18/25 Range/Units 06:15 11:08 POC Glucose (mg/dL) 335 H 320 H (70-110) mg/dL Microbiology - Last 24 Hours (Table) 03/13/25 06:20 Blood Culture - Final Blood 03/17/25 14:12 Gram Stain - Preliminary Other - Other Assessment and Plan Plan: Status post debridement of sacral decubitus ulcer with pulse irrigation. Continue local wound care based on wound care team recommendations.
[2025-03-18 17:04] LABS: Glucose,Whole Blood 253 mg/dL (70-110)
--- NOTE | 2025-03-18 17:28 | P.PN ---
Progress Note - Text Progress Note Date: 03/18/25 Chief Complaint: Trouble with PEG tube 74-year-old patient, came in from [facility] being followed by Dr. Sabillon. Earlier in the year she was admitted at [facility] for a stroke resulting in right-sided paresis including dysphagia and dysphagia. She was sent to the ER when they try to give her PEG tube feeding she started complain abdominal pain. And that staff noted the abdomen was a bit distended. And hence EMS was called out. On my questioning patient does not complain of any pain. Nurse was able to give some medications through the same. Patient is nonambulatory. Patient found to have a fever of 101.1 in the ER. With leukocytosis. Was found to have rather infected appearing urine. March 14: Patient been tolerating tube feeding Glucerna 1.5 bolus feeding. Spoke earlier to nurse Vandana to look at the sacral wound. She did obtain quite a bit of pus. Dr. Wood from surgery will be informed will probably need deeper I&D. Will send out wound cultures. Patient currently on IV Zosyn. March 15: Tolerating tube feeding. Glucerna. No surgical intervention per surgery. Urine culture growing gram-negative bacilli. Wound care team has been consulted March 16: Getting tube feedings. Patient seen by Dr. Witt from surgery. Patient being scheduled for debridement of decubitus ulcer in the OR tomorrow. Patient is comfortable otherwise. Also seen by the wound care team. Multiple organisms from the wound. Antibiotics switched to IV meropenem. ID following March 17: Saw the patient this morning. Tube feeding was held for debridement of the infected sacral decubitus wound. Purulent drainage was noted. Portion of skin was excised. Pulse irrigation was carried out. Iodoform packing was done. By Dr.S Wood March 18: Resting in bed. Comfortable. Getting tube feeding. Wound care team following. Patient remains on IV meropenem. Accu-Cheks running on the higher side. Increase Lantus to 36 units Active Medications Acetaminophen (Acetaminophen Tab 325 Mg Tab) 650 mg PO Q6HR PRN PRN Reason: Mild Pain or Fever > 100.5 Hydrocodone Bitart/Acetaminophen (Hydrocodone/Apap 5-325mg 1 Each Tab) 1 each PO Q4HR PRN PRN Reason: Moderate Pain (Scale 4 to 6) Albuterol/Ipratropium (Ipratropium-Albuterol 3 Ml Neb) 3 ml INHALATION RT-TID [facility] Last Admin: 03/18/25 12:14 Dose: 3 ml Amantadine HCl (Amantadine Hcl 100 Mg/10 Ml Cup) 100 mg PEG/G-TUBE BID@0800,1999 [facility] Last Admin: 03/18/25 08:41 Dose: 100 mg Aspirin (Aspirin 81 Mg) 81 mg PEG/G-TUBE DAILY@08 [facility] Last Admin: 03/17/25 15:58 Dose: 81 mg Atorvastatin Calcium (Atorvastatin 40 Mg Tab) 40 mg PEG/G-TUBE HS@1999 [facility] Last Admin: 03/17/25 21:02 Dose: 40 mg Chlorhexidine Gluconate (Chlorhexidine Gluconate 15 Ml Cup) 5 ml MUCOUS MEM BID [facility] Last Admin: 03/18/25 08:42 Dose: 5 ml Dextrose/Water (Dextrose 50% Syringe 50 Ml) 25 ml IVP PER PROTOCOL PRN; Protocol PRN Reason: Hypoglycemia Last Admin: 03/14/25 16:45 Dose: 25 ml Dextrose/Water (Dextrose 50% Syringe 50 Ml) 50 ml IVP PER PROTOCOL PRN; Pro tocol PRN Reason: Hypoglycemia Enoxaparin Sodium (Enoxaparin 40 Mg/0.4 Ml Syringe) 40 mg SQ DAILY [facility] Last Admin: 03/18/25 08:40 Dose: 40 mg Fenofibrate (Fenofibrate 160 Mg Tab) 160 mg PEG/G-TUBE DAILY@0800 [facility] Last Admin: 03/18/25 08:41 Dose: 160 mg Meropenem 1 gm/ Sodium (Chloride) 100 mls @ 33.3 mls/hr IVPB Q8HR [facility]; Protocol Last Admin: 03/18/25 16:20 Dose: 33.3 mls/hr Lactated Ringer's (Lactated Ringers) 1,000 mls @ 50 mls/hr IV .Q20H [facility] Last Admin: 03/17/25 13:07 Dose: 50 mls/hr Insulin Human Lispro (Insulin Lispro (Humalog) 100 Unit/Ml 10 Ml Vl) 0 unit SQ Q6HR [facility]; Protocol Last Admin: 03/18/25 12:10 Dose: 8 unit Lisinopril (Lisinopril 20 Mg Tab) 40 mg PEG/G-TUBE DAILY@0800 [facility] Last Admin: 03/18/25 08:41 Dose: 40 mg Loperamide HCl (Loperamide 2 Mg Cap) 2 mg PO Q12H PRN PRN Reason: loose stools Last Admin: 03/15/25 12:31 Dose: 2 mg Naloxone HCl (Naloxone 0.4 Mg/Ml 1 Ml Vial) 0.2 mg IV Q2M PRN PRN Reason: Opioid Reversal Non-Formulary Medication (Bromocriptine Mesylate [Bromocriptine Mesylate]) 2.5 mg PEG/G-TUBE TID@0500,1300,2100 [facility] Last Admin: 03/18/25 12:11 Dose: 2.5 mg Ondansetron HCl (Ondansetron 4 Mg/2 Ml Vial) 4 mg IVP Q8HR PRN PRN Reason: Nausea And Vomiting Propranolol HCl (Propranolol 10 Mg Tab) 10 mg PEG/G-TUBE TID@0500,1300,2100 [facility] Last Admin: 03/18/25 12:11 Dose: 10 mg Valproic Acid (Valproic Acid Oral Soln 250 Mg/5 Ml Cup) 250 mg PEG/G-TUBE BID [facility] Last Admin: 03/18/25 08:40 Dose: 250 mg Social history: Currently at [facility]. Physical examination: VITAL SIGNS: 97.8, 69, 15, 146.7, 95% room GENERAL: BMI 28.2, laying in bed EYES: Pupils equal. Conjunctiva richard l. HEENT: External appearance of nose and ears normal, oral cavity grossly normal. NECK: JVD unable to assess; masses not palpable. HEART: First and second heart sounds are normal; no edema. LUNGS: Respiratory rate normal; clear to auscultation. ABDOMEN: Soft, mild distention nontender, liver spleen not palpable, no masses palpable. No guarding rigidity. No mass palpable. PEG tube site appears okay PSYCH: Patient severely dysarthric. Able to answer some questions slowly l. MUSCULOSKELETAL:No Clubbing/cyanosis;muscles-grossly intact. Sacral and left buttock decubitus wound.-Status post debridement NEUROLOGICAL: Facial asymmetry. Dysarthria. Power of the right arm 0/5. Right leg 1-2/5. INVESTIGATIONS, reviewed in the clinical context: March 17: White count 1.7 hemoglobin 9.3 platelets 536 potassium 4.1 creatinine 0.5 Wound cultures: Multiple organisms March 13, 2025: White count 22.2 hemoglobin 9.2 platelets 367 sodium 129 potassium 4.8 BUN 25 creatinine 0.51 AST 45 ALT 41 alkaline phosphatase 206 UA: Positive for blood, nitrite, leukoesterase, WBC, RBC Chest x-ray film personally reviewed by me-questionable left basilar infiltrate CT abdomen pelvis: Chronic pancreatic changes. PEG tube in position. Gallstones. Indeterminate lesion in the right liver dome possibly increased from December 20, 2024. Abscess fluid tracking along the sacrum measuring 6.7 x 2.2 x 7.5 cm stranding and inflammation surrounding this area of phlegmonous change and subcutaneous gas. Assessment and plan: - infected sacral decubitus ulcer with abscess and UTI with cystitis causing sepsis IV fluids. 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 Nonambulatory - Chronic dysarthria from stroke - Chronic dysphagia from stroke. PEG tube feeding with Glucerna 1.5 has been resumed -Sacral decubitus abscess fluid tracking along the sacral measuring 6.7 x 2.2 x 7.5 cm fat stranding and inflammation surrounding the area of phlegmonous change. This drained quite a bit of pus . Cultures growing multiple organisms Cultures polymicrobial I&D and debridement of the wound by Dr. Wood today on February 15. Iodoform packing ID following - Diabetes mellitus type 2, chronically insulin Follow Accu-Cheks. Tube feeding-Glucerna. Increased Lantus to 36 units subcu nightly-starting today - Essential hypertension Amlodipine. - Hyperlipidemia Lipitor Continue antibiotics. Lantus will be increased to 36 units tonight. e. Past Medical History Past Medical History: CVA/TIA Additional Past Medical History / Comment(s): Lactic acidosis, acute respiratory failure, dysphagia, right sided weakness History of Any Multi-Drug Resistant Organisms: VRE Date of last positivie culture/infection: 12/23/24 MDRO Source:: urine Past Surgical History: Unable to Obtain Additional Past Surgical History / Comment(s): tubal ligation Past Anesthesia/Blood Transfusion Reactions: No Reported Reaction Past Psychological History: Unable to Obtain Smoking Status: Former smoker Past Alcohol Use History: None Reported Past Drug Use History: None Reported
[2025-03-18] MEDS: INSULIN GLARGINE (LANTUS) 100 UNIT/ML SYR SQ SCH (21:27)
[2025-03-18 21:35] LABS: Glucose,Whole Blood 273 mg/dL (70-110)
[2025-03-18 23:52] LABS: Glucose,Whole Blood 300 mg/dL (70-110)
[2025-03-19 06:04] LABS: Glucose,Whole Blood 312 mg/dL (70-110)
--- NOTE | 2025-03-19 08:09 | P.PN ---
Subjective Progress Note Date: 03/18/25 Principal diagnosis: Reason for follow-up is infected sacral pressure ulcer Patient is a 74-year-old female with a past medical history significant for CVA TIA history of recurrent UTI and snf resident patient has been brought to the hospital after apparently having a problem with the PEG tube, noted to have a sacral pressure ulcer with purulent drainage pro mpting this consultation patient is status post surgical debridement of the sacral ulcer by general surgery on 03/17/2025. On today's evaluation that is 03/18/2025,the patient denies any fever or any ch ills, patient is breathing comfortably on room air, the patient denies chest pain shortness of breath and no significant cough, patient denies abdominal pain, no nausea vomiting or diarrhea. No new lab has been obtained today sacral cultures currently pending Objective - Vital Signs Vital signs: Vital Signs Temp 98.1 F 03/18/25 08:00 Pulse 71 03/18/25 08:00 Resp 15 03/18/25 08:00 BP 134/80 03/18/25 08:00 Pulse Ox 100 03/18/25 08:00 FiO2 Intake & Output 03/17/25 03/18/25 03/18/25 18:59 06:59 18:59 Intake Total 500 Output Total 10 Balance 490 Weight 101.7 kg Intake: IV 500 Output: Estimated Blood Loss 10 Other: Voiding Method External Catheter External Catheter External Catheter - Exam GENERAL DESCRIPTION: An elderly female lying in bed in no distress RESPIRATORY SYSTEM: Unlabored breathing , decreased breath sounds at bases HEART: S1 S2 regular rate and rhythm , ABDOMEN: Soft , no tenderness EXTREMITIES: No edema feet - Labs CBC & Chem 7: 03/17/25 02:59 03/17/25 02:59 Labs: Abnormal Lab Results - Last 24 Hours (Table) 03/17/25 03/17/25 03/17/25 Range/Units 13:11 18:42 21:00 POC Glucose (mg/dL) 184 H 232 H 217 H (70-110) mg/dL 03/18/25 03/18/25 03/18/25 Range/Units 00:47 06:15 11:08 POC Glucose (mg/dL) 253 H 335 H 320 H (70-110) mg/dL Microbiology - Last 24 Hours (Table) 03/17/25 14:12 Gram Stain - Preliminary Other - Other 03/14/25 23:15 Anaerobic Culture - Preliminary Buttock Parabacteroides distasonis Bacteroides uniformis 03/14/25 23:15 Gram Stain - Final Buttock Wound Culture - Final Klebsiella oxy Raoultella orni Proteus mirabilis Strep agalactiae - (group b) Assessment and Plan (1) Abscess of sacrum Current Visit: Yes Status: Acute Code(s): M46.28 - OSTEOMYELITIS OF VERTEBRA, SACRAL AND SACROCOCCYGEAL REGION SNOMED Code(s): 417581159 (2) Sepsis Current Visit: Yes Status: Acute Code(s): A41.9 - SEPSIS, UNSPECIFIED ORGANISM SNOMED Code(s): 20529673 (3) Stage 4 skin ulcer of sacral region Current Visit: Yes Status: Acute Code(s): L98.429 - NON-PRESSURE CHRONIC ULCER OF BACK WITH UNSPECIFIED SEVERITY SNOMED Code(s): 76176626 (4) UTI (urinary tract infection) Current Visit: Yes Status: Acute Code(s): N39.0 - URINARY TRACT INFECTION, SITE NOT SPECIFIED SNOMED Code(s): 39186426 Plan: 1patient is in the hospital with sepsis in this patient who did have fever tachycardia elevated white count source likely stage IV infected sacral pressure ulcer with significant amount of purulent drainage noticed on current examination and will need to cover for the polymicrobial jhonatan including enteric gram-negative pathogen. 2patient also have a positive urine culture with ESBL Klebsiella and will need to cover for the resistant gram-negative pathogen while waiting for the I&D of the sacral wound and deep cultures that has been completed on 03/17/2025 and those cultures are currently pending 3patient is currently being treated meropenem 1 g every 8 hours, will order PICC line for outpatient IV antibiotic therapy on discharge Dictation was produced using [employer] software. please excuse any grammatical, word or spelling errors. Time with Patient: Less than 30
[2025-03-19 11:35] LABS: Glucose,Whole Blood 301 mg/dL (70-110)
[2025-03-19 13:24] VITALS: BMI 36.6
--- NOTE | 2025-03-19 15:07 | P.PN ---
Subjective Progress Note Date: 03/19/25 Principal diagnosis: Reason for follow-up is infected sacral pressure ulcer Patient is a 74-year-old female with a past medical history significant for CVA TIA history of recurrent UTI and intermediate resident patient has been brought to the hospital after apparently having a problem with the PEG tube, noted to have a sacral pressure ulcer with purulent drainage pro mpting this consultation patient is status post surgical debridement of the sacral ulcer by general surgery on 03/17/2025. On today's evaluation that is 03/19/2025,the patient remains to be afebrile, pa jbnt is on room air not requiring supplemental oxygen and denies any shortness of breath no chest pain or cough.Patient denies having any nausea or vomiting, no abdominal pain and no diarrhea has been reported. No new lab has been obtained today Objective - Vital Signs Vital signs: Vital Signs Temp 97.9 F 03/19/25 13:25 Pulse 71 03/19/25 13:25 Resp 17 03/19/25 13:25 BP 154/79 03/19/25 13:25 Pulse Ox 100 03/19/25 01:32 FiO2 Intake & Output 03/18/25 03/19/25 03/19/25 18:59 06:59 18:59 Output Total 600 Balance -600 Weight 102.9 kg 102.9 kg Output: Urine 600 Other: Voiding Method External Catheter External Catheter External Catheter - Exam GENERAL DESCRIPTION: An elderly female lying in bed in no distress RESPIRATORY SYSTEM: Unlabored breathing , decreased breath sounds at bases HEART: S1 S2 regular rate and rhythm , ABDOMEN: Soft , no tenderness EXTREMITIES: No edema feet - Labs CBC & Chem 7: 03/17/25 02:59 03/17/25 02:59 Labs: Abnormal Lab Results - Last 24 Hours (Table) 03/18/25 03/18/25 03/18/25 Range/Units 17:03 21:23 23:50 POC Glucose (mg/dL) 253 H 273 H 300 H (70-110) mg/dL 03/19/25 03/19/25 Range/Units 06:02 11:34 POC Glucose (mg/dL) 312 H 301 H (70-110) mg/dL Microbiology - Last 24 Hours (Table) 03/14/25 23:15 Anaerobic Culture - Final Buttock Parabacteroides distasonis Bacteroides uniformis 03/17/25 14:12 Gram Stain - Preliminary Other - Other Wound Culture - Preliminary Klebsiella oxy Raoultella orni Strep agalactiae - (group b) 03/13/25 06:20 Blood Culture - Final Blood Assessment and Plan (1) Abscess of sacrum Current Visit: Yes Status: Acute Code(s): M46.28 - OSTEOMYELITIS OF VERTEBRA, SACRAL AND SACROCOCCYGEAL REGION SNOMED Code(s): 818635860 (2) Sepsis Current Visit: Yes Status: Acute Code(s): A41.9 - SEPSIS, UNSPECIFIED ORGANISM SNOMED Code(s): 54884769 (3) Stage 4 skin ulcer of sacral region Current Visit: Yes Status: Acute Code(s): L98.429 - NON-PRESSURE CHRONIC ULCER OF BACK WITH UNSPECIFIED SEVERITY SNOMED Code(s): 62973581 (4) UTI (urinary tract infection) Current Visit: Yes Status: Acute Code(s): N39.0 - URINARY TRACT INFECTION, SITE NOT SPECIFIED SNOMED Code(s): 79451136 Plan: 1patient is in the hospital with sepsis in this patient who did have fever tachycardia elevated white count source likely stage IV infected sacral pressure ulcer with significant amount of purulent drainage noticed on current examination and will need to cover for the polymicrobial jhonatan including enteric gram-negative pathogen. 2patient also have a positive urine culture with ESBL Klebsiella and will need to cover for the resistant gram-negative pathogen while waiting for the I&D of the sacral wound and deep cultures that has been completed on 03/17/2025 and those cultures are currently pending 3patient is currently being treated meropenem 1 g every 8 hours, waiting for PICC line placement for outpatient IV antibiotic therapy duration antibiotic will be 6 weeks total Dictation was produced using [employer] software. please excuse any grammatical, word or spelling errors. Time with Patient: Less than 30
[2025-03-19 16:53] LABS: Glucose,Whole Blood 267 mg/dL (70-110)
--- NOTE | 2025-03-19 17:47 | P.PN ---
Progress Note - Text Progress Note Date: 03/19/25 Chief Complaint: Trouble with PEG tube 74-year-old patient, came in from [facility] being followed by Dr. Sabillon. Earlier in the year she was admitted at [facility] for a stroke resulting in right-sided paresis including dysphagia and dysphagia. She was sent to the ER when they try to give her PEG tube feeding she started complain abdominal pain. And that staff noted the abdomen was a bit distended. And hence EMS was called out. On my questioning patient does not complain of any pain. Nurse was able to give some medications through the same. Patient is nonambulatory. Patient found to have a fever of 101.1 in the ER. With leukocytosis. Was found to have rather infected appearing urine. March 14: Patient been tolerating tube feeding Glucerna 1.5 bolus feeding. Spoke earlier to nurse Vandana to look at the sacral wound. She did obtain quite a bit of pus. Dr. Wood from surgery will be informed will probably need deeper I&D. Will send out wound cultures. Patient currently on IV Zosyn. March 15: Tolerating tube feeding. Glucerna. No surgical intervention per surgery. Urine culture growing gram-negative bacilli. Wound care team has been consulted March 16: Getting tube feedings. Patient seen by Dr. Witt from surgery. Patient being scheduled for debridement of decubitus ulcer in the OR tomorrow. Patient is comfortable otherwise. Also seen by the wound care team. Multiple organisms from the wound. Antibiotics switched to IV meropenem. ID following March 17: Saw the patient this morning. Tube feeding was held for debridement of the infected sacral decubitus wound. Purulent drainage was noted. Portion of skin was excised. Pulse irrigation was carried out. Iodoform packing was done. By Dr.S Wood March 18: Resting in bed. Comfortable. Getting tube feeding. Wound care team following. Patient remains on IV meropenem. Accu-Cheks running on the higher side. Increase Lantus to 36 units March 19: Resting in bed. Getting TPN. On IV meropenem. PICC line ordered by ID for 6 weeks of antibiotics. Local wound care per wound care team to continue. Accu-Cheks running on the higher side still. Increase Lantus to 42 units. Active Medications Acetaminophen (Acetaminophen Tab 325 Mg Tab) 650 mg PO Q6HR PRN PRN Reason: Mild Pain or Fever > 100.5 Hydrocodone Bitart/Acetaminophen (Hydrocodone/Apap 5-325mg 1 Each Tab) 1 each PO Q4HR PRN PRN Reason: Moderate Pain (Scale 4 to 6) Albuterol/Ipratropium (Ipratropium-Albuterol 3 Ml Neb) 3 ml INHALATION RT-TID [facility] Last Admin: 03/19/25 12:53 Dose: 3 ml Amantadine HCl (Amantadine Hcl 100 Mg/10 Ml Cup) 100 mg PEG/G-TUBE BID@0800,1999 [facility] Last Admin: 03/19/25 10:30 Dose: 100 mg Aspirin (Aspirin 81 Mg) 81 mg PEG/G-TUBE DAILY@0800 [facility] Last Admin: 03/19/25 10:29 Dose: 81 mg Atorvastatin Calcium (Atorvastatin 40 Mg Tab) 40 mg PEG/G-TUBE HS@1999 [facility] Last Admin: 03/18/25 21:26 Dose: 40 mg Chlorhexidine Gluconate (Chlorhexidine Gluconate 15 Ml Cup) 5 ml MUCOUS MEM BID [facility] Last Admin: 03/19/25 10:30 Dose: 5 ml Dextrose/Water (Dextrose 50% Syringe 50 Ml) 25 ml IVP PER PROTOCOL PRN; Protocol PRN Reason: Hypoglycemia Last Admin: 03/14/25 16:45 Dose: 25 ml Dextrose/Water (Dextrose 50% Syringe 50 Ml) 50 ml IVP PER PROTOCOL PRN; Protocol PRN Reason: Hypoglycemia Enoxaparin Sodium (Enoxaparin 40 Mg/0.4 Ml Syringe) 40 mg SQ DAILY [facility] Last Admin: 03/19/25 10:26 Dose: 40 mg Fenofibrate (Fenofibrate 160 Mg Tab) 160 mg PEG/G-TUBE DAILY@0800 [facility] Last Admin: 03/19/25 10:29 Dose: 160 mg Meropenem 1 gm/ Sodium (Chloride) 100 mls @ 33.3 mls/hr IVPB Q8HR [facility]; Protocol Last Admin: 03/19/25 17:39 Dose: 33.3 mls/hr Lactated Ringer's (Lactated Ringers) 1,000 mls @ 50 mls/hr IV .Q20H [facility] Last Admin: 03/18/25 21:25 Dose: Not Given Insulin Glargine (Insulin Glargine (Lantus) 100 Unit/Ml Syr) 36 unit SQ HS [facility] Last Admin: 03/18/25 21:27 Dose: 36 unit Insulin Human Lispro (Insulin Lispro (Humalog) 100 Unit/Ml 10 Ml Vl) 0 unit SQ Q6HR [facility]; Protocol Last Admin: 03/19/25 17:39 Dose: 6 unit Lisinopril (Lisinopril 20 Mg Tab) 40 mg PEG/G-TUBE DAILY@0800 [facility] Last Admin: 03/19/25 10:29 Dose: 40 mg Loperamide HCl (Loperamide 2 Mg Cap) 2 mg PO Q12H PRN PRN Reason: loose stools Last Admin: 03/15/25 12:31 Dose: 2 mg Naloxone HCl (Naloxone 0.4 Mg/Ml 1 Ml Vial) 0.2 mg IV Q2M PRN PRN Reason: Opioid Reversal Non-Formulary Medication (Bromocriptine Mesylate [Bromocriptine Mesylate]) 2.5 mg PEG/G-TUBE TID@0500,1300,2100 [facility] Last Admin: 03/19/25 12:44 Dose: 2.5 mg Ondansetron HCl (Ondansetron 4 Mg/2 Ml Vial) 4 mg IVP Q8HR PRN PRN Reason: Nausea And Vomiting Propranolol HCl (Propranolol 10 Mg Tab) 10 mg PEG/G-TUBE TID@0500,1300,2100 [facility] Last Admin: 03/19/25 17:40 Dose: 10 mg Valproic Acid (Valproic Acid Oral Soln 250 Mg/5 Ml Cup) 250 mg PEG/G-TUBE BID [facility] Last Admin: 03/19/25 10:30 Dose: 250 mg Social history: Currently at [facility]. Physical examination: VITAL SIGNS: 97.9, 71, 17, 154 x 79, GENERAL: BMI 28.2, in bed, comfortable EYES: Pupils equal. Conjunctiva richard l. HEENT: External appearance of nose and ears normal, oral cavity grossly normal. NECK: JVD unable to assess; masses not palpable. HEART: First and second heart sounds are normal; no edema. LUNGS: Respiratory rate normal; clear to auscultation. ABDOMEN: Soft, mild distention nontender, liver spleen not palpable, no masses palpable. No guarding rigidity. No mass palpable. PEG tube site appears okay PSYCH: Patient severely dysarthric. Able to answer some questions slowly l. MUSCULOSKELETAL:No Clubbing/cyanosis;muscles-grossly intact. Sacral and left buttock decubitus wound.-Status post debridement NEUROLOGICAL: Facial asymmetry. Dysarthria. Power of the right arm 0/5. Right leg 1-2/5. INVESTIGATIONS, reviewed in the clinical context: March 17: White count 1.7 hemoglobin 9.3 platelets 536 potassium 4.1 creatinine 0.5 Wound cultures: Multiple organisms March 13, 2025: White count 22.2 hemoglobin 9.2 platelets 367 sodium 129 potassium 4.8 BUN 25 creatinine 0.51 AST 45 ALT 41 alkaline phosphatase 206 UA: Positive for blood, nitrite, leukoesterase, WBC, RBC Chest x-ray film personally reviewed by me-questionable left basilar infiltrate CT abdomen pelvis: Chronic pancreatic changes. PEG tube in position. Gallstones. Indeterminate lesion in the right liver dome possibly increased from December 20, 2024. Abscess fluid tracking along the sacrum measuring 6.7 x 2.2 x 7.5 cm stranding and inflammation surrounding this area of phlegmonous change and subcutaneous gas. Assessment and plan: -Sepsis from infected sacral decubitus ulcer with abscess and UTI with cystitis IV fluids. 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 Nonambulatory - Chronic dysarthria from stroke - Chronic dysphagia from stroke. PEG tube feeding with Glucerna 1.5. Dietitian following -Sacral decubitus abscess fluid tracking along the sacral measuring 6.7 x 2.2 x 7.5 cm fat stranding and inflammation surrounding the area of phlegmonous change. This drained quite a bit of pus . Cultures growing multiple organisms Cultures polymicrobial I&D and debridement of the wound by Dr. Wood today on February 15. Iodoform packing ID following - Diabetes mellitus type 2, chronically insulin Follow Accu-Cheks. Tube feeding-Glucerna. Increased Lantus to 36 units subcu nightly-starting today - Essential hypertension Amlodipine. - Hyperlipidemia Lipitor Increase Lantus to 42 units at night. IV meropenem. PICC line ordered per ID. 6 weeks of antibiotics. Plan for discharge tomorrow Past Medical History Past Medical History: CVA/TIA Additional Past Medical History / Comment(s): Lactic acidosis, acute respiratory failure, dysphagia, right sided weakness History of Any Multi-Drug Resistant Organisms: VRE Date of last positivie culture/infection: 12/23/24 MDRO Source:: urine Past Surgical History: Unable to Obtain Additional Past Surgical History / Comment(s): tubal ligation Past Anesthesia/Blood Transfusion Reactions: No Reported Reaction Past Psychological History: Unable to Obtain Smoking Status: Former smoker Past Alcohol Use History: None Reported Past Drug Use History: None Reported
[2025-03-19] MEDS: INSULIN GLARGINE (LANTUS) 100 UNIT/ML SYR SQ SCH (21:32)
[2025-03-19 23:34] LABS: Glucose,Whole Blood 261 mg/dL (70-110)
[2025-03-20 06:03] LABS: Glucose,Whole Blood 226 mg/dL (70-110)
[2025-03-20 11:38] LABS: Glucose,Whole Blood 241 mg/dL (70-110)
--- NOTE | 2025-03-20 11:51 | P.DS ---
Providers Date of admission: 03/13/25 10:47 Expected date of discharge: 03/20/25 Attending physician: Mynor Brennan Consults: 03/13/25 08:51 Consult Physician Urgent Consulting Provider: Karine Wood Consult Reason/Comments: Proctitis and sacral abscess Do you want consulting provider notified?: Yes 03/16/25 11:12 Consult Physician Routine Consulting Provider: Estrella Allison Consult Reason/Comments: pos cultures Do you want consulting provider notified?: Yes [facility] [place] [facility] Course: Chief Complaint: Trouble with PEG tube 74-year-old patient, came in from [facility] being followed by Dr. Sabillon. Earlier in the year she was admitted at [facility] for a stroke resulting in right-sided paresis including dysphagia and dysphagia. She was sent to the ER when they try to give her PEG tube feeding she started complain abdominal pain. And that staff noted the abdomen was a bit distended. And hence EMS was called out. On my questioning patient does not complain of any pain. Nurse was able to give some medications through the same. Patient is nonambulatory. Patient found to have a fever of 101.1 in the ER. With leukocytosis. Was found to have rather infected appearing urine. March 14: Patient been tolerating tube feeding Glucerna 1.5 bolus feeding. Spoke earlier to nurse Ross to look at the sacral wound. She did obtain quite a bit of pus. Dr. Wood from surgery will be informed will probably need deeper I&D. Will send out wound cultures. Patient currently on IV Zosyn. March 15: Tolerating tube feeding. Glucerna. No surgical intervention per surgery. Urine culture growing gram-negative bacilli. Wound care team has been consulted March 16: Getting tube feedings. Patient seen by Dr. Witt from surgery. Patient being scheduled for debridement of decubitus ulcer in the OR tomorrow. Patient is comfortable otherwise. Also seen by the wound care team. Multiple organisms from the wound. Antibiotics switched to IV meropenem. ID following March 17: Saw the patient this morning. Tube feeding was held for debridement of the infected sacral decubitus wound. Purulent drainage was noted. Portion of skin was excised. Pulse irrigation was carried out. Iodoform packing was done. By Dr.S Wood March 18: Resting in bed. Comfortable. Getting tube feeding. Wound care team following. Patient remains on IV meropenem. Accu-Cheks running on the higher side. Increase Lantus to 36 units March 19: Resting in bed. Getting TPN. On IV meropenem. PICC line ordered by ID for 6 weeks of antibiotics. Local wound care per wound care team to continue. Accu-Cheks running on the higher side still. Increase Lantus to 42 units. March 20: Tolerating tube feeding. PICC line obtained. Will get 6 weeks of IV meropenem. Lantus to be increased to 15 units at night. Labs ordered by Dr. Godfrey. Wound care to continue. Social history: Currently at [facility]. Physical examination: VITAL SIGNS: 98, 65, 18, one 7 x 69, 98% room air GENERAL: BMI 28.2, in bed, comfortable EYES: Pupils equal. Conjunctiva richard l. HEENT: External appearance of nose and ears normal, oral cavity grossly normal. NECK: JVD unable to assess; masses not palpable. HEART: First and second heart sounds are normal; no edema. LUNGS: Respiratory rate normal; clear to auscultation. ABDOMEN: Soft, mild distention nontender, liver spleen not palpable, no masses palpable. No guarding rigidity. No mass palpable. PEG tube site appears okay PSYCH: Patient severely dysarthric. Able to answer some questions slowly l. MUSCULOSKELETAL:No Clubbing/cyanosis;muscles-grossly intact. Sacral and left buttock decubitus wound.-Status post debridement NEUROLOGICAL: Facial asymmetry. Dysarthria. Power of the right arm 0/5. Right leg 1-2/5. INVESTIGATIONS, reviewed in the clinical context: March 17: White count 1.7 hemoglobin 9.3 platelets 536 potassium 4.1 creatinine 0.5 Wound cultures: Multiple organisms March 13, 2025: White count 22.2 hemoglobin 9.2 platelets 367 sodium 129 potassium 4.8 BUN 25 creatinine 0.51 AST 45 ALT 41 alkaline phosphatase 206 UA: Positive for blood, nitrite, leukoesterase, WBC, RBC Chest x-ray film personally reviewed by me-questionable left basilar infiltrate CT abdomen pelvis: Chronic pancreatic changes. PEG tube in position. Gallstones. Indeterminate lesion in the right liver dome possibly increased from December 20, 2024. Abscess fluid tracking along the sacrum measuring 6.7 x 2.2 x 7.5 cm stranding and inflammation surrounding this area of phlegmonous change and subcutaneous gas. Assessment and plan: -Sepsis from infected sacral decubitus ulcer with abscess and UTI with cystitis IV fluids. 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 Nonambulatory - Chronic dysarthria from stroke - Chronic dysphagia from stroke. PEG tube feeding with Glucerna 1.5. Dietitian following -Sacral decubitus abscess fluid tracking along the sacral measuring 6.7 x 2.2 x 7.5 cm fat stranding and inflammation surrounding the area of phlegmonous change. This drained quite a bit of pus . Cultures growing multiple organisms Cultures polymicrobial I&D and debridement of the wound by Dr. Wood today on February 15. Iodoform packing ID following IV meropenem-6 weeks - Diabetes mellitus type 2, chronically insulin Follow Accu-Cheks. Tube feeding-Glucerna. Increased Lantus to 50 units subcu nightly-starting today - Essential hypertension Amlodipine. - Hyperlipidemia Lipitor Disposition: [facility] Past Medical History Past Medical History: CVA/TIA Additional Past Medical History / Comment(s): Lactic acidosis, acute respiratory failure, dysphagia, right sided weakness History of Any Multi-Drug Resistant Organisms: VRE Date of last positivie culture/infection: 12/23/24 MDRO Source:: urine Past Surgical History: Unable to Obtain Additional Past Surgical History / Comment(s): tubal ligation Past Anesthesia/Blood Transfusion Reactions: No Reported Reaction Past Psychological History: Unable to Obtain Smoking Status: Former smoker Past Alcohol Use History: None Reported Past Drug Use History: None Reported Plan - Discharge Summary Discharge Rx Participant: No New Discharge Prescriptions: New Meropenem [Merrem] 1 gm IVPB Q8HR each Continue INSULIN LISPRO (HumaLOG) [HumaLOG] See Protocol SQ TID@0500,1300,2100 Valproic Acid Oral Soln [Depakene Syrup] 250 mg PEG/G-TUBE BID Chlorhexidine Gluconate [Periogard] 5 ml MUCOUS MEM BID Loperamide [Imodium] 2 mg PO Q12H PRN PRN Reason: loose stools bisacodyL [Dulcolax] 10 mg RECTAL Q24H PRN PRN Reason: Constipation Acetaminophen [Children's Tylenol] 640 mg PEG/G-TUBE Q6HR PRN PRN Reason: Pain Bromocriptine Mesylate 2.5 mg PEG/G-TUBE TID@0500,1300,2100 Aspirin 81 mg PEG/G-TUBE DAILY@0800 amantadine HCL 100 mg PEG/G-TUBE BID@0800,1999 Glucagon Emergency Kit 1 mg IM ONCE PRN PRN Reason: BS <60 Changed Insulin Glargine (Lantus) [Lantus Vial] 50 unit SQ HS #0 Discontinued Propranolol [Inderal] 10 mg PEG/G-TUBE TID@0500,1300,2100 Cholestyramine (with Sugar) [Cholestyramine Packet] 4 gm PEG/G-TUBE BID Insulin Glargine (Lantus) [Lantus Vial] 40 unit SQ DAILY INSULIN LISPRO (HumaLOG) [HumaLOG] 10 unit SQ TID@0500,1300,2100 Docusate Oral Soln [Colace Oral Soln] 100 mg PO Q12H PRN PRN Reason: Constipation No Action lisinopriL [Zestril] 40 mg PEG/G-TUBE DAILY@0800 amLODIPine [Norvasc] 5 mg PEG/G-TUBE DAILY@0800 Fenofibrate 160 mg PEG/G-TUBE DAILY@0800 Atorvastatin [Lipitor] 40 mg PEG/G-TUBE HS@1999 Ipratropium-Albuterol Nebulize [Duoneb 0.5 mg-3 mg/3 ml Soln] 3 ml INHALATION RT-TID@,,21 Discharge Medication List Aspirin 81 mg PEG/G-TUBE DAILY@0800 12/19/24 [History] Atorvastatin [Lipitor] 40 mg PEG/G-TUBE HS@199912/19/24 [History] Bromocriptine Mesylate 2.5 mg PEG/G-TUBE TID@0500,1300,2100 12/19/24 [History] Fenofibrate 160 mg PEG/G-TUBE DAILY@0800 12/19/24 [History] INSULIN LISPRO (HumaLOG) [HumaLOG] See Protocol SQ TID@0500,1300,2100 12/19/24 [History] Valproic Acid Oral Soln [Depakene Syrup] 250 mg PEG/G-TUBE BID 12/19/24 [History] amLODIPine [Norvasc] 5 mg PEG/G-TUBE DAILY@0800 12/19/24 [History] amantadine HCL 100 mg PEG/G-TUBE BID@0800,199912/19/24 [History] lisinopriL [Zestril] 40 mg PEG/G-TUBE DAILY@0800 12/19/24 [History] Acetaminophen [Children's Tylenol] 640 mg PEG/G-TUBE Q6HR PRN 03/13/25 [History] Chlorhexidine Gluconate [Periogard] 5 ml MUCOUS MEM BID 03/13/25 [History] Glucagon Emergency Kit 1 mg IM ONCE PRN 03/13/25 [History] Ipratropium-Albuterol Nebulize [Duoneb 0.5 mg-3 mg/3 ml Soln] 3 ml INHALATION RT-TID@05,13,21 03/13/25 [History] Loperamide [Imodium] 2 mg PO Q12H PRN 03/13/25 [History] bisacodyL [Dulcolax] 10 mg RECTAL Q24H PRN 03/13/25 [History] Insulin Glargine (Lantus) [Lantus Vial] 50 unit SQ HS #0 03/20/25 [Rx] Meropenem [Merrem] 1 gm IVPB Q8HR each 03/20/25 [Rx] Follow up Appointment(s)/Referral(s): Clementina Collins DO [REFERRING] - 1-2 days [facility], [NON-STAFF] - As Needed Estrella Allison MD [STAFF PHYSICIAN] - 1 Week Ambulatory/Diagnostic Orders: Basic Metabolic Panel [LAB.AMB] Location: None Selected C Reactive Protein [LAB.AMB] Location: None Selected Complete Blood Count w/diff [LAB.AMB] Location: None Selected Erythrocyte Sedimentation Rate [LAB.AMB] Location: None Selected
[2025-03-20] MEDS: amLODIPine 5 MG TAB PEG/G-TUBE SCH (13:08)
--- NOTE | 2025-03-20 16:06 | P.PN ---
Subjective Progress Note Date: 03/20/25 Principal diagnosis: Reason for follow-up is infected sacral pressure ulcer Patient is a 74-year-old female with a past medical history significant for CVA TIA history of recurrent UTI and group home resident patient has been brought to the hospital after apparently having a problem with the PEG tube, noted to have a sacral pressure ulcer with purulent drainage pro mpting this consultation patient is status post surgical debridement of the sacral ulcer by general surgery on 03/17/2025. On today's evaluation that is 03/20/2025, the patient continues to be afebrile, the patient is on room air and breathing comfortably, the Pt slightly more awake and alert denies any chest pain or cough no abdominal pain and no diarrhea has been reported. No new lab has been obtained today Objective - Vital Signs Vital signs: Vital Signs Temp 98.0 F 03/20/25 07:23 Pulse 68 03/20/25 13:07 Resp 18 03/20/25 07:23 BP 181/96 03/20/25 11:37 Pulse Ox 98 03/20/25 07:23 FiO2 Intake & Output 03/19/25 03/20/25 03/20/25 18:59 06:59 18:59 Output Total 700 Balance -700 Weight 102.9 kg 101.333 kg Output: Urine 700 Other: Voiding Method External Catheter External Catheter External Catheter - Exam GENERAL DESCRIPTION: An elderly female lying in bed in no distress RESPIRATORY SYSTEM: Unlabored breathing , decreased breath sounds at bases HEART: S1 S2 regular rate and rhythm , ABDOMEN: Soft , no tenderness EXTREMITIES: No edema feet - Labs CBC & Chem 7: 03/17/25 02:59 03/17/25 02:59 Labs: Abnormal Lab Results - Last 24 Hours (Table) 03/19/25 03/19/25 03/20/25 Range/Units 16:52 23:33 06:01 POC Glucose (mg/dL) 267 H 261 H 226 H (70-110) mg/dL 03/20/25 Range/Units 11:34 POC Glucose (mg/dL) 241 H (70-110) mg/dL Microbiology - Last 24 Hours (Table) 03/17/25 14:12 Anaerobic Culture - Preliminary Other - Other 03/17/25 14:12 Gram Stain - Final Other - Other Wound Culture - Final Klebsiella oxy Raoultella orni Strep agalactiae - (group b) Assessment and Plan (1) Abscess of sacrum Current Visit: Yes Status: Acute Code(s): M46.28 - OSTEOMYELITIS OF VERTEBRA, SACRAL AND SACROCOCCYGEAL REGION SNOMED Code(s): 110888174 (2) Sepsis Current Visit: Yes Status: Acute Code(s): A41.9 - SEPSIS, UNSPECIFIED ORGANISM SNOMED Code(s): 59821897 (3) Stage 4 skin ulcer of sacral region Current Visit: Yes Status: Acute Code(s): L98.429 - NON-PRESSURE CHRONIC ULCER OF BACK WITH UNSPECIFIED SEVERITY SNOMED Code(s): 49348369 (4) UTI (urinary tract infection) Current Visit: Yes Status: Acute Code(s): N39.0 - URINARY TRACT INFECTION, SITE NOT SPECIFIED SNOMED Code(s): 74761102 Plan: 1patient is in the hospital with sepsis in this patient who did have fever tachycardia elevated white count source likely stage IV infected sacral pressure ulcer with significant amount of purulent drainage noticed on current examination and will need to cover for the polymicrobial jhonatan including enteric gram-negative pathogen. 2patient also have a positive urine culture with ESBL Klebsiella and will need to cover for the resistant gram-negative pathogen while waiting for the I&D of the sacral wound and deep cultures that has been completed on 03/17/2025 and those cultures are currently pending 3patient is currently being treated meropenem 1 g every 8 hours, can be transitioned to Invanz 1 g daily to finish a total of 6-week course of therapy on discharge Dictation was produced using [employer] dictation software. please excuse any gram matical, word or spelling errors. Time with Patient: Less than 30
[2025-03-20 17:04] LABS: Glucose,Whole Blood 169 mg/dL (70-110)
--- NOTE | 2025-03-20 17:45 | P.PN ---
Progress Note - Text Progress Note Date: 03/20/25 Chief Complaint: Trouble with PEG tube 74-year-old patient, came in from [facility] being followed by Dr. Sabillon. Earlier in the year she was admitted at [facility] for a stroke resulting in right-sided paresis including dysphagia and dysphagia. She was sent to the ER when they try to give her PEG tube feeding she started complain abdominal pain. And that staff noted the abdomen was a bit distended. And hence EMS was called out. On my questioning patient does not complain of any pain. Nurse was able to give some medications through the same. Patient is nonambulatory. Patient found to have a fever of 101.1 in the ER. With leukocytosis. Was found to have rather infected appearing urine. March 14: Patient been tolerating tube feeding Glucerna 1.5 bolus feeding. Spoke earlier to nurse Vandana to look at the sacral wound. She did obtain quite a bit of pus. Dr. Wood from surgery will be informed will probably need deeper I&D. Will send out wound cultures. Patient currently on IV Zosyn. March 15: Tolerating tube feeding. Glucerna. No surgical intervention per surgery. Urine culture growing gram-negative bacilli. Wound care team has been consulted March 16: Getting tube feedings. Patient seen by Dr. Witt from surgery. Patient being scheduled for debridement of decubitus ulcer in the OR tomorrow. Patient is comfortable otherwise. Also seen by the wound care team. Multiple organisms from the wound. Antibiotics switched to IV meropenem. ID following March 17: Saw the patient this morning. Tube feeding was held for debridement of the infected sacral decubitus wound. Purulent drainage was noted. Portion of skin was excised. Pulse irrigation was carried out. Iodoform packing was done. By Dr.S Wood March 18: Resting in bed. Comfortable. Getting tube feeding. Wound care team following. Patient remains on IV meropenem. Accu-Cheks running on the higher side. Increase Lantus to 36 units March 19: Resting in bed. Getting TPN. On IV meropenem. PICC line ordered by ID for 6 weeks of antibiotics. Local wound care per wound care team to continue. Accu-Cheks running on the higher side still. Increase Lantus to 42 units. March 20: Tolerating tube feeding. PICC line obtained. Will get 6 weeks of IV meropenem. Labs ordered by Dr. oGdfrey. Wound care to continue. Nurse called me that the G-tube portion of the GJ tube blocked. Surgery tried to put [employer] inside. t. Now discharge held. Because tube feeding is held. Lantus cut back to 18 units Active Medications Acetaminophen (Acetaminophen Tab 325 Mg Tab) 650 mg PO Q6HR PRN PRN Reason: Mild Pain or Fever > 100.5 Hydrocodone Bitart/Acetaminophen (Hydrocodone/Apap 5-325mg 1 Each Tab) 1 each PO Q4HR PRN PRN Reason: Moderate Pain (Scale 4 to 6) Albuterol/Ipratropium (Ipratropium-Albuterol 3 Ml Neb) 3 ml INHALATION RT-TID [facility] Last Admin: 03/20/25 12:55 Dose: 3 ml Amantadine HCl (Amantadine Hcl 100 Mg/10 Ml Cup) 100 mg PEG/G-TUBE BID@0800,1999 [facility] Last Admin: 03/20/25 09:33 Dose: 100 mg Amlodipine Besylate (Amlodipine 5 Mg Tab) 5 mg PEG/G-TUBE DAILY@0800 [facility] Last Admin: 03/20/25 13:08 Dose: 5 mg Aspirin (Aspirin 81 Mg) 81 mg PEG/G-TUBE DAILY@0800 [facility] Last Admin: 03/20/25 09:33 Dose: 81 mg Atorvastatin Calcium (Atorvastatin 40 Mg Tab) 40 mg PEG/G-TUBE HS@1999 [facility] Last Admin: 03/19/25 21:32 Dose: 40 mg Chlorhexidine Gluconate (Chlorhexidine Gluconate 15 Ml Cup) 5 ml MUCOUS MEM BID [facility] Last Admin: 03/20/25 09:32 Dose: 5 ml Dextrose/Water (Dextrose 50% Syringe 50 Ml) 25 ml IVP PER PROTOCOL PRN; Protocol PRN Reason: Hypoglycemia Last Admin: 03/14/25 16:45 Dose: 25 ml Dextrose/Water (Dextrose 50% Syringe 50 Ml) 50 ml IVP PER PROTOCOL PRN; Protocol PRN Reason: Hypoglycemia Enoxaparin Sodium (Enoxaparin 40 Mg/0.4 Ml Syringe) 40 mg SQ DAILY [facility] Last Admin: 03/20/25 09:32 Dose: 40 mg Fenofibrate (Fenofibrate 160 Mg Tab) 160 mg PEG/G-TUBE DAILY@0800 [facility] Last Admin: 03/20/25 09:32 Dose: 160 mg Meropenem 1 gm/ Sodium (Chloride) 100 mls @ 33.3 mls/hr IVPB Q8HR [facility]; Protocol Last Admin: 03/20/25 17:19 Dose: 33.3 mls/hr Insulin Glargine (Insulin Glargine (Lantus) 100 Unit/Ml Syr) 42 unit SQ HS [facility] Last Admin: 03/19/25 21:32 Dose: 42 unit Insulin Human Lispro (Insulin Lispro (Humalog) 100 Unit/Ml 10 Ml Vl) 0 unit SQ Q6HR [facility]; Protocol Last Admin: 03/20/25 17:09 Dose: Not Given Lisinopril (Lisinopril 20 Mg Tab) 40 mg PEG/G-TUBE DAILY@0800 [facility] Last Admin: 03/20/25 09:33 Dose: 40 mg Loperamide HCl (Loperamide 2 Mg Cap) 2 mg PO Q12H PRN PRN Reason: loose stools Last Admin: 03/15/25 12:31 Dose: 2 mg Naloxone HCl (Naloxone 0.4 Mg/Ml 1 Ml Vial) 0.2 mg IV Q2M PRN PRN Reason: Opioid Reversal Non-Formulary Medication (Bromocriptine Mesylate [Bromocriptine Mesylate]) 2.5 mg PEG/G-TUBE TID@0500,1300,2100 [facility] Last Admin: 03/20/25 13:07 Dose: 2.5 mg Ondansetron HCl (Ondansetron 4 Mg/2 Ml Vial) 4 mg IVP Q8HR PRN PRN Reason: Nausea And Vomiting Propranolol HCl (Propranolol 10 Mg Tab) 10 mg PEG/G-TUBE TID@0500,1300,2100 [facility] Last Admin: 03/20/25 13:08 Dose: 10 mg Valproic Acid (Valproic Acid Oral Soln 250 Mg/5 Ml Cup) 250 mg PEG/G-TUBE BID [facility] Last Admin: 03/20/25 09:32 Dose: 250 mg Social history: Currently at [facility]. Physical examination: VITAL SIGNS: 97.6, 67, 18, 167 x 71, 97% room air GENERAL: BMI 28.2, in bed, comfortable EYES: Pupils equal. Conjunctiva richard l. HEENT: External appearance of nose and ears normal, oral cavity grossly normal. NECK: JVD unable to assess; masses not palpable. HEART: First and second heart sounds are normal; no edema. LUNGS: Respiratory rate normal; clear to auscultation. ABDOMEN: Soft, mild distention nontender, liver spleen not palpable, no masses palpable. No guarding rigidity. No mass palpable. PEG tube site appears okay PSYCH: Patient severely dysarthric. Able to answer some questions slowly l. MUSCULOSKELETAL:No Clubbing/cyanosis;muscles-grossly intact. Sacral and left buttock decubitus wound.-Status post debridement NEUROLOGICAL: Facial asymmetry. Dysarthria. Power of the right arm 0/5. Right leg 1-2/5. INVESTIGATIONS, reviewed in the clinical context: March 17: White count 1.7 hemoglobin 9.3 platelets 536 potassium 4.1 creatinine 0.5 Wound cultures: Multiple organisms March 13, 2025: White count 22.2 hemoglobin 9.2 platelets 367 sodium 129 potassium 4.8 BUN 25 creatinine 0.51 AST 45 ALT 41 alkaline phosphatase 206 UA: Positive for blood, nitrite, leukoesterase, WBC, RBC Chest x-ray film personally reviewed by me-questionable left basilar infiltrate CT abdomen pelvis: Chronic pancreatic changes. PEG tube in position. Gallstones. Indeterminate lesion in the right liver dome possibly increased from December 20, 2024. Abscess fluid tracking along the sacrum measuring 6.7 x 2.2 x 7.5 cm stranding and inflammation surrounding this area of phlegmonous change and subcutaneous gas. Assessment and plan: -Sepsis from infected sacral decubitus ulcer with abscess and UTI with cystitis IV fluids. IV meropenem-for 6 weeks -Acute UTI with cystitis, with cultures positive for Klebsiella oxytoca ESBL MDRO, Proteus mirabilis IV meropenem - PEG tube malfunction due to J-tube portion not functioning. 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 Nonambulatory - Chronic dysarthria from stroke - Chronic dysphagia from stroke. PEG tube feeding with Glucerna 1.5. Dietitian following -Sacral decubitus abscess fluid tracking along the sacral measuring 6.7 x 2.2 x 7.5 cm fat stranding and inflammation surrounding the area of phlegmonous change. This drained quite a bit of pus . Cultures growing multiple organisms Cultures polymicrobial I&D and debridement of the wound by Dr. Wood today on February 15. Iodoform packing ID following IV meropenem-6 weeks - Diabetes mellitus type 2, chronically insulin Follow Accu-Cheks. Tube feeding-Glucerna. Increased Lantus to 50 units subcu nightly-starting today - Essential hypertension Amlodipine. - Hyperlipidemia Lipitor PEG tube feeding held because J-tube portion not functioning. Lantus cut back. Discharge held. Past Medical History Past Medical History: CVA/TIA Additional Past Medical History / Comment(s): Lactic acidosis, acute respiratory failure, dysphagia, right sided weakness History of Any Multi-Drug Resistant Organisms: VRE Date of last positivie culture/infection: 12/23/24 MDRO Source:: urine Past Surgical History: Unable to Obtain Additional Past Surgical History / Comment(s): tubal ligation Past Anesthesia/Blood Transfusion Reactions: No Reported Reaction Past Psychological History: Unable to Obtain Smoking Status: Former smoker Past Alcohol Use History: None Reported Past Drug Use History: None Reported
[2025-03-20] MEDS: cloNIDine 0.2 MG/24HR PATCH TRANSDERM SCH (19:55)
[2025-03-20] MEDS: INSULIN GLARGINE (LANTUS) 100 UNIT/ML SYR SQ SCH (20:35)
--- NOTE | 2025-03-20 21:56 | P.PN ---
Subjective Progress Note Date: 03/20/25 Pt doing well. Wound care being provided. Objective - Vital Signs Vital signs: Vital Signs Temp 98.0 F 03/20/25 19:56 Pulse 66 03/20/25 20:36 Resp 16 03/20/25 19:56 BP 167/68 03/20/25 19:56 Pulse Ox 96 03/20/25 19:56 FiO2 Intake & Output 03/20/25 03/20/25 03/21/25 06:59 18:59 06:59 Output Total 700 Balance -700 Weight 101.333 kg Output: Urine 700 Other: Voiding Method External Catheter External Catheter - Constitutional General appearance: Present: cooperative - Gastrointestinal Gastrointestinal Comment(s): GJ tube in place - Integumentary Integumentary Comment(s): Unchanged decubitus ulcer - Musculoskeletal Musculoskeletal: Present: generalized weakness - Labs CBC & Chem 7: 03/17/25 02:59 03/17/25 02:59 Labs: Abnormal Lab Results - Last 24 Hours (Table) 03/19/25 03/20/25 03/20/25 Range/Units 23:33 06:01 11:34 POC Glucose (mg/dL) 261 H 226 H 241 H (70-110) mg/dL 03/20/25 Range/Units 17:02 POC Glucose (mg/dL) 169 H (70-110) mg/dL Microbiology - Last 24 Hours (Table) 03/17/25 14:12 Anaerobic Culture - Preliminary Other - Other 03/17/25 14:12 Gram Stain - Final Other - Other Wound Culture - Final Klebsiella oxy Raoultella orni Strep agalactiae - (group b) Assessment and Plan Plan: 1. Status post debridement of sacral decubitus ulcer with pulse irrigation. Continue local wound care based on wound care team recommendations. 2. I was called to bedside secondary to J-tube malfunction. Patient has a GJ tube in place. I was informed that J-tube was functioning normally and has been functioning normally throughout the admission and after medication was inserted by nursing home assistant administrator, J-tube was unable to flush. It seems likely that medication was provided through the J-tube portion of the GJ tube. I attempted inserting Pepsi to break down the obstruction without any significant success. Unable to flush. At this point, I recommended keeping the biopsy in place for some time t o see if it breaks down the obstruction. If unable to, I would recommend IR consultation for GJ tube replacement under fluoroscopy. Medication and nutrition recommendations per medicine team.
[2025-03-21 00:57] LABS: Glucose,Whole Blood 229 mg/dL (70-110)
[2025-03-21 06:01] LABS: Glucose,Whole Blood 229 mg/dL (70-110)
--- NOTE | 2025-03-21 09:12 | P.PN ---
Progress Note - Text Progress Note Date: 03/21/25 No acute events overnight. Patient is receiving tube feeds through G tube however J tube portion of the GJ tube is not functioning VSS General-NAD CVS-RRR Lungs-NLB Abdomen-soft, NTND, feeding tube in place 74 year old female s/p sharp excisional debridement of sacral decubitus ulcer and malfunctioning GJ tube -Local Wound Care for Sacral Decubitus Ulcer -Continue tube feeds via G tube portion of GJ tube -Patient will need IR exchange of GJ tube. This can be done outpatient or patient can be transferred to another facility as I do not believe IR does GJ tube exchanges at this facility Ant Churchill DO [facility] [phone]
[2025-03-21 12:00] LABS: Glucose,Whole Blood 253 mg/dL (70-110)
--- NOTE | 2025-03-21 15:04 | P.PN ---
Subjective Progress Note Date: 03/21/25 Principal diagnosis: Reason for follow-up is infected sacral pressure ulcer Patient is a 74-year-old female with a past medical history significant for CVA TIA history of recurrent UTI and [facility] resident patient has been brought to the hospital after apparently having a problem with the PEG tube, noted to have a sacral pressure ulcer with purulent drainage pro mpting this consultation patient is status post surgical debridement of the sacral ulcer by general surgery on 03/17/2025. On today's evaluation that is 03/21/2024, patient did have a temperature of 97.5 F this morning patient is currently breathing comfortably on room air patient is awake but did not answer any question no vomiting diarrhea or any other changes reported. No new lab has been obtained today Objective - Vital Signs Vital signs: Vital Signs Temp 97.5 F L 03/21/25 07:12 Pulse 64 03/21/25 08:15 Resp 16 03/21/25 07:12 BP 135/73 03/21/25 07:12 Pulse Ox 99 03/21/25 07:12 FiO2 Intake & Output 03/20/25 03/21/25 03/21/25 18:59 06:59 18:59 Output Total 700 500 Balance -700 -500 Weight 101.95 kg Output: Urine 700 500 Other: Voiding Method External Catheter External Catheter External Catheter # Voids 1 - Exam GENERAL DESCRIPTION: An elderly female lying in bed in no distress RESPIRATORY SYSTEM: Unlabored breathing , decreased breath sounds at bases HEART: S1 S2 regular rate and rhythm , ABDOMEN: Soft , no tenderness EXTREMITIES: No edema feet - Labs CBC & Chem 7: 03/17/25 02:59 03/17/25 02:59 Labs: Abnormal Lab Results - Last 24 Hours (Table) 03/20/25 03/21/25 03/21/25 Range/Units 17:02 00:56 06:00 POC Glucose (mg/dL) 169 H 229 H 229 H (70-110) mg/dL 03/21/25 Range/Units 11:59 POC Glucose (mg/dL) 253 H (70-110) mg/dL Assessment and Plan (1) Abscess of sacrum Current Visit: Yes Status: Acute Code(s): M46.28 - OSTEOMYELITIS OF VERTEBRA, SACRAL AND SACROCOCCYGEAL REGION SNOMED Code(s): 863409587 (2) Sepsis Current Visit: Yes Status: Acute Code(s): A41.9 - SEPSIS, UNSPECIFIED ORGANISM SNOMED Code(s): 02100965 (3) Stage 4 skin ulcer of sacral region Current Visit: Yes Status: Acute Code(s): L98.429 - NON-PRESSURE CHRONIC ULCER OF BACK WITH UNSPECIFIED SEVERITY SNOMED Code(s): 41932462 (4) UTI (urinary tract infection) Current Visit: Yes Status: Acute Code(s): N39.0 - URINARY TRACT INFECTION, SITE NOT SPECIFIED SNOMED Code(s): 63280934 Plan: 1patient is in the hospital with sepsis in this patient who did have fever tachycardia elevated white count source likely stage IV infected sacral pressure ulcer with significant amount of purulent drainage noticed on current examination and will need to cover for the polymicrobial jhonatan including enteric gram-negative pathogen. 2patient also have a positive urine culture with ESBL Klebsiella and patient is status post I&D of the sacral wound and deep cultures that has been completed on 03/17/2025 and those cultures are currently growing Drug-resistant Klebsiella and Streptococcus agalactiae with initial sacral wound culture did grew nitrate resistant Klebsiella that was resistant to Zosyn as well as cefepime sensitive to ertapenem 3patient currently be treated with meropenem however can be transitioned to Invanz 1 g daily on discharge to the [facility] Dictation was produced using [employer] dictation software. please excuse any grammatical, word or spelling errors.
--- NOTE | 2025-03-21 16:02 | P.PN ---
Progress Note - Text Progress Note Date: 03/21/25 Chief Complaint: Trouble with PEG tube 74-year-old patient, came in from [facility] being followed by Dr. Sabillon. Earlier in the year she was admitted at [facility] for a stroke resulting in right-sided paresis including dysphagia and dysphagia. She was sent to the ER when they try to give her PEG tube feeding she started complain abdominal pain. And that staff noted the abdomen was a bit distended. And hence EMS was called out. On my questioning patient does not complain of any pain. Nurse was able to give some medications through the same. Patient is nonambulatory. Patient found to have a fever of 101.1 in the ER. With leukocytosis. Was found to have rather infected appearing urine. March 14: Patient been tolerating tube feeding Glucerna 1.5 bolus feeding. Spoke earlier to nurse Vandana to look at the sacral wound. She did obtain quite a bit of pus. Dr. Wood from surgery will be informed will probably need deeper I&D. Will send out wound cultures. Patient currently on IV Zosyn. March 15: Tolerating tube feeding. Glucerna. No surgical intervention per surgery. Urine culture growing gram-negative bacilli. Wound care team has been consulted March 16: Getting tube feedings. Patient seen by Dr. Witt from surgery. Patient being scheduled for debridement of decubitus ulcer in the OR tomorrow. Patient is comfortable otherwise. Also seen by the wound care team. Multiple organisms from the wound. Antibiotics switched to IV meropenem. ID following March 17: Saw the patient this morning. Tube feeding was held for debridement of the infected sacral decubitus wound. Purulent drainage was noted. Portion of skin was excised. Pulse irrigation was carried out. Iodoform packing was done. By Dr.S Wood March 18: Resting in bed. Comfortable. Getting tube feeding. Wound care team following. Patient remains on IV meropenem. Accu-Cheks running on the higher side. Increase Lantus to 36 units March 19: Resting in bed. Getting TPN. On IV meropenem. PICC line ordered by ID for 6 weeks of antibiotics. Local wound care per wound care team to continue. Accu-Cheks running on the higher side still. Increase Lantus to 42 units. March 20: Tolerating tube feeding. PICC line obtained. Will get 6 weeks of IV meropenem. Labs ordered by Dr. Godfrey. Wound care to continue. Nurse called me that the G-tube portion of the GJ tube blocked. Surgery tried to put [employer] inside. t. Now discharge held. Because tube feeding is held. Lantus cut back to 18 units March 21: Patient tolerating tube feeding through the G-tube. The G-tube portion is nonfunctional. This will have to be changed by interventional radiology. And they do not do it here. Active Medications Acetaminophen (Acetaminophen Tab 325 Mg Tab) 650 mg PO Q6HR PRN PRN Reason: Mild Pain or Fever > 100.5 Hydrocodone Bitart/Acetaminophen (Hydrocodone/Apap 5-325mg 1 Each Tab) 1 each PO Q4HR PRN PRN Reason: Moderate Pain (Scale 4 to 6) Albuterol/Ipratropium (Ipratropium-Albuterol 3 Ml Neb) 3 ml INHALATION RT-TID [facility] Last Admin: 03/21/25 15:03 Dose: 3 ml Amantadine HCl (Amantadine Hcl 100 Mg/10 Ml Cup) 100 mg PEG/G-TUBE BID@0800,1999 [facility] Last Admin: 03/21/25 08:45 Dose: 100 mg Amlodipine Besylate (Amlodipine 5 Mg Tab) 5 mg PEG/G-TUBE DAILY@0800 [facility] Last Admin: 03/21/25 08:44 Dose: 5 mg Aspirin (Aspirin 81 Mg) 81 mg PEG/G-TUBE DAILY@0800 [facility] Last Admin: 03/21/25 08:44 Dose: 81 mg Atorvastatin Calcium (Atorvastatin 40 Mg Tab) 40 mg PEG/G-TUBE HS@1999 [facility] Last Admin: 03/20/25 20:35 Dose: 40 mg Chlorhexidine Gluconate (Chlorhexidine Gluconate 15 Ml Cup) 5 ml MUCOUS MEM BID [facility] Last Admin: 03/21/25 08:45 Dose: 5 ml Clonidine HCl (Clonidine 0.2 Mg/24hr Patch) 1 patch TRANSDERM Q7D [facility] Last Admin: 03/20/25 19:55 Dose: 1 patch Dextrose/Water (Dextrose 50% Syringe 50 Ml) 25 ml IVP PER PROTOCOL PRN; Protocol PRN Reason: Hypoglycemia Last Admin: 03/14/25 16:45 Dose: 25 ml Dextrose/Water (Dextrose 50% Syringe 50 Ml) 50 ml IVP PER PROTOCOL PRN; Pro tocol PRN Reason: Hypoglycemia Enoxaparin Sodium (Enoxaparin 40 Mg/0.4 Ml Syringe) 40 mg SQ DAILY [facility] Last Admin: 03/21/25 08:44 Dose: 40 mg Fenofibrate (Fenofibrate 160 Mg Tab) 160 mg PEG/G-TUBE DAILY@0800 [facility] Last Admin: 03/21/25 08:44 Dose: 160 mg Meropenem 1 gm/ Sodium (Chloride) 100 mls @ 33.3 mls/hr IVPB Q8HR [facility]; Protocol Last Admin: 03/21/25 08:44 Dose: 33.3 mls/hr Insulin Glargine (Insulin Glargine (Lantus) 100 Unit/Ml Syr) 18 unit SQ HS [facility] Last Admin: 03/20/25 20:35 Dose: 18 unit Insulin Human Lispro (Insulin Lispro (Humalog) 100 Unit/Ml 10 Ml Vl) 0 unit SQ Q6HR [facility]; Protocol Last Admin: 03/21/25 12:37 Dose: 6 unit Lisinopril (Lisinopril 20 Mg Tab) 40 mg PEG/G-TUBE DAILY@0800 [facility] Last Admin: 03/21/25 08:44 Dose: 40 mg Loperamide HCl (Loperamide 2 Mg Cap) 2 mg PO Q12H PRN PRN Reason: loose stools Last Admin: 03/15/25 12:31 Dose: 2 mg Naloxone HCl (Naloxone 0.4 Mg/Ml 1 Ml Vial) 0.2 mg IV Q2M PRN PRN Reason: Opioid Reversal Non-Formulary Medication (Bromocriptine Mesylate [Bromocriptine Mesylate]) 2.5 mg PEG/G-TUBE TID@0500,1300,2100 [facility] Last Admin: 03/21/25 14:33 Dose: 2.5 mg Ondansetron HCl (Ondansetron 4 Mg/2 Ml Vial) 4 mg IVP Q8HR PRN PRN Reason: Nausea And Vomiting Propranolol HCl (Propranolol 10 Mg Tab) 10 mg PEG/G-TUBE TID@0500,1300,2100 [facility] Last Admin: 03/21/25 14:34 Dose: 10 mg Valproic Acid (Valproic Acid Oral Soln 250 Mg/5 Ml Cup) 250 mg PEG/G-TUBE BID [facility] Last Admin: 03/21/25 08:45 Dose: 250 mg Social history: Currently at [facility]. Physical examination: VITAL SIGNS: 97.4, 69, 15, 146 twice daily, 99% room air GENERAL: BMI 28.2, in bed, comfortable EYES: Pupils equal. Conjunctiva richard l. HEENT: External appearance of nose and ears normal, oral cavity grossly normal. NECK: JVD unable to assess; masses not palpable. HEART: First and second heart sounds are normal; no edema. LUNGS: Respiratory rate normal; clear to auscultation. ABDOMEN: Soft, mild distention nontender, liver spleen not palpable, no masses palpable. No guarding rigidity. No mass palpable. PEG tube site appears okay PSYCH: Patient severely dysarthric. Able to answer some questions slowly l. MUSCULOSKELETAL:No Clubbing/cyanosis;muscles-grossly intact. Sacral and left buttock decubitus wound.-Status post debridement NEUROLOGICAL: Facial asymmetry. Dysarthria. Power of the right arm 0/5. Right leg 1-2/5. INVESTIGATIONS, reviewed in the clinical context: March 17: White count 1.7 hemoglobin 9.3 platelets 536 potassium 4.1 creatinine 0.5 Wound cultures: Multiple organisms March 13, 2025: White count 22.2 hemoglobin 9.2 platelets 367 sodium 129 potassium 4.8 BUN 25 creatinine 0.51 AST 45 ALT 41 alkaline phosphatase 206 UA: Positive for blood, nitrite, leukoesterase, WBC, RBC Chest x-ray film personally reviewed by me-questionable left basilar infiltrate CT abdomen pelvis: Chronic pancreatic changes. PEG tube in position. Gallstones. Indeterminate lesion in the right liver dome possibly increased from December 20, 2024. Abscess fluid tracking along the sacrum measuring 6.7 x 2.2 x 7.5 cm stranding and inflammation surrounding this area of phlegmonous change and subcutaneous gas. Assessment and plan: -Sepsis from infected sacral decubitus ulcer with abscess and UTI with cystitis better IV fluids. IV meropenem-for 6 weeks -Acute UTI with cystitis, with cultures positive for Klebsiella oxytoca ESBL MDRO, Proteus mirabilis IV meropenem - PEG tube malfunction due to J-tube portion not functioning. Tube feeding to continue through the G-tube. The GJ tube needs to be replaced. Apparently our interventional radiology does not do the same. This will need to be done outpatient. 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 Nonambulatory - Chronic dysarthria from stroke - Chronic dysphagia from stroke. PEG tube feeding with Glucerna 1.5. Dietitian following -Sacral decubitus abscess fluid tracking along the sacral measuring 6.7 x 2.2 x 7.5 cm fat stranding and inflammation surrounding the area of phlegmonous change. This drained quite a bit of pus . Cultures growing multiple organisms Cultures polymicrobial I&D and debridement of the wound by Dr. Wood today on February 15. Iodoform packing ID following IV meropenem-6 weeks - Diabetes mellitus type 2, chronically insulin Follow Accu-Cheks. Tube feeding-Glucerna. Increased Lantus to 26units subcu nightly - Essential hypertension Amlodipine. - Hyperlipidemia Lipitor Continue current treatment plan. Past Medical History Past Medical History: CVA/TIA Additional Past Medical History / Comment(s): Lactic acidosis, acute respiratory failure, dysphagia, right sided weakness History of Any Multi-Drug Resistant Organisms: VRE Date of last positivie culture/infection: 12/23/24 MDRO Source:: urine Past Surgical History: Unable to Obtain Additional Past Surgical History / Comment(s): tubal ligation Past Anesthesia/Blood Transfusion Reactions: No Reported Reaction Past Psychological History: Unable to Obtain Smoking Status: Former smoker Past Alcohol Use History: None Reported Past Drug Use History: None Reported
[2025-03-21 16:54] LABS: Glucose,Whole Blood 255 mg/dL (70-110)
[2025-03-21] MEDS: INSULIN GLARGINE (LANTUS) 100 UNIT/ML SYR SQ SCH (21:43)
[2025-03-22 00:15] LABS: Glucose,Whole Blood 222 mg/dL (70-110)
[2025-03-22 05:43] LABS: Glucose,Whole Blood 188 mg/dL (70-110)
--- NOTE | 2025-03-22 09:16 | P.PN ---
Subjective Progress Note Date: 03/22/25 No acute events. Tolerating tube feeding and medication insertion through G- tube Objective - Vital Signs Vital signs: Vital Signs Temp 97.7 F 03/22/25 01:50 Pulse 70 03/22/25 09:01 Resp 14 03/22/25 01:50 BP 155/84 03/22/25 01:50 Pulse Ox 98 03/22/25 01:50 FiO2 Intake & Output 03/21/25 03/22/25 03/22/25 18:59 06:59 18:59 Intake Total 740 Output Total 900 Balance -160 Weight 101.14 kg Intake: Intake, IV Titration 100 Amount Meropenem 1 gm In Sodium 100 Chloride 0.9% 100 ml @ 33 .3 mls/hr IVPB Q8HR [facility] Rx#:[id number] Tube Feeding 540 Other 100 Output: Urine 900 Other: Voiding Method External Catheter External Catheter External Catheter - Constitutional General appearance: Present: cooperative - Gastrointestinal Gastrointestinal Comment(s): Soft, nontender, feeding tube in place - Labs CBC & Chem 7: 03/17/25 02:59 03/17/25 02:59 Labs: Abnormal Lab Results - Last 24 Hours (Table) 03/21/25 03/21/25 03/22/25 Range/Units 11:59 16:53 00:13 POC Glucose (mg/dL) 253 H 255 H 222 H (70-110) mg/dL 03/22/25 Range/Units 05:42 POC Glucose (mg/dL) 188 H (70-110) mg/dL Microbiology - Last 24 Hours (Table) 03/17/25 14:12 Anaerobic Culture - Final Other - Other Assessment and Plan Plan: 1. Status post debridement of sacral decubitus ulcer with pulse irrigation. Continue local wound care based on wound care team recommendations. 2. Patient is currently receiving tube feeding through gastric portion of GJ tube. Tolerating meds through the gastric portion of this tube as well. Continue use. I would recommend IR consultation for GJ tube replacement under fluoroscopy. Medication and nutrition recommendations per medicine team.
[2025-03-22 11:32] LABS: Glucose,Whole Blood 300 mg/dL (70-110)
--- NOTE | 2025-03-22 15:53 | P.PN ---
Subjective Progress Note Date: 03/22/25 Principal diagnosis: Reason for follow-up is infected sacral pressure ulcer Patient is a 74-year-old female with a past medical history significant for CVA TIA history of recurrent UTI and alf resident patient has been brought to the hospital after apparently having a problem with the PEG tube, noted to have a sacral pressure ulcer with purulent drainage pro mpting this consultation patient is status post surgical debridement of the sacral ulcer by general surgery on 03/17/2025. On today's evaluation that is 03/22/2025, Patient is afebrile patient is curren tly on room air and breathing comfortably patient is awake but not a very good historian no vomiting diarrhea or change reported by the nursing staff. No new lab has been read today Objective - Vital Signs Vital signs: Vital Signs Temp 94.7 F L 03/22/25 13:19 Pulse 64 03/22/25 15:27 Resp 15 03/22/25 13:19 BP 134/75 03/22/25 13:19 Pulse Ox 98 03/22/25 13:19 FiO2 Intake & Output 03/21/25 03/22/25 03/22/25 18:59 06:59 18:59 Intake Total 740 Output Total 900 900 Balance -160 -900 Weight 101.14 kg Intake: Intake, IV Titration 100 Amount Meropenem 1 gm In Sodium 100 Chloride 0.9% 100 ml @ 33 .3 mls/hr IVPB Q8HR [facility] Rx#:[id number] Tube Feeding 540 Other 100 Output: Urine 900 900 Other: Voiding Method External Catheter External Catheter External Catheter - Exam GENERAL DESCRIPTION: An elderly female lying in bed in no distress RESPIRATORY SYSTEM: Unlabored breathing , decreased breath sounds at bases HEART: S1 S2 regular rate and rhythm , ABDOMEN: Soft , no tenderness EXTREMITIES: No edema feet - Labs CBC & Chem 7: 03/17/25 02:59 03/17/25 02:59 Labs: Abnormal Lab Results - Last 24 Hours (Table) 03/21/25 03/22/25 03/22/25 Range/Units 16:53 00:13 05:42 POC Glucose (mg/dL) 255 H 222 H 188 H (70-110) mg/dL 03/22/25 Range/Units 11:31 POC Glucose (mg/dL) 300 H (70-110) mg/dL Microbiology - Last 24 Hours (Table) 03/17/25 14:12 Anaerobic Culture - Final Other - Other Assessment and Plan (1) Abscess of sacrum Current Visit: Yes Status: Acute Code(s): M46.28 - OSTEOMYELITIS OF VERTEBRA, SACRAL AND SACROCOCCYGEAL REGION SNOMED Code(s): 691151324 (2) Sepsis Current Visit: Yes Status: Acute Code(s): A41.9 - SEPSIS, UNSPECIFIED ORGANISM SNOMED Code(s): 09694169 (3) Stage 4 skin ulcer of sacral region Current Visit: Yes Status: Acute Code(s): L98.429 - NON-PRESSURE CHRONIC ULCER OF BACK WITH UNSPECIFIED SEVERITY SNOMED Code(s): 90944119 (4) UTI (urinary tract infection) Current Visit: Yes Status: Acute Code(s): N39.0 - URINARY TRACT INFECTION, SITE NOT SPECIFIED SNOMED Code(s): 33816704 Plan: 1patient is in the hospital with sepsis in this patient who did have fever tachycardia elevated white count source likely stage IV infected sacral pressure ulcer with significant amount of purulent drainage noticed on current examination and will need to cover for the polymicrobial jhonatan including enteric gram-negative pathogen. 2patient also have a positive urine culture with ESBL Klebsiella and patient is status post I&D of the sacral wound and deep cultures that has been completed on 03/17/2025 and those cultures are currently growing Drug-resistant Klebsiella and Streptococcus agalactiae with initial sacral wound culture did grew nitrate resistant Klebsiella that was resistant to Zosyn as well as cefepime sensitive to ertapenem 3patient to continue with meropenem however can be transitioned to Invanz 1 g daily on discharge to the alf and monitor clinical course closely Dictation was produced using [employer] software. please excuse any grammatical, word or spelling errors. Time with Patient: Less than 30
--- NOTE | 2025-03-22 16:37 | P.PN ---
Progress Note - Text Progress Note Date: 03/22/25 Chief Complaint: Trouble with PEG tube 74-year-old patient, came in from [facility] being followed by Dr. Sabillon. Earlier in the year she was admitted at [facility] for a stroke resulting in right-sided paresis including dysphagia and dysphagia. She was sent to the ER when they try to give her PEG tube feeding she started complain abdominal pain. And that staff noted the abdomen was a bit distended. And hence EMS was called out. On my questioning patient does not complain of any pain. Nurse was able to give some medications through the same. Patient is nonambulatory. Patient found to have a fever of 101.1 in the ER. With leukocytosis. Was found to have rather infected appearing urine. March 14: Patient been tolerating tube feeding Glucerna 1.5 bolus feeding. Spoke earlier to nurse Vandana to look at the sacral wound. She did obtain quite a bit of pus. Dr. Wood from surgery will be informed will probably need deeper I&D. Will send out wound cultures. Patient currently on IV Zosyn. March 15: Tolerating tube feeding. Glucerna. No surgical intervention per surgery. Urine culture growing gram-negative bacilli. Wound care team has been consulted March 16: Getting tube feedings. Patient seen by Dr. Witt from surgery. Patient being scheduled for debridement of decubitus ulcer in the OR tomorrow. Patient is comfortable otherwise. Also seen by the wound care team. Multiple organisms from the wound. Antibiotics switched to IV meropenem. ID following March 17: Saw the patient this morning. Tube feeding was held for debridement of the infected sacral decubitus wound. Purulent drainage was noted. Portion of skin was excised. Pulse irrigation was carried out. Iodoform packing was done. By Dr.S Wood March 18: Resting in bed. Comfortable. Getting tube feeding. Wound care team following. Patient remains on IV meropenem. Accu-Cheks running on the higher side. Increase Lantus to 36 units March 19: Resting in bed. Getting TPN. On IV meropenem. PICC line ordered by ID for 6 weeks of antibiotics. Local wound care per wound care team to continue. Accu-Cheks running on the higher side still. Increase Lantus to 42 units. March 20: Tolerating tube feeding. PICC line obtained. Will get 6 weeks of IV meropenem. Labs ordered by Dr. Godfrey. Wound care to continue. Nurse called me that the G-tube portion of the GJ tube blocked. Surgery tried to put [employer] inside. t. Now discharge held. Because tube feeding is held. Lantus cut back to 18 units March 21: Patient tolerating tube feeding through the G-tube. The G-tube portion is nonfunctional. This will have to be changed by interventional radiology. And they do not do it here. March 22: Hide the nurse Crystal flush the G-tube again today with the water. It opened up. Flush with Coke following that. Is functioning. Will discharge patient to [facility] tomorrow. Active Medications Acetaminophen (Acetaminophen Tab 325 Mg Tab) 650 mg PO Q6HR PRN PRN Reason: Mild Pain or Fever > 100.5 Hydrocodone Bitart/Acetaminophen (Hydrocodone/Apap 5-325mg 1 Each Tab) 1 each PO Q4HR PRN PRN Reason: Moderate Pain (Scale 4 to 6) Albuterol/Ipratropium (Ipratropium-Albuterol 3 Ml Neb) 3 ml INHALATION RT-TID [facility] Last Admin: 03/22/25 15:22 Dose: 3 ml Amantadine HCl (Amantadine Hcl 100 Mg/10 Ml Cup) 100 mg PEG/G-TUBE BID@799,1999 [facility] Last Admin: 03/22/25 08:34 Dose: 100 mg Amlodipine Besylate (Amlodipine 5 Mg Tab) 5 mg PEG/G-TUBE DAILY@0800 [facility] Last Admin: 03/22/25 08:33 Dose: 5 mg Aspirin (Aspirin 81 Mg) 81 mg PEG/G-TUBE DAILY@0800 [facility] Last Admin: 03/22/25 08:33 Dose: 81 mg Atorvastatin Calcium (Atorvastatin 40 Mg Tab) 40 mg PEG/G-TUBE HS@1999 [facility] Last Admin: 03/20/25 20:35 Dose: 40 mg Chlorhexidine Gluconate (Chlorhexidine Gluconate 15 Ml Cup) 5 ml MUCOUS MEM BID [facility] Last Admin: 03/22/25 08:34 Dose: 5 ml Clonidine HCl (Clonidine 0.2 Mg/24hr Patch) 1 patch TRANSDERM Q7D [facility] Last Admin: 03/20/25 19:55 Dose: 1 patch Dextrose/Water (Dextrose 50% Syringe 50 Ml) 25 ml IVP PER PROTOCOL PRN; Protocol PRN Reason: Hypoglycemia Last Admin: 03/14/25 16:45 Dose: 25 ml Dextrose/Water (Dextrose 50% Syringe 50 Ml) 50 ml IVP PER PROTOCOL PRN; Protocol PRN Reason: Hypoglycemia Enoxaparin Sodium (Enoxaparin 40 Mg/0.4 Ml Syringe) 40 mg SQ DAILY [facility] Last Admin: 03/22/25 08:33 Dose: 40 mg Fenofibrate (Fenofibrate 160 Mg Tab) 160 mg PEG/G-TUBE DAILY@0800 [facility] Last Admin: 03/22/25 08:33 Dose: 160 mg Meropenem 1 gm/ Sodium (Chloride) 100 mls @ 33.3 mls/hr IVPB Q8HR [facility]; Protocol Last Admin: 03/22/25 08:33 Dose: 33.3 mls/hr Insulin Glargine (Insulin Glargine (Lantus) 100 Unit/Ml Syr) 26 unit SQ HS [facility] Last Admin: 03/21/25 21:43 Dose: 26 unit Insulin Human Lispro (Insulin Lispro (Humalog) 100 Unit/Ml 10 Ml Vl) 0 unit SQ Q6HR [facility]; Protocol Last Admin: 03/22/25 12:03 Dose: 6 unit Lisinopril (Lisinopril 20 Mg Tab) 40 mg PEG/G-TUBE DAILY@0800 [facility] Last Admin: 03/22/25 08:33 Dose: 40 mg Loperamide HCl (Loperamide 2 Mg Cap) 2 mg PO Q12H PRN PRN Reason: loose stools Last Admin: 03/15/25 12:31 Dose: 2 mg Naloxone HCl (Naloxone 0.4 Mg/Ml 1 Ml Vial) 0.2 mg IV Q2M PRN PRN Reason: Opioid Reversal Non-Formulary Medication (Bromocriptine Mesylate [Bromocriptine Mesylate]) 2.5 mg PEG/G-TUBE TID@0500,1300,2100 [facility] Last Admin: 03/22/25 14:16 Dose: 2.5 mg Ondansetron HCl (Ondansetron 4 Mg/2 Ml Vial) 4 mg IVP Q8HR PRN PRN Reason: Nausea And Vomiting Propranolol HCl (Propranolol 10 Mg Tab) 10 mg PEG/G-TUBE TID@0500,1300,2100 [facility] Last Admin: 03/22/25 14:16 Dose: 10 mg Valproic Acid (Valproic Acid Oral Soln 250 Mg/5 Ml Cup) 250 mg PEG/G-TUBE BID [facility] Last Admin: 03/22/25 08:34 Dose: 250 mg Social history: Currently at [facility]. Physical examination: VITAL SIGNS: 97.4, 60, 15, 134 x 75, 98% room air GENERAL: BMI 28.2, in bed, comfortable EYES: Pupils equal. Conjunctiva richard l. HEENT: External appearance of nose and ears normal, oral cavity grossly normal. NECK: JVD unable to assess; masses not palpable. HEART: First and second heart sounds are normal; no edema. LUNGS: Respiratory rate normal; clear to auscultation. ABDOMEN: Soft, mild distention nontender, liver spleen not palpable, no masses palpable. No guarding rigidity. No mass palpable. PEG tube site appears okay PSYCH: Patient severely dysarthric. Able to answer some questions slowly l. MUSCULOSKELETAL:No Clubbing/cyanosis;muscles-grossly intact. Sacral and left buttock decubitus wound.-Status post debridement NEUROLOGICAL: Facial asymmetry. Dysarthria. Power of the right arm 0/5. Right leg 1-2/5. INVESTIGATIONS, reviewed in the clinical context: March 17: White count 1.7 hemoglobin 9.3 platelets 536 potassium 4.1 creatinine 0.5 Wound cultures: Multiple organisms March 13, 2025: White count 22.2 hemoglobin 9.2 platelets 367 sodium 129 potassium 4.8 BUN 25 creatinine 0.51 AST 45 ALT 41 alkaline phosphatase 206 UA: Positive for blood, nitrite, leukoesterase, WBC, RBC Chest x-ray film personally reviewed by me-questionable left basilar infiltrate CT abdomen pelvis: Chronic pancreatic changes. PEG tube in position. Gallstones. Indeterminate lesion in the right liver dome possibly increased from December 20, 2024. Abscess fluid tracking along the sacrum measuring 6.7 x 2.2 x 7.5 cm stranding and inflammation surrounding this area of phlegmonous change and subcutaneous gas. Assessment and plan: -Sepsis from infected sacral decubitus ulcer with abscess and UTI with cystitis better IV fluids. IV meropenem-for 6 weeks -Acute UTI with cystitis, with cultures positive for Klebsiella oxytoca ESBL MDRO, Proteus mirabilis IV meropenem - PEG tube malfunction due to J-tube portion not functioning.: Corrected G-tube was flushed with water and coke today. It is functioning again. 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 Nonambulatory - Chronic dysarthria from stroke - Chronic dysphagia from stroke. PEG tube feeding with Glucerna 1.5. Dietitian following -Sacral decubitus abscess fluid tracking along the sacral measuring 6.7 x 2.2 x 7.5 cm fat stranding and inflammation surrounding the area of phlegmonous change. This drained quite a bit of pus . Cultures growing multiple organisms Cultures polymicrobial I&D and debridement of the wound by Dr. Wood today on February 15. Iodoform packing ID following IV meropenem-6 weeks - Diabetes mellitus type 2, chronically insulin Follow Accu-Cheks. Tube feeding-Glucerna. Increased Lantus to 26units subcu nightly - Essential hypertension Amlodipine. - Hyperlipidemia Lipitor Continue current meds. Discharge to [facility] tomorrow Past Medical History Past Medical History: CVA/TIA Additional Past Medical History / Comment(s): Lactic acidosis, acute respiratory failure, dysphagia, right sided weakness History of Any Multi-Drug Resistant Organisms: VRE Date of last positivie culture/infection: 12/23/24 MDRO Source:: urine Past Surgical History: Unable to Obtain Additional Past Surgical History / Comment(s): tubal ligation Past Anesthesia/Blood Transfusion Reactions: No Reported Reaction Past Psychological History: Unable to Obtain Smoking Status: Former smoker Past Alcohol Use History: None Reported Past Drug Use History: None Reported
[2025-03-22 17:10] LABS: Glucose,Whole Blood 275 mg/dL (70-110)
[2025-03-22 23:42] LABS: Glucose,Whole Blood 260 mg/dL (70-110)
[2025-03-23 05:50] LABS: Glucose,Whole Blood 282 mg/dL (70-110)
[2025-03-23 11:29] LABS: Glucose,Whole Blood 324 mg/dL (70-110)
--- NOTE | 2025-03-23 12:16 | P.PN ---
Subjective Progress Note Date: 03/23/25 SURGICAL PROGRESS NOTE CHIEF COMPLAINT: Sacral decubitus ulcer HISTORY OF PRESENT ILLNESS: Patient is status postdebridement of sacral decubitus ulcer. She has been receiving local wound care. She is lying in bed comfortably. GJ tube is functioning appropriately. Tube feeds are at 45 mL/h. Patient denies any abdominal pain. Afebrile. Patient scheduled for discharge to [facility] today. PHYSICAL EXAM: VITAL SIGNS: Reviewed. GENERAL: in no acute distress. ABDOMEN: Soft. Nondistended. Nontender. Feeding tube site clean dry and intact ASSESSMENT: 1. Sacral decubitus ulcer status postdebridement 2. GJ feeding tube functioning appropriately PLAN: - Patient can be discharged from surgical standpoint - Continue local wound care - Antibiotics per ID service - Continue tube feeds Physician [employer] note has been reviewed by physician. Signing provider agrees with the documented findings, assessment, and plan of care. Objective - Vital Signs Vital signs: Vital Signs Temp 97.5 F L 03/23/25 06:52 Pulse 60 03/23/25 09:25 Resp 16 03/23/25 08:00 BP 109/72 03/23/25 06:52 Pulse Ox 96 03/23/25 06:52 FiO2 Intake & Output 03/22/25 03/23/25 03/23/25 18:59 06:59 18:59 Output Total 900 Balance -900 Weight 101.4 kg Output: Urine 900 Other: Voiding Method External Catheter External Catheter - Labs CBC & Chem 7: 03/17/25 02:59 03/17/25 02:59 Labs: Abnormal Lab Results - Last 24 Hours (Table) 03/22/25 03/22/25 03/23/25 Range/Units 17:08 23:40 05:49 POC Glucose (mg/dL) 275 H 260 H 282 H (70-110) mg/dL 03/23/25 Range/Units 11:27 POC Glucose (mg/dL) 324 H (70-110) mg/dL
--- NOTE | 2025-03-23 12:57 | P.DS ---
Providers Date of admission: 03/13/25 10:47 Expected date of discharge: 03/23/25 Attending physician: Mynor Brennan Consults: 03/13/25 08:51 Consult Physician Urgent Consulting Provider: Karine Wood Consult Reason/Comments: Proctitis and sacral abscess Do you want consulting provider notified?: Yes 03/16/25 11:12 Consult Physician Routine Consulting Provider: Estrella Allison Consult Reason/Comments: pos cultures Do you want consulting provider notified?: Yes [facility] Course: Chief Complaint: Trouble with PEG tube 74-year-old patient, came in from [facility] being followed by Dr. Sabillon. Earlier in the year she was admitted at [facility] for a stroke resulting in right-sided paresis including dysphagia and dysphagia. She was sent to the ER when they try to give her PEG tube feeding she started complain abdominal pain. And that staff noted the abdomen was a bit distended. And hence EMS was called out. On my questioning patient does not complain of any pain. Nurse was able to give some medications through the same. Patient is nonambulatory. Patient found to have a fever of 101.1 in the ER. With leukocytosis. Was found to have rather infected appearing urine. March 14: Patient been tolerating tube feeding Glucerna 1.5 bolus feeding. Spoke earlier to nurse Ross to look at the sacral wound. She did obtain quite a bit of pus. Dr. Wood from surgery will be informed will probably need deeper I&D. Will send out wound cultures. Patient currently on IV Zosyn. March 15: Tolerating tube feeding. Glucerna. No surgical intervention per surgery. Urine culture growing gram-negative bacilli. Wound care team has been consulted March 16: Getting tube feedings. Patient seen by Dr. Witt from surgery. Patient being scheduled for debridement of decubitus ulcer in the OR tomorrow. Patient is comfortable otherwise. Also seen by the wound care team. Multiple organisms from the wound. Antibiotics switched to IV meropenem. ID following March 17: Saw the patient this morning. Tube feeding was held for debridement of the infected sacral decubitus wound. Purulent drainage was noted. Portion of skin was excised. Pulse irrigation was carried out. Iodoform packing was done. By Dr.S Wood March 18: Resting in bed. Comfortable. Getting tube feeding. Wound care team following. Patient remains on IV meropenem. Accu-Cheks running on the higher side. Increase Lantus to 36 units March 19: Resting in bed. Getting TPN. On IV meropenem. PICC line ordered by ID for 6 weeks of antibiotics. Local wound care per wound care team to continue. Accu-Cheks running on the higher side still. Increase Lantus to 42 units. March 20: Tolerating tube feeding. PICC line obtained. Will get 6 weeks of IV meropenem. Labs ordered by Dr. Godfrey. Wound care to continue. Nurse called me that the G-tube portion of the GJ tube blocked. Surgery tried to put [employer] inside. t. Now discharge held. Because tube feeding is held. Lantus cut back to 18 units March 21: Patient tolerating tube feeding through the G-tube. The G-tube portion is nonfunctional. This will have to be changed by interventional radiology. And they do not do it here. March 22: Hide the nurse Crystal flush the G-tube again today with the water. It opened up. Flush with Coke following that. Is functioning. Will discharge patient to ECF tomorrow. March 23: Tolerating PEG tube feeding well. Getting antibiotics. Will complete a course of antibiotics per ID. Discharge to ECF today. Social history: Currently at [facility]. Physical examination: VITAL SIGNS: 97.5, 58, 18, 109 x 72, 96% room air GENERAL: BMI 28.2, in bed, comfortable EYES: Pupils equal. Conjunctiva richard l. HEENT: External appearance of nose and ears normal, oral cavity grossly normal. NECK: JVD unable to assess; masses not palpable. HEART: First and second heart sounds are normal; no edema. LUNGS: Respiratory rate normal; clear to auscultation. ABDOMEN: Soft, mild distention nontender, liver spleen not palpable, no masses palpable. No guarding rigidity. No mass palpable. PEG tube site appears okay PSYCH: Patient severely dysarthric. Able to answer some questions slowly l. MUSCULOSKELETAL:No Clubbing/cyanosis;muscles-grossly intact. Sacral and left buttock decubitus wound.-Status post debridement NEUROLOGICAL: Facial asymmetry. Dysarthria. Power of the right arm 0/5. Right leg 1-2/5. INVESTIGATIONS, reviewed in the clinical context: March 17: White count 1.7 hemoglobin 9.3 platelets 536 potassium 4.1 creatinine 0.5 Wound cultures: Multiple organisms March 13, 2025: White count 22.2 hemoglobin 9.2 platelets 367 sodium 129 potassium 4.8 BUN 25 creatinine 0.51 AST 45 ALT 41 alkaline phosphatase 206 UA: Positive for blood, nitrite, leukoesterase, WBC, RBC Chest x-ray film personally reviewed by me-questionable left basilar infiltrate CT abdomen pelvis: Chronic pancreatic changes. PEG tube in position. Gallstones. Indeterminate lesion in the right liver dome possibly increased from December 20, 2024. Abscess fluid tracking along the sacrum measuring 6.7 x 2.2 x 7.5 cm stranding and inflammation surrounding this area of phlegmonous change and subcutaneous gas. Assessment and plan: -Sepsis from infected sacral decubitus ulcer with abscess and UTI with cystitis better IV fluids. IV meropenem-for 6 weeks -Acute UTI with cystitis, with cultures positive for Klebsiella oxytoca ESBL MDRO, Proteus mirabilis IV meropenem - PEG tube malfunction due to J-tube portion not functioning.: Corrected G-tube was flushed with water and coke-it is functioning again. 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 Nonambulatory - Chronic dysarthria from stroke - Chronic dysphagia from stroke. PEG tube feeding with Glucerna 1.5. Dietitian following -Sacral decubitus abscess fluid tracking along the sacral measuring 6.7 x 2.2 x 7.5 cm fat stranding and inflammation surrounding the area of phlegmonous change. This drained quite a bit of pus . Cultures growing multiple organisms Cultures polymicrobial I&D and debridement of the wound by Dr. Wood-on February 15. Iodoform packing ID following IV meropenem-6 weeks - Diabetes mellitus type 2, chronically insulin Follow Accu-Cheks. Tube feeding-Glucerna. Increased Lantus to 34units subcu nightly - Essential hypertension Amlodipine. - Hyperlipidemia Lipitor Disposition: [facility] Past Medical History Past Medical History: CVA/TIA Additional Past Medical History / Comment(s): Lactic acidosis, acute respiratory failure, dysphagia, right sided weakness History of Any Multi-Drug Resistant Organisms: VRE Date of last positivie culture/infection: 12/23/24 MDRO Source:: urine Past Surgical History: Unable to Obtain Additional Past Surgical History / Comment(s): tubal ligation Past Anesthesia/Blood Transfusion Reactions: No Reported Reaction Past Psychological History: Unable to Obtain Smoking Status: Former smoker Past Alcohol Use History: None Reported Past Drug Use History: None Reported Plan - Discharge Summary Discharge Rx Participant: No New Discharge Prescriptions: New Ertapenem [INVanz] 1 gm IVPB Q24H #40 each Continue INSULIN LISPRO (HumaLOG) [HumaLOG] See Protocol SQ TID@0500,1300,2100 Valproic Acid Oral Soln [Depakene Syrup] 250 mg PEG/G-TUBE BID Chlorhexidine Gluconate [Periogard] 5 ml MUCOUS MEM BID Loperamide [Imodium] 2 mg PO Q12H PRN PRN Reason: loose stools bisacodyL [Dulcolax] 10 mg RECTAL Q24H PRN PRN Reason: Constipation Acetaminophen [Children's Tylenol] 640 mg PEG/G-TUBE Q6HR PRN PRN Reason: Pain lisinopriL [Zestril] 40 mg PEG/G-TUBE DAILY@0800 amLODIPine [Norvasc] 5 mg PEG/G-TUBE DAILY@0800 Fenofibrate 160 mg PEG/G-TUBE DAILY@0800 Bromocriptine Mesylate 2.5 mg PEG/G-TUBE TID@0500,1300,2100 Atorvastatin [Lipitor] 40 mg PEG/G-TUBE HS@2000 Aspirin 81 mg PEG/G-TUBE DAILY@0800 amantadine HCL 100 mg PEG/G-TUBE BID@0800,2000 Ipratropium-Albuterol Nebulize [Duoneb 0.5 mg-3 mg/3 ml Soln] 3 ml INHALATION RT-TID@,, Glucagon Emergency Kit 1 mg IM ONCE PRN PRN Reason: BS <60 Changed Insulin Glargine (Lantus) [Lantus Vial] 30 unit SQ HS #0 Discontinued Propranolol [Inderal] 10 mg PEG/G-TUBE TID@0500,1300,2100 Cholestyramine (with Sugar) [Cholestyramine Packet] 4 gm PEG/G-TUBE BID Insulin Glargine (Lantus) [Lantus Vial] 40 unit SQ DAILY INSULIN LISPRO (HumaLOG) [HumaLOG] 10 unit SQ TID@0500,1300,2099 Docusate Oral Soln [Colace Oral Soln] 100 mg PO Q12H PRN PRN Reason: Constipation Discharge Medication List Aspirin 81 mg PEG/G-TUBE DAILY@79912/19/24 [History] Atorvastatin [Lipitor] 40 mg PEG/G-TUBE HS@199912/19/24 [History] Bromocriptine Mesylate 2.5 mg PEG/G-TUBE TID@0500,1300,209912/19/24 [History] Fenofibrate 160 mg PEG/G-TUBE DAILY@79912/19/24 [History] INSULIN LISPRO (HumaLOG) [HumaLOG] See Protocol SQ TID@0500,1300,209912/19/24 [History] Valproic Acid Oral Soln [Depakene Syrup] 250 mg PEG/G-TUBE BID 12/19/24 [History] amLODIPine [Norvasc] 5 mg PEG/G-TUBE DAILY@79912/19/24 [History] amantadine HCL 100 mg PEG/G-TUBE BID@799,199912/19/24 [History] lisinopriL [Zestril] 40 mg PEG/G-TUBE DAILY@79912/19/24 [History] Acetaminophen [Children's Tylenol] 640 mg PEG/G-TUBE Q6HR PRN 03/13/25 [History] Chlorhexidine Gluconate [Periogard] 5 ml MUCOUS MEM BID 03/13/25 [History] Glucagon Emergency Kit 1 mg IM ONCE PRN 03/13/25 [History] Ipratropium-Albuterol Nebulize [Duoneb 0.5 mg-3 mg/3 ml Soln] 3 ml INHALATION RT-TID@05,13,21 03/13/25 [History] Loperamide [Imodium] 2 mg PO Q12H PRN 03/13/25 [History] bisacodyL [Dulcolax] 10 mg RECTAL Q24H PRN 03/13/25 [History] Ertapenem [INVanz] 1 gm IVPB Q24H #40 each 03/21/25 [Rx] Insulin Glargine (Lantus) [Lantus Vial] 30 unit SQ HS #0 03/23/25 [Rx] Follow up Appointment(s)/Referral(s): Clementina Collins DO [REFERRING] [facility] - As Needed Estrella Allison MD [STAFF PHYSICIAN] - 1 Week (Office is not answering at time of discharge. Please call for follow-up appointment.) Ambulatory/Diagnostic Orders: Basic Metabolic Panel [LAB.AMB] Location: None Selected C Reactive Protein [LAB.AMB] Location: None Selected Complete Blood Count w/diff [LAB.AMB] Location: None Selected Erythrocyte Sedimentation Rate [LAB.AMB] Location: None Selected Activity/Diet/Wound Care/Special Instructions: DC antibiotics per Dr. Allison Wound care orders by wound care team
[2025-03-23 14:58] VITALS: BP 131/70; PULSE 63; RESP 18; TEMP 97.4
--- NOTE | 2025-03-25 19:41 | CDI ---
Documentation Clarification Form Date: 03/25/2025 07:30:29 PM From: Leslie Finney Phone: Admit Date: 03/13/2025 10:47:00 AM Patient Name: Duyen Eaton Visit Number: [id number] Discharge Date: 03/23/2025 03:38:00 PM ATTENTION: The Clinical Documentation Specialists (CDI) and [facility] Coding Staff appreciate your assistance in clarifying documentation. Please respond to the clarification below the line at the bottom and electronically sign. The CDI & [facility] Coding staff will review the response and follow-up if needed. Please note: Queries are made part of the Legal Health Record. If you have any questions, please contact the author of this message via ITS. Doctor/Provider: Mynor Brennan A debridement is documented on the Stage IV pressure ulcer of sacrum. Unfortunately, some required elements have not been documented. Additional clarification regarding the procedure is requested. History/Risk Factors: 74yo F, Stg IV pressure ulcer of sacrum, Stg II pressure ulcer left buttocks, sepsis, Hx CVA w residuals, IDDMII, Klebsiella oxytoca ESBL MDRO, Proteus mirabilis, HTN, HLD, Acute UTI with cystitis, PEG malfunction Clinical Indicators: Purulent andinfectedsacral decubitus ulcer, measuring 10 x 5 x 3 cm Treatment: Thewound was debridedusing sharpexcisional debridement with a 15 blade scalpel. 1.5 L of pulseirrigationwasplacedthroughout the woundand suction. The bed of thewoundwas noted to have differentspots of bleedingand appeared to have somegranulation tissue. Incision was thenpacked with iodoformpacking. Patient was awakened in the operative suite and taken to post anesthesia care in stable condition. Please clarify the procedure performed: Sharpexcisional debridement with scalpel Nature of the tissue removed Depth of debridement [ ] Other; please specify Dr. Brennan Five elements required for accurate and compliant documentation of a debridement: -Technique used (e.g., excisional, excised, cutting, brushing, jet lavage etc.) -Instrument(s) used (e.g., scalpel, curette, etc.) -Nature of the tissue removed (e.g., necrotic, devitalized tissues, non-viable tissue, etc.) -Appearance and size of the wound (e.g., down to fresh bleeding tissue, 7cm x 10cm, etc.) -Depth of the debridement* (e.g., skin, subcutaneous tissue, fascia, muscle, bone, etc.) (Template Last Revised: May 2024) MTDD
--- NOTE | 2025-03-26 09:14 | P.PN ---
Subjective Progress Note Date: 03/23/25 Principal diagnosis: Reason for follow-up is infected sacral pressure ulcer Patient is a 74-year-old female with a past medical history significant for CVA TIA history of recurrent UTI and prison resident patient has been brought to the hospital after apparently having a problem with the PEG tube, noted to have a sacral pressure ulcer with purulent drainage pro mpting this consultation patient is status post surgical debridement of the sacral ulcer by general surgery on 03/17/2025. On today's evaluation that is 03/23/2025, patient has been afebrile, patient is breathing comfortably and is currently on room air, patient is awake but nonverbal did not answer any question no vomiting or diarrhea has been reported the PEG tube is functioning as reported by the nursing staff. No new lab has been obtained today Objective - Vital Signs Vital signs: Vital Signs Temp 97.4 F L 03/23/25 14:37 Pulse 63 03/23/25 14:37 Resp 18 03/23/25 14:37 BP 131/70 03/23/25 14:37 Pulse Ox 98 03/23/25 14:37 FiO2 Intake & Output 03/22/25 03/23/25 03/23/25 18:59 06:59 18:59 Output Total 900 Balance -900 Weight 101.4 kg Output: Urine 900 Other: Voiding Method External Catheter External Catheter - Exam GENERAL DESCRIPTION: An elderly female lying in bed in no distress RESPIRATORY SYSTEM: Unlabored breathing , decreased breath sounds at bases HEART: S1 S2 regular rate and rhythm , ABDOMEN: Soft , no tenderness EXTREMITIES: No edema feet - Labs CBC & Chem 7: 03/17/25 02:59 03/17/25 02:59 Labs: Abnormal Lab Results - Last 24 Hours (Table) 03/22/25 03/22/25 03/23/25 Range/Units 17:08 23:40 05:49 POC Glucose (mg/dL) 275 H 260 H 282 H (70-110) mg/dL 03/23/25 Range/Units 11:27 POC Glucose (mg/dL) 324 H (70-110) mg/dL Assessment and Plan (1) Abscess of sacrum Status: Acute Code(s): M46.28 - OSTEOMYELITIS OF VERTEBRA, SACRAL AND SACROCOCCYGEAL REGION SNOMED Code(s): 951633747 (2) Sepsis Status: Acute Code(s): A41.9 - SEPSIS, UNSPECIFIED ORGANISM SNOMED Code(s): 07133350 (3) Stage 4 skin ulcer of sacral region Status: Acute Code(s): L98.429 - NON-PRESSURE CHRONIC ULCER OF BACK WITH UNSPECIFIED SEVERITY SNOMED Code(s): 45322917 (4) UTI (urinary tract infection) Status: Acute Code(s): N39.0 - URINARY TRACT INFECTION, SITE NOT SPECIFIED SNOMED Code(s): 32080437 Plan: 1patient is in the hospital with sepsis in this patient who did have fever tachycardia elevated white count source likely stage IV infected sacral pressure ulcer with significant amount of purulent drainage noticed on current examination and will need to cover for the polymicrobial jhonatan including enteric gram-negative pathogen. 2patient also have a positive urine culture with ESBL Klebsiella and patient is status post I&D of the sacral wound and deep cultures that has been completed on 03/17/2025 and those cultures are currently growing Drug-resistant Klebsiella and Streptococcus agalactiae with initial sacral wound culture did grew nitrate resistant Klebsiella that was resistant to Zosyn as well as cefepime sensitive to ertapenem 3patient will finish therapy with Invanz 1 g daily on discharge total of 6 weeks and close outpatient follow-up Dictation was produced using [employer] dictation software. please excuse any grammatical, word or spelling errors. Time with Patient: Less than 30
--- NOTE | 2025-03-30 17:49 | CDI ---
Documentation Clarification Form Date: 03/30/2025 05:45:26 PM From: Leslie Finney Phone: Admit Date: 03/13/2025 10:47:00 AM Patient Name: Duyen Love Visit Number: [id number] Discharge Date: 03/23/2025 03:38:00 PM ATTENTION: The Clinical Documentation Specialists (CDI) and [facility] Coding Staff appreciate your assistance in clarifying documentation. Please respond to the clarification below the line at the bottom and electronically sign. The CDI & [facility] Coding staff will review the response and follow-up if needed. Please note: Queries are made part of the Legal Health Record. If you have any questions, please contact the author of this message via ITS. Doctor/Provider: Karine Young documented on theStage IV pressure ulcer of sacrum. Some required elements have not been documented. Additional clarification regarding the procedure is requested. History/Risk Factors: 74yo F,Stg IV pressure ulcerof sacrum,Stg II pressure ulcerleft buttocks,sepsis,Hx CVAw residuals, IDDMII,Klebsiellaoxytoca ESBL MDRO,Proteus mirabilis,HTN,HLD, AcuteUTIwithcystitis,PEG malfunction Clinical Indicators: Purulent andinfectedsacral decubitus ulcer, measuring 10 x 5 x 3 cm Treatment: Thewound was debridedusing sharpexcisional debridementwith a 15 blade scalpel.1.5 L of pulseirrigationwasplacedthroughout thewoundand suction. The bed of thewoundwas noted to have differentspots ofbleedingand appeared to have somegranulation tissue. Incision was thenpacked with iodoformpacking. Patient was awakened in the operative suite and taken to post anesthesia care in stable condition. Please clarify the procedure performed: Sharpexcisional debridementwith scalpel Dr. Wood Five elements required for accurate and compliant documentation of a debridement: -Technique used (e.g.,excisional,excised, cutting, brushing, jetlavageetc.) -Instrument(s) used (e.g., scalpel, curette, etc.) -Nature of the tissueremoved(e.g.,necrotic, devitalized tissues, non-viable tissue, etc.) -Appearance and size of thewound(e.g., down to freshbleedingtissue, 7cm x 10cm, etc.) -Depth of thedebridement* (e.g., skin, subcutaneous tissue, fascia, muscle, bone, etc.) (Template LastRevised: May 2024) MTDD
== END 2025-03-23 15:38 | DRG 871 ==
LOC: EC 06:02 → 4SSUR 10:47
PROVIDERS: ADMIT Hospitalist; ATTEND Hospitalist
PROC: 0HB6XZZ Excision of Back Skin, External Approach (ICD-10-PCS; 2025-03-17)
PROC: 3E0436Z Introduction of Nutritional Substance into Central Vein, Percutaneous Approach (ICD-10-PCS; 2025-03-19)
PROC: 02HV33Z Insertion of Infusion Device into Superior Vena Cava, Percutaneous Approach (ICD-10-PCS; principal; 2025-03-19 10:30)
DX: A41.50 Gram-negative sepsis, unspecified (principal); L89.154 Pressure ulcer of sacral region, stage 4; M46.28 Osteomyelitis of vertebra, sacral and sacrococcygeal region; L89.322 Pressure ulcer of left buttock, stage 2; I69.351 Hemiplegia and hemiparesis following cerebral infarction affecting right dominant side; I10 Essential (primary) hypertension; K94.23 Gastrostomy malfunction; Z16.24 Resistance to multiple antibiotics; Z79.4 Long term (current) use of insulin; I69.320 Aphasia following cerebral infarction; B96.1 Klebsiella pneumoniae [K. pneumoniae] as the cause of diseases classified elsewhere; I69.322 Dysarthria following cerebral infarction; I69.391 Dysphagia following cerebral infarction; N30.90 Cystitis, unspecified without hematuria; B96.4 Proteus (mirabilis) (morganii) as the cause of diseases classified elsewhere; B95.4 Other streptococcus as the cause of diseases classified elsewhere; B96.6 Bacteroides fragilis [B. fragilis] as the cause of diseases classified elsewhere; E78.5 Hyperlipidemia, unspecified; Z86.19 Personal history of other infectious and parasitic diseases; Z79.899 Other long term (current) drug therapy; Z79.82 Long term (current) use of aspirin; Z87.891 Personal history of nicotine dependence; Z87.440 Personal history of urinary (tract) infections; Y73.1 Therapeutic (nonsurgical) and rehabilitative gastroenterology and urology devices associated with adverse incidents
CPT/HCPCS: 36410; 36415; 71046; 74177; 76937; 80048; 80053; 81001; 83605; 84484; 85025; 85610; 85730; 87040; 87070; 87075; 87077; 87086; 87186; 87205; 93005; 94640; 96361; 96365; 96366; 96367; 96372; 96375; 99285